=== PATIENT | male | born 1965 | race Two or more races ===

== ENCOUNTER 2020-01-11 19:52 | Emergency (ER) | payer OTHER, SELFPAY ==
[2020-01-11 19:53] VITALS: BP 141/66; PULSE 70; RESP 16; TEMP 37.6; O2SAT 99; BMI 43.0
[2020-01-11 20:35] LABS: Basophils Percent Auto 0.4 % (0-2); Eosinophils Absolute Auto 0.2 X10*3/uL (0.0-0.4); Eosinophils Percent Auto 2.7 % (0-4); Hematocrit 40.8 % (42-52); Hemoglobin 12.8 g/dl (14.0-18.0); Imm Gran Abs Auto 0.02 X10*3/uL (0.00-0.03); Imm Gran Pct Auto 0.2 % (0.0-0.4); Lymphocytes Absolute Auto 2.1 X10*3/uL (1.2-4.9); MANUAL DIFF FLAG NO; Mean Corpuscular HGB Conc 31.4 g/dl (31.0-36.0); Mean Corpuscular Hemoglobin 26.9 pg (27.0-33.0); Mean Corpuscular Volume 85.9 fL (80-98); Mean Platelet Volume 10.1 fL (9.4-12.4); Monocytes Absolute Auto 0.6 X10*3/uL (0.1-1.2); Monocytes Percent Auto 7.8 % (2-11); Neutrophils Absolute Auto 5.2 X10*3/uL (2.0-8.3); Neutrophils Percent Auto 62.9 % (45-73); Platelet Count 259 X10*3/uL (160-400); Red Blood Count 4.75 X10*6/uL (4.60-5.80); Red Cell Distribution Width 13.6 % (11.0-16.0); White Blood Count 8.2 X10*3/uL (4.8-10.8)
[2020-01-11 21:03] LABS: Alanine Aminotransferase 36 U/L (0-40); Albumin Level 4.1 g/dL (3.5-5.0); Alkaline Phosphatase 74 U/L (39-117); Anion Gap 12 (12-20); Aspartate Amino Transferase 25 U/L (5-37); Bilirubin Direct < 0.2 mg/dL (0.0-0.5); Bilirubin Total 0.3 mg/dL (0.0-1.0); Blood Urea Nitrogen 22 mg/dL (9-16); Calcium 9.2 mg/dL (8.4-10.2); Carbon Dioxide 25 mmol/L (22-29); Chloride 113 mmol/L (96-108); Creatinine Clr Calc Pharmacy 83.4; Estimated Glomerular Filt Rate 53; Glucose Random 133 mg/dL (60-115); Lipase 43 U/L (8-78); Potassium 3.6 mmol/l (3.3-5.1); Sodium 146 mmol/L (135-145); Total Protein 6.7 g/dL (6.5-8.0)
[2020-01-11 22:00] VITALS: BP 122/62; PULSE 80; RESP 16; O2SAT 100
[2020-01-11 22:07] VITALS: O2SAT 100
--- NOTE | 2020-01-11 22:19 | ECG_ITS ---
Test Reason : DIARRHEA Blood Pressure : / mmHG Vent. Rate : 067 BPM Atrial Rate : 067 BPM P-R Int : 202 ms QRS Dur : 074 ms QT Int : 402 ms P-R-T Axes : 024 055 054 degrees QTc Int : 424 ms Normal sinus rhythm RSR' or QR pattern in V1 suggests right ventricular conduction delay Otherwise normal ECG When compared with ECG of 12-JUL-2015 18:38, No significant change was found Referred By: Nery Gimenez Electronically Signed By:YONATHAN PAYNE MD
--- NOTE | 2020-01-11 23:10 | ED.NAVMDI ---
HPI - Nausea/Vomiting/Diarrhea General Chief complaint: Nausea/Vomiting/Diarrhea Stated complaint: DIARRHEA Time Seen by Provider: 01/11/20 22:17 Source: patient Mode of arrival: ambulatory Limitations: no limitations History of Present Illness HPI Narrative: patient presents with 6 days of Watery, yellow diarrhea. Does not report any abdominal pain or distention, states the diarrhea occurs shortly after eating. He is an insulin-dependent diabetic and takes metformin. He has been able to eat and drink but states that he feels that he cannot drink enough because of his diarrhea. He does not report any diaphoresis, chest pain or pressure, palpitations, abdominal pain or distention, dysuria, hematuria, weakness, lightheadedness, dizziness, and fevers or chills. He does not report any sick contacts, or eating any foods that are new. He does not report any allergies. MD elicited complaint: nausea and diarrhea Onset (ago): day(s) ( Six days) Description of vomiting: none Associated nausea: Yes Associated abdominal pain: No Location of pain: none Severity: moderate Pain scale (0-10): 5 Associated symptoms: denies other symptoms Related Data Previous Rx's Medication Instructions Recorded ondansetron HCl [Zofran] 4 mg PO Q8H PRN #10 tab 01/12/20 Allergies Allergy/AdvReac Type Severity Reaction Status Date / Time SHELLFISH Allergy Intermediate SWELLING/HI Uncoded 12/17/19 15:20 VES Review of Systems Review of Systems: Constitutional: No Weight loss, No Fever, No Chills, No Night Sweats, No Fatigue, No Malaise ENT/Mouth: No Hearing loss, No Ear Pain, No Nasal Congestion, No Sinus Pain, No Hoarseness, No sore throat, No Rhinorrhea, No Swallowing Difficulty Eyes: No Eye Pain, No Swelling, No Redness, No Foreign Body, No Discharge, No Vision Changes Cardiovascular: No Chest Pain, No SOB, No Dyspnea on Exertion, No Orthopnea, No Edema, No Palpitations Respiratory: No Cough, No Sputum, No Wheezing, No Smoke Exposure, No Dyspnea Gastrointestinal: positive Diarrhea, No abdominal Pain, no nausea, no vomiting, No Hematochezia, No Melena Genitourinary: no irregular bleeding, No Dysuria, No Urinary Frequency, No Hematuria, No Urinary Incontinence, No Urgency, No Flank Pain, No Urinary Flow Changes, No Hesitancy Musculoskeletal: No joint pain, No Myalgias, No Joint Swelling Skin: No Skin Lesions, No rash Neuro: No Weakness, No Numbness, No Paresthesias, No Loss of Consciousness, No Dizziness, No Headache Psych: No Anxiety/Panic, No Depression, No SI/HI/AH/VH, No Social Issues, Heme/Lymph: No Bruising, No Bleeding,No Lymphadenopathy Endocrine: No Polyuria, No Polydipsia, No Temperature Intolerance Gastrointestinal: Gastrointestinal: Reports nausea PMFSH Past Medical History Attestation statement: The following information was validated with the patient. Medical History Asthma Diabetes mellitus, type 2 Hiatal hernia Social History Social History Alcohol intake: never Smoking Status: Never smoker Smoked in Last 30 Days: No Use of substances other than those prescribed or required for medical reasons: No Advance Directives: No Advance Directives Information Provided: Yes Physical Exam Vital Signs: Vital Signs: Vital Signs Temp Pulse Resp BP Pulse Ox 01/11/20 23:43 67 14 121/66 98 01/11/20 23:20 66 16 137/63 99 01/11/20 22:07 100 01/11/20 22:00 80 16 122/62 100 01/11/20 19:53 99.6 F 70 16 141/66 H 99 Body Mass Index 43.0 Appearance: Alert. Oriented X3. No acute distress. Eyes: Pupils equal, round and reactive to light. ENT: Pharynx normal. Neck: Normal inspection. Neck supple. CVS: Normal heart rate and rhythm. Pulses normal. Respiratory: No respiratory distress. Breath sounds normal. Abdomen: Soft and nontender. Skin: Skin warm and dry. Normal skin color. Normal skin turgor. Extremities: No lower extremity edema. Neuro: Oriented X 3. No motor deficit. No sensory deficit. Course Course Course Narrative: patient presents with 1 week history of diarrhea. We will order CBC, Chem 7, and EKG. BMP is abnormal with sodium of 146, and BUN of 22. This could possibly be due to high dehydration, we will order 1 L of fluid at this time. He does have mild anemia H&H is 12.8/40.8. discussion with patient regarding lab values and that he needs to follow-up with his primary care provider for anemia and dehydration. Diarrhea could be caused by metformin use. 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 Patient verbalized understanding of and agrees to plan of care to discharge home. MDM - Nausea/Vomiting/Diarrhea Differential Diagnosis Differential diagnosis: Likely traveler's diarrhea, gastroenteritis and dehydration Medical Records Attestation: I reviewed the patient's medical records. Lab Data Attestation: I reviewed the patient's lab results. Result diagrams: 01/11/20 20:30 01/11/20 20:30 Labs: Lab Results 01/11/20 01/11/20 01/11/20 Range/Units 20:30 20:30 23:11 WBC 8.2 (4.8-10.8) X10*3/uL RBC 4.75 (4.60-5.80) X10*6/uL Hgb 12.8 L (14.0-18.0) g/dl Hct 40.8 L (42-52) % MCV 85.9 (80-98) fL MCH 26.9 L (27.0-33.0) pg MCHC 31.4 (31.0-36.0) g/dl RDW 13.6 (11.0-16.0) % Plt Count 259 (160-400) X10*3/uL MPV 10.1 (9.4-12.4) fL Immature Gran % (Auto) 0.2 (0.0-0.4) % Neut % (Auto) 62.9 (45-73) % Lymph % (Auto) 26.0 (20-40) % [place] % (Auto) 7.8 (2-11) % Eos % (Auto) 2.7 (0-4) % Baso % (Auto) 0.4 (0-2) % Lymph # (Auto) 2.1 (1.2-4.9) X10*3/uL [place] # (Auto) 0.6 (0.1-1.2) X10*3/uL Eos # (Auto) 0.2 (0.0-0.4) X10*3/uL Baso # (Auto) 0.0 (0.0-0.2) X10*3/uL Abs Immat Gran (auto) 0.02 (0.00-0.03) X10*3/uL Absolute Neuts (auto) 5.2 (2.0-8.3) X10*3/uL Absolute Nucleated RBC 0.000 (0.0-0.012) X10*3/uL Nucleated RBC % (auto) 0.0 (0.0-0.2) /100WBC Sodium 146 H (135-145) mmol/L Potassium 3.6 (3.3-5.1) mmol/l Chloride 113 H (96-108) mmol/L Carbon Dioxide 25 (22-29) mmol/L Anion Gap 12 (12-20) BUN 22 H (9-16) mg/dL Creatinine 1.39 (0.5-1.4) mg/dL Estim Creat Clear Calc 83.4 Estimated GFR 53 Random Glucose 133 H (60-115) mg/dL Calcium 9.2 (8.4-10.2) mg/dL Magnesium 2.0 (1.6-2.6) mg/dL Total Bilirubin 0.3 0.3 (0.0-1.0) mg/dL Direct Bilirubin < 0.2 < 0.2 (0.0-0.5) mg/dL AST 25 22 (5-37) U/L ALT 36 35 (0-40) U/L Alkaline Phosphatase 74 65 (39-117) U/L Troponin I High Sens (<3.5-35.0) ng/L Total Protein 6.7 6.1 L (6.5-8.0) g/dL Albumin 4.1 3.8 (3.5-5.0) g/dL Lipase 43 35 (8-78) U/L Urine Color Urine Appearance Urine pH (5.0-8.0) Ur Specific Force (1.005-1.025) Urine Protein (NEG-TRACE) MG/DL Urine Glucose (UA) (NEG) MG/DL Urine Ketones (NEG) MG/DL Urine Blood (NEG) Urine Nitrite (NEG) Ur Leukocyte Esterase (NEG) 01/11/20 01/11/20 Range/Units 23:11 23:18 WBC (4.8-10.8) X10*3/uL RBC (4.60-5.80) X10*6/uL Hgb (14.0-18.0) g/dl Hct (42-52) % MCV (80-98) fL MCH (27.0-33.0) pg MCHC (31.0-36.0) g/dl RDW (11.0-16.0) % Plt Count (160-400) X10*3/uL MPV (9.4-12.4) fL Immature Gran % (Auto) (0.0-0.4) % Neut % (Auto) (45-73) % Lymph % (Auto) (20-40) % [place] % (Auto) (2-11) % Eos % (Auto) (0-4) % Baso % (Auto) (0-2) % Lymph # (Auto) (1.2-4.9) X10*3/uL [place] # (Auto) (0.1-1.2) X10*3/uL Eos # (Auto) (0.0-0.4) X10*3/uL Baso # (Auto) (0.0-0.2) X10*3/uL Abs Immat Gran (auto) (0.00-0.03) X10*3/uL Absolute Neuts (auto) (2.0-8.3) X10*3/uL Absolute Nucleated RBC (0.0-0.012) X10*3/uL Nucleated RBC % (auto) (0.0-0.2) /100WBC Sodium (135-145) mmol/L Potassium (3.3-5.1) mmol/l Chloride (96-108) mmol/L Carbon Dioxide (22-29) mmol/L Anion Gap (12-20) BUN (9-16) mg/dL Creatinine (0.5-1.4) mg/dL Estim Creat Clear Calc Estimated GFR Random Glucose (60-115) mg/dL Calcium (8.4-10.2) mg/dL Magnesium (1.6-2.6) mg/dL Total Bilirubin (0.0-1.0) mg/dL Direct Bilirubin (0.0-0.5) mg/dL AST (5-37) U/L ALT (0-40) U/L Alkaline Phosphatase (39-117) U/L Troponin I High Sens < 3.5 (<3.5-35.0) ng/L Total Protein (6.5-8.0) g/dL Albumin (3.5-5.0) g/dL Lipase (8-78) U/L Urine Color YELLOW Urine Appearance CLEAR Urine pH 6.5 (5.0-8.0) Ur Specific Force 1.025 (1.005-1.025) Urine Protein NEG (NEG-TRACE) MG/DL Urine Glucose (UA) NEG (NEG) MG/DL Urine Ketones NEG (NEG) MG/DL Urine Blood NEG (NEG) Urine Nitrite NEG (NEG) Ur Leukocyte Esterase NEG (NEG) ECG Data Attestation: I personally reviewed and interpreted this ECG as follows: ECG interpretation date: 01/11/20 ECG interpretation time: 22:56 Interpretation: Vent. Rate : 067 BPM Atrial Rate : 067 BPM P-R Int : 202 ms QRS Dur : 074 ms QT Int : 402 ms P-R-T Axes : 024 055 054 degrees QTc Int : 424 ms Normal sinus rhythm Normal ECG When compared with ECG of 12-JUL-2015 18:38, No significant change was found Discharge Plan Discharge Clinical Impression: Gastroenteritis, Dehydration Patient Disposition: Home, Self-Care Instructions: Dehydration (ED), Gastroenteritis (ED) Additional Instructions: you were evaluated for diarrhea And dehydration. Please drink plenty of fluids. We provided prescription for Zofran. This medication prevents nausea. This medication dissolved under the tongue. Use this medication as directed. Please do not take any medications to stop diarrhea, if diarrhea continues please come back to the emergency department. Follow-up with primary care physician in the next week. Your lab values did indicate elevated sodium levels which could possibly be due to the dehydration. You need a repeat lab value to make sure that your sodium levels are normal. Thank you for choosing this emergency department for evaluation. Please follow-up with primary care physician as needed. Return to the emergency department for any new, concerning, or worsening symptoms. Prescriptions: New ondansetron HCl [Zofran] 4 mg tablet 4 mg PO Q8H PRN (Reason: nausea and vomiting) Qty: 10 RF: 0 Interventions: ED Discharge Assessment Last Done: 01/12/20 00:59 Discharge Date/Time: 01/12/20 01:00
[2020-01-11 23:20] VITALS: BP 137/63; PULSE 66; RESP 16; O2SAT 99
[2020-01-11 23:33] LABS: Glucose Urine UA NEG (NEG); Leukocyte Esterase Urine NEG (NEG); Nitrite Urine NEG (NEG); PH 6.5 (5.0-8.0); Specific Gravity - Urine 1.025 (1.005-1.025); Urine Blood NEG (NEG); Urine Ketones NEG (NEG); Urine Protein NEG (NEG-TRACE)
[2020-01-11 23:34] LABS: Appearance Urine CLEAR; Color Urine YELLOW; UACC Culture Trigger NO
[2020-01-11 23:42] LABS: Alanine Aminotransferase 35 U/L (0-40); Albumin Level 3.8 g/dL (3.5-5.0); Alkaline Phosphatase 65 U/L (39-117); Aspartate Amino Transferase 22 U/L (5-37); Bilirubin Direct < 0.2 mg/dL (0.0-0.5); Bilirubin Total 0.3 mg/dL (0.0-1.0); Lipase 35 U/L (8-78); Total Protein 6.1 g/dL (6.5-8.0)
[2020-01-11 23:43] VITALS: BP 121/66; PULSE 67; RESP 14; O2SAT 98
[2020-01-11 23:46] LABS: Troponin-I High Sensitivity < 3.5 ng/L (<3.5-35.0)
[2020-01-11] MEDS: 0.9 % Sodium Chloride 1,000 ML 999 ML IVCONT (23:50)
[2020-01-11] MEDS: Hydrocortisone 2.5 % Rectal Cr 30 GM TUBE 1 APPL PR (23:51)
[2020-01-11] MEDS: Lidocaine 5 % Ointment 35 GM 1 APPL TOPICAL (23:51)
== END 2020-01-12 01:00 | disposition home or self-care (01) ==
PROVIDERS: Nurse Practitioner Family; Emergency Provider Internal Medicine; PCP Internal Medicine
DX: K52.9 Noninfective gastroenteritis and colitis, unspecified (principal); E86.0 Dehydration; E11.9 Type 2 diabetes mellitus without complications; Z79.4 Long term (current) use of insulin
CPT/HCPCS: 36415; 80048; 80076; 81003; 83690; 83735; 84484; 85025; 93005; 96360; 99284

== ENCOUNTER 2020-01-21 08:06 | Outpatient (REF) | payer OTHER, SELFPAY ==
[2020-01-21 09:29] LABS: Alanine Aminotransferase 35 U/L (0-40); Albumin Level 3.9 g/dL (3.5-5.0); Alkaline Phosphatase 65 U/L (39-117); Anion Gap 10 (12-20); Aspartate Amino Transferase 24 U/L (5-37); Bilirubin Total 0.3 mg/dL (0.0-1.0); Blood Urea Nitrogen 21 mg/dL (9-16); Calcium 9.4 mg/dL (8.4-10.2); Carbon Dioxide 28 mmol/L (22-29); Chloride 109 mmol/L (96-108); Cholesterol 121 mg/dL; Estimated Glomerular Filt Rate > 60; Glucose Fasting 122 mg/dL (60-99); HDL Cholesterol 31 mg/dL; LDL Cholesterol Calculated 65 mg/dl; Potassium 3.7 mmol/l (3.3-5.1); Sodium 143 mmol/L (135-145); Total Protein 6.5 g/dL (6.5-8.0); Triglycerides 128 mg/dL
[2020-01-21 09:51] LABS: Vitamin D 25-OH Total 24.4 ng/mL (>30)
== END 2020-01-21 08:07 | disposition home or self-care (01) ==
LOC: HO.LAB 08:06
PROVIDERS: Visit Provider Internal Medicine
DX: E11.29 Type 2 diabetes mellitus with other diabetic kidney complication (principal); E78.2 Mixed hyperlipidemia; E55.9 Vitamin D deficiency, unspecified
CPT/HCPCS: 80053; 80061; 82306

== ENCOUNTER → 2020-01-28 09:05 | Outpatient (BNVA) | payer OTHER, SELFPAY | PROVIDERS: PCP Internal Medicine; Visit Provider Surgery | DX: K64.9 Unspecified hemorrhoids (principal) | CPT/HCPCS: 99212 ==

== ENCOUNTER 2020-02-03 08:13 | Outpatient (REF) | payer OTHER, SELFPAY ==
[2020-02-03 09:02] LABS: MANUAL DIFF FLAG NO
[2020-02-03 09:07] LABS: Basophils Percent Auto 0.3 % (0-2); Eosinophils Absolute Auto 0.2 X10*3/uL (0.0-0.4); Eosinophils Percent Auto 2.4 % (0-4); Hematocrit 40.1 % (42-52); Hemoglobin 12.8 g/dl (14.0-18.0); Imm Gran Abs Auto 0.02 X10*3/uL (0.00-0.03); Imm Gran Pct Auto 0.3 % (0.0-0.4); Lymphocytes Absolute Auto 1.9 X10*3/uL (1.2-4.9); Lymphocytes Percent Auto 26.8 % (20-40); Mean Corpuscular HGB Conc 31.9 g/dl (31.0-36.0); Mean Corpuscular Hemoglobin 26.8 pg (27.0-33.0); Mean Corpuscular Volume 84.1 fL (80-98); Mean Platelet Volume 10.8 fL (9.4-12.4); Monocytes Absolute Auto 0.6 X10*3/uL (0.1-1.2); Monocytes Percent Auto 8.6 % (2-11); Neutrophils Absolute Auto 4.4 X10*3/uL (2.0-8.3); Neutrophils Percent Auto 61.6 % (45-73); Platelet Count 289 X10*3/uL (160-400); Red Blood Count 4.77 X10*6/uL (4.60-5.80); Red Cell Distribution Width 13.2 % (11.0-16.0); White Blood Count 7.1 X10*3/uL (4.8-10.8)
[2020-02-03 09:39] LABS: Alanine Aminotransferase 26 U/L (0-40); Albumin Level 4.1 g/dL (3.5-5.0); Alkaline Phosphatase 70 U/L (39-117); Anion Gap 9 (12-20); Aspartate Amino Transferase 20 U/L (5-37); Bilirubin Total 0.5 mg/dL (0.0-1.0); Blood Urea Nitrogen 20 mg/dL (9-16); Carbon Dioxide 26 mmol/L (22-29); Chloride 110 mmol/L (96-108); Estimated Glomerular Filt Rate > 60; Glucose Fasting 104 mg/dL (60-99); Sodium 141 mmol/L (135-145); Total Protein 6.6 g/dL (6.5-8.0)
== END 2020-02-03 08:14 | disposition home or self-care (01) ==
LOC: HO.LAB 08:13
PROVIDERS: PCP Internal Medicine; Visit Provider Internal Medicine
DX: K92.1 Melena (principal); E87.0 Hyperosmolality and hypernatremia
CPT/HCPCS: 36415; 80053; 85025

== ENCOUNTER 2020-02-16 06:01 | Day surgery (SDC) | payer OTHER, SELFPAY ==
[2020-02-10 13:14] VITALS: BMI 46.5
[2020-02-16 07:05] LABS: Glucose, Whole Blood 131 mg/dL (60-115)
[2020-02-16 07:07] VITALS: BP 125/61; PULSE 66; RESP 18; TEMP 36.5; O2SAT 99
--- NOTE | 2020-02-16 07:14 | P.CONAN_ITS ---
[facility] Past Medical History Medical History Anxiety Asthma Bleeding hemorrhoids Bloody stools Colon cancer screening Depression Diabetes mellitus, type 2 Family history of anesthesia complication Hiatal hernia Hx of insomnia Hx of low back pain Hx of migraines Hyperlipidemia Hypernatremia Hypertension Morbid obesity DANIEL on CPAP Family History Family History Maternal Uncle History of prostate cancer Father History of throat cancer Maternal Grandfather History of throat cancer Surgical History Surgical History H/O hernia repair History of carpal tunnel release History of knee surgery History of umbilical hernia repair Hx of colonoscopy Social History Social History Are you a primary healthcare economics manager to a significant other at home: No Do you presently have visiting nurse or other home services: No Alcohol intake: never Smoking Status: Smoker, status unknown Use of substances other than those prescribed or required for medical reasons: No Advance Directives: No Advance Directives Information Provided: No Advance Directives on File: No Meds Allergies Allergy/AdvReac Type Severity Reaction Status Date / Time SHELLFISH Allergy Intermediate SWELLING/HI Uncoded 01/26/20 15:58 VES Home Medications Medication Instructions Recorded Confirmed Type albuterol sulfate 90 mcg/actuation 2 puff PO Q4H PRN 01/26/20 02/10/20 History aerosol inhaler amitriptyline 150 mg tablet 150 mg PO BEDTIME 01/26/20 02/10/20 History atorvastatin 40 mg tablet 40 mg PO DAILY 01/26/20 02/10/20 History blood sugar diagnostic #10 ea 01/26/20 01/26/20 History cholecalciferol (vitamin D3) 50 50 mcg PO DAILY 01/26/20 02/10/20 History mcg (2,000 unit) capsule fenofibrate nanocrystallized 145 145 mg PO DAILY 01/26/20 02/10/20 History mg tablet fluticasone 250 mcg-salmeterol 50 1 ea INHALATION 01/26/20 01/26/20 History mcg/dose blistr powdr for inhalation hydrochlorothiazide 25 mg tablet 25 mg PO DAILY 01/26/20 02/10/20 History lancets 28 gauge #100 ea 01/26/20 01/26/20 History lorazepam 1 mg tablet 1 mg PO BID PRN 01/26/20 02/10/20 History meloxicam 15 mg tablet 15 mg PO DAILY 01/26/20 02/10/20 History metformin 500 mg tablet,extended 1,000 mg PO BID 01/26/20 02/10/20 History release 24 hr oxcarbazepine 600 mg tablet 600 mg PO BID 01/26/20 02/10/20 History semaglutide 1 mg/dose (2 mg/1.5 1 mg SUBCUT QWEEK 01/26/20 02/10/20 History mL) subcutaneous pen injector topiramate 100 mg tablet 100 mg PO DAILY 01/26/20 01/26/20 History Exam Exam Date and Time: February 16, 2020713 Height,Weight and Vital Signs: Height 5 ft 8 in Weight 138.799 kg Last Vital Signs Temp 97.7 F 02/16/20 07:07 Pulse 66 02/16/20 07:07 Resp 18 02/16/20 07:07 BP 125/61 02/16/20 07:07 Pulse Ox 99 02/16/20 07:07 Pertinent Lab Results Pertinent Lab Results: Laboratory Tests 02/16/20 07:01 POC Glucose 131 H Airway Mallampati Class: II TM Dist: >3cm Neck ROM: Full Partial: Upper and Lower Assessment and Plan Assessment Anesthesia Assessment: Anesthesia Plan Discussed and Chart Reviewed Final Anesthetic Review NPO: Yes ASA Class: III Final Preanesthetic Review: No Changes in Pt Med Stat, Meds/Allgs Chart Reviewed, Consent Obtained/Reviewed and Anes Risks/Benef Reviewed Patient Risk: Intermediate Procedure Risk: Low Assessment/Block/Sedation in SS: Assess/Block/Sedation-SS Anesthetic Plan Anesthetic Plan: MAC: Disposition: Standard PACU
[2020-02-16 08:00] VITALS: BP 107/65; PULSE 86; RESP 16; TEMP 36.2; O2SAT 97
--- NOTE | 2020-02-16 08:03 | MHC.SHP ---
Pre-Procedural Eval Section B Chief Complaint: Bleeding Hemorrhoids, Screening Allergies: Allergies Allergy/AdvReac Type Severity Reaction Status Date / Time SHELLFISH Allergy Intermediate SWELLING/HI Uncoded 01/26/20 15:58 VES Plan Patient has been examined and remains a candidate for the planned procedure
--- NOTE | 2020-02-16 08:03 | PM.OP ---
Brief Operative Note Date of Service: 02/16/20 Pre-op diagnosis: rectal bleed Post-op diagnosis: other (suboptimal prep, hemorrhoids) Procedure: colonoscopy Surgeon: Mario Ruggiero MD Anesthesia: MAC Estimated blood loss (mL): 0 Pathology: none sent Condition: stable Disposition: PACU
[2020-02-16 08:15] VITALS: BP 105/54; PULSE 63; RESP 18; O2SAT 98
--- NOTE | 2020-02-16 08:30 | OP_ITS ---
SURGEON: Mario Ruggiero MD INDICATIONS: The patient is a 55-year-old male, who has had periodic bright red blood per rectum for many years. He was noted to have hemorrhoids. I had done a colonoscopy in 2018, and he had very poor bowel prep at that time, so I had recommended him to undergo another one within 1 year. He has not done yet, so I had recommended to him that we repeat this colonoscopy. He understood the technique of procedure. He was aware of the risks, benefits, and alternatives. PREOPERATIVE DIAGNOSIS: Rectal bleeding. POSTOPERATIVE DIAGNOSIS: PROCEDURE PERFORMED: Colonoscopy. ESTIMATED BLOOD LOSS: COMPLICATIONS: ANESTHESIA: ASSISTANTS: SPECIMENS: POSTOPERATIVE DIAGNOSES: 1. External hemorrhoids. 2. Suboptimal bowel prep, but otherwise normal colonoscopy. DESCRIPTION OF PROCEDURE: He was brought to the operating room, placed in left lateral decubitus position under monitored anesthesia care. A full digital rectal exam was done. There were no palpable anal canal lesions except for hemorrhoids, which appeared to be mostly external. The tip of the Olympus colonoscope was introduced gently through the anal orifice and advanced with insufflation all the way to the cecum. The cecum was intubated. The cecum was identified by visualization of the ileocecal valve as well as appendiceal orifice. The cecal mucosa was unremarkable. The scope was gradually withdrawn with careful examination of the entire colonic mucosa being done with scope withdrawal. Unfortunately, the patient had lot of segments of the colon with pools of thick watery stool and we had to spend a lot of time irrigating and suctioning out. It was unlikely that any large lesion had been missed, but I would still say that the prep was suboptimal. We continued to withdraw the scope. There were no large lesions seen. The rectum was reached. The anal canal was unremarkable except for hemorrhoidal tissue. The scope was then withdrawn completely with de-sufflation. The patient tolerated the procedure well. There were no complications noted. He did admit that he had lunch of a burger yesterday, despite instructions not to have any solids during the day. In view of the suboptimal prep, I would repeat the colonoscopy within the next 3 years. MD PARAMJIT Turcios/GILL / [id number]
--- NOTE | 2020-02-16 11:28 | HO.POSTANES ---
Post Anesthesia Evaluation Post Anesthesia Evaluation Vital Signs: Vital Signs Temp Pulse Resp BP Pulse Ox 02/16/20 08:15 63 18 105/54 L 98 02/16/20 08:00 97.1 F 86 16 107/65 97 02/16/20 07:07 97.7 F 66 18 125/61 99 Anesthesia: Monitored Mental Status: Awake Pain Control: Satisfactory Nausea/Vomiting: None Hydration: Adequate Anesthesia-Related Issues: No Anes. Related Issues
== END 2020-02-16 09:00 | disposition home or self-care (01) ==
PROVIDERS: PCP Internal Medicine; Visit Provider Surgery
PROC: 0DJD8ZZ Inspection of Lower Intestinal Tract, Via Natural or Artificial Opening Endoscopic (ICD-10-PCS; CPT 45378; principal; 2020-02-16 07:30)
DX: Z12.11 Encounter for screening for malignant neoplasm of colon (principal); K64.4 Residual hemorrhoidal skin tags; K64.9 Unspecified hemorrhoids; E11.9 Type 2 diabetes mellitus without complications; J45.909 Unspecified asthma, uncomplicated; I10 Essential (primary) hypertension; Z79.84 Long term (current) use of oral hypoglycemic drugs; Z79.899 Other long term (current) drug therapy
CPT/HCPCS: G0121; 82947; J2405; J3010

== ENCOUNTER → 2020-02-29 13:50 | Outpatient (BNVA) | payer OTHER, SELFPAY | PROVIDERS: PCP Internal Medicine; Referring Provider Internal Medicine; Visit Provider Surgery | DX: Z12.11 Encounter for screening for malignant neoplasm of colon (principal) | CPT/HCPCS: 99202 ==

== ENCOUNTER → 2020-03-11 08:51 | Outpatient (BNVA) | payer OTHER, SELFPAY | PROVIDERS: PCP Internal Medicine; Referring Provider Internal Medicine; Visit Provider Internal Medicine Endocrinology, Diabetes & Metabolism | DX: E11.42 Type 2 diabetes mellitus with diabetic polyneuropathy (principal); E66.01 Morbid (severe) obesity due to excess calories; E78.5 Hyperlipidemia, unspecified; I10 Essential (primary) hypertension; E55.9 Vitamin D deficiency, unspecified | CPT/HCPCS: 82947; 99212 ==

== ENCOUNTER 2020-03-18 05:09 | Emergency (ER) | payer OTHER, SELFPAY ==
[2020-03-18 05:27] VITALS: BP 149/72; PULSE 94; RESP 16; TEMP 36.7; O2SAT 98; BMI 43.0
[2020-03-18 06:00] VITALS: PULSE 78; RESP 16; O2SAT 100
[2020-03-18 06:03] LABS: Glucose Urine UA NEG (NEG); Leukocyte Esterase Urine NEG (NEG); Nitrite Urine NEG (NEG); Urine Blood 1+ (NEG); Urine Ketones NEG (NEG); Urine Protein NEG (NEG-TRACE)
[2020-03-18 06:04] LABS: Appearance Urine CLEAR; Color Urine STRAW
--- NOTE | 2020-03-18 06:10 | ED.MALEGU ---
HPI - Male Genitourinary General Chief complaint: Urogenital-Male Stated complaint: Urinary problem Time Seen by Provider: 03/18/20 05:22 Source: patient Mode of arrival: ambulatory Limitations: no limitations History of Present Illness HPI Narrative: This is a 55-year-old male with history of diabetes and hypertension who presents with complaints of pain at the initiation of urination and then again at the very end. This is not been associated with any fevers, chills, nausea, vomiting, diarrhea, abdominal pain, or scrotal pain. Related Data Home Medications Medication Instructions Recorded Confirmed albuterol sulfate 90 mcg/actuation 2 puff PO Q4H PRN 01/26/20 03/11/20 aerosol inhaler amitriptyline 150 mg tablet 150 mg PO BEDTIME 01/26/20 03/11/20 blood sugar diagnostic #10 ea 01/26/20 03/11/20 fluticasone 250 mcg-salmeterol 50 1 ea INHALATION 01/26/20 03/11/20 mcg/dose blistr powdr for inhalation hydrochlorothiazide 25 mg tablet 25 mg PO DAILY 01/26/20 03/11/20 lancets 28 gauge #100 ea 01/26/20 03/11/20 lorazepam 1 mg tablet 1 mg PO BID PRN 01/26/20 03/11/20 meloxicam 15 mg tablet 15 mg PO DAILY 01/26/20 03/11/20 oxcarbazepine 600 mg tablet 600 mg PO BID 01/26/20 03/11/20 topiramate 100 mg tablet 100 mg PO DAILY 01/26/20 03/11/20 gabapentin 100 mg capsule 100 mg PO TID 03/11/20 03/11/20 montelukast 10 mg tablet 10 mg PO BEDTIME 03/11/20 03/11/20 Previous Rx's Medication Instructions Recorded sodium,potassium,mag sulfates 17.5 See Rx Instructions PO .COMPLEX 01/28/20 gram-3.13 gram-1.6 gram oral soln #354 ml atorvastatin 40 mg tablet 40 mg PO DAILY 90 Days #90 tab 03/11/20 blood-glucose meter #1 ea 03/11/20 cholecalciferol (vitamin D3) 50 50 mcg PO DAILY 90 Days #90 cap 03/11/20 mcg (2,000 unit) capsule fenofibrate nanocrystallized 145 145 mg PO DAILY 90 Days #90 tab 03/11/20 mg tablet lisinopril 40 mg tablet 40 mg PO DAILY #90 tab 03/11/20 metformin 500 mg tablet,extended 1,000 mg PO BID 90 Days #360 tab 03/11/20 release 24 hr pioglitazone 30 mg tablet 30 mg PO DAILY 90 Days #90 tab 03/11/20 semaglutide 1 mg/dose (2 mg/1.5 1 mg SUBCUT QWEEK 90 Days #9.75 ml 03/11/20 mL) subcutaneous pen injector tamsulosin [Flomax] 0.4 mg PO BEDTIME 14 Days #14 cap 03/18/20 Allergies Allergy/AdvReac Type Severity Reaction Status Date / Time SHELLFISH Allergy Intermediate SWELLING/HI Uncoded 01/26/20 15:58 VES Review of Systems Review of Systems: Pertinent positives and negatives as stated in HPI 10 point review of systems otherwise negative. [facility] Past Medical History Source: nursing notes reviewed Medical History Anxiety Asthma Bleeding hemorrhoids Bloody stools Colon cancer screening Depression Diabetes mellitus, type 2 Diabetes type 2, controlled Diabetic polyneuropathy associated with type 2 diabetes mellitus Family history of anesthesia complication Hiatal hernia Hx of insomnia Hx of low back pain Hx of migraines Hyperlipidemia Hypernatremia Hypertension Morbid obesity DANIEL on CPAP Vitamin D deficiency Surgical History H/O hernia repair History of carpal tunnel release History of knee surgery History of umbilical hernia repair Hx of colonoscopy Family History Family History Maternal Uncle History of prostate cancer Father History of throat cancer Maternal Grandfather History of throat cancer Social History Social History Alcohol intake: never Smoking Status: Smoker, status unknown Advance Directives: No Advance Directives Information Provided: No Physical Exam Vital Signs: Vital Signs: Last Vital Signs Temp 98.1 F 03/18/20 05:27 Pulse 94 03/18/20 05:27 Resp 16 03/18/20 05:27 BP 149/72 H 03/18/20 05:27 Pulse Ox 98 03/18/20 05:27 Body Mass Index 43.0 VITAL SIGNS: Reviewed. GENERAL: Well developed, well nourished, in no acute distress. HEAD: Normocephalic/atraumatic, EYES: PERRLA, EOMI intact without pain, no nystagmus/pallor/icterus noted EARS: Ext canals without abnormality, TMs non-bulging and non-erythematous NOSE: Nares patent bilateral OROPHARYNX: no oral lesions noted, posterior pharynx clear and non-erythematous without noted tonsillar enlargement/erythema/exudates NECK: Supple, no adenopathy LUNGS: Normal breath sounds. No adventitious sounds or accessory muscle use. SpO2<98> CARDIOVASCULAR: Regular rate and rhythm without noted murmurs, no JVD or lower extremity edema. ABDOMEN: Soft, non-tender, non-distended with bowel sounds. No rigidity. No guarding. No palpable masses or hernias noted MUSCULOSKELETAL: No tenderness, deformities, or effusions noted on gross inspection. EXTREMITIES: No cyanosis, clubbing or edema. SKIN: Inspection of the skin reveals no rashes, ulcerations, jaundice, pallor, or petechiae. NEUROLOGIC: Alert and oriented x 4. Strength and sensation to light touch were grossly intact x 4. Course Course Course Narrative: This is a 55-year-old male with history and clinical presentation most consistent with likely BPH pre void bladder scan was 168 and postvoid was 0 therefore negative for any urinary retention, and evaluation for UTI is negative. Will start this 55-year-old male on Flomax and instruct him to follow up with his primary care provider. MDM - Male Genitourinary Lab Data Labs: Lab Results 03/18/20 Range/Units 05:57 Urine Color STRAW Urine Appearance CLEAR Urine pH 6.0 (5.0-8.0) Ur Specific [place] 1.010 (1.005-1.025) Urine Protein NEG (NEG-TRACE) MG/DL Urine Glucose (UA) NEG (NEG) MG/DL Urine Ketones NEG (NEG) MG/DL Urine Blood 1+ H (NEG) Urine Nitrite NEG (NEG) Ur Leukocyte Esterase NEG (NEG) Urine RBC 0-2 (0) /HPF Urine WBC 1-4 (0-4) /HPF Urine WBC Clumps NOTED Ur Squamous Epith Cells TRACE /LPF Urine Bacteria NONE /LPF Discharge Plan Discharge Clinical Impression: Benign prostatic hyperplasia Qualifiers: Lower urinary tract symptom presence: symptoms present Lower urinary tract symptom detail: urinary hesitancy Qualified Code(s): N40.1 - Benign prostatic hyperplasia with lower urinary tract symptoms Patient Disposition: Home, Self-Care Instructions: Enlarged Prostate (BPH) (ED) Additional Instructions: Contin?a estando rose hidratado bebiendo abundante agua. Se indica un seguimiento con toribio proveedor de atenci?n primaria para dane evaluaci?n adicional. Comenz? hoy con Flomax, que debe tomarse por la noche, karla antes de acostarse. Prescriptions: New tamsulosin [Flomax] 0.4 mg capsule 0.4 mg PO BEDTIME 14 Days Qty: 14 RF: 0 No Action (DME) FreeStyle Lite Strips Strip See Rx Instructions strip Not Applicable BID Qty: 10 RF: 0 (DME) lancets 28 gauge misc See Rx Instructions lancet topical BID Qty: 100 RF: 0 topiramate 100 mg tablet 100 mg PO DAILY RF: 0 lorazepam 1 mg tablet 1 mg PO BID PRN (Reason: Anxiety) RF: 0 amitriptyline 150 mg tablet 150 mg PO BEDTIME RF: 0 meloxicam 15 mg tablet 15 mg PO DAILY RF: 0 hydrochlorothiazide 25 mg tablet 25 mg PO DAILY RF: 0 oxcarbazepine 600 mg tablet 600 mg PO BID RF: 0 albuterol sulfate 90 mcg/actuation HFA aerosol inhaler 2 puff PO Q4H PRN (Reason: Wheezing) RF: 0 fluticasone propion-salmeterol 250-50 mcg/dose blister with device 1 ea inhalation RF: 0 montelukast 10 mg tablet 10 mg PO BEDTIME RF: 0 gabapentin 100 mg capsule 100 mg PO TID RF: 0 metformin 500 mg tablet extended release 24 hr 1,000 mg PO BID 90 Days Qty: 360 RF: 2 pioglitazone 30 mg tablet 30 mg PO DAILY 90 Days Qty: 90 RF: 1 semaglutide 1 mg/dose (2 mg/1.5 mL) pen injector 1 mg subcut QWEEK 90 Days Qty: 9.75 RF: 1 atorvastatin 40 mg tablet 40 mg PO DAILY 90 Days Qty: 90 RF: 1 fenofibrate nanocrystallized 145 mg tablet 145 mg PO DAILY 90 Days Qty: 90 RF: 1 lisinopril 40 mg tablet 40 mg PO DAILY Qty: 90 RF: 3 cholecalciferol (vitamin D3) 50 mcg (2,000 unit) capsule 50 mcg PO DAILY 90 Days Qty: 90 RF: 2 (DME) blood-glucose meter [FreeStyle Lite Meter] Kit See Rx Instructions .ROUTE .MEDSUPPLY Qty: 1 RF: 0 Suprep Bowel Prep Kit 17.5-3.13-1.6 gram recon soln See Rx Instructions PO .COMPLEX Qty: 354 RF: 0 Referrals: Deedee Bruce MD [Primary Care Provider] - 2 days (Re-evaluation for suspected BPH and started on Flomax.) Print Language: Danish
[2020-03-18 06:27] LABS: RBC Urine 0-2 /HPF (0); Squamous Epithelial Cell Urine TRACE /LPF; WBC Clumps Urine NOTED
== END 2020-03-18 06:58 | disposition home or self-care (01) ==
PROVIDERS: Emergency Provider Student in an Organized Health Care Education/Training Program; PCP Internal Medicine
DX: N40.1 Benign prostatic hyperplasia with lower urinary tract symptoms (principal); R39.11 Hesitancy of micturition; E11.9 Type 2 diabetes mellitus without complications; I10 Essential (primary) hypertension
CPT/HCPCS: 81001; 99283; 99284

== ENCOUNTER 2020-03-24 11:01 | Emergency (ER) | payer OTHER, SELFPAY ==
[2020-03-24 11:17] VITALS: BP 148/76; PULSE 90; RESP 18; TEMP 36.6; O2SAT 98; BMI 43.0
--- NOTE | 2020-03-24 12:02 | ED_ITS ---
HPI - General Adult General Chief complaint: General Medical Stated complaint: blood in urine Time Seen by Provider: 03/24/20 12:48 Source: patient Mode of arrival: ambulatory Limitations: no limitations History of Present Illness HPI narrative: Patient presents to ED for hematuria and mild dysuria. Patient states no flank pain, fever, chills, nausea vomiting. Patient denies any recent trauma to the abdomen, genital, or flank area. Patient denies any pain in the perineal area. Patient denies any testicular pain, penile discharge, penile lesions Related Data Home Medications Medication Instructions Recorded Confirmed albuterol sulfate 90 mcg/actuation 2 puff PO Q4H PRN 01/26/20 03/11/20 aerosol inhaler amitriptyline 150 mg tablet 150 mg PO BEDTIME 01/26/20 03/11/20 blood sugar diagnostic #10 ea 01/26/20 03/11/20 fluticasone 250 mcg-salmeterol 50 1 ea INHALATION 01/26/20 03/11/20 mcg/dose blistr powdr for inhalation hydrochlorothiazide 25 mg tablet 25 mg PO DAILY 01/26/20 03/11/20 lancets 28 gauge #100 ea 01/26/20 03/11/20 lorazepam 1 mg tablet 1 mg PO BID PRN 01/26/20 03/11/20 oxcarbazepine 600 mg tablet 600 mg PO BID 01/26/20 03/11/20 topiramate 100 mg tablet 100 mg PO DAILY 01/26/20 03/11/20 gabapentin 100 mg capsule 100 mg PO TID 03/11/20 03/11/20 montelukast 10 mg tablet 10 mg PO BEDTIME 03/11/20 03/11/20 Previous Rx's Medication Instructions Recorded sodium,potassium,mag sulfates 17.5 See Rx Instructions PO .COMPLEX 01/28/20 gram-3.13 gram-1.6 gram oral soln #354 ml atorvastatin 40 mg tablet 40 mg PO DAILY 90 Days #90 tab 03/11/20 blood-glucose meter #1 ea 03/11/20 cholecalciferol (vitamin D3) 50 50 mcg PO DAILY 90 Days #90 cap 03/11/20 mcg (2,000 unit) capsule fenofibrate nanocrystallized 145 145 mg PO DAILY 90 Days #90 tab 03/11/20 mg tablet lisinopril 40 mg tablet 40 mg PO DAILY #90 tab 03/11/20 metformin 500 mg tablet,extended 1,000 mg PO BID 90 Days #360 tab 03/11/20 release 24 hr pioglitazone 30 mg tablet 30 mg PO DAILY 90 Days #90 tab 03/11/20 semaglutide 1 mg/dose (2 mg/1.5 1 mg SUBCUT QWEEK 90 Days #9.75 ml 03/11/20 mL) subcutaneous pen injector tamsulosin [Flomax] 0.4 mg PO BEDTIME 14 Days #14 cap 03/18/20 meloxicam 15 mg tablet 15 mg PO DAILY PRN #90 tab 03/20/20 nitrofurantoin macrocrystal 100 mg 100 mg PO BID 7 Days #14 cap 03/21/20 capsule Allergies Allergy/AdvReac Type Severity Reaction Status Date / Time SHELLFISH Allergy Intermediate SWELLING/HI Uncoded 01/26/20 15:58 VES Review of Systems Review of Systems: Yes all other systems are reviewed and are negative Constitutional: Constitutional: Reports as per HPI and Reports no additional constitutional complaints Eyes: Eyes: Reports as per HPI and Reports no additional eye complaints ENT: Reports system reviewed and no additional complaints, except as documented and Reports as per HPI Cardiovascular: Cardiovascular: Reports no additional cardiovascular complaints Respiratory: Respiratory: Reports as per HPI and Reports no additional respiratory complaints Gastrointestinal: Gastrointestinal: Reports as per HPI and Reports no additional gastrointestinal complaints Genitourinary: Genitourinary: Reports no additional male genitourinary complaints, Reports as per HPI and Reports hematuria Comments: Dysuria Musculoskeletal: Musculoskeletal: Reports no additional musculoskeletal complaints and Reports as per HPI Neurologic: Reports system reviewed and no additional complaints, except as documented and Reports as per HPI Psychiatric: Psychiatric: Reports no additional psychiatric complaints and Reports as per HPI [facility] Past Medical History Medical History (Updated 03/24/20 @ 16:46 by NAKUL Flores) Anxiety Asthma Bleeding hemorrhoids Bloody stools Colon cancer screening Depression Diabetes mellitus, type 2 Diabetes type 2, controlled Diabetic polyneuropathy associated with type 2 diabetes mellitus Family history of anesthesia complication Hiatal hernia Hx of insomnia Hx of low back pain Hx of migraines Hyperlipidemia Hypernatremia Hypertension Morbid obesity DANIEL on CPAP Prostate enlargement Vitamin D deficiency Surgical History H/O hernia repair History of carpal tunnel release History of knee surgery History of umbilical hernia repair Hx of colonoscopy Family History Family History Maternal Uncle History of prostate cancer Father History of throat cancer Maternal Grandfather History of throat cancer Social History Social History Alcohol intake: never Smoking Status: Never smoker Use of substances other than those prescribed or required for medical reasons: No Advance Directives: No Advance Directives Information Provided: No Physical Exam Vital Signs: Vital Signs: Last Vital Signs Temp 99.9 F 03/24/20 16:00 Pulse 80 03/24/20 16:00 Resp 17 03/24/20 16:00 BP 136/71 03/24/20 16:00 Pulse Ox 99 03/24/20 16:00 Body Mass Index 43.0 Const: General: cooperative and healthy appearing Orientation/consciousness: patient oriented x3 HENMT: Head: Yes normal to inspection and Yes No palpable skull fracture present Eyes: General: appearance normal, both eyes and all related structures Neck: Neck: Yes normal visual inspection, Yes full ROM, Yes no lymphadenopathy, Yes no meningeal signs, Yes trachea midline, Yes supple and No tender Chest: Chest palpation & inspection: normal inspection of the chest and normal palpation of entire chest wall Resp: Effort & Inspection: normal respiratory effort and able to speak in complete sentences Cardio: Jugular venous distension: no JVD Heart sounds: S1 normal heart sound present and S2 normal heart sound present GI: Inspection: Yes normal to inspection Palpation (GI): Soft to palpation, not firm, nontender, no guarding and not rigid : General: Yes no CVA tenderness Back/Spine/Pelvis: Back: no CVA tenderness and No back tenderness Skin: General skin exam: no rashes or lesions noted Neuro: General: patient oriented x3, gait normal, no meningeal signs and CN's II-XI intact bilaterally Cranial nerves: Yes CN's II-XII intact bilaterally Extrem: General: Yes normal to inspection and Yes full ROM Psych: Appearance: grossly normal, well kempt and not disheveled Course Course Course Narrative: Patient will have basic labs including urine and most likely imaging. Reevaluation(s) Reevaluation #1: CT imaging ordered for patient. Labs show elevated white blood cell count. Patient present not any distress. Time: 15:49 Reevaluation #2: CT scan negative for any kidney stones, hydronephrosis, hydroureter, or bladder mass. CT scan shows prostate enlatrment. Patient already on nitrofurantoin and montelukast which was prescribed by PCP. Patient informed to continue taking meds and and will give Urology follow-up information. [place] [id number]. Patient afebrile not toxic appearing. Patient is not in distress. Time: 16:38 Medical Decision Making MDM Narrative Medical decision making narrative: Hematuria. Lab Data Result diagrams: 03/24/20 12:03/24/20 12: Labs: Lab Results 03/24/20 03/24/20 03/24/20 Range/Units 12: 12: 12: WBC 16.8 H (4.8-10.8) X10*3/uL RBC 4.71 (4.60-5.80) X10*6/uL Hgb 12.6 L (14.0-18.0) g/dl Hct 39.9 L (42-52) % MCV 84.7 (80-98) fL MCH 26.8 L (27.0-33.0) pg MCHC 31.6 (31.0-36.0) g/dl RDW 13.3 (11.0-16.0) % Plt Count 374 D (160-400) X10*3/uL MPV 9.8 (9.4-12.4) fL Immature Gran % (Auto) 0.4 (0.0-0.4) % Neut % (Auto) 77.4 H (45-73) % Lymph % (Auto) 12.3 L (20-40) % [place] % (Auto) 8.4 (2-11) % Eos % (Auto) 1.3 (0-4) % Baso % (Auto) 0.2 (0-2) % Lymph # (Auto) 2.1 (1.2-4.9) X10*3/uL [place] # (Auto) 1.4 H (0.1-1.2) X10*3/uL Eos # (Auto) 0.2 (0.0-0.4) X10*3/uL Baso # (Auto) 0.0 (0.0-0.2) X10*3/uL Abs Immat Gran (auto) 0.07 H (0.00-0.03) X10*3/uL Absolute Neuts (auto) 13.0 H (2.0-8.3) X10*3/uL Absolute Nucleated RBC 0.000 (0.0-0.012) X10*3/uL Nucleated RBC % (auto) 0.0 (0.0-0.2) /100WBC PT 14.0 H (10.8-13.0) SEC INR 1.2 H (0.9-1.1) APTT 31.8 (24.1-38.0) SEC Sodium 138 (135-145) mmol/L Potassium 3.7 (3.3-5.1) mmol/l Chloride 103 (96-108) mmol/L Carbon Dioxide 28 (22-29) mmol/L Anion Gap 11 L (12-20) BUN 14 (9-16) mg/dL Creatinine 1.07 (0.5-1.4) mg/dL Estim Creat Clear Calc 108.3 Estimated GFR > 60 Random Glucose 91 (60-115) mg/dL Calcium 9.0 (8.4-10.2) mg/dL Total Bilirubin 0.3 (0.0-1.0) mg/dL Direct Bilirubin 0.2 (0.0-0.5) mg/dL AST 16 (5-37) U/L ALT 22 (0-40) U/L Alkaline Phosphatase 75 (39-117) U/L Total Protein 6.9 (6.5-8.0) g/dL Albumin 4.0 (3.5-5.0) g/dL Lipase 24 (8-78) U/L Urine Color Urine Appearance Urine pH (5.0-8.0) Ur Specific [place] (1.005-1.025) Urine Protein (NEG-TRACE) MG/DL Urine Glucose (UA) (NEG) MG/DL Urine Ketones (NEG) MG/DL Urine Blood (NEG) Urine Nitrite (NEG) Ur Leukocyte Esterase (NEG) Urine RBC (0) /HPF Urine WBC (0-4) /HPF Ur Squamous Epith Cells /LPF Urine Bacteria /LPF 12/24/20 Range/Units 12:26 WBC (4.8-10.8) X10*3/uL RBC (4.60-5.80) X10*6/uL Hgb (14.0-18.0) g/dl Hct (42-52) % MCV (80-98) fL MCH (27.0-33.0) pg MCHC (31.0-36.0) g/dl RDW (11.0-16.0) % Plt Count (160-400) X10*3/uL MPV (9.4-12.4) fL Immature Gran % (Auto) (0.0-0.4) % Neut % (Auto) (45-73) % Lymph % (Auto) (20-40) % [place] % (Auto) (2-11) % Eos % (Auto) (0-4) % Baso % (Auto) (0-2) % Lymph # (Auto) (1.2-4.9) X10*3/uL [place] # (Auto) (0.1-1.2) X10*3/uL Eos # (Auto) (0.0-0.4) X10*3/uL Baso # (Auto) (0.0-0.2) X10*3/uL Abs Immat Gran (auto) (0.00-0.03) X10*3/uL Absolute Neuts (auto) (2.0-8.3) X10*3/uL Absolute Nucleated RBC (0.0-0.012) X10*3/uL Nucleated RBC % (auto) (0.0-0.2) /100WBC PT (10.8-13.0) SEC INR (0.9-1.1) APTT (24.1-38.0) SEC Sodium (135-145) mmol/L Potassium (3.3-5.1) mmol/l Chloride (96-108) mmol/L Carbon Dioxide (22-29) mmol/L Anion Gap (12-20) BUN (9-16) mg/dL Creatinine (0.5-1.4) mg/dL Estim Creat Clear Calc Estimated GFR Random Glucose (60-115) mg/dL Calcium (8.4-10.2) mg/dL Total Bilirubin (0.0-1.0) mg/dL Direct Bilirubin (0.0-0.5) mg/dL AST (5-37) U/L ALT (0-40) U/L Alkaline Phosphatase (39-117) U/L Total Protein (6.5-8.0) g/dL Albumin (3.5-5.0) g/dL Lipase (8-78) U/L Urine Color PINK Urine Appearance HAZY Urine pH 5.5 (5.0-8.0) Ur Specific [place] <= 1.005 (1.005-1.025) Urine Protein 1+ H (NEG-TRACE) MG/DL Urine Glucose (UA) NEG (NEG) MG/DL Urine Ketones NEG (NEG) MG/DL Urine Blood 3+ H (NEG) Urine Nitrite NEG (NEG) Ur Leukocyte Esterase TRACE H (NEG) Urine RBC 15-29 H (0) /HPF Urine WBC 15-29 H (0-4) /HPF Ur Squamous Epith Cells 1+ /LPF Urine Bacteria TRACE /LPF Discharge Plan Discharge Clinical Impression: Hematuria, Prostate enlargement Patient Disposition: Home, Self-Care Instructions: Enlarged Prostate (BPH) (ED), Hematuria (ED) Additional Instructions: Return to the ED immediately for any abdominal pain, nausea, vomiting, fever, chills, flank pain, or any other concerning symptoms. Prescriptions: No Action meloxicam 15 mg tablet 15 mg PO DAILY PRN (Reason: for pain) Qty: 90 RF: 2 tamsulosin [Flomax] 0.4 mg capsule 0.4 mg PO BEDTIME 14 Days Qty: 14 RF: 0 (DME) FreeStyle Lite Strips Strip See Rx Instructions strip Not Applicable BID Qty: 10 RF: 0 (DME) lancets 28 gauge misc See Rx Instructions lancet topical BID Qty: 100 RF: 0 topiramate 100 mg tablet 100 mg PO DAILY RF: 0 lorazepam 1 mg tablet 1 mg PO BID PRN (Reason: Anxiety) RF: 0 amitriptyline 150 mg tablet 150 mg PO BEDTIME RF: 0 hydrochlorothiazide 25 mg tablet 25 mg PO DAILY RF: 0 oxcarbazepine 600 mg tablet 600 mg PO BID RF: 0 albuterol sulfate 90 mcg/actuation HFA aerosol inhaler 2 puff PO Q4H PRN (Reason: Wheezing) RF: 0 fluticasone propion-salmeterol 250-50 mcg/dose blister with device 1 ea inhalation RF: 0 nitrofurantoin macrocrystal 100 mg capsule 100 mg PO BID 7 Days Qty: 14 RF: 0 montelukast 10 mg tablet 10 mg PO BEDTIME RF: 0 gabapentin 100 mg capsule 100 mg PO TID RF: 0 metformin 500 mg tablet extended release 24 hr 1,000 mg PO BID 90 Days Qty: 360 RF: 2 pioglitazone 30 mg tablet 30 mg PO DAILY 90 Days Qty: 90 RF: 1 semaglutide 1 mg/dose (2 mg/1.5 mL) pen injector 1 mg subcut QWEEK 90 Days Qty: 9.75 RF: 1 atorvastatin 40 mg tablet 40 mg PO DAILY 90 Days Qty: 90 RF: 1 fenofibrate nanocrystallized 145 mg tablet 145 mg PO DAILY 90 Days Qty: 90 RF: 1 lisinopril 40 mg tablet 40 mg PO DAILY Qty: 90 RF: 3 cholecalciferol (vitamin D3) 50 mcg (2,000 unit) capsule 50 mcg PO DAILY 90 Days Qty: 90 RF: 2 (DME) blood-glucose meter [FreeStyle Lite Meter] Kit See Rx Instructions .ROUTE .MEDSUPPLY Qty: 1 RF: 0 Suprep Bowel Prep Kit 17.5-3.13-1.6 gram recon soln See Rx Instructions PO .COMPLEX Qty: 354 RF: 0 Referrals: Fredrick Jones III, MD [Physician] - 2 days (Hematuria. ) Interventions: ED Discharge Assessment Last Done: 03/24/20 17:03 Discharge Date/Time: 03/24/20 17:04 Print Language: Persian
[2020-03-24] MEDS: 0.9 % Sodium Chloride 1,000 ML 999 ML IV (12:27)
[2020-03-24 12:36] LABS: Basophils Percent Auto 0.2 % (0-2); Eosinophils Absolute Auto 0.2 X10*3/uL (0.0-0.4); Eosinophils Percent Auto 1.3 % (0-4); Hematocrit 39.9 % (42-52); Hemoglobin 12.6 g/dl (14.0-18.0); Imm Gran Abs Auto 0.07 X10*3/uL (0.00-0.03); Imm Gran Pct Auto 0.4 % (0.0-0.4); Lymphocytes Absolute Auto 2.1 X10*3/uL (1.2-4.9); Lymphocytes Percent Auto 12.3 % (20-40); MANUAL DIFF FLAG NO; Mean Corpuscular HGB Conc 31.6 g/dl (31.0-36.0); Mean Corpuscular Hemoglobin 26.8 pg (27.0-33.0); Mean Corpuscular Volume 84.7 fL (80-98); Mean Platelet Volume 9.8 fL (9.4-12.4); Monocytes Absolute Auto 1.4 X10*3/uL (0.1-1.2); Monocytes Percent Auto 8.4 % (2-11); Neutrophils Percent Auto 77.4 % (45-73); Platelet Count 374 X10*3/uL (160-400); Red Blood Count 4.71 X10*6/uL (4.60-5.80); Red Cell Distribution Width 13.3 % (11.0-16.0); White Blood Count 16.8 X10*3/uL (4.8-10.8)
[2020-03-24 12:42] LABS: Glucose Urine UA NEG (NEG); Leukocyte Esterase Urine TRACE (NEG); Nitrite Urine NEG (NEG); PH 5.5 (5.0-8.0); Specific Gravity - Urine <= 1.005 (1.005-1.025); Urine Blood 3+ (NEG); Urine Ketones NEG (NEG); Urine Protein 1+ MG/DL (NEG-TRACE)
[2020-03-24 12:43] LABS: Appearance Urine HAZY; Color Urine PINK
[2020-03-24 12:46] LABS: INTERNATIONAL NORM RATIO 1.2 (0.9-1.1)
[2020-03-24 12:49] LABS: Partial Thromboplastin Time 31.8 SEC (24.1-38.0)
[2020-03-24 12:57] LABS: Alanine Aminotransferase 22 U/L (0-40); Alkaline Phosphatase 75 U/L (39-117); Aspartate Amino Transferase 16 U/L (5-37); Bilirubin Direct 0.2 mg/dL (0.0-0.5); Bilirubin Total 0.3 mg/dL (0.0-1.0); Lipase 24 U/L (8-78); Total Protein 6.9 g/dL (6.5-8.0)
[2020-03-24 13:06] LABS: Bacteria Urine TRACE /LPF; Squamous Epithelial Cell Urine 1+ /LPF
[2020-03-24 13:36] LABS: Anion Gap 11 (12-20); Blood Urea Nitrogen 14 mg/dL (9-16); Carbon Dioxide 28 mmol/L (22-29); Chloride 103 mmol/L (96-108); Creatinine Clr Calc Pharmacy 108.3; Estimated Glomerular Filt Rate > 60; Glucose Random 91 mg/dL (60-115); Potassium 3.7 mmol/l (3.3-5.1); Sodium 138 mmol/L (135-145)
--- NOTE | 2020-03-24 13:42 | CT_ITS ---
EXAMINATION: CT ABDOMEN AND PELVIS WITHOUT AND WITH CONTRAST CLINICAL INFORMATION: Hematuria COMPARISON: CT abdomen and pelvis with contrast 01/06/2013. TECHNIQUE: Noncontrast CT of the abdomen and pelvis is performed followed by split bolus contrast-enhanced images using 85 mL Omnipaque 350 contrast.? Post contrast imaging is performed during the combined nephrogram and excretion phase. Sagittal and coronal reformatted images were obtained on the technologist's workstation for both the pre and postcontrast phases. No oral contrast. This CT examination was performed using dose optimization techniques as appropriate, variously including the following: *Automated exposure control *Adjustment of mA and/or kV according to patient size (this includes techniques or standardized protocols for targeted exams where dose is matched to indication/reason for exam; i.e. extremities or head) *Use of iterative reconstruction technique DLP: 1866 mGy-cm FINDINGS: LUNG BASES: The visualized lung bases are unremarkable. LIVER, GALLBLADDER, AND BILIARY TREE: The liver is mildly enlarged measuring 22 cm in length. Prior measurement 20.8 cm. The liver surface is smooth. The parenchyma is homogeneous. There is no focal hepatic parenchymal lesion. The gallbladder is unremarkable with no evidence of radiopaque gallstones, gallbladder wall thickening, or obvious pericholecystic inflammatory changes. PANCREAS: Unremarkable SPLEEN: Unremarkable ADRENAL GLANDS: Unremarkable KIDNEYS AND URETERS: There is some respiratory motion artifact on the postcontrast images. The kidneys are normal in size, shape, and attenuation. No hydronephrosis, hydroureter, or calculi seen. No perinephric stranding. There is no renal parenchymal lesion. There is no mucosal thickening or filling defect demonstrated in the collecting systems. BLADDER: Nondistended. No bladder calculus. No visible diverticula. GASTROINTESTINAL TRACT: No bowel obstruction or focal inflammatory changes in bowel or mesentery. Normal appendix. No ascites or fluid collection. ABDOMINAL WALL: No significant hernia is appreciated. LYMPH NODES: No lymphadenopathy. VASCULAR: Unremarkable PELVIC VISCERA: Small prostatic calcification. Prostate measures 5.3 x 4.8 x 4.4 cm. Seminal vesicles symmetric. Pelvic side wall soft tissues unremarkable. OSSEOUS STRUCTURES: Bridging osteophytes lumbar spine. No acute bony abnormality. CT/CT abdomen pelvis wo/w con IMPRESSION: 1. No hydronephrosis, hydroureter, calculi, or perinephric stranding. 2. No renal parenchymal lesion. Collecting system unremarkable. 3. Mild prostatic enlargement. Urinary bladder not distended.
[2020-03-24 15:12] VITALS: BP 135/66; PULSE 87; RESP 18; TEMP 37.5; O2SAT 98
[2020-03-24] MEDS: iohexoL 350 MG/ML 100 ML INFUS..BTL IV (15:55)
[2020-03-24 16:00] VITALS: BP 136/71; PULSE 80; RESP 17; TEMP 37.7; O2SAT 99
== END 2020-03-24 17:04 | disposition home or self-care (01) ==
PROVIDERS: Physician Assistant; Emergency Provider Emergency Medicine; PCP Internal Medicine
DX: N40.0 Benign prostatic hyperplasia without lower urinary tract symptoms (principal); R31.9 Hematuria, unspecified; E11.9 Type 2 diabetes mellitus without complications; I10 Essential (primary) hypertension; Z79.899 Other long term (current) drug therapy
CPT/HCPCS: 36415; 74178; 80053; 80076; 81001; 82248; 83690; 85025; 85610; 85730; 87086; 96360; 99284; Q9967

== ENCOUNTER → 2020-04-08 08:49 | Outpatient (BNVA) | payer OTHER, SELFPAY | PROVIDERS: PCP Internal Medicine; Visit Provider Dietitian, Registered | DX: Z76.89 Persons encountering health services in other specified circumstances (principal) ==

== ENCOUNTER 2020-04-09 07:36 | Outpatient (REF) | payer OTHER, SELFPAY ==
[2020-04-09 08:25] LABS: MANUAL DIFF FLAG NO
[2020-04-09 08:27] LABS: Basophils Percent Auto 0.3 % (0-2); Eosinophils Percent Auto 0.6 % (0-4); Hematocrit 40.1 % (42-52); Hemoglobin 12.4 g/dl (14.0-18.0); Imm Gran Abs Auto 0.03 X10*3/uL (0.00-0.03); Imm Gran Pct Auto 0.5 % (0.0-0.4); Lymphocytes Absolute Auto 1.1 X10*3/uL (1.2-4.9); Mean Corpuscular HGB Conc 30.9 g/dl (31.0-36.0); Mean Corpuscular Hemoglobin 26.1 pg (27.0-33.0); Mean Corpuscular Volume 84.2 fL (80-98); Mean Platelet Volume 10.7 fL (9.4-12.4); Monocytes Absolute Auto 0.8 X10*3/uL (0.1-1.2); Monocytes Percent Auto 11.7 % (2-11); Neutrophils Absolute Auto 4.6 X10*3/uL (2.0-8.3); Neutrophils Percent Auto 69.9 % (45-73); Platelet Count 219 X10*3/uL (160-400); Red Blood Count 4.76 X10*6/uL (4.60-5.80); Red Cell Distribution Width 13.7 % (11.0-16.0); White Blood Count 6.5 X10*3/uL (4.8-10.8)
[2020-04-09 08:37] LABS: Glucose Urine UA NEG (NEG); Leukocyte Esterase Urine 1+ (NEG); Nitrite Urine POS (NEG); PH 5.5 (5.0-8.0); Specific Gravity - Urine >= 1.030 (1.005-1.025); Urine Blood TRACE (NEG); Urine Ketones NEG (NEG); Urine Protein TRACE MG/DL (NEG-TRACE)
[2020-04-09 08:43] LABS: Appearance Urine CLOUDY; Color Urine YELLOW
[2020-04-09 08:55] LABS: Bacteria Urine 1+ /LPF; Mucus Urine TRACE /LPF; RBC Urine 0-2 /HPF (0); Squamous Epithelial Cell Urine 2+ /LPF; WBC Urine 50-75 /HPF (0-4)
[2020-04-09 09:09] LABS: Prostate Specific Antigen 13.58 ng/mL (<0.05-4.0)
== END 2020-04-09 07:37 | disposition home or self-care (01) ==
LOC: HO.LAB 07:36
PROVIDERS: Absent Provider Internal Medicine Endocrinology, Diabetes & Metabolism; PCP Internal Medicine; Visit Provider Internal Medicine
DX: R31.0 Gross hematuria (principal); E11.9 Type 2 diabetes mellitus without complications; N40.0 Benign prostatic hyperplasia without lower urinary tract symptoms; Z12.5 Encounter for screening for malignant neoplasm of prostate
CPT/HCPCS: 36415; 81001; 82043; 84153; 85025; 87086; 87088; 87186

== ENCOUNTER → 2020-04-26 13:46 | Outpatient (BNV) | payer OTHER, SELFPAY | PROVIDERS: PCP Internal Medicine; Referring Provider Internal Medicine; Visit Provider Internal Medicine Medical Oncology | DX: E11.22 Type 2 diabetes mellitus with diabetic chronic kidney disease (principal); N18.30 Chronic kidney disease, stage 3 unspecified; D63.8 Anemia in other chronic diseases classified elsewhere | CPT/HCPCS: 99202; 99203; 99212; 99213 ==

== ENCOUNTER → 2020-05-17 13:36 | Outpatient (BNVA) | payer OTHER, SELFPAY | PROVIDERS: PCP Internal Medicine; Visit Provider Urology | DX: N32.0 Bladder-neck obstruction (principal); N39.0 Urinary tract infection, site not specified; R97.20 Elevated prostate specific antigen [PSA]; R31.0 Gross hematuria | CPT/HCPCS: 51798; 81002; 99202 ==

== ENCOUNTER → 2020-05-19 09:03 | Outpatient (BNVA) | payer OTHER, SELFPAY | PROVIDERS: PCP Internal Medicine; Visit Provider Internal Medicine | DX: E66.01 Morbid (severe) obesity due to excess calories (principal); G47.33 Obstructive sleep apnea (adult) (pediatric); J45.909 Unspecified asthma, uncomplicated; Z99.89 Dependence on other enabling machines and devices | CPT/HCPCS: 99212 ==

== ENCOUNTER → 2020-06-28 13:51 | Outpatient (BNVA) | payer OTHER, SELFPAY | PROVIDERS: PCP Internal Medicine; Visit Provider Urology | DX: R97.20 Elevated prostate specific antigen [PSA] (principal); N32.0 Bladder-neck obstruction; R31.0 Gross hematuria | CPT/HCPCS: 52000; 81002; 99212 ==

== ENCOUNTER 2020-07-22 09:04 | Outpatient (REF) | payer OTHER, SELFPAY ==
[2020-07-22 09:38] LABS: COVID-19 Test Negative (Negative)
== END 2020-07-22 09:05 | disposition home or self-care (01) ==
LOC: HO.LAB 09:04
PROVIDERS: Visit Provider Internal Medicine
DX: Z20.822 Contact with and (suspected) exposure to COVID-19 (principal)
CPT/HCPCS: 36415; 87635; C9803

== ENCOUNTER 2020-07-30 07:33 | Outpatient (REF) | payer OTHER, SELFPAY ==
[2020-07-30 08:16] LABS: MANUAL DIFF FLAG NO
[2020-07-30 08:20] LABS: Basophils Percent Auto 0.3 % (0-2); Eosinophils Absolute Auto 0.2 X10*3/uL (0.0-0.4); Eosinophils Percent Auto 2.4 % (0-4); Hematocrit 42.7 % (42-52); Hemoglobin 13.3 g/dl (14.0-18.0); Imm Gran Abs Auto 0.02 X10*3/uL (0.00-0.03); Imm Gran Pct Auto 0.3 % (0.0-0.4); Lymphocytes Absolute Auto 2.3 X10*3/uL (1.2-4.9); Lymphocytes Percent Auto 30.5 % (20-40); Mean Corpuscular HGB Conc 31.1 g/dl (31.0-36.0); Mean Corpuscular Hemoglobin 26.1 pg (27.0-33.0); Mean Corpuscular Volume 83.7 fL (80-98); Mean Platelet Volume 10.5 fL (9.4-12.4); Monocytes Absolute Auto 0.7 X10*3/uL (0.1-1.2); Monocytes Percent Auto 8.6 % (2-11); Neutrophils Absolute Auto 4.4 X10*3/uL (2.0-8.3); Neutrophils Percent Auto 57.9 % (45-73); Platelet Count 259 X10*3/uL (160-400); Red Cell Distribution Width 13.8 % (11.0-16.0); White Blood Count 7.6 X10*3/uL (4.8-10.8)
[2020-07-30 08:41] LABS: Glucose Urine UA NEG (NEG); Leukocyte Esterase Urine NEG (NEG); Nitrite Urine NEG (NEG); PH 5.5 (5.0-8.0); Specific Gravity - Urine 1.015 (1.005-1.025); Urine Blood NEG (NEG); Urine Ketones NEG (NEG); Urine Protein NEG (NEG-TRACE)
[2020-07-30 08:47] LABS: Alanine Aminotransferase 42 U/L (0-40); Alkaline Phosphatase 90 U/L (39-117); Anion Gap 12 (12-20); Appearance Urine CLEAR; Aspartate Amino Transferase 24 U/L (5-37); Bilirubin Total 0.3 mg/dL (0.0-1.0); Blood Urea Nitrogen 20 mg/dL (9-16); Calcium 9.2 mg/dL (8.4-10.2); Carbon Dioxide 25 mmol/L (22-29); Chloride 109 mmol/L (96-108); Cholesterol 124 mg/dL; Color Urine YELLOW; Estimated Glomerular Filt Rate > 60; Glucose Fasting 119 mg/dL (60-99); HDL Cholesterol 33 mg/dL; LDL Cholesterol Calculated 62 mg/dl; Potassium 3.8 mmol/L (3.3-5.1); Sodium 142 mmol/L (135-145); Total Protein 6.7 g/dL (6.5-8.0); Triglycerides 149 mg/dL
[2020-07-30 09:10] LABS: Creatinine Urine 84.28 mg/dL; Microalbumin Urine < 5.0 mg/L
[2020-07-30 10:30] LABS: Estimated Average Glucose 131 mg/dL; Hemoglobin A1c % 6.2 %
== END 2020-07-30 07:34 | disposition home or self-care (01) ==
LOC: HO.LAB 07:33
PROVIDERS: PCP Internal Medicine; Visit Provider Internal Medicine
DX: E78.5 Hyperlipidemia, unspecified (principal); R31.0 Gross hematuria; E11.42 Type 2 diabetes mellitus with diabetic polyneuropathy
CPT/HCPCS: 36415; 80053; 80061; 81003; 82043; 83036; 85025

== ENCOUNTER 2020-08-18 22:38 | Emergency (ER) | payer OTHER, SELFPAY ==
[2020-08-19 00:32] VITALS: BP 105/65; PULSE 95; RESP 16; TEMP 37.1; O2SAT 96; BMI 40.7
--- NOTE | 2020-08-19 02:28 | ED_ITS ---
HPI - General Adult General Chief complaint: General Medical Stated complaint: Abdominal pain Time Seen by Provider: 08/19/20 02:27 Source: patient Mode of arrival: ambulatory History of Present Illness HPI narrative: 55-year-old male who is known diabetic and presents with onset of multiple episodes of nonbloody diarrhea that started within 1-2 hours after eating a ham and cheese sandwich. Otherwise, patient denies any fever, chills, nausea, vomiting, urinary symptoms, or abdominal pain. Patient denies any antibiotic use within the past 90 days and denies any changes in his medications. Related Data Home Medications Medication Instructions Recorded Confirmed amitriptyline 150 mg tablet 150 mg PO BEDTIME 01/26/20 08/04/20 blood sugar diagnostic #10 ea 01/26/20 08/04/20 lorazepam 1 mg tablet 1 mg PO BID PRN 01/26/20 08/04/20 oxcarbazepine 600 mg tablet 600 mg PO BID 01/26/20 08/04/20 topiramate 100 mg tablet 100 mg PO DAILY 01/26/20 08/04/20 gabapentin 100 mg capsule 100 mg PO TID 03/11/20 08/04/20 montelukast 10 mg tablet 10 mg PO BEDTIME 03/11/20 08/04/20 docusate sodium 100 mg capsule 100 mg PO BID 04/12/20 08/04/20 sumatriptan succinate 100 mg tablet 100 mg PO DIRECTED 04/12/20 08/04/20 albuterol sulfate 2.5 mg INHALATION Q4-6H PRN 05/19/20 08/04/20 clonidine HCl 0.1 mg tablet 0.1 mg PO DAILY 06/28/20 08/04/20 clonidine HCl 0.2 mg tablet 0.2 mg PO BEDTIME 06/28/20 08/04/20 Previous Rx's Medication Instructions Recorded atorvastatin 40 mg tablet 40 mg PO DAILY 90 Days #90 tab 03/11/20 blood-glucose meter #1 ea 03/11/20 cholecalciferol (vitamin D3) 50 50 mcg PO DAILY 90 Days #90 cap 03/11/20 mcg (2,000 unit) capsule fenofibrate nanocrystallized 145 145 mg PO DAILY 90 Days #90 tab 03/11/20 mg tablet metformin 500 mg tablet,extended 1,000 mg PO BID 90 Days #360 tab 03/11/20 release 24 hr pioglitazone 30 mg tablet 30 mg PO DAILY 90 Days #90 tab 03/11/20 semaglutide 1 mg/dose (2 mg/1.5 1 mg SUBCUT QWEEK 90 Days #9.75 ml 03/11/20 mL) subcutaneous pen injector meloxicam 15 mg tablet 15 mg PO DAILY PRN #90 tab 03/20/20 albuterol sulfate 90 mcg/actuation 2 puff PO Q4H PRN 30 Days #8.5 g 04/04/20 aerosol inhaler tamsulosin 0.4 mg capsule 0.4 mg PO BEDTIME 90 Days #90 cap 06/28/20 hydrocortisone 2.5 % topical cream 1 appl TOPICAL BID PRN 14 Days #28 07/13/20 g lancets 28 gauge #100 ea 07/26/20 fluticasone 250 mcg-salmeterol 50 1 ea PO Q12H #180 cap 07/29/20 mcg/dose blistr powdr for inhalation hydrochlorothiazide 25 mg tablet 25 mg PO DAILY 90 Days #90 tab 08/04/20 lisinopril 40 mg tablet 40 mg PO DAILY #90 tab 08/04/20 Allergies Allergy/AdvReac Type Severity Reaction Status Date / Time shrimp Allergy Mild Swelling Verified 08/04/20 10:45 Review of Systems Review of Systems: Pertinent positives and negatives as stated in HPI and 10 point review of systems is otherwise negative. [facility], LAT[facility] Past Medical History Source: nursing notes reviewed Medical History Anemia Anxiety Asthma Asthma Back pain Bleeding hemorrhoids Bloody stools Colon cancer screening Depression Diabetes mellitus, type 2 Diabetes type 2, controlled Diabetic polyneuropathy associated with type 2 diabetes mellitus Family history of anesthesia complication Gross hematuria Hiatal hernia Hx of insomnia Hx of low back pain Hx of migraines Hyperlipidemia Hypernatremia Hypertension Morbid obesity DANIEL on CPAP DANIEL on CPAP Prostate enlargement UTI (urinary tract infection) UTI (urinary tract infection) Vitamin D deficiency Surgical History H/O hernia repair History of carpal tunnel release History of knee surgery History of umbilical hernia repair Hx of colonoscopy Family History Family History Maternal Uncle History of prostate cancer Father History of throat cancer Myocardial infarction Diabetes Hypertension CVD (cardiovascular disease) Maternal Grandfather History of throat cancer Son In good health Son In good health Brother Colon cancer Social History Social History Alcohol intake: unknown Smoking Status: Former smoker Use of substances other than those prescribed or required for medical reasons: No Advance Directives: No Advance Directives Information Provided: No Physical Exam Vital Signs: Vital Signs: Last Vital Signs Temp 98.7 F 08/19/20 00:32 Pulse 95 08/19/20 00:32 Resp 16 08/19/20 00:32 BP 105/65 08/19/20 00:32 Pulse Ox 96 08/19/20 00:32 Body Mass Index 40.7 VITAL SIGNS: Reviewed. GENERAL: Well developed, well nourished, in no acute distress. HEAD: Normocephalic/atraumatic EYES: PERRLA, EOMI EARS: Ext canals without abnormality NOSE: Nares patent bilateral OROPHARYNX: no oral lesions noted, posterior pharynx clear NECK: Supple, no adenopathy LUNGS: Normal breath sounds. No adventitious sounds or accessory muscle use. SpO2<96> CARDIOVASCULAR: Regular rate and rhythm without noted murmurs ABDOMEN: Obese, Soft, non-tender, non-distended with bowel sounds. NEUROLOGIC: Alert and oriented x 4. Course Course Course Narrative: This is a 55-year-old male with history and clinical presentation consistent with food poisoning due to the rapid onset and unlikely to be colitis given absence of abdominal pain/discomfort. Review of all investigations from baseline other than stool noted to have many leukocytes present, consistent with infectious etiology but remains pain-free in the abdomen. Discussed with the patient at bedside and he is comfortable with being discharged to home with the instructions to increase fluid hydration. On re-evaluation patient states that he has noted a decrease in frequency of stools. Medical Decision Making Lab Data Result diagrams: 08/19/20 03:06 08/19/20 03:06 Labs: Lab Results 08/19/20 08/19/20 08/19/20 Range/Units 03:02 03:02 03:06 WBC 8.8 (4.8-10.8) X10*3/uL RBC 4.80 (4.60-5.80) X10*6/uL Hgb 12.8 L (14.0-18.0) g/dl Hct 40.1 L (42-52) % MCV 83.5 (80-98) fL MCH 26.7 L (27.0-33.0) pg MCHC 31.9 (31.0-36.0) g/dl RDW 14.3 (11.0-16.0) % Plt Count 240 (160-400) X10*3/uL MPV 10.3 (9.4-12.4) fL Immature Gran % (Auto) 0.2 (0.0-0.4) % Neut % (Auto) 71.1 (45-73) % Lymph % (Auto) 17.4 L (20-40) % [place] % (Auto) 9.7 (2-11) % Eos % (Auto) 1.5 (0-4) % Baso % (Auto) 0.1 (0-2) % Lymph # (Auto) 1.5 (1.2-4.9) X10*3/uL [place] # (Auto) 0.9 (0.1-1.2) X10*3/uL Eos # (Auto) 0.1 (0.0-0.4) X10*3/uL Baso # (Auto) 0.0 (0.0-0.2) X10*3/uL Abs Immat Gran (auto) 0.02 (0.00-0.03) X10*3/uL Absolute Neuts (auto) 6.2 (2.0-8.3) X10*3/uL Absolute Nucleated RBC 0.000 (0.0-0.012) X10*3/uL Nucleated RBC % (auto) 0.0 (0.0-0.2) /100WBC Sodium (135-145) mmol/L Potassium (3.3-5.1) mmol/L Chloride (96-108) mmol/L Carbon Dioxide (22-29) mmol/L Anion Gap (12-20) BUN (9-16) mg/dL Creatinine (0.5-1.4) mg/dL Estim Creat Clear Calc Estimated GFR Random Glucose (60-115) mg/dL Calcium (8.4-10.2) mg/dL Total Bilirubin (0.0-1.0) mg/dL AST (5-37) U/L ALT (0-40) U/L Alkaline Phosphatase (39-117) U/L Total Protein (6.5-8.0) g/dL Albumin (3.5-5.0) g/dL Stool Leukocytes, Qual MANY: >10/OIF (NEGATIVE) C. difficile Toxin A&B Negative (Negative) C. difficile Antigen Negative (Negative) C. difficile Interpret SEE NOTE 08/19/20 Range/Units 03:06 WBC (4.8-10.8) X10*3/uL RBC (4.60-5.80) X10*6/uL Hgb (14.0-18.0) g/dl Hct (42-52) % MCV (80-98) fL MCH (27.0-33.0) pg MCHC (31.0-36.0) g/dl RDW (11.0-16.0) % Plt Count (160-400) X10*3/uL MPV (9.4-12.4) fL Immature Gran % (Auto) (0.0-0.4) % Neut % (Auto) (45-73) % Lymph % (Auto) (20-40) % [place] % (Auto) (2-11) % Eos % (Auto) (0-4) % Baso % (Auto) (0-2) % Lymph # (Auto) (1.2-4.9) X10*3/uL [place] # (Auto) (0.1-1.2) X10*3/uL Eos # (Auto) (0.0-0.4) X10*3/uL Baso # (Auto) (0.0-0.2) X10*3/uL Abs Immat Gran (auto) (0.00-0.03) X10*3/uL Absolute Neuts (auto) (2.0-8.3) X10*3/uL Absolute Nucleated RBC (0.0-0.012) X10*3/uL Nucleated RBC % (auto) (0.0-0.2) /100WBC Sodium 139 (135-145) mmol/L Potassium 3.5 (3.3-5.1) mmol/L Chloride 105 (96-108) mmol/L Carbon Dioxide 28 (22-29) mmol/L Anion Gap 10 L (12-20) BUN 17 H (9-16) mg/dL Creatinine 1.21 (0.5-1.4) mg/dL Estim Creat Clear Calc 93.0 Estimated GFR > 60 Random Glucose 116 H (60-115) mg/dL Calcium 9.5 (8.4-10.2) mg/dL Total Bilirubin 0.4 (0.0-1.0) mg/dL AST 20 (5-37) U/L ALT 31 (0-40) U/L Alkaline Phosphatase 63 D (39-117) U/L Total Protein 6.4 L (6.5-8.0) g/dL Albumin 4.0 (3.5-5.0) g/dL Stool Leukocytes, Qual (NEGATIVE) C. difficile Toxin A&B (Negative) C. difficile Antigen (Negative) C. difficile Interpret Discharge Plan Discharge Clinical Impression: Food poisoning Patient Disposition: Home, Self-Care Instructions: Food Poisoning (ED) Prescriptions: No Action meloxicam 15 mg tablet 15 mg PO DAILY PRN (Reason: for pain) Qty: 90 RF: 2 hydrocortisone 2.5 % cream 1 appl topical BID PRN (Reason: skin irritation) 14 Days Qty: 28 RF: 1 (DME) lancets 28 gauge misc See Rx Instructions lancet topical BID Qty: 100 RF: 9 fluticasone propion-salmeterol [Wixela Inhub] 250-50 mcg/dose blister with device 1 ea PO Q12H Qty: 180 RF: 3 (DME) FreeStyle Lite Strips Strip See Rx Instructions strip Not Applicable BID Qty: 10 RF: 0 topiramate 100 mg tablet 100 mg PO DAILY RF: 0 lorazepam 1 mg tablet 1 mg PO BID PRN (Reason: Anxiety) RF: 0 amitriptyline 150 mg tablet 150 mg PO BEDTIME RF: 0 oxcarbazepine 600 mg tablet 600 mg PO BID RF: 0 albuterol sulfate 90 mcg/actuation HFA aerosol inhaler 2 puff PO Q4H PRN (Reason: Wheezing) 30 Days Qty: 8.5 RF: 6 tamsulosin [Flomax] 0.4 mg capsule 0.4 mg PO BEDTIME 90 Days Qty: 90 RF: 1 hydrochlorothiazide 25 mg tablet 25 mg PO DAILY 90 Days Qty: 90 RF: 3 lisinopril 40 mg tablet 40 mg PO DAILY Qty: 90 RF: 3 sumatriptan succinate 100 mg tablet 100 mg PO DIRECTED RF: 0 docusate sodium 100 mg capsule 100 mg PO BID RF: 0 albuterol sulfate 2.5 mg /3 mL (0.083 %) solution for nebulization 2.5 mg inhalation Q4-6H PRN (Reason: Wheezing) RF: 0 montelukast 10 mg tablet 10 mg PO BEDTIME RF: 0 gabapentin 100 mg capsule 100 mg PO TID RF: 0 metformin 500 mg tablet extended release 24 hr 1,000 mg PO BID 90 Days Qty: 360 RF: 2 pioglitazone 30 mg tablet 30 mg PO DAILY 90 Days Qty: 90 RF: 1 semaglutide 1 mg/dose (2 mg/1.5 mL) pen injector 1 mg subcut QWEEK 90 Days Qty: 9.75 RF: 1 atorvastatin 40 mg tablet 40 mg PO DAILY 90 Days Qty: 90 RF: 1 fenofibrate nanocrystallized 145 mg tablet 145 mg PO DAILY 90 Days Qty: 90 RF: 1 cholecalciferol (vitamin D3) 50 mcg (2,000 unit) capsule 50 mcg PO DAILY 90 Days Qty: 90 RF: 2 (DME) blood-glucose meter [FreeStyle Lite Meter] Kit See Rx Instructions .ROUTE .MEDSUPPLY Qty: 1 RF: 0 clonidine HCl 0.2 mg tablet 0.2 mg PO BEDTIME RF: 0 clonidine HCl 0.1 mg tablet 0.1 mg PO DAILY RF: 0 Referrals: Deedee Bruce MD [Primary Care Provider] - 2 days (Re-evaluation after seen in the ER for food poisoning) Print Language: Armenian
[2020-08-19 03:10] LABS: MANUAL DIFF FLAG NO
[2020-08-19 03:13] LABS: Basophils Percent Auto 0.1 % (0-2); Eosinophils Absolute Auto 0.1 X10*3/uL (0.0-0.4); Eosinophils Percent Auto 1.5 % (0-4); Hematocrit 40.1 % (42-52); Hemoglobin 12.8 g/dl (14.0-18.0); Imm Gran Abs Auto 0.02 X10*3/uL (0.00-0.03); Imm Gran Pct Auto 0.2 % (0.0-0.4); Lymphocytes Absolute Auto 1.5 X10*3/uL (1.2-4.9); Lymphocytes Percent Auto 17.4 % (20-40); Mean Corpuscular HGB Conc 31.9 g/dl (31.0-36.0); Mean Corpuscular Hemoglobin 26.7 pg (27.0-33.0); Mean Corpuscular Volume 83.5 fL (80-98); Mean Platelet Volume 10.3 fL (9.4-12.4); Monocytes Absolute Auto 0.9 X10*3/uL (0.1-1.2); Monocytes Percent Auto 9.7 % (2-11); Neutrophils Absolute Auto 6.2 X10*3/uL (2.0-8.3); Neutrophils Percent Auto 71.1 % (45-73); Platelet Count 240 X10*3/uL (160-400); Red Cell Distribution Width 14.3 % (11.0-16.0); White Blood Count 8.8 X10*3/uL (4.8-10.8)
[2020-08-19 03:49] LABS: Alanine Aminotransferase 31 U/L (0-40); Alkaline Phosphatase 63 U/L (39-117); Anion Gap 10 (12-20); Aspartate Amino Transferase 20 U/L (5-37); Bilirubin Total 0.4 mg/dL (0.0-1.0); Blood Urea Nitrogen 17 mg/dL (9-16); Calcium 9.5 mg/dL (8.4-10.2); Carbon Dioxide 28 mmol/L (22-29); Chloride 105 mmol/L (96-108); Estimated Glomerular Filt Rate > 60; Glucose Random 116 mg/dL (60-115); Potassium 3.5 mmol/L (3.3-5.1); Sodium 139 mmol/L (135-145); Total Protein 6.4 g/dL (6.5-8.0)
[2020-08-19 04:00] VITALS: BP 110/65; PULSE 95; RESP 15; O2SAT 98
[2020-08-19 04:07] LABS: CDIFF Ag Negative (Negative); CDiff Toxin Negative (Negative)
[2020-08-19 04:08] LABS: CDIFF Internal ctrl Dots and bkg OK (V)
[2020-08-19 04:11] LABS: Leukocytes Stool Qualitative MANY: >10/OIF (NEGATIVE)
== END 2020-08-19 05:27 | disposition home or self-care (01) ==
PROVIDERS: Emergency Provider Student in an Organized Health Care Education/Training Program; PCP Internal Medicine
DX: A05.9 Bacterial foodborne intoxication, unspecified (principal); R19.7 Diarrhea, unspecified; E11.9 Type 2 diabetes mellitus without complications; I10 Essential (primary) hypertension; E78.5 Hyperlipidemia, unspecified; Z87.440 Personal history of urinary (tract) infections; Z79.02 Long term (current) use of antithrombotics/antiplatelets; Z79.84 Long term (current) use of oral hypoglycemic drugs; Z79.899 Other long term (current) drug therapy
CPT/HCPCS: 36415; 80053; 85025; 87045; 87046; 87324; 87329; 87449; 89055; 99283; 99284

== ENCOUNTER 2020-08-31 12:45 | Outpatient (REF) | payer OTHER, SELFPAY ==
[2020-08-31 14:11] LABS: PSA,Total (Free>4and<10) 2.44 ng/mL (0.00-4.00)
== END 2020-08-31 12:46 | disposition home or self-care (01) ==
LOC: HO.10HDL 12:45
PROVIDERS: Visit Provider Urology
DX: R97.20 Elevated prostate specific antigen [PSA] (principal); N40.1 Benign prostatic hyperplasia with lower urinary tract symptoms; N13.8 Other obstructive and reflux uropathy; Z12.5 Encounter for screening for malignant neoplasm of prostate
CPT/HCPCS: 36415; 84153

== ENCOUNTER → 2020-09-23 08:18 | Outpatient (BNVA) | payer OTHER, SELFPAY | PROVIDERS: PCP Internal Medicine; Visit Provider Internal Medicine Endocrinology, Diabetes & Metabolism | DX: E11.42 Type 2 diabetes mellitus with diabetic polyneuropathy (principal); E66.01 Morbid (severe) obesity due to excess calories; E78.2 Mixed hyperlipidemia; E55.9 Vitamin D deficiency, unspecified; I10 Essential (primary) hypertension | CPT/HCPCS: 82947; 99212 ==

== ENCOUNTER → 2020-11-28 14:42 | Outpatient (BNVA) | payer OTHER, SELFPAY | PROVIDERS: PCP Internal Medicine; Referring Provider Internal Medicine; Visit Provider Surgery | DX: K64.4 Residual hemorrhoidal skin tags (principal); K64.8 Other hemorrhoids; L29.0 Pruritus ani | CPT/HCPCS: 46600; 99202 ==

== ENCOUNTER → 2020-12-08 10:54 | Outpatient (BNVA) | payer OTHER, SELFPAY | PROVIDERS: PCP Internal Medicine; Visit Provider Internal Medicine | DX: J45.30 Mild persistent asthma, uncomplicated (principal); G47.33 Obstructive sleep apnea (adult) (pediatric); E66.01 Morbid (severe) obesity due to excess calories; Z99.89 Dependence on other enabling machines and devices | CPT/HCPCS: 99212 ==

== ENCOUNTER 2020-12-08 11:20 | Outpatient (REF) | payer OTHER, SELFPAY ==
[2020-12-08 16:17] LABS: PSA,Total (Free>4and<10) 2.21 ng/mL (0.00-4.00)
== END 2020-12-08 11:21 | disposition home or self-care (01) ==
LOC: HO.10HDL 11:20
PROVIDERS: Visit Provider Urology
DX: N40.1 Benign prostatic hyperplasia with lower urinary tract symptoms (principal); N13.8 Other obstructive and reflux uropathy; Z12.5 Encounter for screening for malignant neoplasm of prostate
CPT/HCPCS: 36415; 84153

== ENCOUNTER → 2020-12-13 08:23 | Outpatient (BNVA) | payer OTHER, SELFPAY | PROVIDERS: PCP Internal Medicine; Visit Provider Urology | DX: R97.20 Elevated prostate specific antigen [PSA] (principal); N32.0 Bladder-neck obstruction | CPT/HCPCS: Q3014 ==

== ENCOUNTER 2020-12-28 08:02 | Outpatient (REF) | payer OTHER, SELFPAY ==
[2020-12-28 08:15] LABS: MANUAL DIFF FLAG NO
[2020-12-28 08:44] LABS: Basophils Percent Auto 0.3 % (0-2); Eosinophils Absolute Auto 0.1 X10*3/uL (0.0-0.4); Eosinophils Percent Auto 2.2 % (0-4); Hematocrit 42.3 % (42-52); Hemoglobin 13.4 g/dl (14.0-18.0); Imm Gran Abs Auto 0.02 X10*3/uL (0.00-0.03); Imm Gran Pct Auto 0.3 % (0.0-0.4); Lymphocytes Absolute Auto 1.8 X10*3/uL (1.2-4.9); Lymphocytes Percent Auto 28.3 % (20-40); Mean Corpuscular HGB Conc 31.7 g/dl (31.0-36.0); Mean Corpuscular Hemoglobin 26.5 pg (27.0-33.0); Mean Corpuscular Volume 83.8 fL (80-98); Mean Platelet Volume 10.6 fL (9.4-12.4); Monocytes Absolute Auto 0.5 X10*3/uL (0.1-1.2); Neutrophils Absolute Auto 3.9 X10*3/uL (2.0-8.3); Neutrophils Percent Auto 60.9 % (45-73); Platelet Count 271 X10*3/uL (160-400); Red Blood Count 5.05 X10*6/uL (4.60-5.80); Red Cell Distribution Width 13.9 % (11.0-16.0); White Blood Count 6.5 X10*3/uL (4.8-10.8)
[2020-12-28 09:13] LABS: Alanine Aminotransferase 34 U/L (0-40); Albumin Level 4.2 g/dL (3.5-5.0); Alkaline Phosphatase 72 U/L (39-117); Anion Gap 10 (12-20); Aspartate Amino Transferase 25 U/L (5-37); Bilirubin Total 0.3 mg/dL (0.0-1.0); Blood Urea Nitrogen 16 mg/dL (9-16); Calcium 9.6 mg/dL (8.4-10.2); Carbon Dioxide 28 mmol/L (22-29); Chloride 107 mmol/L (96-108); Cholesterol 134 mg/dL; Estimated Glomerular Filt Rate > 60; Glucose Fasting 147 mg/dL (60-99); HDL Cholesterol 41 mg/dL; Iron 103 mcg/dL (45-160); LDL Cholesterol Calculated 78 mg/dl; Percent Iron Saturation 29 % (15-50); Potassium 4.1 mmol/L (3.3-5.1); Sodium 141 mmol/L (135-145); Total Iron Binding Capacity 361 mcg/dL (228-428); Total Protein 6.8 g/dL (6.5-8.0); Triglycerides 78 mg/dL; Unsaturated Iron Binding 258 ug/dL
[2020-12-28 10:18] LABS: Creatinine Urine 97.33 mg/dL; Microalbum/Creatinine Ratio Ur 14.3 ug/mg cr
[2021-01-01 12:16] LABS: Vitamin D 25-OH, D2 <4 ng/mL; Vitamin D 25-OH, D3 27 ng/mL; Vitamin D 25-OH, Total 27 ng/mL (30-100)
== END 2020-12-28 08:03 | disposition home or self-care (01) ==
LOC: HO.LAB 08:02
PROVIDERS: PCP Internal Medicine; Visit Provider Internal Medicine
DX: D64.9 Anemia, unspecified (principal); E11.9 Type 2 diabetes mellitus without complications; E78.5 Hyperlipidemia, unspecified; E55.9 Vitamin D deficiency, unspecified
CPT/HCPCS: 36415; 80053; 80061; 82043; 82306; 83540; 85025

== ENCOUNTER 2021-05-20 07:14 | Outpatient (REF) | payer OTHER, SELFPAY ==
[2021-05-20 08:31] LABS: Alanine Aminotransferase 25 U/L (0-40); Albumin Level 4.2 g/dL (3.5-5.0); Alkaline Phosphatase 53 U/L (39-117); Anion Gap 9 (12-20); Aspartate Amino Transferase 21 U/L (5-37); Bilirubin Total 0.4 mg/dL (0.0-1.0); Blood Urea Nitrogen 23 mg/dL (9-16); Calcium 9.9 mg/dL (8.4-10.2); Carbon Dioxide 30 mmol/L (22-29); Chloride 107 mmol/L (96-108); Cholesterol 124 mg/dL; Estimated Glomerular Filt Rate 57; Glucose Fasting 108 mg/dL (60-99); HDL Cholesterol 38 mg/dL; LDL Cholesterol Calculated 71 mg/dl; Potassium 4.2 mmol/L (3.3-5.1); Sodium 142 mmol/L (135-145); Total Protein 6.9 g/dL (6.5-8.0); Triglycerides 79 mg/dL
[2021-05-20 08:57] LABS: Creatinine Urine 71.76 mg/dL; Microalbumin Urine < 5.0 mg/L
[2021-05-25 11:51] LABS: Vitamin D 25-OH, D2 <4 ng/mL; Vitamin D 25-OH, D3 27 ng/mL; Vitamin D 25-OH, Total 27 ng/mL (30-100)
== END 2021-05-20 07:15 | disposition home or self-care (01) ==
LOC: HO.LAB 07:14
PROVIDERS: PCP Internal Medicine; Visit Provider Internal Medicine
DX: E55.9 Vitamin D deficiency, unspecified (principal); E11.9 Type 2 diabetes mellitus without complications; E78.5 Hyperlipidemia, unspecified; J45.30 Mild persistent asthma, uncomplicated
CPT/HCPCS: 36415; 80053; 80061; 82043; 82306

== ENCOUNTER → 2021-06-08 09:17 | Outpatient (BNVA) | payer OTHER, SELFPAY | PROVIDERS: PCP Internal Medicine; Visit Provider Internal Medicine | DX: G47.33 Obstructive sleep apnea (adult) (pediatric) (principal); J45.30 Mild persistent asthma, uncomplicated; E66.01 Morbid (severe) obesity due to excess calories; Z99.89 Dependence on other enabling machines and devices; Z68.41 Body mass index [BMI] 40.0-44.9, adult | CPT/HCPCS: 99212 ==

== ENCOUNTER → 2021-06-09 08:54 | Outpatient (BNVA) | payer OTHER, SELFPAY | PROVIDERS: PCP Internal Medicine; Visit Provider Urology | DX: N32.0 Bladder-neck obstruction (principal) | CPT/HCPCS: 51798; 99212 ==

== ENCOUNTER 2021-11-15 09:06 | Outpatient (REF) | payer OTHER, SELFPAY ==
[2021-11-15 11:35] LABS: PSA,Total (Free>4and<10) 1.93 ng/mL (0.00-4.00)
== END 2021-11-15 09:07 | disposition home or self-care (01) ==
LOC: HO.10HDL 09:06
PROVIDERS: Visit Provider Urology
DX: Z12.5 Encounter for screening for malignant neoplasm of prostate (principal); N40.1 Benign prostatic hyperplasia with lower urinary tract symptoms; N13.8 Other obstructive and reflux uropathy
CPT/HCPCS: 36415; 84153

== ENCOUNTER 2021-11-22 07:32 | Outpatient (REF) | payer OTHER, SELFPAY ==
[2021-11-22 08:13] LABS: Alanine Aminotransferase 27 U/L (0-40); Albumin Level 4.1 g/dL (3.5-5.0); Alkaline Phosphatase 85 U/L (39-117); Anion Gap 11 (12-20); Aspartate Amino Transferase 16 U/L (5-37); Bilirubin Total 0.3 mg/dL (0.0-1.0); Blood Urea Nitrogen 19 mg/dL (9-16); Calcium 9.3 mg/dL (8.4-10.2); Carbon Dioxide 25 mmol/L (22-29); Chloride 109 mmol/L (96-108); Cholesterol 132 mg/dL; Estimated Glomerular Filt Rate 58; Glucose Fasting 237 mg/dL (60-99); HDL Cholesterol 40 mg/dL; LDL Cholesterol Calculated 70 mg/dl; Potassium 3.8 mmol/L (3.3-5.1); Sodium 141 mmol/L (135-145); Total Protein 6.8 g/dL (6.5-8.0); Triglycerides 111 mg/dL
[2021-11-28 15:42] LABS: Vitamin D 25-OH, D2 <4 ng/mL; Vitamin D 25-OH, D3 23 ng/mL; Vitamin D 25-OH, Total 23 ng/mL (30-100)
== END 2021-11-22 07:33 | disposition home or self-care (01) ==
LOC: HO.LAB 07:32
PROVIDERS: PCP Internal Medicine; Visit Provider Internal Medicine
DX: E11.42 Type 2 diabetes mellitus with diabetic polyneuropathy (principal); E55.9 Vitamin D deficiency, unspecified; E78.5 Hyperlipidemia, unspecified
CPT/HCPCS: 36415; 80053; 80061; 82306

== ENCOUNTER → 2021-12-12 09:51 | Outpatient (BNVA) | payer OTHER, SELFPAY | PROVIDERS: PCP Internal Medicine; Visit Provider Urology | DX: R97.20 Elevated prostate specific antigen [PSA] (principal); N40.1 Benign prostatic hyperplasia with lower urinary tract symptoms; N13.8 Other obstructive and reflux uropathy | CPT/HCPCS: 99212 ==

== ENCOUNTER → 2022-01-03 10:55 | Outpatient (BNVA) | payer OTHER, SELFPAY | PROVIDERS: PCP Internal Medicine; Visit Provider Internal Medicine | DX: E66.01 Morbid (severe) obesity due to excess calories (principal); J45.30 Mild persistent asthma, uncomplicated; G47.33 Obstructive sleep apnea (adult) (pediatric); Z99.89 Dependence on other enabling machines and devices; Z68.41 Body mass index [BMI] 40.0-44.9, adult | CPT/HCPCS: 99212 ==

== ENCOUNTER 2022-04-14 07:39 | Outpatient (REF) | payer OTHER, SELFPAY ==
[2022-04-14 08:55] LABS: Alanine Aminotransferase 23 U/L (0-40); Albumin Level 4.1 g/dL (3.5-5.0); Alkaline Phosphatase 60 U/L (39-117); Anion Gap 8 (12-20); Aspartate Amino Transferase 16 U/L (5-37); Bilirubin Total 0.4 mg/dL (0.0-1.0); Blood Urea Nitrogen 30 mg/dL (9-16); Calcium 9.7 mg/dL (8.4-10.2); Carbon Dioxide 29 mmol/L (22-29); Chloride 109 mmol/L (96-108); Cholesterol 137 mg/dL; Estimated Glomerular Filt Rate 53; Glucose Fasting 115 mg/dL (60-99); HDL Cholesterol 41 mg/dL; LDL Cholesterol Calculated 80 mg/dl; Potassium 3.8 mmol/L (3.3-5.1); Sodium 142 mmol/L (135-145); Total Protein 6.7 g/dL (6.5-8.0); Triglycerides 80 mg/dL
[2022-04-14 09:13] LABS: Vitamin D 25-OH Total 25.8 ng/mL (>30)
[2022-04-14 10:22] LABS: Creatinine Urine 87.31 mg/dL; Microalbumin Urine < 5.0 mg/L
== END 2022-04-14 07:40 | disposition home or self-care (01) ==
LOC: HO.LAB 07:39
PROVIDERS: PCP Internal Medicine; Visit Provider Internal Medicine
DX: E11.9 Type 2 diabetes mellitus without complications (principal); E55.9 Vitamin D deficiency, unspecified; E78.5 Hyperlipidemia, unspecified
CPT/HCPCS: 36415; 80053; 80061; 82043; 82306

== ENCOUNTER 2022-06-24 11:10 | Emergency (ER) | payer OTHER, SELFPAY ==
--- NOTE | ~2022-06-24 | CT_ITS ---
EXAMINATION: CT CERVICAL SPINE WITHOUT CONTRAST CLINICAL INFORMATION: Neck pain. COMPARISON: None TECHNIQUE: CT of the cervical spine was performed without contrast. Multiplanar reformats were rendered and reviewed. This CT examination was performed using dose optimization techniques as appropriate, variously including the following: *Automated exposure control *Adjustment of mA and/or kV according to patient size (this includes techniques or standardized protocols for targeted exams where dose is matched to indication/reason for exam; i.e. extremities or head) *Use of iterative reconstruction technique DLP: 768 mGy-cm FINDINGS: There is extensive ossification of the posterior longitudinal ligament extending from C1 through C6 and additionally at the C6 and C7 levels. There is resultant severe narrowing of the spinal canal from C2 through C6. The vertebral bodies maintain normal heights and alignment. There is no fracture. There is no moderate or severe facet arthropathy. There is multilevel neural foraminal stenosis related to uncovertebral hypertrophy and facet arthropathy but does not appear moderate or severe at any level. The upper lungs are clear. The imaged intracranial contents are unremarkable. The extraspinal soft tissues appear normal. 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 Neurosurgical evaluation recommended.
[2022-06-24 11:26] VITALS: BP 137/72; PULSE 78; RESP 18; TEMP 36.6; O2SAT 97; BMI 44.4
--- NOTE | 2022-06-24 11:30 | ECG_ITS ---
Test Reason : LT SIDE NECK PAIN Blood Pressure : / mmHG Vent. Rate : 068 BPM Atrial Rate : 068 BPM P-R Int : 174 ms QRS Dur : 078 ms QT Int : 380 ms P-R-T Axes : -03 025 038 degrees QTc Int : 404 ms Normal sinus rhythm Normal ECG When compared with ECG of 11-JAN-2020 22:56, No significant change was found Referred By: Zoran Alegre Electronically Signed By:JIMBO PATEL
--- NOTE | 2022-06-24 11:30 | ED.GENADULT ---
HPI - General Adult General Chief complaint: Headache <NAKUL Flores - Last Filed: 06/25/22 11:38> Stated complaint: Neck pain <NAKUL Flores - Last Filed: 06/25/22 11:38> Time Seen by Provider: 06/24/22 17:15 <NAKUL Flores - Last Filed: 06/25/22 11:38> Source: patient <Mauricio Martinez MD - Last Filed: 06/25/22 01:08> Mode of arrival: ambulatory <Mauricio Martinez MD - Last Filed: 06/25/22 01:08> Limitations: no limitations <Mauricio Martinez MD - Last Filed: 06/25/22 01:08> History of Present Illness HPI narrative: Patient with No significant past neck pain complaining of pain on the right side of the back of the neck for last 4 days pain gets worse on movement no paresthesia no weakness no fever no vomiting no history of arthritis in the neck in the past no bladder bowel involved <Mauricio Martinez MD - Last Filed: 06/25/22 01:08> Related Data Home medications: Home Medications Medication Instructions Recorded Confirmed amitriptyline 150 mg tablet 150 mg PO BEDTIME 01/26/20 05/16/22 lorazepam 1 mg tablet 1 mg PO BID PRN Anxiety 01/26/20 05/16/22 oxcarbazepine 600 mg tablet 600 mg PO BID 01/26/20 05/16/22 topiramate 100 mg tablet 100 mg PO BID 01/26/20 05/16/22 sumatriptan succinate 100 mg 100 mg PO DIRECTED 04/12/20 05/16/22 tablet (Imitrex) clonidine HCl 0.1 mg tablet 0.1 mg PO DAILY 06/28/20 05/16/22 pqrqhoewmh-tjlcrmswushma-pzjnhfnz 1 tab PO Q8H PRN Pain 09/23/20 05/16/22 50 mg-325 mg-40 mg tablet clonidine HCl 0.3 mg tablet 0.3 mg PO BEDTIME 12/12/21 05/16/22 zolpidem 10 mg tablet (Ambien) 10 mg PO BEDTIME PRN Insomnia 01/03/22 05/16/22 Previous Rx's Medication Instructions Recorded blood-glucose meter (FreeStyle #1 ea 03/11/20 Lite Meter kit) pen needle, diabetic 32 gauge x #50 ea 09/23/20/32 (BD Jennifer 2nd Gen Pen Needle) menthol 0.44 %-zinc oxide 20.6 % 1 appl topical QID PRN wound 11/28/20 topical ointment (Calmoseptine) healing #113 grams docusate sodium 100 mg capsule 100 mg PO BID #180 caps 12/30/20 gabapentin 100 mg capsule 100 mg PO TID 30 days #90 caps 01/11/21 acetaminophen 650 mg 1,300 mg PO Q8H PRN fever or pain 07/19/21 tablet,extended release (Mapap 30 days #180 tabs Arthritis Pain) fluticasone 250 mcg-salmeterol 50 1 ea PO Q12H #180 caps 07/28/21 mcg/dose blistr powdr for inhalation (Jesus Alberto Inhub) meloxicam 15 mg tablet 15 mg PO DAILY PRN for pain #90 09/17/21 tabs blood sugar diagnostic (FreeStyle 1 strip miscellaneous BID for 11/07/21 Lite Strips) diabetes mellitus 30 days #100 strips metformin 500 mg tablet,extended 1,000 mg PO BID 90 days #360 tabs 11/23/21 release 24 hr tamsulosin 0.4 mg capsule (Flomax) 0.4 mg PO BEDTIME 90 days #90 caps 12/12/21 albuterol sulfate 2.5 mg/3 mL 2.5 mg (3 mL) inhalation Q4-6H PRN 01/03/22 (0.083 %) solution for nebulization Wheezing 30 days #90 mL albuterol sulfate 90 mcg/actuation 2 puff PO Q4H PRN Wheezing 30 days 01/03/22 aerosol inhaler #8.5 grams cholecalciferol (vitamin D3) 50 50 mcg PO DAILY 90 days #90 caps 04/14/22 mcg (2,000 unit) capsule lisinopril 40 mg tablet 40 mg PO DAILY #90 tabs 04/21/22 Ventolin HFA 90 mcg/actuation 2 puff inhalation Q6H PRN 05/16/22 aerosol inhaler (albuterol sulfate) shortness of breath or wheezing 30 days #8 grams fenofibrate nanocrystallized 145 145 mg PO DAILY 90 days #90 tabs 05/16/22 mg tablet hydrocortisone 2.5 % topical cream 1 appl topical BID PRN skin 05/16/22 irritation 14 days #28 grams lancets 28 gauge #100 ea 05/16/22 semaglutide 1 mg/dose (4 mg/3 mL) 1 mg (0.75 mL) subcut QWEEK 90 05/16/22 subcutaneous pen injector (Ozempic) days #9.75 mL pioglitazone 45 mg tablet 45 mg PO DAILY 90 days #90 tabs 05/22/22 hydrochlorothiazide 25 mg tablet 25 mg PO DAILY 90 days #90 tabs 06/04/22 montelukast 10 mg tablet 10 mg PO BEDTIME #90 tabs 06/04/22 atorvastatin 80 mg tablet 80 mg PO BEDTIME 90 days #90 tabs 06/05/22 cyclobenzaprine 10 mg tablet 10 mg PO Q8H #20 tabs 06/24/22 tramadol 50 mg tablet 50 mg PO Q6H PRN pain #20 tabs 06/24/22 <NAKUL Flores - Last Filed: 06/25/22 11:38> Allergies/adverse reactions: Allergies Allergy/AdvReac Type Severity Reaction Status Date / Time shrimp Allergy Mild Swelling Verified 06/24/22 11:30 <NAKUL Flores - Last Filed: 06/25/22 11:38> Review of Systems Review of Systems: Yes all other systems are reviewed and are negative <Mauricio Martinez MD - Last Filed: 06/25/22 01:08> [facility] Past Medical History Medical History: Medical History Anemia Anxiety Asthma Asthma Back pain Bleeding hemorrhoids Bloody stools Colon cancer screening Depression Diabetes mellitus, type 2 Diabetes type 2, controlled Diabetic polyneuropathy associated with type 2 diabetes mellitus Family history of anesthesia complication Gross hematuria Hiatal hernia Hx of insomnia Hx of low back pain Hx of migraines Hyperlipidemia Hypernatremia Hypertension Internal and external hemorrhoids without complication Moderate recurrent major depression Morbid obesity Morbid obesity DANIEL on CPAP DANIEL on CPAP Osteoarthritis of left knee Prostate enlargement Pruritus ani UTI (urinary tract infection) UTI (urinary tract infection) Vitamin D deficiency <NAKUL Flores - Last Filed: 06/25/22 11:38> Surgical History: Surgical History H/O hernia repair History of carpal tunnel release History of knee surgery History of umbilical hernia repair Hx of colonoscopy <NAKUL Flores - Last Filed: 06/25/22 11:38> Family History Family History: Family History Maternal Uncle History of prostate cancer Father History of throat cancer Myocardial infarction Diabetes mellitus Hypertension CVD (cardiovascular disease) Maternal Grandfather History of throat cancer Son In good health Son In good health Brother Colon cancer Mother Diabetes mellitus <NAKUL Flores - Last Filed: 06/25/22 11:38> Social History Social History: Social History Household Members: Spouse and Children Housing: House Are you a primary nanny caregiver to a significant other at home: No Do you presently have visiting nurse or other home services: Yes (once a week ) Alcohol intake: former Patient Tobacco Use Status: Former Tobacco user Tobacco use type: Cigarette Cigarettes Per Day: 3 Smoked in Last 30 Days: No e-Cigarette/Vaping Use: Never Used Second Hand Smoke Exposure: No Use of substances other than those prescribed or required for medical reasons: No Advance Directives: No Advance Directives Information Provided: Yes service: No Current occupational status: disabled Cognitive needs: No Hearing needs: No Vision needs: Yes <NAKUL Flores - Last Filed: 06/25/22 11:38> Physical Exam ED Vital Signs: Vital Signs - 24 hr 06/24/22 14:29 06/24/22 15:48 06/24/22 18:43 Temperature 97.6 F 98.0 F Pulse Rate 73 66 65 Respiratory Rate 14 18 18 Blood Pressure 140/70 H 128/63 129/67 Pulse Oximetry 97 97 98 Oxygen Delivery Method Room Air Room Air Room Air BMI result Body Mass Index 44.4 <NAKUL Flores - Last Filed: 06/25/22 11:38> Vital Signs - 24 hr 06/24/22 14:29 06/24/22 15:48 06/24/22 18:43 Temperature 97.6 F 98.0 F Pulse Rate 73 66 65 Respiratory Rate 14 18 18 Blood Pressure 140/70 H 128/63 129/67 Pulse Oximetry 97 97 98 Oxygen Delivery Method Room Air Room Air Room Air BMI result Body Mass Index 44.4 <Mauricio Martinez MD - Last Filed: 06/25/22 01:08> Appearance: Alert. Oriented X3. No acute distress. Eyes: PERRLA, No Nystagmus ENT: Pharynx normal. Oral Mucosa moist Neck: Normal inspection. Neck supple. Diffuse tenderness right paraspinal area good range of spinal moved no paresthesia in upper extremities CVS: Normal heart rate and rhythm. Pulses normal. Respiratory: No respiratory distress. Equal air entry bilateral, no wheezing/rales/rhonchi Abdomen: Soft and nontender. Bowel sounds are present, Skin: Skin warm and dry. Normal skin color. Normal skin turgor. Extremities: No lower extremity edema. No calf tenderness Neuro: Oriented X 3. No motor deficit. No sensory deficit good handgrip deep tendon reflexes 2+ bilateral <Mauricio Martinez MD - Last Filed: 06/25/22 01:08> Course Course Course Narrative: RME: 57 yold male with pmh of DM and HTN presents to left sided neck pain that is worse on movement. patient states no recent trauma or recent chiropractor work. Patient states no left arm tining or chest pain. patient well-apperaing. will do caridac evaluation and posterior cervical spine scan. <NAKUL Flores - Last Filed: 06/25/22 11:38> Medications Administered Discontinued Medications Generic Name Dose Route Start Last Admin Trade Name Freq PRN Reason Stop Dose Admin Cyclobenzaprine HCl 10 mg 06/24/22 17:30 06/24/22 18:35 Cyclobenzaprine Hcl 10 Mg Tablet PO 06/24/22 17:31 10 mg ONCE ONE Administration Dexamethasone 4 mg 06/24/22 17:30 06/24/22 18:34 Dexamethasone 4 Mg Tablet PO 06/24/22 17:31 4 mg ONCE ONE Administration Tramadol HCl 50 mg 06/24/22 17:30 06/24/22 18:34 Tramadol Hcl 50 Mg Tablet PO 06/24/22 17:31 50 mg ONCE ONE Administration <NAKUL Flores - Last Filed: 06/25/22 11:38> Medications Administered Discontinued Medications Generic Name Dose Route Start Last Admin Trade Name Freq PRN Reason Stop Dose Admin Cyclobenzaprine HCl 10 mg 06/24/22 17:30 06/24/22 18:35 Cyclobenzaprine Hcl 10 Mg Tablet PO 06/24/22 17:31 10 mg ONCE ONE Administration Dexamethasone 4 mg 06/24/22 17:30 06/24/22 18:34 Dexamethasone 4 Mg Tablet PO 06/24/22 17:31 4 mg ONCE ONE Administration Tramadol HCl 50 mg 06/24/22 17:30 06/24/22 18:34 Tramadol Hcl 50 Mg Tablet PO 06/24/22 17:31 50 mg ONCE ONE Administration <Mauricio Martinez MD - Last Filed: 06/25/22 01:08> Medical Decision Making Medical Decision Making [facility] Narrative: Patient's CT scan showed CT/CT cervical spine wo IV con IMPRESSION: 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 Neurosurgical evaluation recommended. Without any neuro deficit case discussed with Dr. Nadine MOTA advised to see the patient in office this week <Mauricio Martinez MD - Last Filed: 06/25/22 01:08> Lab Data [facility] Lab Attestation statement: I reviewed the patient's lab results. <Mauricio Martinez MD - Last Filed: 06/25/22 01:08> Result Diagrams: 06/24/22 11:40 06/24/22 11:40 <NAKUL Flores - Last Filed: 06/25/22 11:38> Labs: Lab Results 06/24/22 06/24/22 06/24/22 Range/Units 11:40 11:40 11:40 WBC 6.9 (4.8-10.8) X10*3/uL RBC 5.07 (4.60-5.80) X10*6/uL Hgb 13.1 L (14.0-18.0) g/dl Hct 42.4 (42.0-52.0) % MCV 83.6 (80.0-98.0) fL MCH 25.8 L (27.0-33.0) pg MCHC 30.9 L (31.0-36.0) g/dl RDW 14.4 (11.0-16.0) % Plt Count 272 (160-400) X10*3/uL MPV 10.3 (9.4-12.4) fL Immature Gran % (Auto) 0.1 (0.0-0.4) % Neut % (Auto) 60.5 (45-73) % Lymph % (Auto) 30.3 (20-40) % [place] % (Auto) 6.5 (2-11) % Eos % (Auto) 2.3 (0-4) % Baso % (Auto) 0.3 (0-2) % Lymph # (Auto) 2.1 (1.2-4.9) X10*3/uL [place] # (Auto) 0.5 (0.1-1.2) X10*3/uL Eos # (Auto) 0.2 (0.0-0.4) X10*3/uL Baso # (Auto) 0.0 (0.0-0.2) X10*3/uL Abs Immat Gran (auto) 0.01 (0.00-0.03) X10*3/uL Absolute Neuts (auto) 4.2 (2.0-8.3) x10*3/uL Absolute Nucleated RBC 0.000 (0.0-0.012) X10*3/uL Nucleated RBC % (auto) 0.0 (0.0-0.2) /100WBC PT 11.6 (10.0-13.1) SEC INR 1.0 (0.9-1.1) APTT 28.7 (26.0-36.4) SEC Sodium 143 (135-145) mmol/L Potassium 3.7 (3.3-5.1) mmol/L Chloride 110 H (96-108) mmol/L Carbon Dioxide 25 (22-29) mmol/L Anion Gap 12 (12-20) BUN 20 H (9-16) mg/dL Creatinine 1.14 (0.5-1.4) mg/dL Estim Creat Clear Calc 101.1 Estimated GFR > 60 Random Glucose 119 H (60-115) mg/dL Calcium 10.0 (8.4-10.2) mg/dL Total Bilirubin 0.4 (0.0-1.0) mg/dL AST 24 (5-37) U/L ALT 31 (0-40) U/L Alkaline Phosphatase 65 (39-117) U/L Troponin I High Sens (<3.5-35.0) ng/L Total Protein 6.7 (6.5-8.0) g/dL Albumin 4.1 (3.5-5.0) g/dL 06/24/22 Range/Units 11:40 WBC (4.8-10.8) X10*3/uL RBC (4.60-5.80) X10*6/uL Hgb (14.0-18.0) g/dl Hct (42.0-52.0) % MCV (80.0-98.0) fL MCH (27.0-33.0) pg MCHC (31.0-36.0) g/dl RDW (11.0-16.0) % Plt Count (160-400) X10*3/uL MPV (9.4-12.4) fL Immature Gran % (Auto) (0.0-0.4) % Neut % (Auto) (45-73) % Lymph % (Auto) (20-40) % [place] % (Auto) (2-11) % Eos % (Auto) (0-4) % Baso % (Auto) (0-2) % Lymph # (Auto) (1.2-4.9) X10*3/uL [place] # (Auto) (0.1-1.2) X10*3/uL Eos # (Auto) (0.0-0.4) X10*3/uL Baso # (Auto) (0.0-0.2) X10*3/uL Abs Immat Gran (auto) (0.00-0.03) X10*3/uL Absolute Neuts (auto) (2.0-8.3) x10*3/uL Absolute Nucleated RBC (0.0-0.012) X10*3/uL Nucleated RBC % (auto) (0.0-0.2) /100WBC PT (10.0-13.1) SEC INR (0.9-1.1) APTT (26.0-36.4) SEC Sodium (135-145) mmol/L Potassium (3.3-5.1) mmol/L Chloride (96-108) mmol/L Carbon Dioxide (22-29) mmol/L Anion Gap (12-20) BUN (9-16) mg/dL Creatinine (0.5-1.4) mg/dL Estim Creat Clear Calc Estimated GFR Random Glucose (60-115) mg/dL Calcium (8.4-10.2) mg/dL Total Bilirubin (0.0-1.0) mg/dL AST (5-37) U/L ALT (0-40) U/L Alkaline Phosphatase (39-117) U/L Troponin I High Sens < 3.5 (<3.5-35.0) ng/L Total Protein (6.5-8.0) g/dL Albumin (3.5-5.0) g/dL <NAKUL Flores - Last Filed: 06/25/22 11:38> Lab Results 06/24/22 06/24/22 06/24/22 Range/Units 11:40 11:40 11:40 WBC 6.9 (4.8-10.8) X10*3/uL RBC 5.07 (4.60-5.80) X10*6/uL Hgb 13.1 L (14.0-18.0) g/dl Hct 42.4 (42.0-52.0) % MCV 83.6 (80.0-98.0) fL MCH 25.8 L (27.0-33.0) pg MCHC 30.9 L (31.0-36.0) g/dl RDW 14.4 (11.0-16.0) % Plt Count 272 (160-400) X10*3/uL MPV 10.3 (9.4-12.4) fL Immature Gran % (Auto) 0.1 (0.0-0.4) % Neut % (Auto) 60.5 (45-73) % Lymph % (Auto) 30.3 (20-40) % [place] % (Auto) 6.5 (2-11) % Eos % (Auto) 2.3 (0-4) % Baso % (Auto) 0.3 (0-2) % Lymph # (Auto) 2.1 (1.2-4.9) X10*3/uL [place] # (Auto) 0.5 (0.1-1.2) X10*3/uL Eos # (Auto) 0.2 (0.0-0.4) X10*3/uL Baso # (Auto) 0.0 (0.0-0.2) X10*3/uL Abs Immat Gran (auto) 0.01 (0.00-0.03) X10*3/uL Absolute Neuts (auto) 4.2 (2.0-8.3) x10*3/uL Absolute Nucleated RBC 0.000 (0.0-0.012) X10*3/uL Nucleated RBC % (auto) 0.0 (0.0-0.2) /100WBC PT 11.6 (10.0-13.1) SEC INR 1.0 (0.9-1.1) APTT 28.7 (26.0-36.4) SEC Sodium 143 (135-145) mmol/L Potassium 3.7 (3.3-5.1) mmol/L Chloride 110 H (96-108) mmol/L Carbon Dioxide 25 (22-29) mmol/L Anion Gap 12 (12-20) BUN 20 H (9-16) mg/dL Creatinine 1.14 (0.5-1.4) mg/dL Estim Creat Clear Calc 101.1 Estimated GFR > 60 Random Glucose 119 H (60-115) mg/dL Calcium 10.0 (8.4-10.2) mg/dL Total Bilirubin 0.4 (0.0-1.0) mg/dL AST 24 (5-37) U/L ALT 31 (0-40) U/L Alkaline Phosphatase 65 (39-117) U/L Troponin I High Sens (<3.5-35.0) ng/L Total Protein 6.7 (6.5-8.0) g/dL Albumin 4.1 (3.5-5.0) g/dL 06/24/22 Range/Units 11:40 WBC (4.8-10.8) X10*3/uL RBC (4.60-5.80) X10*6/uL Hgb (14.0-18.0) g/dl Hct (42.0-52.0) % MCV (80.0-98.0) fL MCH (27.0-33.0) pg MCHC (31.0-36.0) g/dl RDW (11.0-16.0) % Plt Count (160-400) X10*3/uL MPV (9.4-12.4) fL Immature Gran % (Auto) (0.0-0.4) % Neut % (Auto) (45-73) % Lymph % (Auto) (20-40) % [place] % (Auto) (2-11) % Eos % (Auto) (0-4) % Baso % (Auto) (0-2) % Lymph # (Auto) (1.2-4.9) X10*3/uL [place] # (Auto) (0.1-1.2) X10*3/uL Eos # (Auto) (0.0-0.4) X10*3/uL Baso # (Auto) (0.0-0.2) X10*3/uL Abs Immat Gran (auto) (0.00-0.03) X10*3/uL Absolute Neuts (auto) (2.0-8.3) x10*3/uL Absolute Nucleated RBC (0.0-0.012) X10*3/uL Nucleated RBC % (auto) (0.0-0.2) /100WBC PT (10.0-13.1) SEC INR (0.9-1.1) APTT (26.0-36.4) SEC Sodium (135-145) mmol/L Potassium (3.3-5.1) mmol/L Chloride (96-108) mmol/L Carbon Dioxide (22-29) mmol/L Anion Gap (12-20) BUN (9-16) mg/dL Creatinine (0.5-1.4) mg/dL Estim Creat Clear Calc Estimated GFR Random Glucose (60-115) mg/dL Calcium (8.4-10.2) mg/dL Total Bilirubin (0.0-1.0) mg/dL AST (5-37) U/L ALT (0-40) U/L Alkaline Phosphatase (39-117) U/L Troponin I High Sens < 3.5 (<3.5-35.0) ng/L Total Protein (6.5-8.0) g/dL Albumin (3.5-5.0) g/dL <Mauricio Anwer Juan, MD - Last Filed: 06/25/22 01:08> Discharge Plan Discharge Clinical Impression: Cervical stenosis of spinal canal <NAKUL Flores - Last Filed: 06/25/22 11:38> Patient Disposition: Home, Self-Care <NAKUL Flores - Last Filed: 06/25/22 11:38> Instructions: Cervical Spinal Stenosis (ED) <NAKUL Flores - Last Filed: 06/25/22 11:38> Additional Instructions: Take pain medication muscle relaxant as prescribed Follow with Dr. Cosme neurosurgery this week Report ER if any hand weakness or numbness [place] analg?sicos relajantes musculares seg?n lo prescrito Siga con la neurocirug?a del Dr. Cosme esta semana Informe a la jarrett de emergencias si tiene alguna debilidad o entumecimiento en la mano <NAKUL Flores - Last Filed: 06/25/22 11:38> Prescriptions: New cyclobenzaprine 10 mg tablet 10 mg PO Q8H Qty: 20 0RF tramadol 50 mg tablet 50 mg PO Q6H PRN (Reason: pain) Qty: 20 0RF No Action docusate sodium 100 mg capsule 100 mg PO BID Qty: 180 1RF gabapentin 100 mg capsule 100 mg PO TID 30 Days Qty: 90 2RF acetaminophen [Mapap Arthritis Pain] 650 mg tablet extended release 1,300 mg PO Q8H PRN (Reason: fever or pain) 30 Days Qty: 180 1RF fluticasone propion-salmeterol [Wixela Inhub] 250-50 mcg/dose blister with device 1 ea PO Q12H Qty: 180 3RF meloxicam 15 mg tablet 15 mg PO DAILY PRN (Reason: for pain) Qty: 90 2RF FreeStyle Lite Strips Strip 1 strip miscellaneous BID 30 Days Qty: 100 6RF cholecalciferol (vitamin D3) 50 mcg (2,000 unit) capsule 50 mcg PO DAILY 90 Days Qty: 90 0RF lisinopril 40 mg tablet 40 mg PO DAILY Qty: 90 3RF pioglitazone 45 mg tablet 45 mg PO DAILY 90 Days Qty: 90 1RF hydrochlorothiazide 25 mg tablet 25 mg PO DAILY 90 Days Qty: 90 3RF montelukast 10 mg tablet 10 mg PO BEDTIME Qty: 90 1RF atorvastatin 80 mg tablet 80 mg PO BEDTIME 90 Days Qty: 90 0RF topiramate 100 mg tablet 100 mg PO BID lorazepam 1 mg tablet 1 mg PO BID PRN (Reason: Anxiety) amitriptyline 150 mg tablet 150 mg PO BEDTIME oxcarbazepine 600 mg tablet 600 mg PO BID sumatriptan succinate [Imitrex] 100 mg tablet 100 mg PO DIRECTED metformin 500 mg tablet extended release 24 hr 1,000 mg PO BID 90 Days Qty: 360 2RF fenofibrate nanocrystallized 145 mg tablet 145 mg PO DAILY 90 Days Qty: 90 0RF hydrocortisone 2.5 % cream 1 appl topical BID PRN (Reason: skin irritation) 14 Days Qty: 28 1RF (DME) lancets 28 gauge misc See Rx Instructions topical BID Qty: 100 9RF Rx Instructions: As directed albuterol sulfate [Ventolin HFA] 90 mcg/actuation HFA aerosol inhaler 2 puff inhalation Q6H PRN (Reason: shortness of breath or wheezing) 30 Days Qty: 8 2RF Ozempic 1 mg/dose (4 mg/3 mL) pen injector 1 mg subcut QWEEK 90 Days Qty: 9.75 3RF tamsulosin [Flomax] 0.4 mg capsule 0.4 mg PO BEDTIME 90 Days Qty: 90 3RF (DME) blood-glucose meter [FreeStyle Lite Meter] Kit See Rx Instructions .ROUTE .MEDSUPPLY Qty: 1 0RF Rx Instructions: As directed clonidine HCl 0.1 mg tablet 0.1 mg PO DAILY [id number]-xnpsbisqersiu-rcjp 50-325-40 mg tablet 1 tab PO Q8H PRN (Reason: Pain) (DME) pen needle, diabetic [BD Jennifer 2nd Gen Pen Needle] 32 gauge x 5/32 needle See Rx Instructions .MEDSUPPLY Qty: 50 4RF Rx Instructions: once a day menthol-zinc oxide [Calmoseptine] 0.44-20.6 % ointment 1 appl topical QID PRN (Reason: wound healing) Qty: 113 0RF clonidine HCl 0.3 mg tablet 0.3 mg PO BEDTIME zolpidem [Ambien] 10 mg tablet 10 mg PO BEDTIME PRN (Reason: Insomnia) albuterol sulfate 2.5 mg /3 mL (0.083 %) solution for nebulization 2.5 mg inhalation Q4-6H PRN (Reason: Wheezing) 30 Days Qty: 90 5RF albuterol sulfate 90 mcg/actuation HFA aerosol inhaler 2 puff PO Q4H PRN (Reason: Wheezing) 30 Days Qty: 8.5 1RF <NAKUL Flores - Last Filed: 06/25/22 11:38> Referrals: Keke Cosme MD [Physician] - 3 days <NAKUL Flores - Last Filed: 06/25/22 11:38> Interventions: ED Discharge Assessment Last Done: 06/24/22 18:55 <NAKUL Flores - Last Filed: 06/25/22 11:38> Discharge Date/Time: 06/24/22 18:58 <NAKUL Flores - Last Filed: 06/25/22 11:38> Print Language: German <NAKUL Flores - Last Filed: 06/25/22 11:38>
[2022-06-24 11:45] LABS: MANUAL DIFF FLAG NO
[2022-06-24 11:47] LABS: Basophils Percent Auto 0.3 % (0-2); Eosinophils Absolute Auto 0.2 X10*3/uL (0.0-0.4); Eosinophils Percent Auto 2.3 % (0-4); Hematocrit 42.4 % (42.0-52.0); Hemoglobin 13.1 g/dl (14.0-18.0); Imm Gran Abs Auto 0.01 X10*3/uL (0.00-0.03); Imm Gran Pct Auto 0.1 % (0.0-0.4); Lymphocytes Absolute Auto 2.1 X10*3/uL (1.2-4.9); Lymphocytes Percent Auto 30.3 % (20-40); Mean Corpuscular HGB Conc 30.9 g/dl (31.0-36.0); Mean Corpuscular Hemoglobin 25.8 pg (27.0-33.0); Mean Corpuscular Volume 83.6 fL (80.0-98.0); Mean Platelet Volume 10.3 fL (9.4-12.4); Monocytes Absolute Auto 0.5 X10*3/uL (0.1-1.2); Monocytes Percent Auto 6.5 % (2-11); Neutrophils Absolute Auto 4.2 x10*3/uL (2.0-8.3); Neutrophils Percent Auto 60.5 % (45-73); Platelet Count 272 X10*3/uL (160-400); Red Blood Count 5.07 X10*6/uL (4.60-5.80); Red Cell Distribution Width 14.4 % (11.0-16.0); White Blood Count 6.9 X10*3/uL (4.8-10.8)
[2022-06-24 11:53] LABS: Prothrombin Time 11.6 SEC (10.0-13.1)
[2022-06-24 11:56] LABS: Partial Thromboplastin Time 28.7 SEC (26.0-36.4)
[2022-06-24 12:00] LABS: Alanine Aminotransferase 31 U/L (0-40); Albumin Level 4.1 g/dL (3.5-5.0); Alkaline Phosphatase 65 U/L (39-117); Anion Gap 12 (12-20); Aspartate Amino Transferase 24 U/L (5-37); Bilirubin Total 0.4 mg/dL (0.0-1.0); Blood Urea Nitrogen 20 mg/dL (9-16); Carbon Dioxide 25 mmol/L (22-29); Chloride 110 mmol/L (96-108); Creatinine Clr Calc Pharmacy 101.1; Estimated Glomerular Filt Rate > 60; Glucose Random 119 mg/dL (60-115); Potassium 3.7 mmol/L (3.3-5.1); Sodium 143 mmol/L (135-145); Total Protein 6.7 g/dL (6.5-8.0)
[2022-06-24 12:12] LABS: Troponin-I High Sensitivity < 3.5 ng/L (<3.5-35.0)
[2022-06-24 14:29] VITALS: BP 140/70; PULSE 73; RESP 14; O2SAT 97
[2022-06-24 15:48] VITALS: BP 128/63; PULSE 66; RESP 18; TEMP 36.4; O2SAT 97
[2022-06-24] MEDS: dexAMETHasone 4 MG TABLET PO (18:34)
[2022-06-24] MEDS: traMADoL HCL 50 MG TABLET PO (18:34)
[2022-06-24] MEDS: Cyclobenzaprine HCl 10 MG TABLET PO (18:35)
--- NOTE | 2022-06-24 18:37 | PC.NURSE ---
Pt medicated per provider order. Pt will be discharged shortly.
[2022-06-24 18:43] VITALS: BP 129/67; PULSE 65; RESP 18; TEMP 36.7; O2SAT 98
== END 2022-06-24 18:58 | disposition home or self-care (01) ==
PROVIDERS: Physician Assistant; Emergency Provider Internal Medicine; PCP Internal Medicine
DX: M48.02 Spinal stenosis, cervical region (principal); R51.9 Headache, unspecified; M54.2 Cervicalgia; Z87.891 Personal history of nicotine dependence; Z79.899 Other long term (current) drug therapy
CPT/HCPCS: 36415; 72125; 80053; 84484; 85025; 85610; 85730; 93005; 99284; 99285; J8540

== ENCOUNTER → 2022-07-03 10:55 | Outpatient (BNVA) | payer OTHER, SELFPAY | PROVIDERS: PCP Internal Medicine; Visit Provider Internal Medicine | DX: J45.30 Mild persistent asthma, uncomplicated (principal); E66.01 Morbid (severe) obesity due to excess calories; G47.33 Obstructive sleep apnea (adult) (pediatric); Z68.42 Body mass index [BMI] 45.0-49.9, adult; Z99.89 Dependence on other enabling machines and devices | CPT/HCPCS: 99212 ==

== ENCOUNTER 2022-07-30 13:45 | Outpatient (REF) | payer OTHER, SELFPAY ==
[2022-07-30 14:27] LABS: Appearance Urine Turbid; Color Urine Yellow; Glucose Urine UA Negative (Negative); Leukocyte Esterase Urine Negative (Negative); Nitrite Urine Negative (Negative); PH 8.5 (5.0-9.0); Specific Gravity - Urine 1.015 (1.005-1.025); Urine Blood Negative (Negative); Urine Ketones Negative (Negative); Urine Protein Negative (Neg-Trace)
[2022-07-30 14:30] LABS: Bacteria Urine None Seen (None Seen); Hyaline Casts Urine 0-2 /LPF (0-2); RBC Urine 0-2 /HPF (0-2); Squamous Epithelial Cell Urine 0-2 /HPF (0-2); WBC Urine 0-5 /HPF (0-5)
[2022-07-30 14:49] LABS: Anion Gap 10 (12-20); Blood Urea Nitrogen 20 mg/dL (9-16); Calcium 10.1 mg/dL (8.4-10.2); Carbon Dioxide 29 mmol/L (22-29); Chloride 110 mmol/L (96-108); Estimated Glomerular Filt Rate > 60; Glucose Random 170 mg/dL (60-115); Sodium 145 mmol/L (135-145)
[2022-07-30 15:00] LABS: Creatinine Urine 80.06 mg/dL; Total Protein Urine Random < 7 mg/dL (<12)
== END 2022-07-30 13:46 | disposition home or self-care (01) ==
LOC: HO.LAB 13:45
PROVIDERS: PCP Internal Medicine; Visit Provider Internal Medicine Hypertension Specialist
DX: N18.31 Chronic kidney disease, stage 3a (principal)
CPT/HCPCS: 36415; 80048; 81001; 84156

== ENCOUNTER 2022-09-08 07:17 | Outpatient (REF) | payer OTHER, SELFPAY ==
[2022-09-08 08:44] LABS: Creatinine Urine 190.29 mg/dL
[2022-09-08 09:02] LABS: Alanine Aminotransferase 31 U/L (0-40); Albumin Level 3.9 g/dL (3.5-5.0); Alkaline Phosphatase 73 U/L (39-117); Anion Gap 11 (12-20); Aspartate Amino Transferase 22 U/L (5-37); Bilirubin Total 0.3 mg/dL (0.0-1.0); Blood Urea Nitrogen 21 mg/dL (9-16); Calcium 9.9 mg/dL (8.4-10.2); Carbon Dioxide 27 mmol/L (22-29); Chloride 107 mmol/L (96-108); Cholesterol 124 mg/dL; Estimated Glomerular Filt Rate > 60; Glucose Fasting 165 mg/dL (60-99); HDL Cholesterol 34 mg/dL; LDL Cholesterol Calculated 72 mg/dl; Sodium 141 mmol/L (135-145); Total Protein 6.5 g/dL (6.5-8.0); Triglycerides 91 mg/dL
[2022-09-08 09:19] LABS: Folate 10.8 ng/mL (> or = 4.0); Vitamin B12 471 pg/mL (200-900)
== END 2022-09-08 07:18 | disposition home or self-care (01) ==
LOC: HO.LAB 07:17
PROVIDERS: PCP Internal Medicine; Visit Provider Internal Medicine
DX: E11.9 Type 2 diabetes mellitus without complications (principal); E53.8 Deficiency of other specified B group vitamins; E78.5 Hyperlipidemia, unspecified; E55.9 Vitamin D deficiency, unspecified
CPT/HCPCS: 36415; 80053; 80061; 82043; 82306; 82607; 82746

== ENCOUNTER 2022-11-29 13:47 | Outpatient (AMB) | payer OTHER, SELFPAY ==
--- NOTE | 2022-11-29 13:58 | MHC.PC.OV ---
Vital Signs 11/29/22 14:03 11/29/22 15:43 Height 5 ft 10 in Weight 300 lb BMI 43.0 BP 148/82 H 140/80 H Blood Pressure Location Lt brachial Lt brachial Position Sitting Sitting Intake Visit Reasons: Physical Exam Intake Note: Patient here for a physical exam Business Operations Specialist Required: No Accompanied by: Self / Same As Patient Allergies shrimp Allergy (Mild, Verified 11/29/22 14:27) Swelling Medication List - Last Reconciled 11/29/22 by Deedee Watts MD acetaminophen ER (Mapap Arthritis Pain) 1,300 mg (2 x 650 mg) PO Q8H PRN 30 days albuterol sulfate 2.5 mg (3 mL) inhalation Q4-6H PRN 30 days albuterol sulfate 90 mcg/actuation 2 puffs PO Q4H PRN 30 days amitriptyline 150 mg PO BEDTIME atorvastatin 80 mg PO BEDTIME 90 days blood sugar diagnostic (FreeStyle Lite Strips) 1 strip miscellaneous BID 30 days blood-glucose meter (FreeStyle Lite Meter kit) As directed [id number] 50-325-40 mg 1 tab PO Q8H PRN cholecalciferol (vitamin D3) 50 mcg PO DAILY 90 days clonidine HCl 0.1 mg PO DAILY clonidine HCl 0.2 mg PO BEDTIME cyclobenzaprine 10 mg PO Q8H docusate sodium 100 mg PO BID fenofibrate nanocrystallized 145 mg PO DAILY 90 days fluticasone propion-salmeterol 250-50 mcg/dose (Wixela Inhub) 1 ea PO Q12H gabapentin 100 mg PO TID 30 days hydrochlorothiazide 25 mg PO DAILY 90 days hydrocortisone 2.5% 1 appl topical BID PRN 14 days lancets As directed lisinopril 40 mg PO DAILY lorazepam 1 mg PO BID PRN meloxicam 15 mg PO DAILY PRN menthol-zinc oxide 0.44-20.6 % (Calmoseptine) 1 appl topical QID PRN metformin ER 1,000 mg (2 x 500 mg) PO BID 90 days montelukast 10 mg PO BEDTIME pen needle, diabetic (BD Jennifer 2nd Gen Pen Needle) once a day pioglitazone 45 mg PO DAILY 90 days semaglutide (Ozempic) 1 mg (0.75 mL) subcut QWEEK 30 days sumatriptan succinate (Imitrex) 100 mg PO DIRECTED tamsulosin (Flomax) 0.4 mg PO BEDTIME 90 days topiramate 100 mg PO BID Ventolin HFA 90 mcg/actuation (albuterol sulfate) 2 puffs inhalation Q6H PRN 30 days NS zolpidem (Ambien) 10 mg PO BEDTIME PRN Tobacco use date assessed: 05/16/22 Dental Screening Dental Screen Date: 11/29/22 Did you have a dental visit in the last 12 months?: No Did you have a dental problem in the last 6 months where you did not have access to dental care?: No Was dental information given to patient?: Patient has dentist HPI HPI Comments History of Present Illness Details This is a 57-year-old male with diabetes mellitus type 2, morbid obesity and mild major depression that comes for his physical exam. A1c close to goal and I will increase Ozempic. He is morbidly obese with a BMI of 43 and declines weight loss surgery as of now. Was advised to diet and exercise. Depression stable with amitriptyline and this is follow by Psychiatry. Last colonoscopy was 2019 and he had a poor prep and was advised to come back in 3 years[address] He will prefer Dr. Ruggiero. He has family history of colon cancer in 38-year-old brother who from it. COUNTS INCLUDE 234 BEDS AT THE [facility] Medical History Anemia Anxiety Asthma Asthma Back pain Bleeding hemorrhoids Bloody stools Colon cancer screening Depression Diabetes mellitus, type 2 Diabetes type 2, controlled Diabetic polyneuropathy associated with type 2 diabetes mellitus Family history of anesthesia complication Gross hematuria Hiatal hernia Hx of insomnia Hx of low back pain Hx of migraines Hyperlipidemia Hypernatremia Hypertension Internal and external hemorrhoids without complication Moderate recurrent major depression Morbid obesity Morbid obesity DANIEL on CPAP DANIEL on CPAP Osteoarthritis of left knee Prostate enlargement Pruritus ani UTI (urinary tract infection) UTI (urinary tract infection) Vitamin D deficiency Surgical History H/O hernia repair History of carpal tunnel release History of knee surgery History of umbilical hernia repair Hx of colonoscopy Family History Maternal Uncle History of prostate cancer Father History of throat cancer Myocardial infarction Diabetes mellitus Hypertension CVD (cardiovascular disease) Maternal Grandfather History of throat cancer Son In good health Son In good health Brother Colon cancer Mother Diabetes mellitus Social History Household Members: Spouse and Children Housing: House Are you a primary furnace caretaker to a significant other at home: No Do you presently have visiting nurse or other home services: Yes (once a week ) Alcohol intake: former Patient Tobacco Use Status: Former Tobacco user Tobacco use type: Cigarette Cigarettes Per Day: 3 e-Cigarette/Vaping Use: Never Used Second Hand Smoke Exposure: No service: No Current occupational status: disabled Cognitive needs: No Hearing needs: No Vision needs: Yes Questionnaire Thrive Questionnaire Date Thrive assessed: 05/16/22 MAGGY-7 AMB Questionnaire MAGGY-7 Date MAGGY - 7 assessed: 05/16/22 Source: Developed by Drs. Musa Armando, Jagruti Vu, Leo Dutton and colleagues, with an educational lyla from [employer]. Review of Systems Const All systems reviewed & are unremarkable except as noted in HPI and below Eyes Reports no additional complaints, Denies change in vision and Denies other visual disturbances Card Denies chest pain at rest, Denies chest pain with activity, Denies edema, Denies irregular heart rhythm, Denies claudication, Denies dyspnea, Denies dyspnea on exertion, Denies orthopnea, Denies paroxysmal nocturnal dyspnea and Denies slow heart rate Resp Denies cough, Denies dyspnea and Denies dyspnea on exertion GI Denies abdominal pain, Denies change in bowel habits, Denies excessive flatus, Denies nausea and Denies vomiting Denies urinary hesitancy, Denies urinary incontinence and Denies urinary urgency Musc Denies abnormal gait, Denies atrophy, Denies deformity and Denies limited range of motion Skin/Breast Denies bleeding lesions, Denies changing lesions and Denies rash Neuro Denies abnormal gait and Denies lack of coordination Physical exam (Primary Care) Vital Signs: Last Vital Signs BP 148/82 H 11/29/22 14:03 BMI result Body Mass Index 43.0 Tobacco/Smoking Status: Tobacco use Status Tobacco use date assessed 05/16/22 11/29/22 14:02 Patient Tobacco Use Status Former Tobacco user 11/29/22 14:02 Tobacco use type Cigarette 11/29/22 14:02 e-Cigarette/Vaping Use Never Used 11/29/22 14:02 Thrive Assessment: Date of Thrive Assessment Date Thrive assessed 05/16/22 11/29/22 14:02 Const Orientation/consciousness: patient oriented x3 HENMT Head: Yes normal to inspection, Yes normocephalic and Yes atraumatic Ears: external ears normal Eyes General: appearance normal, both eyes and all related structures Eyelids: Yes eyelids normal Conjunctivae: conjunctivae normal Neck Neck: Yes normal visual inspection and Yes supple Resp Effort & Inspection: normal respiratory effort Auscultation: clear to auscultation bilaterally Cardio Jugular venous distension: no JVD Rate: regular rate Rhythm: regular rhythm Heart sounds: S1 normal heart sound present and S2 normal heart sound present GI Inspection: Yes normal to inspection Palpation (GI): Soft to palpation and nontender Auscultation: normal bowel sounds Skin General skin exam: no rashes or lesions noted Neuro General: patient oriented x3 and no focal motor deficits Extrem General: Yes full ROM Psych Appearance: grossly normal Assessment and Plan Assessment & Plan (1) Physical exam: Code(s): Z00.00 - Encounter for general adult medical examination without abnormal findings Plan: Repeat in a year (2) Diabetes mellitus: Code(s): E11.9 - Type 2 diabetes mellitus without complications Plan: Continue medications. Increase Ozempic. A1c goal is equal or less than 7%. (3) Morbid obesity: Comment: Patient is well aware of this, he is trying to lose weight on his own. He has not lost any weight in the last 6 months. Again urged to reduce the calories intake and start walking daily. His goal should be to lose 1 or 2 lbs every month. Code(s): E66.01 - Morbid (severe) obesity due to excess calories Plan: Advised to diet and exercise. BMI goal is less than 30. (4) Moderate recurrent major depression: Code(s): F33.1 - Major depressive disorder, recurrent, moderate Plan: Continue amitriptyline. Follow-up with psychiatry. Orders: Orders Comprehensive [facility]. Panel Fast 4 Months N18.30 - Chronic kidney disease, stage 3 unspecified Lipid Panel 4 Months E78.5 - Hyperlipidemia, unspecified Vitamin D 25-OH Total 4 Months E55.9 - Vitamin D deficiency, unspecified Microalbumin, Random (w Creat) 4 Months E11.9 - Type 2 diabetes mellitus without complications Referrals General Surgery Referral Z12.11 - Encounter for screening for malignant neoplasm of colon Medications: New chlorthalidone 25 mg PO DAILY 90 days 90 tabs 1RF semaglutide (Ozempic) 2 mg (0.75 mL) subcut QWEEK 30 days 3.75 mL 6RF E11.9 - Type 2 diabetes mellitus without complications Discontinued hydrochlorothiazide Discontinued Reason: Patient Completed Course 25 mg PO DAILY 90 days 90 tabs 3RF E55.9 - Vitamin D deficiency, unspecified semaglutide (Ozempic) Discontinued Reason: Patient Completed Course 1 mg (0.75 mL) subcut QWEEK 30 days 3.75 mL 4RF E11.42 - Type 2 diabetes mellitus with diabetic polyneuropathy Coding Level of Care Code Est Pt Prev Care 40-64y(77874) Diagnoses Physical exam Z00.00 Diabetes mellitus E11.9 Morbid obesity E66.01 Moderate recurrent major depression F33.1 Time Spent (min) 32
[2022-11-29 14:03] VITALS: BP 148/82; BMI 43.0
[2022-11-29 15:43] VITALS: BP 140/80
== END 2022-11-29 14:38 | disposition home or self-care (01) ==
PROVIDERS: PCP Internal Medicine; Visit Provider Internal Medicine
DX: Z00.00 Encounter for general adult medical examination without abnormal findings (principal); E11.9 Type 2 diabetes mellitus without complications; E66.01 Morbid (severe) obesity due to excess calories; F33.1 Major depressive disorder, recurrent, moderate; Z68.41 Body mass index [BMI] 40.0-44.9, adult
CPT/HCPCS: 99396

== ENCOUNTER 2022-12-15 07:05 | Outpatient (REF) | payer OTHER, SELFPAY ==
[2022-12-15 08:19] LABS: Creatinine Urine 141.14 mg/dL
[2022-12-15 08:28] LABS: Alanine Aminotransferase 37 U/L (0-40); Alkaline Phosphatase 85 U/L (39-117); Anion Gap 12 (12-20); Aspartate Amino Transferase 19 U/L (5-37); Bilirubin Total 0.3 mg/dL (0.0-1.0); Blood Urea Nitrogen 23 mg/dL (9-16); Calcium 10.4 mg/dL (8.4-10.2); Carbon Dioxide 29 mmol/L (22-29); Chloride 101 mmol/L (96-108); Cholesterol 99 mg/dL (<200); Estimated Glomerular Filt Rate 55; Glucose Fasting 249 mg/dL (60-99); HDL Cholesterol 30 mg/dL (>40); LDL Cholesterol Calculated 58 mg/dL (<100); Potassium 3.6 mmol/L (3.3-5.1); Sodium 138 mmol/L (135-145); Total Protein 6.9 g/dL (6.5-8.0); Triglycerides 58 mg/dL (<150)
[2022-12-15 08:44] LABS: Vitamin D 25-OH Total 36.6 ng/mL (>30)
== END 2022-12-15 07:06 | disposition home or self-care (01) ==
LOC: HO.LAB 07:05
PROVIDERS: PCP Internal Medicine; Visit Provider Urology
DX: N18.30 Chronic kidney disease, stage 3 unspecified (principal); E11.9 Type 2 diabetes mellitus without complications; E55.9 Vitamin D deficiency, unspecified; E78.5 Hyperlipidemia, unspecified
CPT/HCPCS: 36415; 80053; 80061; 82043; 82306; 82570

== ENCOUNTER 2022-12-21 09:36 | Outpatient (REF) | payer OTHER, SELFPAY ==
[2022-12-21 11:37] LABS: Anion Gap 11 (12-20); Blood Urea Nitrogen 19 mg/dL (9-16); Calcium 10.2 mg/dL (8.4-10.2); Carbon Dioxide 29 mmol/L (22-29); Chloride 100 mmol/L (96-108); Estimated Glomerular Filt Rate 57; Glucose Random 274 mg/dL (60-115); Potassium 3.7 mmol/L (3.3-5.1); Sodium 136 mmol/L (135-145)
== END 2022-12-21 09:37 | disposition home or self-care (01) ==
LOC: HO.10HDL 09:36
PROVIDERS: Visit Provider Internal Medicine Hypertension Specialist
DX: N18.2 Chronic kidney disease, stage 2 (mild) (principal)
CPT/HCPCS: 36415; 80048

== ENCOUNTER 2022-12-22 07:24 | Outpatient (REF) | payer OTHER, SELFPAY ==
[2022-12-22 07:57] LABS: MANUAL DIFF FLAG NO
[2022-12-22 08:29] LABS: Basophils Percent Auto 0.4 % (0-2); Eosinophils Absolute Auto 0.1 X10*3/uL (0.0-0.4); Eosinophils Percent Auto 1.8 % (0-4); Hematocrit 42.9 % (42.0-52.0); Hemoglobin 13.6 g/dl (14.0-18.0); Imm Gran Abs Auto 0.02 X10*3/uL (0.00-0.03); Imm Gran Pct Auto 0.3 % (0.0-0.4); Lymphocytes Absolute Auto 1.9 X10*3/uL (1.2-4.9); Mean Corpuscular HGB Conc 31.7 g/dl (31.0-36.0); Mean Corpuscular Hemoglobin 26.3 pg (27.0-33.0); Mean Corpuscular Volume 82.8 fL (80.0-98.0); Mean Platelet Volume 10.6 fL (9.4-12.4); Monocytes Absolute Auto 0.5 X10*3/uL (0.1-1.2); Monocytes Percent Auto 6.5 % (2-11); Neutrophils Absolute Auto 5.1 x10*3/uL (2.0-8.3); Platelet Count 295 X10*3/uL (160-400); Red Blood Count 5.18 X10*6/uL (4.60-5.80); Red Cell Distribution Width 13.3 % (11.0-16.0); White Blood Count 7.7 X10*3/uL (4.8-10.8)
[2022-12-22 09:06] LABS: Alanine Aminotransferase 26 U/L (0-40); Albumin Level 3.9 g/dL (3.5-5.0); Alkaline Phosphatase 75 U/L (39-117); Anion Gap 17 (12-20); Aspartate Amino Transferase 17 U/L (5-37); Bilirubin Total 0.4 mg/dL (0.0-1.0); Blood Urea Nitrogen 18 mg/dL (9-16); Calcium 9.8 mg/dL (8.4-10.2); Carbon Dioxide 24 mmol/L (22-29); Chloride 103 mmol/L (96-108); Cholesterol 127 mg/dL (<200); Estimated Glomerular Filt Rate > 60; Glucose Fasting 198 mg/dL (60-99); Glucose Random 197 mg/dL (60-115); HDL Cholesterol 33 mg/dL (>40); LDL Cholesterol Calculated 75 mg/dL (<100); Potassium 3.7 mmol/L (3.3-5.1); Sodium 140 mmol/L (135-145); Total Protein 6.7 g/dL (6.5-8.0); Triglycerides 99 mg/dL (<150)
[2022-12-22 09:19] LABS: Vitamin D 25-OH Total 36.7 ng/mL (>30)
[2022-12-22 09:23] LABS: Prostate Specific Antigen 2.32 ng/mL (<0.05-4.0)
[2022-12-22 09:24] LABS: Ferritin 97 ng/mL (20-250)
== END 2022-12-22 07:25 | disposition home or self-care (01) ==
LOC: HO.LAB 07:24
PROVIDERS: Internal Medicine Medical Oncology; PCP Internal Medicine; Visit Provider Urology
DX: E11.42 Type 2 diabetes mellitus with diabetic polyneuropathy (principal); D64.9 Anemia, unspecified; E55.9 Vitamin D deficiency, unspecified; E78.5 Hyperlipidemia, unspecified; N32.0 Bladder-neck obstruction; Z12.5 Encounter for screening for malignant neoplasm of prostate
CPT/HCPCS: 36415; 80053; 80061; 82306; 82728; 84153; 85025

== ENCOUNTER 2022-12-27 13:44 | Outpatient (AMB) | payer OTHER, SELFPAY ==
[2022-12-27 13:52] VITALS: BP 130/70; PULSE 84; RESP 12; O2SAT 97; BMI 42.5
--- NOTE | 2022-12-27 13:52 | A.OFFPC_ITS ---
Vital Signs 12/27/22 13:52 Height 5 ft 10 in Weight 296 lb 4 oz BMI 42.5 BP 130/70 Blood Pressure Location Lt brachial Position Sitting Respiration 12 Pulse 84 Pulse Source Pulse Oximeter Pulse Oximetry (%) 97 Oxygen Delivery Method Room Air Intake Visit Reasons: stomach pains since starting Ozempic Circular Clerk Required: No Accompanied by: Self / Same As Patient Allergies shrimp Allergy (Mild, Verified 12/27/22 14:06) Swelling Medication List - Last Reconciled 12/27/22 by CRIS Otto acetaminophen ER (Mapap Arthritis Pain) 1,300 mg (2 x 650 mg) PO Q8H PRN 30 days albuterol sulfate 2.5 mg (3 mL) inhalation Q4-6H PRN 30 days albuterol sulfate 90 mcg/actuation 2 puffs PO Q4H PRN 30 days amitriptyline 150 mg PO BEDTIME atorvastatin 80 mg PO BEDTIME 90 days blood sugar diagnostic (FreeStyle Lite Strips) 1 strip miscellaneous BID 30 days blood-glucose meter (FreeStyle Lite Meter kit) As directed [id number] 50-325-40 mg 1 tab PO Q8H PRN chlorthalidone 25 mg PO DAILY 90 days cholecalciferol (vitamin D3) 50 mcg PO DAILY 90 days clonidine HCl 0.1 mg PO DAILY clonidine HCl 0.2 mg PO BEDTIME cyclobenzaprine 10 mg PO Q8H docusate sodium 100 mg PO BID fenofibrate nanocrystallized 145 mg PO DAILY 90 days fluticasone propion-salmeterol 250-50 mcg/dose (Wixela Inhub) 1 ea PO Q12H gabapentin 100 mg PO TID 30 days hydrocortisone 2.5% 1 appl topical BID PRN 14 days lancets As directed lisinopril 40 mg PO DAILY lorazepam 1 mg PO BID PRN meloxicam 15 mg PO DAILY PRN menthol-zinc oxide 0.44-20.6 % (Calmoseptine) 1 appl topical QID PRN metformin ER 1,000 mg (2 x 500 mg) PO BID 90 days montelukast 10 mg PO BEDTIME pen needle, diabetic (BD Jennifer 2nd Gen Pen Needle) once a day pioglitazone 45 mg PO DAILY 90 days semaglutide (Ozempic) 2 mg (0.75 mL) subcut QWEEK 30 days sumatriptan succinate (Imitrex) 100 mg PO DIRECTED tamsulosin (Flomax) 0.4 mg PO BEDTIME 90 days topiramate 100 mg PO BID Ventolin HFA 90 mcg/actuation (albuterol sulfate) 2 puffs inhalation Q6H PRN 30 days NS zolpidem (Ambien) 10 mg PO BEDTIME PRN Tobacco use date assessed: 05/16/22 Dental Screening Dental Screen Date: 12/27/22 Did you have a dental visit in the last 12 months?: Yes Did you have a dental problem in the last 6 months where you did not have access to dental care?: No Was dental information given to patient?: Patient has dentist HPI HPI Comments History of Present Illness Details 57-year-old male past medical history si gnificant for hypertension, hyperlipidemia type 2 diabetes mellitus, diabetic polyneuropathy, DANIEL on CPAP, asthma, CKD and depression. Patient last seen last month. At that time patient's A1c was almost at goal at 7.3%, his ozempic was increased at that time to 2mg weekly. Patient reported her told nurse he was experiencing burning pain in stomach and diarrhea x 2 days last week. Abdominal pain and diarrhea has completely resolved. Denies any nausea, vomiting, fevers and chills. [facility] Medical History Morbid obesity Osteoarthritis of left knee Moderate recurrent major depression Pruritus ani Internal and external hemorrhoids without complication Asthma DANIEL on CPAP Anemia Back pain Gross hematuria UTI (urinary tract infection) UTI (urinary tract infection) Prostate enlargement Diabetic polyneuropathy associated with type 2 diabetes mellitus Vitamin D deficiency Diabetes type 2, controlled Family history of anesthesia complication Hx of low back pain DANIEL on CPAP Hx of insomnia Hx of migraines Anxiety Depression Colon cancer screening Bleeding hemorrhoids Morbid obesity Hyperlipidemia Hypertension Hypernatremia Bloody stools Asthma Diabetes mellitus, type 2 Hiatal hernia Surgical History Hx of colonoscopy History of knee surgery History of carpal tunnel release H/O hernia repair History of umbilical hernia repair Family History Maternal Uncle History of prostate cancer Father History of throat cancer Myocardial infarction Diabetes mellitus Hypertension CVD (cardiovascular disease) Maternal Grandfather History of throat cancer Son In good health Son In good health Brother Colon cancer Mother Diabetes mellitus Social History Household Members: Spouse and Children Housing: House Are you a primary personal care aide to a significant other at home: No Do you presently have visiting nurse or other home services: Yes (once a week ) Alcohol intake: former Patient Tobacco Use Status: Former Tobacco user Tobacco use type: Cigarette Cigarettes Per Day: 3 e-Cigarette/Vaping Use: Never Used Second Hand Smoke Exposure: No service: No Current occupational status: disabled Cognitive needs: No Hearing needs: No Vision needs: Yes Questionnaire Thrive Questionnaire Date Thrive assessed: 05/16/22 MAGGY-7 AMB Questionnaire MAGGY-7 Date MAGGY - 7 assessed: 05/16/22 Source: Developed by Drs. Musa Armando, Jagruti Vu, Leo Dutton and colleagues, with an educational lyla from [employer]. Review of Systems Const Denies chills, Denies fatigue, Denies fever(s) and Denies poor appetite Eyes Denies no additional complaints ENT Reports Normal hearing present Card Denies chest pain, Denies syncope, Denies rapid heart rate and Denies dyspnea Resp Denies cough and Denies dyspnea GI Denies change in stool character, Denies constipation, Denies diarrhea, Denies nausea and Denies vomiting Denies dysuria, Denies urinary frequency and Denies urinary urgency Neuro Reports Normal hearing present, Denies confusion and Denies syncope Psych Denies confusion Endo Denies fatigue Physical exam (Primary Care) Vital Signs: Last Vital Signs Pulse 84 12/27/22 13:52 Resp 12 12/27/22 13:52 BP 130/70 12/27/22 13:52 Pulse Ox 97 12/27/22 13:52 Oxygen Delivery Method Room Air 12/27/22 13:52 BMI result Body Mass Index 42.5 Tobacco/Smoking Status: Tobacco use Status Tobacco use date assessed 05/16/22 12/27/22 13:56 Patient Tobacco Use Status Former Tobacco user 12/27/22 13:56 Tobacco use type Cigarette 12/27/22 13:56 e-Cigarette/Vaping Use Never Used 12/27/22 13:56 Thrive Assessment: Date of Thrive Assessment Date Thrive assessed 05/16/22 12/27/22 13:56 Const General: No confusion Orientation/consciousness: No confusion HENMT Head: Yes normocephalic and Yes atraumatic Eyes Conjunctivae: conjunctivae normal Chest Chest palpation & inspection: normal inspection of the chest Resp Effort & Inspection: normal respiratory effort Auscultation: clear to auscultation bilaterally, no crackles, no rhonchi and no wheezes Cardio Rate: regular rate Rhythm: regular rhythm Heart sounds: S1 normal heart sound present and S2 normal heart sound present GI Inspection: Yes normal to inspection Palpation (GI): Soft to palpation, nontender and No hepatosplenomegaly present Auscultation: normoactive bowel sounds Neuro General: No confusion Cranial nerves: Yes Normal hearing present Extrem General: No edema Assessment and Plan Assessment & Plan (1) Viral gastroenteritis: Code(s): A08.4 - Viral intestinal infection, unspecified Plan: Given patient's abdominal pain and diarrhea have completely resolved likely viral gastroenteritis versus possible GI upset related to initial Ozempic increase. Signs and symptoms reviewed with patient when to follow-up with PCP. (2) Hypertension: Code(s): I10 - Essential (primary) hypertension Qualifiers: Hypertension type: essential hypertension Qualified Code(s): I10 - Essential (primary) hypertension Plan: Continue on lisinopril 40 mg daily. Follow low-salt diet and exercise. Blood pressure below goal in office today. (3) Hyperlipidemia: Code(s): E78.5 - Hyperlipidemia, unspecified Qualifiers: Hyperlipidemia type: mixed hyperlipidemia Qualified Code(s): E78.2 - Mixed hyperlipidemia Plan: Continue on atorvastatin 80 mg at bedtime. Continue to follow low-cholesterol diet. (4) Diabetic polyneuropathy associated with type 2 diabetes mellitus: Code(s): E11.42 - Type 2 diabetes mellitus with diabetic polyneuropathy Plan: Continue on metformin 1000 mg b.i.d., Pioglitazone on 45 mg daily,ozempic 2mg Qweek. Patient educated to decrease the amount of carbohydrate intake such as pasta, bread, rice and potatoes are all sugar in addition to the sweet stuff. Remember that fruits are good but they also have sugar. Plan Keep scheduled follow-up with PCP or follow-up sooner if needed. Coding Level of Care Code Est Pt Level 4 (03407) Diagnoses Viral gastroenteritis A08.4 Essential hypertension I10 Hypertension type: essential hypertension Mixed hyperlipidemia E78.2 Hyperlipidemia type: mixed hyperlipidemia Diabetic polyneuropathy associated with type 2 diabetes mellitus E11.42
== END 2022-12-27 14:11 | disposition home or self-care (01) ==
PROVIDERS: PCP Internal Medicine; Visit Provider Nurse Practitioner Family
DX: A08.4 Viral intestinal infection, unspecified (principal); I10 Essential (primary) hypertension; E78.2 Mixed hyperlipidemia; E11.42 Type 2 diabetes mellitus with diabetic polyneuropathy
CPT/HCPCS: 99214

== ENCOUNTER 2023-01-03 10:34 | Outpatient (AMB) | payer OTHER, SELFPAY ==
[2023-01-03 10:46] VITALS: BP 110/60; PULSE 72; O2SAT 98; BMI 42.5
--- NOTE | 2023-01-03 10:46 | MHC.OFFVIS ---
Intake Vital Signs 01/03/23 10:46 Height 5 ft 10 in Weight 296 lb BMI 42.5 BP 110/60 Blood Pressure Location Lt brachial Position Sitting Pulse 72 Pulse Source Pulse Oximeter Pulse Oximetry (%) 98 Oxygen Delivery Method Room Air Intake Visit Reasons: Obstructive sleep apnea Intake Note: pt is here for follow up and feels good using cpap with no issues Teacher Resource Required: No Allergies shrimp Allergy (Mild, Verified 01/03/23 11:05) Swelling Medication List - Last Reconciled 01/03/23 by Glenn Interiano MD acetaminophen ER (Mapap Arthritis Pain) 1,300 mg (2 x 650 mg) PO Q8H PRN 30 days albuterol sulfate 2.5 mg (3 mL) inhalation Q4-6H PRN 30 days albuterol sulfate 90 mcg/actuation 2 puffs PO Q4H PRN 30 days amitriptyline 150 mg PO BEDTIME atorvastatin 80 mg PO BEDTIME 90 days blood sugar diagnostic (FreeStyle Lite Strips) 1 strip miscellaneous BID 30 days blood-glucose meter (FreeStyle Lite Meter kit) As directed htputqewso-gfgxokjsfukzw-tivj 50-325-40 mg 1 tab PO Q8H PRN chlorthalidone 25 mg PO DAILY 90 days cholecalciferol (vitamin D3) 50 mcg PO DAILY 90 days clonidine HCl 0.2 mg PO BEDTIME cyclobenzaprine 10 mg PO Q8H docusate sodium 100 mg PO BID fenofibrate nanocrystallized 145 mg PO DAILY 90 days fluticasone propion-salmeterol 250-50 mcg/dose (Wixela Inhub) 1 ea PO Q12H gabapentin 100 mg PO TID 30 days hydrocortisone 2.5% 1 appl topical BID PRN 14 days lancets As directed lisinopril 40 mg PO DAILY lorazepam 1 mg PO BID PRN meloxicam 15 mg PO DAILY PRN metformin ER 1,000 mg (2 x 500 mg) PO BID 90 days montelukast 10 mg PO BEDTIME pen needle, diabetic (BD Jennifer 2nd Gen Pen Needle) once a day pioglitazone 45 mg PO DAILY 90 days semaglutide (Ozempic) 2 mg (0.75 mL) subcut QWEEK 30 days sumatriptan succinate (Imitrex) 100 mg PO DIRECTED tamsulosin (Flomax) 0.4 mg PO BEDTIME 90 days topiramate 100 mg PO BID Ventolin HFA 90 mcg/actuation (albuterol sulfate) 2 puffs inhalation Q6H PRN 30 days NS zolpidem (Ambien) 10 mg PO BEDTIME PRN Do you need a note to return to daycare/school/sports/work: No HPI Obstructive sleep apnea HPI Details THIS 57 YEARS OLD VERY PLEASANT GENTLEMAN COMES AFTER 6 MONTHS FOR HIS ROUTINE FOLLOW-UP. HE IS A CASE OF MORBID OBESITY, OBSTRUCTIVE SLEEP APNEA, AND USES CPAP VERY REGULARLY AT NIGHT. HIS CPAP MODEL IS THE OLD, DOES NOT TRANSMIT THE COMPLIANCE DATA, BUT HE CLAIMS THAT IT IS WORKING VERY WELL WITHOUT ANY PROBLEM. HE SLEEPS GOOD THROUGHOUT THE NIGHT. HIS BRONCHIAL ASTHMA IS MILD AND TO ONLY OCCASIONAL COUGH AND WHEEZING. HE DOES HAVE ALBUTEROL HFA WELL ALBUTEROL SOLUTION FOR THE NEBULIZER BUT HARDLY NEEDS TO USE. FAR WEIGHT IS CONCERNED HE HAS NOT BEEN ABLE TO LOSE. HE DOES WORK ACTIVELY EVERY DAY. [facility] Medical History Morbid obesity Osteoarthritis of left knee Moderate recurrent major depression Pruritus ani Internal and external hemorrhoids without complication Asthma DANIEL on CPAP Anemia Back pain Gross hematuria UTI (urinary tract infection) UTI (urinary tract infection) Prostate enlargement Diabetic polyneuropathy associated with type 2 diabetes mellitus Vitamin D deficiency Diabetes type 2, controlled Family history of anesthesia complication Hx of low back pain DANIEL on CPAP Hx of insomnia Hx of migraines Anxiety Depression Colon cancer screening Bleeding hemorrhoids Morbid obesity Hyperlipidemia Hypertension Hypernatremia Bloody stools Asthma Diabetes mellitus, type 2 Hiatal hernia Surgical History Hx of colonoscopy History of knee surgery History of carpal tunnel release H/O hernia repair History of umbilical hernia repair Family History Maternal Uncle History of prostate cancer Father History of throat cancer Myocardial infarction Diabetes mellitus Hypertension CVD (cardiovascular disease) Maternal Grandfather History of throat cancer Son In good health Son In good health Brother Colon cancer Mother Diabetes mellitus Social History Household Members: Spouse and Children Housing: House Are you a primary customer care assistant to a significant other at home: No Do you presently have visiting nurse or other home services: Yes (once a week ) Alcohol intake: former Patient Tobacco Use Status: Former Tobacco user Tobacco use type: Cigarette Cigarettes Per Day: 3 e-Cigarette/Vaping Use: Never Used Second Hand Smoke Exposure: No service: No Current occupational status: disabled Cognitive needs: No Hearing needs: No Vision needs: Yes Review of Systems Const All systems reviewed & are unremarkable except as noted in HPI and below Eyes Reports no additional complaints ENT Reports nasal congestion (MILD, OFF AND ON) Card Denies chest pain, Denies irregular heart rhythm and Denies leg edema Resp Reports as per HPI GI Reports constipation Reports no additional complaints and Reports nocturia Musc Reports back pain (MILD) Skin/Breast Reports system reviewed and no additional complaints, except as documented Neuro Reports no additional complaints Psych Reports no additional complaints Physical Exam Vital Signs: Last Vital Signs Pulse 72 01/03/23 10:46 BP 110/60 01/03/23 10:46 Pulse Ox 98 01/03/23 10:46 Oxygen Delivery Method Room Air 01/03/23 10:46 BMI result Body Mass Index 42.5 Const General: healthy appearing (Except for overweight), comfortable, no acute distress, alert and awake Orientation/consciousness: patient oriented x3 HEENT Head: Yes normal to inspection General nose exam: No nasal polyps present, No nasal discharge present and normal mucous membranes and turbinates (Has moderate hypertrophy of the nasal turbinates) Face and sinus: Yes sinuses nontender Mouth: oropharynx normal Throat: Yes posterior oropharynx normal Eyes General: appearance normal, both eyes and all related structures Neck Neck: Yes normal visual inspection, Yes no lymphadenopathy, Yes trachea midline and Yes no JVD Thyroid: Thyroid normal Chest Chest palpation & inspection: normal inspection of the chest, normal palpation of entire chest wall and no tenderness Resp Other: Percussion note is resonant. He has good breath sounds on both sides. No wheezes rhonchi or crepitations are heard. Cardio Palpation: normal PMI Rate: regular rate Rhythm: regular rhythm Heart sounds: no gallops and no murmurs Peripheral pulses: Peripheral pulses 2+ throughout GI Palpation (GI): Soft to palpation, Tenderness to palpation present (GI), No hepatosplenomegaly present and Palpable mass present Auscultation: normal bowel sounds Back/Spine/Pelvis Thoracic/Lumbar Spine: thoracic and lumbar spine normal to inspection Skin General skin exam: no rashes or lesions noted Neuro General: patient oriented x3 and no focal motor deficits Cranial nerves: Yes CN's II-XII intact bilaterally Extrem General: Yes normal to inspection, Yes no clubbing, cyanosis or edema and Yes no calf tenderness Psych Appearance: grossly normal and well kempt Speech and movement: Normal speech and movement present Assessment & Plan Assessment & Plan (1) Morbid obesity: Comment: THIS IS A CHRONIC PROBLEM, PATIENT IS TRYING TO LOSE WEIGHT ON HIS OWN. DISCUSSED ABOUT NEED TO WALK DAILY AND CUT DOWN ON HIS CALORIES INTAKE. Code(s): E66.01 - Morbid (severe) obesity due to excess calories (2) DANIEL on CPAP: Comment: KNOWN CASE OF OBSTRUCTIVE SLEEP APNEA SINCE 2013. HE IS USING CPAP, EVERY NIGHT, IS VERY COMPLIANT AND BENEFITTING, GETS GOOD SLEEP. CURRENT FULLFACE MASK IS COMFORTABLE, AND WORKING WELL. Code(s): G47.33 - Obstructive sleep apnea (adult) (pediatric); Z99.89 - Dependence on other enabling machines and devices (3) Asthma: Comment: HAS CHRONIC , INTERMITTENT BRONCHIAL ASTHMA, CONTROLLED WITH CURRENT REGIMEN. TX :CONTINUE FLUTICASONE-SALMETEROL (WIXELA ) 250-51 INHALATION B.I.D. AND PROAIR HFA 2 PUFFS Q 4-6 HOURS ONLY P.R.N.. Also uses albuterol solution in the nebulizer once or twice a day as needed. I educated him and advised not to use it unless he really has some wheezing or respiratory distress. Code(s): J45.909 - Unspecified asthma, uncomplicated Qualifiers: Asthma severity: mild Asthma persistence: persistent Asthma complication type: uncomplicated Qualified Code(s): J45.30 - Mild persistent asthma, uncomplicated Coding Level of Care Code Est Pt Level 3 (81078) Diagnoses Morbid obesity E66.01 DANIEL on CPAP G47.33; Z99.89 Mild persistent asthma without complication J45.30 Asthma severity: mild Asthma persistence: persistent Asthma complication type: uncomplicated
== END 2023-01-03 11:10 | disposition home or self-care (01) ==
PROVIDERS: PCP Internal Medicine; Visit Provider Internal Medicine
DX: E66.01 Morbid (severe) obesity due to excess calories (principal); G47.33 Obstructive sleep apnea (adult) (pediatric); Z99.89 Dependence on other enabling machines and devices; J45.30 Mild persistent asthma, uncomplicated
CPT/HCPCS: 99213

== ENCOUNTER → 2023-01-03 10:34 | Outpatient (BNVA) | payer OTHER, SELFPAY | PROVIDERS: Visit Provider Internal Medicine | DX: J45.30 Mild persistent asthma, uncomplicated (principal); E66.01 Morbid (severe) obesity due to excess calories; Z68.41 Body mass index [BMI] 40.0-44.9, adult; G47.33 Obstructive sleep apnea (adult) (pediatric); Z99.89 Dependence on other enabling machines and devices | CPT/HCPCS: 99212 ==

== ENCOUNTER 2023-01-11 10:16 | Outpatient (AMB) | payer OTHER, SELFPAY ==
--- NOTE | 2023-01-11 10:17 | A.OFFVIS_ITS ---
Intake Intake Visit Reasons: 1 yr/ PSA(set) Intake Note: Patient presents today via phone for a follow-up on Labs Results: Meds- Tamsulosin Allergies to Antibiotic- No Known Allergies Blood Thinner- None Inspector Final Assembly Electrical Required: Yes Inspector Final Assembly Electrical Language: Niuean Information Interpreted: non-clinical & clinical Accompanied by: Self / Same As Patient Allergies shrimp Allergy (Mild, Verified 01/11/23 11:53) Swelling Medication List - Last Reconciled 01/11/23 by CRIS Echeverria-ROBERTO acetaminophen ER (Mapap Arthritis Pain) 1,300 mg (2 x 650 mg) PO Q8H PRN 30 days albuterol sulfate 2.5 mg (3 mL) inhalation Q4-6H PRN 30 days albuterol sulfate 90 mcg/actuation 2 puffs PO Q4H PRN 30 days amitriptyline 150 mg PO BEDTIME atorvastatin 80 mg PO BEDTIME 90 days blood sugar diagnostic (FreeStyle Lite Strips) 1 strip miscellaneous BID 30 days blood-glucose meter (FreeStyle Lite Meter kit) As directed kqeglnyycj-gefamqfjestjk-axhe 50-325-40 mg 1 tab PO Q8H PRN chlorthalidone 25 mg PO DAILY 90 days cholecalciferol (vitamin D3) 50 mcg PO DAILY 90 days clonidine HCl 0.2 mg PO BEDTIME cyclobenzaprine 10 mg PO Q8H PRN docusate sodium 100 mg PO BID fenofibrate nanocrystallized 145 mg PO DAILY 90 days fluticasone propion-salmeterol 250-50 mcg/dose (Wixela Inhub) 1 ea PO Q12H gabapentin 100 mg PO TID 30 days hydrocortisone 2.5% 1 appl topical BID PRN 14 days lancets As directed lisinopril 40 mg PO DAILY lorazepam 1 mg PO BID PRN meloxicam 15 mg PO DAILY PRN metformin ER 1,000 mg (2 x 500 mg) PO BID 90 days montelukast 10 mg PO BEDTIME pen needle, diabetic (BD Jennifer 2nd Gen Pen Needle) once a day pioglitazone 45 mg PO DAILY 90 days semaglutide (Ozempic) 2 mg (0.75 mL) subcut QWEEK 30 days sumatriptan succinate (Imitrex) 100 mg PO DIRECTED tamsulosin (Flomax) 0.4 mg PO BEDTIME 90 days topiramate 100 mg PO BID Ventolin HFA 90 mcg/actuation (albuterol sulfate) 2 puffs inhalation Q6H PRN 30 days NS zolpidem (Ambien) 10 mg PO BEDTIME PRN HPI HPI Comments History of Present Illness Details Dallas is a pleasant 58 year Niuean-speaking male patient of Dr. Watts. He he has a past medical history of obesity, osteoarthritis, depression, asthma, COPD, obstructive sleep apnea, anemia, back pain, diabetes, vitamin-D deficiency, insomnia, migraines, hemorrhoids, hypertension, and hyperlipidemia. He is being follow-up on today via telehealth for his history of BPH and elevated PSA. In discussion with the patient today reports to be doing and feeling well. He reports be happy with current voiding parameters on 0.4 mg of Flomax daily. Recent PSA results reviewed with the patient today. PSA 12/22--2.3. He denies any issues with his urinartion. He denies urinary urgency, urinary frequency, incontinence, nocturia, hematuria, dysuria, foul smelling urine, changes to urinary stream, flank pain, fever, and or chills. He otherwise denies any issues or concerns at this time. PREVIOUS OFFICE NOTE: Lower urinary tract symptoms with prior UTI Prior hematuria Noted to also have weakness of stream and started on tamsulosin Investigations - Cysto 06/19 tight prostatic urethra, mild trabeculation PSAs - 04/21 13.6 - when had retention, 12/20 2.2, 11/20 1.9, 12/22 2.3 Therapeutic plan - refill tamsulosin and repeat PSA in 6 months [facility] Medical History Morbid obesity Osteoarthritis of left knee Moderate recurrent major depression Pruritus ani Internal and external hemorrhoids without complication Asthma DANIEL on CPAP Anemia Back pain Gross hematuria UTI (urinary tract infection) UTI (urinary tract infection) Prostate enlargement Diabetic polyneuropathy associated with type 2 diabetes mellitus Vitamin D deficiency Diabetes type 2, controlled Family history of anesthesia complication Hx of low back pain DANIEL on CPAP Hx of insomnia Hx of migraines Anxiety Depression Colon cancer screening Bleeding hemorrhoids Morbid obesity Hyperlipidemia Hypertension Hypernatremia Bloody stools Asthma Diabetes mellitus, type 2 Hiatal hernia Surgical History Hx of colonoscopy History of knee surgery History of carpal tunnel release H/O hernia repair History of umbilical hernia repair Family History Maternal Uncle History of prostate cancer Father History of throat cancer Myocardial infarction Diabetes mellitus Hypertension CVD (cardiovascular disease) Maternal Grandfather History of throat cancer Son In good health Son In good health Brother Colon cancer Mother Diabetes mellitus Social History Household Members: Spouse and Children Housing: House Are you a primary multi care technician to a significant other at home: No Do you presently have visiting nurse or other home services: Yes (once a week ) Alcohol intake: former Patient Tobacco Use Status: Former Tobacco user Tobacco use type: Cigarette Cigarettes Per Day: 3 e-Cigarette/Vaping Use: Never Used Second Hand Smoke Exposure: No service: No Current occupational status: disabled Cognitive needs: No Hearing needs: No Vision needs: Yes Review of Systems Const Reports as per HPI Eyes Reports no additional complaints ENT Reports no additional complaints Card Reports no additional complaints Resp Reports no additional complaints GI Reports as per HPI Reports as per HPI Musc Reports as per HPI Neuro Reports no additional complaints Psych Reports as per HPI Endo Reports as per HPI David/Lymph Reports no additional complaints Aller/Immun Reports no additional complaints Physical Exam Const General: cooperative Orientation/consciousness: patient oriented x3 Resp Effort & Inspection: able to speak in complete sentences Neuro General: patient oriented x3 Psych Speech and movement: Clear speech present Attitude: cooperative Thought content: Normal thought content present Insight: Fair insight present (Psych) Judgement: Fair judgement present (Psych) Assessment & Plan Assessment & Plan (1) Elevated PSA: Code(s): R97.20 - Elevated prostate specific antigen [PSA] (2) Bladder outlet obstruction: Code(s): N32.0 - Bladder-neck obstruction Plan Recent PSA results reviewed with the patient today; as noted above. Continue Flomax as discussed and prescribed; refill provided Will obtain retroperitoneal ultrasound PSA in 6 months. Discussed importance of compliance with CPAP machine for improvement lower urinary tract symptoms as well as overall health and well-being. Discussed importance of managing diabetes for improvement in lower urinary tract symptoms and overall health and well-being. Patient denies any bothersome urinary issues or concerns at this time. Follow-up in 6 months with imaging and labs to be completed prior; or sooner with any issues, concerns, and or questions. Orders: Orders US retroperitoneal comp 6 Months N32.0 - Bladder-neck obstruction Prostate Specific Antigen 6 Months R97.20 - Elevated prostate specific antigen [PSA] Medications: Refilled tamsulosin (Flomax) 0.4 mg PO BEDTIME 90 days 90 caps 3RF N40.0 - Benign prostatic hyperplasia without lower urinary tract symptoms Telehealth Telehealth Location of provider rendering services: practice address Location of patient: address on file Patient Identification confirmed using: Name, : Yes Patient verbally consented to treatment: Yes Patient verbally consented to billing insurance company: Yes Patient informed of any privacy concerns related to visit: Yes Minutes spent on Phone/Video with Pt.: 20 Coding Level of Care Code Tele Est Pt Level 3 (63549) Diagnoses Elevated PSA R97.20 Bladder outlet obstruction N32.0 Time Spent (min) 20
== END 2023-01-11 11:40 | disposition home or self-care (01) ==
LOC: HO.HUSH 10:16
PROVIDERS: PCP Internal Medicine; Visit Provider Nurse Practitioner Family
DX: R97.20 Elevated prostate specific antigen [PSA] (principal); N32.0 Bladder-neck obstruction
CPT/HCPCS: 99442

== ENCOUNTER → 2023-01-11 10:16 | Outpatient (BNVA) | payer OTHER, SELFPAY | PROVIDERS: PCP Internal Medicine; Visit Provider Nurse Practitioner Family ==

== ENCOUNTER 2023-01-21 13:42 | Outpatient (AMB) | payer OTHER, SELFPAY ==
--- NOTE | 2023-01-21 13:59 | A.OFFVIS_ITS ---
Intake Vital Signs 01/21/23 14:17 Height 5 ft 10 in Weight 302 lb BMI 43.3 BP 113/56 L Blood Pressure Location Lt brachial Position Sitting Pulse 91 Intake Visit Reasons: 3 year recall colonoscopy Intake Note: This patient presents for an assessment for three year recall colonoscopy screening. Patient c/o; reports no complaints at this time. Outside Operator Required: Yes Outside Operator Language: Media Relations Specialist Name: Stoney Information Interpreted: non-clinical & clinical Accompanied by: Self / Same As Patient Allergies shrimp Allergy (Mild, Verified 01/21/23 14:16) Swelling Medication List - Last Reconciled 01/21/23 by Mario Ruggiero MD acetaminophen ER (Mapap Arthritis Pain) 1,300 mg (2 x 650 mg) PO Q8H PRN 30 days albuterol sulfate 2.5 mg (3 mL) inhalation Q4-6H PRN 30 days albuterol sulfate 90 mcg/actuation 2 puffs PO Q4H PRN 30 days amitriptyline 150 mg PO BEDTIME atorvastatin 80 mg PO BEDTIME 90 days blood sugar diagnostic (FreeStyle Lite Strips) 1 strip miscellaneous BID 30 days blood-glucose meter (FreeStyle Lite Meter kit) As directed oyrpropxtf-jdmubssnxjpyn-hzkt 50-325-40 mg 1 tab PO Q8H PRN chlorthalidone 25 mg PO DAILY 90 days cholecalciferol (vitamin D3) 50 mcg PO DAILY 90 days clonidine HCl 0.2 mg PO BEDTIME cyclobenzaprine 10 mg PO Q8H PRN docusate sodium 100 mg PO BID fenofibrate nanocrystallized 145 mg PO DAILY 90 days fluticasone propion-salmeterol 250-50 mcg/dose (Wixela Inhub) 1 ea PO Q12H gabapentin 100 mg PO TID 30 days hydrocortisone 2.5% 1 appl topical BID PRN 14 days lancets As directed lisinopril 40 mg PO DAILY lorazepam 1 mg PO BID PRN meloxicam 15 mg PO DAILY PRN metformin ER 1,000 mg (2 x 500 mg) PO BID 90 days montelukast 10 mg PO BEDTIME pen needle, diabetic (BD Jennifer 2nd Gen Pen Needle) once a day pioglitazone 45 mg PO DAILY 90 days semaglutide (Ozempic) 2 mg (0.75 mL) subcut QWEEK 30 days sumatriptan succinate (Imitrex) 100 mg PO DIRECTED tamsulosin (Flomax) 0.4 mg PO BEDTIME 90 days topiramate 100 mg PO BID Ventolin HFA 90 mcg/actuation (albuterol sulfate) 2 puffs inhalation Q6H PRN 30 days NS zolpidem (Ambien) 10 mg PO BEDTIME PRN HPI 3 year recall colonoscopy HPI Details 58-year-old male here for a follow-up co lonoscopy. He had undergone colonoscopy in 2019. However, had poor bowel prep at that time. He admitted to having eaten lunch today before and he had a large amount of stool in the colon. I had recommended a repeat colonoscopy in 3 years. He currently denies significant GI complaints. He says he feels well overall. He does state that he had been recently diagnosed to have an enlarged prostate and is taking medications for this. [facility] Medical History (Updated 01/21/23 @ 14:37 by Mario Ruggiero MD) Family history of prostate cancer Morbid obesity Osteoarthritis of left knee Moderate recurrent major depression Pruritus ani Internal and external hemorrhoids without complication Asthma DANIEL on CPAP Anemia Back pain Gross hematuria UTI (urinary tract infection) UTI (urinary tract infection) Prostate enlargement Diabetic polyneuropathy associated with type 2 diabetes mellitus Vitamin D deficiency Diabetes type 2, controlled Family history of anesthesia complication Hx of low back pain DANIEL on CPAP Hx of insomnia Hx of migraines Anxiety Depression Colon cancer screening Bleeding hemorrhoids Morbid obesity Hyperlipidemia Hypertension Hypernatremia Bloody stools Asthma Diabetes mellitus, type 2 Hiatal hernia Surgical History Hx of colonoscopy History of knee surgery History of carpal tunnel release H/O hernia repair History of umbilical hernia repair Family History Maternal Uncle History of prostate cancer Father History of throat cancer Myocardial infarction Diabetes mellitus Hypertension CVD (cardiovascular disease) Maternal Grandfather History of throat cancer Son In good health Son In good health Brother Colon cancer Mother Diabetes mellitus Social History Household Members: Spouse and Children Housing: House Are you a primary career services officer to a significant other at home: No Do you presently have visiting nurse or other home services: Yes (once a week ) Alcohol intake: former Patient Tobacco Use Status: Former Tobacco user Tobacco use type: Cigarette Cigarettes Per Day: 3 e-Cigarette/Vaping Use: Never Used Second Hand Smoke Exposure: No service: No Current occupational status: disabled Cognitive needs: No Hearing needs: No Vision needs: Yes Review of Systems Const Denies chills and Denies fever(s) Card Denies chest pain, Denies dyspnea and Denies dyspnea on exertion Resp Denies cough, Denies dyspnea and Denies dyspnea on exertion GI Denies hematochezia and Denies change in bowel habits Denies hematuria and Reports difficulty urinating Musc Denies back pain and Denies limited range of motion Neuro Denies focal weakness and Denies convulsions Psych Denies depression and Denies mood swings Physical Exam Vital Signs: Last Vital Signs Pulse 91 01/21/23 14:17 BP 113/56 L 01/21/23 14:17 BMI result Body Mass Index 43.3 Const Other: Morbidly obese General: comfortable and no acute distress Orientation/consciousness: patient oriented x3 Neck Neck: Yes no lymphadenopathy Resp Auscultation: clear to auscultation bilaterally Cardio Rhythm: regular rhythm GI Palpation (GI): Soft to palpation, nontender and no guarding Neuro General: patient oriented x3 Assessment & Plan Assessment & Plan (1) Colon cancer screening: Code(s): Z12.11 - Encounter for screening for malignant neoplasm of colon Plan: His last colonoscopy was 3 years ago but he had suboptimal bowel prep at that time. I had recommended repeating the colonoscopy we within 3 years. I explained to the technique of this procedure. I reviewed the risks, benefits, and alternatives. He understands and wants to proceed. I am going to order for Pluralsight for his bowel prep. (2) Family history of prostate cancer: Code(s): Z80.42 - Family history of malignant neoplasm of prostate Plan: He states that his father and brother were diagnosed to have prostate cancer and had metastasized. He may be candidate for genetic testing therefore. I explained to him this option and I reviewed with him the implications of this test. He says he is interested so we will set him up for genetic counseling and genetic testing in the office. Coding Level of Care Code Est Pt Level 4 (12021) Diagnoses Colon cancer screening Z12.11 Family history of prostate cancer Z80.42
[2023-01-21 14:17] VITALS: BP 113/56; PULSE 91; BMI 43.3
== END 2023-01-21 14:41 | disposition home or self-care (01) ==
PROVIDERS: PCP Internal Medicine; Visit Provider Surgery
DX: Z12.11 Encounter for screening for malignant neoplasm of colon (principal); Z80.42 Family history of malignant neoplasm of prostate
CPT/HCPCS: 99214

== ENCOUNTER → 2023-01-21 13:42 | Outpatient (BNVA) | payer OTHER, SELFPAY | PROVIDERS: PCP Internal Medicine; Visit Provider Surgery | DX: Z12.11 Encounter for screening for malignant neoplasm of colon (principal); Z80.42 Family history of malignant neoplasm of prostate | CPT/HCPCS: 99212 ==

== ENCOUNTER 2023-03-05 11:32 | Outpatient (AMB) | payer OTHER, SELFPAY ==
[2023-03-05 11:33] VITALS: BP 136/80; PULSE 78; O2SAT 99; BMI 44.5
--- NOTE | 2023-03-05 11:33 | HO.NEPHOV ---
HPI HPI Comments History of Present Illness Details Middle-aged man with a history of longstanding hypertension diabetes medicine obesity with mild CKD. Is minimal proteinuria. He has a history of ingesting Advil up to 3 tablets a day. After discontinuing and will has been improvement in the serum creatinine. Peak serum creatinine was 1.5 back in June 2021. Since last visit he has done very well. No specific complaints. No nausea vomiting no urine symptoms. No edema. He seems complaint was medications. [facility] Medical History Family history of prostate cancer Morbid obesity Osteoarthritis of left knee Moderate recurrent major depression Pruritus ani Internal and external hemorrhoids without complication Asthma DANIEL on CPAP Anemia Back pain Gross hematuria UTI (urinary tract infection) UTI (urinary tract infection) Prostate enlargement Diabetic polyneuropathy associated with type 2 diabetes mellitus Vitamin D deficiency Diabetes type 2, controlled Family history of anesthesia complication Hx of low back pain DANIEL on CPAP Hx of insomnia Hx of migraines Anxiety Depression Colon cancer screening Bleeding hemorrhoids Morbid obesity Hyperlipidemia Hypertension Hypernatremia Bloody stools Asthma Diabetes mellitus, type 2 Hiatal hernia Surgical History Hx of colonoscopy History of knee surgery History of carpal tunnel release H/O hernia repair History of umbilical hernia repair Family History Maternal Uncle History of prostate cancer Father History of throat cancer Myocardial infarction Diabetes mellitus Hypertension CVD (cardiovascular disease) Maternal Grandfather History of throat cancer Son In good health Son In good health Brother Colon cancer Mother Diabetes mellitus Social History (Updated 03/05/23 @ 11:37 by Geni Wilson MA) Household Members: Spouse and Children Housing: House Are you a primary skin care therapist to a significant other at home: No Do you presently have visiting nurse or other home services: Yes (once a week ) Alcohol intake: former Patient Tobacco Use Status: Former Tobacco user Tobacco use type: Cigarette Cigarettes Per Day: 1 e-Cigarette/Vaping Use: Never Used Second Hand Smoke Exposure: No service: No Current occupational status: disabled Cognitive needs: No Hearing needs: No Vision needs: Yes Vital Signs 03/05/23 11:33 Height 5 ft 10 in Weight 310 lb 6 oz BMI 44.5 BP 136/80 Blood Pressure Location Lt brachial Position Sitting Pulse 78 Pulse Source Pulse Oximeter Pulse Oximetry (%) 99 Oxygen Delivery Method Room Air Physical Exam Vital Signs: Last Vital Signs Pulse 78 03/05/23 11:33 BP 136/80 03/05/23 11:33 Pulse Ox 99 03/05/23 11:33 Oxygen Delivery Method Room Air 03/05/23 11:33 BMI result Body Mass Index 44.5 Const General: comfortable; No acute distress Orientation/consciousness: patient oriented x3 Eyes General: appearance normal, both eyes and all related structures Visual Tom: normal visual tom by confrontation Neck Neck: Yes supple and Yes no JVD Resp Effort & Inspection: normal respiratory effort and respiratory effort not decreased Auscultation: rhonchi Cardio Palpation: no palpable S3 and no palpable S4 Heart sounds: no rubs GI Inspection: Yes normal to inspection Palpation (GI): Soft to palpation Percussion: Yes normal to percussion Auscultation: normal bowel sounds General: Yes no CVA tenderness Back/Spine/Pelvis Back: no CVA tenderness Skin General skin exam: no petechiae and no purpura Neuro General: patient oriented x3 and no focal motor deficits Extrem General: No clubbing and No edema Assessment & Plan Assessment & Plan (1) CKD (chronic kidney disease) stage 3, GFR 30-59 ml/min: Code(s): N18.30 - Chronic kidney disease, stage 3 unspecified (2) Morbid obesity: Code(s): E66.01 - Morbid (severe) obesity due to excess calories Plan Middle-aged man with longstanding hypertension diabetes mellitus obesity with mild CKD. Renal function stable at baseline. Goal is to slow the progression of renal disease. Continue to avoid nephrotoxic agents including NSAIDs. Increased increase his fluid intake. Goal is to maintain the hemoglobin A1c less than 7%. We discussed weight loss as well. No changes were made to his medications Orders: Orders Electrolytes 5 Months N18.30 - Chronic kidney disease, stage 3 unspecified Creatinine 5 Months N18.30 - Chronic kidney disease, stage 3 unspecified Calcium 5 Months N18.30 - Chronic kidney disease, stage 3 unspecified Total Protein Urine Random 5 Months N18.30 - Chronic kidney disease, stage 3 unspecified UA and rflx microscopic 5 Months N18.30 - Chronic kidney disease, stage 3 unspecified Blood Urea Nitrogen 5 Months N18.30 - Chronic kidney disease, stage 3 unspecified Creatinine Urine 5 Months N18.30 - Chronic kidney disease, stage 3 unspecified Coding Level of Care Code Est Pt Level 3 (92985) Diagnoses CKD (chronic kidney disease) stage 3, GFR 30-59 ml/min N18.30 Morbid obesity E66.01 Results Reviewed Nephrology Results: Hgb 13.6 g/dl (14.0-18.0) L 12/22/22 WBC 7.7 X10*3/uL (4.8-10.8) 12/22/22 Plt Count 295 X10*3/uL (160-400) 12/22/22 Sodium 140 mmol/L (135-145) 12/22/22 Potassium 3.7 mmol/L (3.3-5.1) 12/22/22 Chloride 103 mmol/L (96-108) 12/22/22 Carbon Dioxide 24 mmol/L (22-29) 12/22/22 BUN 18 mg/dL (9-16) H 12/22/22 Creatinine 1.15 mg/dL (0.5-1.4) 12/22/22 Calcium 9.8 mg/dL (8.4-10.2) 12/22/22
== END 2023-03-05 11:44 | disposition home or self-care (01) ==
PROVIDERS: PCP Internal Medicine; Visit Provider Internal Medicine Hypertension Specialist
DX: N18.30 Chronic kidney disease, stage 3 unspecified (principal); E66.01 Morbid (severe) obesity due to excess calories
CPT/HCPCS: 99213

== ENCOUNTER → 2023-03-05 11:32 | Outpatient (BNVA) | payer OTHER, SELFPAY | PROVIDERS: PCP Internal Medicine; Visit Provider Internal Medicine Hypertension Specialist | DX: N18.30 Chronic kidney disease, stage 3 unspecified (principal); E66.01 Morbid (severe) obesity due to excess calories; Z68.41 Body mass index [BMI] 40.0-44.9, adult | CPT/HCPCS: 99212 ==

== ENCOUNTER 2023-03-28 08:38 | Outpatient (AMB) | payer OTHER, SELFPAY ==
[2023-03-28 09:13] VITALS: BMI 43.7
--- NOTE | 2023-03-28 09:13 | A.OFFVIS_ITS ---
Intake VS Expanded 03/28/23 09:13 Height 5 ft 10 in Weight 304 lb 7.334 oz BMI 43.7 Intake Visit Reasons: DM/ LVM Allergies shrimp Allergy (Mild, Verified 03/05/23 11:33) Swelling HPI Nutrition Presentation Details Pt presents for MNT for T2DM. Pt reports needing review in nutrition. Fruits/day: 4 vegetables: 1 serving/d dairy: 1-2 /d fish: 3 x/wk, poultry /beef fried foods: using air fryer pastries : working on reducing Beverages: water, juices Physical activity: walking 0-1 (30 minutes) ETOH: Occ SMoking: denies Diet Assmnt Dietary counseling reduction and diabetic diet Who buys your food self and spouse Who prepares/cooks your food self Lifestyle Emotional Eating Reports boredom Eating out rarely or never Reads food labels No (needs review) Family support Yes BS Monitoring Glucose home monitoring verbal report (Reports bg this AM at 272 mg/dl) Frequency of blood glucose monitoring 1 time daily Focused findings Nutrition-focused findings overweight/obese QLP-Rrdfvcx-Rt.Jeor Equation Height 5 ft 10 in Weight 304 lb Resting Metabolic Rate 2208.43 Calculated Activity Level Sedentary Calories Needed to Maintain Weight 2650.12 Diagnosis Nutrition problem #1 excessive energy intake As related to (etiology) #1 diagnosis As evidenced by (sign/symptom) #1 high BMI, knowledge deficit of diet and elevated FBS (per Pt statement of BG at 272 mg/dl this AM) Monitoring/Goals Nutrition problem monitoring level of knowledge/skill, glucose, fasting, weight and oral fluids Nutrition goal/outcome list 3 CHO foods and wt loss 5lbs in 2 months Learning/Education Readiness to learn good Stages of change preparation Educational materials provided Yes (meal planning) Most Recent Diabetes Results: No Data to Display PFS Medical History Family history of prostate cancer Morbid obesity Osteoarthritis of left knee Moderate recurrent major depression Pruritus ani Internal and external hemorrhoids without complication Asthma DANIEL on CPAP Anemia Back pain Gross hematuria UTI (urinary tract infection) UTI (urinary tract infection) Prostate enlargement Diabetic polyneuropathy associated with type 2 diabetes mellitus Vitamin D deficiency Diabetes type 2, controlled Family history of anesthesia complication Hx of low back pain DANIEL on CPAP Hx of insomnia Hx of migraines Anxiety Depression Colon cancer screening Bleeding hemorrhoids Morbid obesity Hyperlipidemia Hypertension Hypernatremia Bloody stools Asthma Diabetes mellitus, type 2 Hiatal hernia Surgical History Hx of colonoscopy History of knee surgery History of carpal tunnel release H/O hernia repair History of umbilical hernia repair Family History Maternal Uncle History of prostate cancer Father History of throat cancer Myocardial infarction Diabetes mellitus Hypertension CVD (cardiovascular disease) Maternal Grandfather History of throat cancer Son In good health Son In good health Brother Colon cancer Mother Diabetes mellitus Social History (Updated 03/05/23 @ 11:37 by Geni Wilson MA) Household Members: Spouse and Children Housing: House Are you a primary childbirth and infant care teacher to a significant other at home: No Do you presently have visiting nurse or other home services: Yes (once a week ) Alcohol intake: former Patient Tobacco Use Status: Former Tobacco user Tobacco use type: Cigarette Cigarettes Per Day: 1 e-Cigarette/Vaping Use: Never Used Second Hand Smoke Exposure: No service: No Current occupational status: disabled Cognitive needs: No Hearing needs: No Vision needs: Yes Assessment & Plan Assessment & Plan (1) Diabetes mellitus: Code(s): E11.9 - Type 2 diabetes mellitus without complications Plan: Wt: 138 Kg (03/28/23 ) Est kcal needs as per MSJ: 2700 (40% carb, 30% protein/fat) Est fluid needs as per 25-30 ml/d: 3450- 4140 ml/d Est prot per day as per 0.8- 1 g/kg bw: 110-138 g/ Recommend fiber intake : 8-10 g per day and gradually increase to 25-28 g per day for women and 35-38 g for men or as tolerated Recommend sodium intake per day : less than 2000 mg Educated patient on: ( R = reviewed V = verbalizes understanding N/R = needs review N/A = not applicable * Food sources of carbohydrate, adequate serving sizes and its role in various health conditions: R * Differences between complex carbohydrates a simple carbohydrates, role of fiber in diet: R * Lean protein sources of foods: R * Differences between types of fats and role in diet (mono on saturated fat fatty acids, saturated fatty acids, trans fats): N/R * Food sources of sodium in salt and healthy modifications for heart health in kidney health: N/ R * Vitamins and minerals: N/R * Healthy plate method concept: R * Physical activity: Benefits a precaution: R * Hypoglycemia protocol (rule of 15): N/R * Dietary prevention of Hyperglycemia: R Patient Instructions: Work on following healthy plate method at dinner Have a meal replacement once a day Drink water with meals, choose low sugar beverages Read food labels ,compare sugars/carbs Coding Level of Care Code Nutr Indiv Intake (38409) Diagnoses Diabetes mellitus E11.9 Time Spent (min) 30
[2023-03-28 10:18] VITALS: BMI 43.6
== END 2023-03-28 10:05 | disposition home or self-care (01) ==
PROVIDERS: PCP Internal Medicine; Visit Provider Dietitian, Registered
DX: E11.9 Type 2 diabetes mellitus without complications (principal)

== ENCOUNTER → 2023-03-28 08:38 | Outpatient (BNVA) | payer OTHER, SELFPAY | PROVIDERS: PCP Internal Medicine; Visit Provider Dietitian, Registered | DX: E11.9 Type 2 diabetes mellitus without complications (principal) | CPT/HCPCS: 97802 ==

== ENCOUNTER 2023-04-09 12:43 | Outpatient (AMB) | payer OTHER, SELFPAY ==
--- NOTE | 2023-04-09 12:57 | MHC.PC.OV ---
Vital Signs 04/09/23 12:58 Height 5 ft 10 in Weight 300 lb BMI 43.0 BP 120/72 Blood Pressure Location Lt brachial Position Sitting Intake Visit Reasons: dm Intake Note: Patient here for a follow up DM Echocardiologist Required: No Accompanied by: Self / Same As Patient Allergies shrimp Allergy (Mild, Verified 04/09/23 13:10) Swelling Medication List - Last Reconciled 04/09/23 by Deedee Watts MD acetaminophen ER (Mapap Arthritis Pain) 1,300 mg (2 x 650 mg) PO Q8H PRN 30 days albuterol sulfate 2.5 mg (3 mL) inhalation Q4-6H PRN 30 days albuterol sulfate 90 mcg/actuation 2 puffs PO Q4H PRN 30 days amitriptyline 150 mg PO BEDTIME atorvastatin 80 mg PO BEDTIME 90 days blood sugar diagnostic (FreeStyle Lite Strips) 1 strip miscellaneous BID 30 days blood-glucose meter (FreeStyle Lite Meter kit) As directed uvikruymuc-jkgcumgtdjkwi-rlnc 50-325-40 mg 1 tab PO Q8H PRN chlorthalidone 25 mg PO DAILY 90 days cholecalciferol (vitamin D3) 50 mcg PO DAILY 90 days clonidine HCl 0.2 mg PO BEDTIME 90 days cyclobenzaprine 10 mg PO Q8H PRN docusate sodium 100 mg PO BID fenofibrate nanocrystallized 145 mg PO DAILY 90 days fluticasone propion-salmeterol 250-50 mcg/dose (Wixela Inhub) 1 ea PO Q12H gabapentin 100 mg PO TID 30 days hydrocortisone 2.5% 1 appl topical BID PRN 14 days lancets As directed lisinopril 40 mg PO DAILY lorazepam 1 mg PO BID PRN meloxicam 15 mg PO DAILY PRN metformin ER 1,000 mg (2 x 500 mg) PO BID 90 days montelukast 10 mg PO BEDTIME peg 3350-electrolytes 236-22.74-6.74 -5.86 gram (Golytely) 240 mL PO Q10M pen needle, diabetic (BD Jennifer 2nd Gen Pen Needle) once a day pioglitazone 45 mg PO DAILY 90 days semaglutide (Ozempic) 2 mg (0.75 mL) subcut QWEEK 30 days sumatriptan succinate (Imitrex) 100 mg PO DIRECTED tamsulosin (Flomax) 0.4 mg PO BEDTIME 90 days topiramate 100 mg PO BID Ventolin HFA 90 mcg/actuation (albuterol sulfate) 2 puffs inhalation Q6H PRN 30 days NS zolpidem (Ambien) 10 mg PO BEDTIME PRN Tobacco use date assessed: 04/09/23 Dental Screening Dental Screen Date: 04/09/23 Did you have a dental visit in the last 12 months?: Yes Did you have a dental problem in the last 6 months where you did not have access to dental care?: No Was dental information given to patient?: Patient has dentist HPI HPI Comments History of Present Illness Details This is a 58-year-old male with diabetes mellitus type 2, hypertension, hyperlipidemia, moderate recurrent major depression and morbid obesity that comes today for follow-up on his conditions. A1c elevated and I will add Jardiance. Blood pressure stable. Lipid panel will be repeated ir and he is LDL goal should be less than 70. Depression stable with medications. He is morbidly obese with a BMI of 43 and declines weight loss surgery. Was advised to diet and exercise to reach BMI goal less than 30. [facility] Medical History (Updated 04/09/23 @ 13:27 by Deedee Watts MD) CKD (chronic kidney disease) stage 3, GFR 30-59 ml/min Family history of prostate cancer Osteoarthritis of left knee Moderate recurrent major depression Pruritus ani Internal and external hemorrhoids without complication Asthma DANIEL on CPAP Anemia Back pain Gross hematuria UTI (urinary tract infection) Prostate enlargement Diabetic polyneuropathy associated with type 2 diabetes mellitus Vitamin D deficiency Diabetes type 2, controlled Family history of anesthesia complication Hx of low back pain Hx of insomnia Hx of migraines Anxiety Depression Colon cancer screening Bleeding hemorrhoids Morbid obesity Hyperlipidemia Hypertension Hypernatremia Bloody stools Diabetes mellitus, type 2 Hiatal hernia Surgical History Hx of colonoscopy History of knee surgery History of carpal tunnel release H/O hernia repair History of umbilical hernia repair Family History Maternal Uncle History of prostate cancer Father History of throat cancer Myocardial infarction Diabetes mellitus Hypertension CVD (cardiovascular disease) Maternal Grandfather History of throat cancer Son In good health Son In good health Brother Colon cancer Mother Diabetes mellitus Social History Household Members: Spouse and Children Housing: House Are you a primary ostomy care nurse to a significant other at home: No Do you presently have visiting nurse or other home services: Yes (once a week ) Alcohol intake: former Patient Tobacco Use Status: Former Tobacco user Tobacco use type: Cigarette Cigarettes Per Day: 1 e-Cigarette/Vaping Use: Never Used Second Hand Smoke Exposure: No service: No Current occupational status: disabled Cognitive needs: No Hearing needs: No Vision needs: Yes Questionnaire PHQ-9 Over the last 2 weeks, how often have you been bothered by any of the following problems? 1. Little interest or pleasure in doing things: not at all 2. Feeling down, depressed, or hopeless: several days 3. Trouble falling or staying asleep, or sleeping too much: not at all 4. Feeling tired or having little energy: several days 5. Poor appetite or overeating: not at all 6. Feeling bad about yourself - or that you are a failure or have let yourself or your family down: not at all 7. Trouble concentrating on things, such as reading the newspaper or watching television: not at all 8. Moving or speaking so slowly that other people could have noticed. Or the opposite - being so fidgety or restless that you have been moving around a lot more than usual: not at all 9. Thoughts that you would be better off or of hurting yourself in some way: not at all Total score: 2 Depression Screening Interpretation: Negative Depression Screening Done: Yes 87441 - PHQ-9 Billing: Yes Source: Developed by Drs. Musa Armando, Jagruti Vu, Leo Dutton and colleagues, with an educational lyla from [employer]. Thrive Questionnaire Date Thrive assessed: 04/09/23 I am a: Patient What is your living situation today?: I have a steady place to live Within the past 12 months, did the food you bought not last and you didn't have the money to get more?: Never true Within the past 12 months, did you worry whether your food would run out before you got money to buy more?: Never true Do you have trouble paying for medicines?: No Do you have trouble getting transportation to medical appointments?: No Do you have trouble paying your heating and electricity bill?: No Do you have trouble taking care of your child, family member or friend?: No Do you have trouble with day-to-day activities such as bathing, preparing meals, shopping, managing finances, etc.?: No Are you currently unemployed and looking for a job?: No Are you interested in more education?: No Please select the resources that you would like help with: None Currently or been in a relationship where the following occur: no concerns reported MAGGY-7 AMB Questionnaire MAGGY-7 Date MAGGY - 7 assessed: 04/09/23 Feeling nervous, anxious, or on edge: 1 = Several days Not being able to stop or control worryin = Not at all Worrying too much about different things: 1 = Several days Trouble relaxin = Not at all Being so restless that it is hard to sit still: 0 = Not at all Becoming easily annoyed or irritable: 1 = Several days Feeling afraid as if something awful might happen: 1 = Several days Total MAGGY-7 score (0-4 normal; 5-9 mild; 10-14 moderate; 15-21 severe): 4 Source: Developed by Drs. Musa Armando, Jagruti Vu, Leo Dutton and colleagues, with an educational lyla from [employer]. MAGGY-7 Assessment Billing MAGGY-7 Assessment Tool: MAGGY-7 Assessment 03236 Review of Systems Const All systems reviewed & are unremarkable except as noted in HPI and below Eyes Reports no additional complaints, Denies change in vision and Denies other visual disturbances Card Denies chest pain at rest, Denies chest pain with activity, Denies edema, Denies irregular heart rhythm, Denies claudication, Denies dyspnea, Denies dyspnea on exertion, Denies orthopnea, Denies paroxysmal nocturnal dyspnea and Denies slow heart rate Resp Denies cough, Denies dyspnea and Denies dyspnea on exertion GI Denies abdominal pain, Denies change in bowel habits, Denies excessive flatus, Denies nausea and Denies vomiting Denies urinary hesitancy, Denies urinary incontinence and Denies urinary urgency Musc Denies abnormal gait, Denies atrophy, Denies deformity and Denies limited range of motion Skin/Breast Denies bleeding lesions, Denies changing lesions and Denies rash Neuro Denies abnormal gait and Denies lack of coordination Physical exam (Primary Care) Vital Signs: Last Vital Signs BP 120/72 04/09/23 12:58 BMI result Body Mass Index 43.0 Tobacco/Smoking Status: Tobacco use Status Tobacco use date assessed 04/09/23 04/09/23 13:03 Patient Tobacco Use Status Former Tobacco user 04/09/23 13:03 Tobacco use type Cigarette 04/09/23 13:03 e-Cigarette/Vaping Use Never Used 04/09/23 13:03 PHQ-9: PHQ-9 Score PHQ-9: Total score 2 04/09/23 13:21 Depression Screening Interpretation: Negative Thrive Assessment: Date of Thrive Assessment Date Thrive assessed 04/09/23 04/09/23 13:03 Currently or been in a relationship where the following occur: no concerns reported Eyes General: appearance normal, both eyes and all related structures Eyelids: Yes eyelids normal Conjunctivae: conjunctivae normal Neck Neck: Yes normal visual inspection and Yes supple Resp Effort & Inspection: normal respiratory effort Auscultation: clear to auscultation bilaterally Cardio Jugular venous distension: no JVD Rate: regular rate Rhythm: regular rhythm Heart sounds: S1 normal heart sound present and S2 normal heart sound present Extrem General: Yes full ROM Psych Appearance: grossly normal Office Procedures Flu Questionnaire Does the patient have a severe egg allergy?: No Results AMB Hemoglobin A1c AMB Hemoglobin A1c 8.3 % Last Edit by CRIS Young on 04/09/23 13:13 Immunizations flu vacc [id number] 6mos up(PF) 60 mcg(15 mcgx4)/0.5 mL IM syringe Performing Provider: Deedee Watts MD [facility] Documented (not given) by: CRIS Young on 04/09/23 13:22 Reason Not Given: Not Given Results Reviewed Results Reviewed: Laboratory Last Values Hgb A1c (Clinic) 8.3 % (4.0-6.0) H 04/09/23 13:12 Assessment and Plan Assessment & Plan (1) Diabetes mellitus: Code(s): E11.9 - Type 2 diabetes mellitus without complications Qualifiers: Diabetes mellitus type: type 2 Diabetes mellitus intermission coordinator insulin use: without intermission coordinator use Diabetes mellitus complication status: with hyperglycemia Qualified Code(s): E11.65 - Type 2 diabetes mellitus with hyperglycemia Plan: Continue metformin, Ozempic and Actos. Start Jardiance. A1c goal is equal or less than 7%. (2) Morbid obesity: Code(s): E66.01 - Morbid (severe) obesity due to excess calories Plan: Start diet and exercise. BMI goal is less than 30. (3) Moderate recurrent major depression: Code(s): F33.1 - Major depressive disorder, recurrent, moderate Plan: Continue amitriptyline. (4) Hypertension: Code(s): I10 - Essential (primary) hypertension Qualifiers: Hypertension type: essential hypertension Qualified Code(s): I10 - Essential (primary) hypertension Plan: Continue lisinopril. Blood pressure goal is equal or less than 130/80. (5) Hyperlipidemia: Code(s): E78.5 - Hyperlipidemia, unspecified Qualifiers: Hyperlipidemia type: mixed hyperlipidemia Qualified Code(s): E78.2 - Mixed hyperlipidemia Plan: Continue statins and fibrates. LDL goal is less than 70. Orders: Orders AMB Hemoglobin A1c Today E11.9 - Type 2 diabetes mellitus without complications Lipid Panel 4 Months E78.5 - Hyperlipidemia, unspecified Microalbumin, Random (w Creat) 4 Months E11.9 - Type 2 diabetes mellitus without complications Vitamin D 25-OH Total 4 Months E55.9 - Vitamin D deficiency, unspecified PSA,Total (Free>4and<10) 4 Months Z12.5 - Encounter for screening for malignant neoplasm of prostate Comprehensive [place]. Panel Fast 4 Months E11.9 - Type 2 diabetes mellitus without complications Influenza [id number] Immunization Today Z23 - Encounter for immunization Medications: New empagliflozin (Jardiance) 10 mg PO DAILY 90 tabs 1RF 90 days E11.9 - Type 2 diabetes mellitus without complications Coding Level of Care Code Est Pt Level 4 (51448) Diagnoses Type 2 diabetes mellitus with hyperglycemia, without long-term current use of insulin E11.65 Diabetes mellitus type: type 2 Diabetes mellitus halfway insulin use: without halfway use Diabetes mellitus complication status: with hyperglycemia Morbid obesity E66.01 Moderate recurrent major depression F33.1 Essential hypertension I10 Hypertension type: essential hypertension Mixed hyperlipidemia E78.2 Hyperlipidemia type: mixed hyperlipidemia Additional Codes MAGGY-7 Assessment Billing - MAGGY-7 Assessment Tool: MAGGY-7 Assessment 54081 ([id number]) Time Spent (min) 24
[2023-04-09 12:58] VITALS: BP 120/72; BMI 43.0
== END 2023-04-09 13:19 | disposition home or self-care (01) ==
PROVIDERS: PCP Internal Medicine; Visit Provider Internal Medicine
DX: E78.00 Pure hypercholesterolemia, unspecified (principal); F32.0 Major depressive disorder, single episode, mild; I48.11 Longstanding persistent atrial fibrillation; K59.04 Chronic idiopathic constipation; M54.50 Low back pain, unspecified
CPT/HCPCS: 83036; 99214

== ENCOUNTER 2023-06-11 06:35 | Outpatient (REF) | payer OTHER, SELFPAY ==
[2023-06-11 07:49] LABS: Alanine Aminotransferase 46 U/L (0-40); Albumin Level 4.1 g/dL (3.5-5.0); Alkaline Phosphatase 94 U/L (39-117); Anion Gap 12 (12-20); Aspartate Amino Transferase 27 U/L (5-37); Bilirubin Total 0.4 mg/dL (0.0-1.0); Blood Urea Nitrogen 21 mg/dL (9-16); Calcium 10.1 mg/dL (8.4-10.2); Carbon Dioxide 26 mmol/L (22-29); Chloride 102 mmol/L (96-108); Estimated Glomerular Filt Rate 55; Glucose Fasting 256 mg/dL (60-99); Potassium 3.7 mmol/L (3.3-5.1); Sodium 136 mmol/L (135-145)
[2023-06-11 07:52] LABS: Parathyroid Hormone Intact 18.1 pg/mL (8.7-77.1)
[2023-06-11 08:06] LABS: Vitamin D 25-OH Total 34.3 ng/mL (>30)
[2023-06-13 15:43] LABS: Calcium, Ionized 5.6 mg/dL (4.7-5.5)
[2023-06-13 17:39] LABS: Calcium, Random Urine 4.7 mg/dL
== END 2023-06-11 06:36 | disposition home or self-care (01) ==
LOC: HO.LAB 06:35
PROVIDERS: Absent Provider Nurse Practitioner Family; PCP Internal Medicine; Visit Provider Internal Medicine
DX: E83.52 Hypercalcemia (principal); E55.9 Vitamin D deficiency, unspecified
CPT/HCPCS: 36415; 80053; 82306; 82310; 82330; 83970

== ENCOUNTER 2023-06-12 14:33 | Outpatient (AMB) | payer OTHER, SELFPAY ==
[2023-06-12 14:35] VITALS: BP 100/64; PULSE 84; BMI 42.2
--- NOTE | 2023-06-12 14:35 | MHC.OFFVIS ---
Intake Vital Signs 06/12/23 14:35 Height 5 ft 10 in Weight 294 lb 5.074 oz BMI 42.2 BP 100/64 Blood Pressure Location Lt brachial Position Sitting Pulse 84 Pulse Source Pulse Oximeter Intake Visit Reasons: dm-lvm Intake Note: Patient presents today to follow up on D2MT. Last seen by Dr. Salazar on 09/23/20. Last Diabetic Eye exam: 2022 Last Podiatry Visit: Doesn't have one Random Glucose: 265 mg/dl HgA1c: 8.3% 04/09/23 Sensor Technician Required: Yes Sensor Technician Language: Old Coin Dealer Name: Corrina medical staff Information Interpreted: non-clinical & clinical Accompanied by: Self / Same As Patient Allergies shrimp Allergy (Mild, Verified 06/12/23 14:39) Swelling Medication List - Last Reconciled 06/12/23 by Musa Gary MD acetaminophen ER (Mapap Arthritis Pain) 1,300 mg (2 x 650 mg) PO Q8H PRN 30 days albuterol sulfate 2.5 mg (3 mL) inhalation Q4-6H PRN 30 days albuterol sulfate 90 mcg/actuation 2 puffs PO Q4H PRN 30 days amitriptyline 150 mg PO BEDTIME atorvastatin 80 mg PO BEDTIME 90 days blood sugar diagnostic (FreeStyle Lite Strips) 1 strip miscellaneous BID 30 days blood-glucose meter (FreeStyle Lite Meter kit) As directed nmjofskexr-ojwykvmpobnax-apnp 50-325-40 mg 1 tab PO Q8H PRN chlorthalidone 25 mg PO DAILY 90 days cholecalciferol (vitamin D3) 50 mcg PO DAILY 90 days clonidine HCl 0.2 mg PO BEDTIME 90 days cyclobenzaprine 10 mg PO Q8H PRN docusate sodium 100 mg PO BID empagliflozin (Jardiance) 10 mg PO DAILY 90 days fenofibrate nanocrystallized 145 mg PO DAILY 90 days fluticasone propion-salmeterol 250-50 mcg/dose (Wixela Inhub) 1 ea PO Q12H gabapentin 100 mg PO TID 30 days hydrocortisone 2.5% 1 appl topical BID PRN 14 days lancets As directed lisinopril 40 mg PO DAILY lorazepam 1 mg PO BID PRN meloxicam 15 mg PO DAILY PRN metformin ER 1,000 mg (2 x 500 mg) PO BID 90 days montelukast 10 mg PO BEDTIME peg 3350-electrolytes 236-22.74-6.74 -5.86 gram (Golytely) 240 mL PO Q10M pen needle, diabetic (BD Jennifer 2nd Gen Pen Needle) once a day pioglitazone 45 mg PO DAILY 90 days semaglutide (Ozempic) 2 mg (0.75 mL) subcut QWEEK 30 days sumatriptan succinate (Imitrex) 100 mg PO DIRECTED tamsulosin (Flomax) 0.4 mg PO BEDTIME 90 days topiramate 100 mg PO BID Ventolin HFA 90 mcg/actuation (albuterol sulfate) 2 puffs inhalation Q6H PRN 30 days NS zolpidem (Ambien) 10 mg PO BEDTIME PRN HPI HPI Comments History of Present Illness Details 58 yo male today for fup visit, last seen on 09/23/2020 for diabetes management. The patient last saw Dr. Salazar He is feeling well, he has no complaints today. . Unfortunately, the patient did not bring his glucometer or log book to the follow-up visit He reports he has been doing fingersticks, but his meter is empty. He has DM type 2 diagnosed > 10 years. He is Currently on Metformin ER 2 500 mg BID, Actos 45 mg daily. Ozempic 2 mg weekly.Jardiance 10 mg QD Complications: no retinopathy, nephropathy, positive neuropathy, denies CVA, CAD, PVD. Other PMH is HTN, dyslipidemia , depression, obesity. Last ophthalmology evaluation: yr ago , no retinopathy or glaucoma. Needs to make appt Laboratory Tests 04/26/20 07/30/20 07/30/20 15:30 08:00 08:00 Hgb Hct Sodium Potassium Creatinine Estimated GFR Random Glucose Estimat Average Gl ucose 131 Hemoglobin A1c % 6.2 Calcium AST ALT Albumin Triglycerides 149 Cholesterol 124 LDL Cholesterol, C alc 62 HDL Cholesterol 33 Vitamin B12 493 Urine Creatinine Urine Microalbumin Microalb/Creat Rat io 07/30/20 08/19/20 08/19/20 08:00 03:06 03:06 Hgb 12.8 L Hct 40.1 L Sodium 139 Potassium 3.5 Creatinine 1.21 Estimated GFR > 60 Random Glucose 116 H Estimat Average Gl ucose Hemoglobin A1c % Calcium 9.5 AST 20 ALT 31 Albumin 4.0 Triglycerides Cholesterol LDL Cholesterol, C alc HDL Cholesterol Vitamin B12 Urine Creatinine 84.28 Urine Microalbumin < 5.0 Microalb/Creat Rat io TNP [facility] Medical History (Updated 04/09/23 @ 13:27 by Deedee Watts MD) CKD (chronic kidney disease) stage 3, GFR 30-59 ml/min Family history of prostate cancer Osteoarthritis of left knee Moderate recurrent major depression Pruritus ani Internal and external hemorrhoids without complication Asthma DANIEL on CPAP Anemia Back pain Gross hematuria UTI (urinary tract infection) Prostate enlargement Diabetic polyneuropathy associated with type 2 diabetes mellitus Vitamin D deficiency Diabetes type 2, controlled Family history of anesthesia complication Hx of low back pain Hx of insomnia Hx of migraines Anxiety Depression Colon cancer screening Bleeding hemorrhoids Morbid obesity Hyperlipidemia Hypertension Hypernatremia Bloody stools Diabetes mellitus, type 2 Hiatal hernia Surgical History Hx of colonoscopy History of knee surgery History of carpal tunnel release H/O hernia repair History of umbilical hernia repair Family History Maternal Uncle History of prostate cancer Father History of throat cancer Myocardial infarction Diabetes mellitus Hypertension CVD (cardiovascular disease) Maternal Grandfather History of throat cancer Son In good health Son In good health Brother Colon cancer Mother Diabetes mellitus Social History Household Members: Spouse and Children Housing: House Are you a primary adult day care worker to a significant other at home: No Do you presently have visiting nurse or other home services: Yes (once a week ) Alcohol intake: former Patient Tobacco Use Status: Former Tobacco user Tobacco use type: Cigarette Cigarettes Per Day: 1 e-Cigarette/Vaping Use: Never Used Second Hand Smoke Exposure: No service: No Current occupational status: disabled Cognitive needs: No Hearing needs: No Vision needs: Yes Physical Exam Vital Signs: Last Vital Signs Pulse 84 06/12/23 14:35 BP 100/64 06/12/23 14:35 BMI result Body Mass Index 42.2 Absence of Cushingoid features. Absence of acromegalic features. Neck exam reveals nl size thyroid about 15 gms. No thyroid nodules palpable. No carotid bruits present. Lungs CTA. Heart S1 S2, Reg R/R. No M/R/ G. Skin exam reveals absence of vitiligo or acanthosis nigricans. Abdominal exam reveals Soft NT/ND with NA BS. No organomegaly present. Neck Other: . Extrem Other: Visual exam of foot performed. No ulcerations or open lesions. No onchomycosis, no callouses.Pulses 2 + distally Sensation decreased in toes distally to monofilament exam. Vibratory sensation sensed is decreased with 128 Hz tuning fork Results Reviewed Results Reviewed: Laboratory Last Values Glucose (Clinic) 265 mg/dL (60-115) H 06/12/23 14:41 Assessment & Plan Assessment & Plan (1) Diabetes type 2, controlled: Code(s): E11.9 - Type 2 diabetes mellitus without complications Qualifiers: Diabetes mellitus prison insulin use: unspecified prison insulin use status Diabetes mellitus complication status: without complication Qualified Code(s): E11.9 - Type 2 diabetes mellitus without complications Plan: This is a 58-year-old male with a history of type 2 diabetes being treated with metformin, Actos, Ozempic with poor glycemic control and known microvascular complications namely neuropathy. Plan is that the patient check his point cares pre and post meals. Was told to bring the glucometer with him to follow-up appointments. I will schedule appointment with the CDE and business architect. Through a senior bookkeeper I went over the correlation of poor glycemic control to development of progression complications. Can not make any changes to the regimen today because of lack of data. However, will have patient meet with the educator today to pull through hooker Dexcom G7 set more information can be obtained in preparation for using insulin Orders: Referrals Diabetes Education Referral E11.9 - Type 2 diabetes mellitus without complications Nutrition/Dietitian Referral E11.9 - Type 2 diabetes mellitus without complications Coding Level of Care Code Est Pt Level 4 (94505) Diagnoses Controlled type 2 diabetes mellitus without complication, unspecified whether adjunct faculty for medical terminology insulin use E11.9 Diabetes mellitus adjunct faculty for medical terminology insulin use: unspecified prison insulin use status Diabetes mellitus complication status: without complication
[2023-06-12 14:45] LABS: Glucose, Whole Blood 265 mg/dL (60-115)
== END 2023-06-12 15:29 | disposition home or self-care (01) ==
PROVIDERS: PCP Internal Medicine; Visit Provider Internal Medicine Endocrinology, Diabetes & Metabolism
DX: E11.9 Type 2 diabetes mellitus without complications (principal)
CPT/HCPCS: 99214

== ENCOUNTER → 2023-06-12 14:33 | Outpatient (BNVA) | payer OTHER, SELFPAY | PROVIDERS: PCP Internal Medicine; Visit Provider Internal Medicine Endocrinology, Diabetes & Metabolism | DX: E11.65 Type 2 diabetes mellitus with hyperglycemia (principal); Z79.4 Long term (current) use of insulin; Z79.899 Other long term (current) drug therapy | CPT/HCPCS: 82947; 99211; 99212 ==

== ENCOUNTER 2023-06-12 15:18 | Outpatient (AMB) | payer OTHER, SELFPAY ==
--- NOTE | 2023-06-12 15:33 | MHC.AMDMED ---
Intake Intake Visit Reasons: DM Telecommunications Line Mechanic Required: Yes Telecommunications Line Mechanic Language: Field Auditor Name: Kristi [facility] Information Interpreted: non-clinical & clinical Accompanied by: Self / Same As Patient Allergies shrimp Allergy (Mild, Verified 06/12/23 14:39) Swelling HPI Comprehensive Diabetes Asmnt Most Recent Diabetes Results: Creatinine 1.33 mg/dL (0.5-1.4) 06/11/23 Blood Urea Nitrogen 21 mg/dL (9-16) H 06/11/23 Sodium 136 mmol/L (135-145) 06/11/23 Potassium 3.7 mmol/L (3.3-5.1) 06/11/23 Chloride 102 mmol/L (96-108) 06/11/23 Carbon Dioxide 26 mmol/L (22-29) 06/11/23 Calcium 10.1 mg/dL (8.4-10.2) 06/11/23 AST 27 U/L (5-37) 06/11/23 ALT 46 U/L (0-40) H 06/11/23 Total Protein 7.0 g/dL (6.5-8.0) 06/11/23 Albumin 4.1 g/dL (3.5-5.0) 06/11/23 [facility] Medical History (Updated 04/09/23 @ 13:27 by Deedee Watts MD) CKD (chronic kidney disease) stage 3, GFR 30-59 ml/min Family history of prostate cancer Osteoarthritis of left knee Moderate recurrent major depression Pruritus ani Internal and external hemorrhoids without complication Asthma DANIEL on CPAP Anemia Back pain Gross hematuria UTI (urinary tract infection) Prostate enlargement Diabetic polyneuropathy associated with type 2 diabetes mellitus Vitamin D deficiency Diabetes type 2, controlled Family history of anesthesia complication Hx of low back pain Hx of insomnia Hx of migraines Anxiety Depression Colon cancer screening Bleeding hemorrhoids Morbid obesity Hyperlipidemia Hypertension Hypernatremia Bloody stools Diabetes mellitus, type 2 Hiatal hernia Surgical History Hx of colonoscopy History of knee surgery History of carpal tunnel release H/O hernia repair History of umbilical hernia repair Family History Maternal Uncle History of prostate cancer Father History of throat cancer Myocardial infarction Diabetes mellitus Hypertension CVD (cardiovascular disease) Maternal Grandfather History of throat cancer Son In good health Son In good health Brother Colon cancer Mother Diabetes mellitus Social History Household Members: Spouse and Children Housing: House Are you a primary intensive care ambulance paramedic to a significant other at home: No Do you presently have visiting nurse or other home services: Yes (once a week ) Alcohol intake: former Patient Tobacco Use Status: Former Tobacco user Tobacco use type: Cigarette Cigarettes Per Day: 1 e-Cigarette/Vaping Use: Never Used Second Hand Smoke Exposure: No service: No Current occupational status: disabled Cognitive needs: No Hearing needs: No Vision needs: Yes Assessment & Plan Assessment & Plan (1) Diabetes mellitus: Code(s): E11.9 - Type 2 diabetes mellitus without complications Qualifiers: Diabetes mellitus type: type 2 Diabetes mellitus skilled nursing insulin use: without roasterman use Diabetes mellitus complication status: with hyperglycemia Qualified Code(s): E11.65 - Type 2 diabetes mellitus with hyperglycemia Plan: Patient at visit to set up an insert Dexcom G7 Instructed patient sensors water proof you can shower, or swim do not submerge sensor in water for over 30 minutes Is sensor falls off cannot put back in you need to replace sensor, customer service number given to patient for sensor replacement Sensor placed on the back of left arm Patient left visit with sensor in warmup Reviewed how to interpret trend arrows Reminded patient that to check finger sticks if symptoms do not match sensor reading. Discussed lag time between finger stick and sensor data.? Instructed patient she should always keep blood glucometer for backup testing if needed Reviewed delay of CGM from fingersticks Reminded pt that if symptoms do not match sensor still needs to check fingersticks. Patient Instructions: Instrucciones para el paciente: CGM proporciona informaci?n sobre el control de la glucosa en kavya a lo karthik del d?a, incluidas la hiperglucemia y la hipoglucemia. Contin?e controlando la glucosa en kavya seg?n las instrucciones. Siga las pautas de nutrici?n proporcionadas. Informe cualquier molestia de inmediato al proveedor de atenci?n m?dica. Mantente rose hidratado. Puede ba?sarah murdockse, nadar y hacer ejercicio mientras usa el sensor de glucosa. No sumerja el sensor de glucosa en agua cristal m?s de 30 minutos. Retire el sensor para dane resonancia magn?bentley o dane tomograf?a computarizada. Evite la m?quina de michelle X en los aeropuertos: retire el sensor o solicite la varita Coding Level of Care Code Est Pt Level 1 (86844) Diagnoses Type 2 diabetes mellitus with hyperglycemia, without long-term current use of insulin E11.65 Diabetes mellitus type: type 2 Diabetes mellitus skilled nursing insulin use: without skilled nursing use Diabetes mellitus complication status: with hyperglycemia
== END 2023-06-12 15:28 | disposition home or self-care (01) ==
PROVIDERS: PCP Internal Medicine; Visit Provider Registered Nurse Diabetes Educator
DX: E11.65 Type 2 diabetes mellitus with hyperglycemia (principal)

== ENCOUNTER 2023-06-24 10:10 | Outpatient (REF) | payer OTHER, SELFPAY ==
--- NOTE | ~2023-06-24 | US_ITS ---
EXAMINATION: US RETROPERITONEAL COMPLETE (RENAL) CLINICAL INFORMATION: Bladder neck obstruction. COMPARISON: Renal ultrasound 10/05/2022. CT abdomen and pelvis without and with contrast 03/24/2020. TECHNIQUE: Real-time imaging of the kidneys and bladder. FINDINGS: RIGHT KIDNEY: 12.9 x 6.6 x 5.1 cm (SAG x AP x TRV). The kidney is normal in size, contour, and echogenicity. Renal cortical thickness is normal. No calculi or focal parenchymal lesions. No hydronephrosis. LEFT KIDNEY: 13.1 x 5.7 x 5.0 cm (SAG x AP x TRV). The kidney is normal in size, contour, and echogenicity. Renal cortical thickness is normal. No calculi or focal parenchymal lesions. No hydronephrosis. BLADDER: Partially distended. Bilateral ureteral jets are not demonstrated. Prevoid bladder volume is 119 mL. Postvoid bladder volume is 14.9 mL. The prostate volume is 18.5 mL. US/US retroperitoneal comp IMPRESSION: No acute abnormality on this sonographic exam of the retroperitoneum.
== END 2023-06-24 10:11 | disposition home or self-care (01) ==
LOC: HO.US 10:10
PROVIDERS: PCP Internal Medicine; Visit Provider Nurse Practitioner Family
DX: N32.0 Bladder-neck obstruction (principal)
CPT/HCPCS: 76770

== ENCOUNTER 2023-06-26 09:38 | Outpatient (AMB) | payer OTHER, SELFPAY ==
--- NOTE | 2023-06-26 09:47 | MHC.OFFVIS ---
Intake Vital Signs 06/26/23 09:48 Height 5 ft 10 in Weight 294 lb BMI 42.2 BP 131/65 Blood Pressure Location Rt brachial Position Sitting Pulse 75 Intake Visit Reasons: Rediscuss colonoscopy Intake Note: This patient presents for recall colonoscopy screening. Pt c/o; reports no complaints at this time, patient reports taking Ozempic. 02/16/2020: Colonoscopy Radio Interference Trouble Shooter Required: Yes Radio Interference Trouble Shooter Language: Lead Material Handler Name: Stoney Information Interpreted: non-clinical & clinical Accompanied by: Self / Same As Patient Allergies shrimp Allergy (Mild, Verified 06/26/23 09:57) Swelling HPI Rediscuss colonoscopy HPI Details 58-year-old male here for a follow-up colonoscopy. He had undergone colonoscopy in 2019. However, had poor bowel prep at that time. I had recommended a repeat colonoscopy in 3 years. I actually had seen him in the office last December, and schedule him for a colonoscopy. However, he was on Ozempic so the procedure was canceled the day before the date of the colonoscopy. He is here to reschedule this. He currently denies significant GI complaints. He says he feels well overall. He does state that he had been recently diagnosed to have an enlarged prostate and is taking medications for this. [facility] Medical History (Updated 04/09/23 @ 13:27 by Deedee Watts MD) CKD (chronic kidney disease) stage 3, GFR 30-59 ml/min Family history of prostate cancer Osteoarthritis of left knee Moderate recurrent major depression Pruritus ani Internal and external hemorrhoids without complication Asthma DANIEL on CPAP Anemia Back pain Gross hematuria UTI (urinary tract infection) Prostate enlargement Diabetic polyneuropathy associated with type 2 diabetes mellitus Vitamin D deficiency Diabetes type 2, controlled Family history of anesthesia complication Hx of low back pain Hx of insomnia Hx of migraines Anxiety Depression Colon cancer screening Bleeding hemorrhoids Morbid obesity Hyperlipidemia Hypertension Hypernatremia Bloody stools Diabetes mellitus, type 2 Hiatal hernia Surgical History Hx of colonoscopy History of knee surgery History of carpal tunnel release H/O hernia repair History of umbilical hernia repair Family History Maternal Uncle History of prostate cancer Father History of throat cancer Myocardial infarction Diabetes mellitus Hypertension CVD (cardiovascular disease) Maternal Grandfather History of throat cancer Son In good health Son In good health Brother Colon cancer Mother Diabetes mellitus Social History Household Members: Spouse and Children Housing: House Are you a primary acute care nurse practitioner to a significant other at home: No Do you presently have visiting nurse or other home services: Yes (once a week ) Alcohol intake: former Patient Tobacco Use Status: Former Tobacco user Tobacco use type: Cigarette Cigarettes Per Day: 1 e-Cigarette/Vaping Use: Never Used Second Hand Smoke Exposure: No service: No Current occupational status: disabled Cognitive needs: No Hearing needs: No Vision needs: Yes Review of Systems Const Denies chills and Denies fever(s) Card Denies chest pain, Denies dyspnea and Denies dyspnea on exertion Resp Denies cough, Denies dyspnea and Denies dyspnea on exertion GI Denies hematochezia and Denies change in bowel habits Denies hematuria and Denies difficulty urinating Musc Denies back pain and Denies limited range of motion Neuro Denies focal weakness and Denies convulsions Psych Denies depression and Denies mood swings Physical Exam Vital Signs: Last Vital Signs Pulse 75 06/26/23 09:48 BP 131/65 06/26/23 09:48 BMI result Body Mass Index 42.2 Const Other: Morbidly obese General: comfortable and no acute distress Orientation/consciousness: patient oriented x3 Neck Neck: Yes no lymphadenopathy Resp Auscultation: clear to auscultation bilaterally Cardio Rhythm: regular rhythm GI Palpation (GI): Soft to palpation, nontender and no guarding Neuro General: patient oriented x3 Assessment & Plan Assessment & Plan (1) Colon cancer screening: Code(s): Z12.11 - Encounter for screening for malignant neoplasm of colon Plan: He is here to schedule for his colonoscopy after colonoscopy with poor bowel prep 3 years ago. I reviewed with the technique of this procedure. I discussed the risks including but not limited to bleeding and perforation, as well as the benefits and alternatives. He has given consent He understands that he needs to stop taking Ozempic 1 week prior to colonoscopy because of risks anesthesia. Coding Level of Care Code Est Pt Level 2 (60265) Diagnoses Colon cancer screening Z12.11
[2023-06-26 09:48] VITALS: BP 131/65; PULSE 75; BMI 42.2
== END 2023-06-26 10:23 | disposition home or self-care (01) ==
PROVIDERS: PCP Internal Medicine; Visit Provider Surgery
DX: Z12.11 Encounter for screening for malignant neoplasm of colon (principal)
CPT/HCPCS: 99212

== ENCOUNTER → 2023-06-26 09:38 | Outpatient (BNVA) | payer OTHER, SELFPAY | PROVIDERS: PCP Internal Medicine; Visit Provider Surgery | DX: D64.9 Anemia, unspecified (principal); E66.01 Morbid (severe) obesity due to excess calories; R97.20 Elevated prostate specific antigen [PSA]; Z68.41 Body mass index [BMI] 40.0-44.9, adult; Z12.11 Encounter for screening for malignant neoplasm of colon | CPT/HCPCS: 99212 ==

== ENCOUNTER 2023-07-01 10:37 | Outpatient (AMB) | payer OTHER, SELFPAY ==
--- NOTE | 2023-07-01 11:18 | A.OFFVIS_ITS ---
Intake Intake Visit Reasons: f/u Type 2 DM Allergies shrimp Allergy (Mild, Verified 06/26/23 09:57) Swelling HPI Comprehensive Diabetes Asmnt Most Recent Diabetes Results: Creatinine 1.33 mg/dL (0.5-1.4) 06/11/23 Blood Urea Nitrogen 21 mg/dL (9-16) H 06/11/23 Sodium 136 mmol/L (135-145) 06/11/23 Potassium 3.7 mmol/L (3.3-5.1) 06/11/23 Chloride 102 mmol/L (96-108) 06/11/23 Carbon Dioxide 26 mmol/L (22-29) 06/11/23 Calcium 10.1 mg/dL (8.4-10.2) 06/11/23 AST 27 U/L (5-37) 06/11/23 ALT 46 U/L (0-40) H 06/11/23 Total Protein 7.0 g/dL (6.5-8.0) 06/11/23 Albumin 4.1 g/dL (3.5-5.0) 06/11/23 [facility] Medical History (Updated 04/09/23 @ 13:27 by Deedee Watts MD) CKD (chronic kidney disease) stage 3, GFR 30-59 ml/min Family history of prostate cancer Osteoarthritis of left knee Moderate recurrent major depression Pruritus ani Internal and external hemorrhoids without complication Asthma DANIEL on CPAP Anemia Back pain Gross hematuria UTI (urinary tract infection) Prostate enlargement Diabetic polyneuropathy associated with type 2 diabetes mellitus Vitamin D deficiency Diabetes type 2, controlled Family history of anesthesia complication Hx of low back pain Hx of insomnia Hx of migraines Anxiety Depression Colon cancer screening Bleeding hemorrhoids Morbid obesity Hyperlipidemia Hypertension Hypernatremia Bloody stools Diabetes mellitus, type 2 Hiatal hernia Surgical History Hx of colonoscopy History of knee surgery History of carpal tunnel release H/O hernia repair History of umbilical hernia repair Family History Maternal Uncle History of prostate cancer Father History of throat cancer Myocardial infarction Diabetes mellitus Hypertension CVD (cardiovascular disease) Maternal Grandfather History of throat cancer Son In good health Son In good health Brother Colon cancer Mother Diabetes mellitus Social History Household Members: Spouse and Children Housing: House Are you a primary spiritual care coordinator to a significant other at home: No Do you presently have visiting nurse or other home services: Yes (once a week ) Alcohol intake: former Patient Tobacco Use Status: Former Tobacco user Tobacco use type: Cigarette Cigarettes Per Day: 1 e-Cigarette/Vaping Use: Never Used Second Hand Smoke Exposure: No service: No Current occupational status: disabled Cognitive needs: No Hearing needs: No Vision needs: Yes Assessment & Plan Assessment & Plan (1) Diabetes mellitus: Code(s): E11.9 - Type 2 diabetes mellitus without complications Qualifiers: Diabetes mellitus type: type 2 Diabetes mellitus assisted insulin use: without assisted use Diabetes mellitus complication status: with hyperglycemia Qualified Code(s): E11.65 - Type 2 diabetes mellitus with hyperglycemia Plan: Learning objectives: The patient was provided with verbal and written education on the following topics as outlined below. The patient met all learning objectives and was able to verbalize understanding and provide teach back of education topics discussed . The patient was provided with the opportunity to ask questions and all questions were answered. Patient Assessment Assess patient education level/literacy/barriers Patient questions/concerns, patient returned after 10 days wearing sample Dexcom G7 sensor. Patient is on pioglitazone 45 mg daily Metformin 2000 mg daily Ozempic 2 mg weekly Jardiance 25 mg daily Patient denies missing medication Glucose information sent to Dr. Gary to determine if patient should be starting on insulin What is Diabetes? Pathophysiology How the body produces and uses insulin Identify type of DM Risk factors Signs of Diabetes Brief overview of Diabetes Management Monitoring blood sugar Following a meal plan Regular exercise Maintaining a healthy weight Taking medication as needed Members of the care team (PCP, RN, MA, RD, CDE, ornament setter) Blood glucose monitoring When/how often to test Target blood sugar ranges Patient's average glucose for the past 10 days 226 mg/dL Patient above target 93% of the time Patient at target 17% the time Patient below target 0% of the time Introduction to Nutrition Importance of healthy diet in managing DM Diet is personalized to individual preference Review patient?s regular diet/food preferences Who prepares meals/does food shopping/ Dining out?/ Barriers? How diet effects glucose Eating 3 balanced meals a day with small, healthy snacks between meals Review food groups Carbohydrates: What is a carbohydrate/Which food/food groups are considered carbohydrates Effect of carbohydrates on blood glucose Portion sizes Reading food labels Basic carb counting (if applicable per nursing assessment) Plate method Meal planning Recommendations: Follow plate method, consistent carbs and read nutritional labels. Smart Goal: Patient will identify foods in his diet that contain carbohydrates Educational Materials: The patient was provided with the following written educational materials: Planning Healthy Meals Handout Patient Response to instructions: Comprehension of Instructions: Fair Readiness to make changes: Contemplation How confident they feel about making changes: Positive Patient Instructions: Message sent to front elevator operator to schedule insulin start appt Coding Level of Care Code Est Pt Level 1 (50635) Diagnoses Type 2 diabetes mellitus with hyperglycemia, without long-term current use of insulin E11.65 Diabetes mellitus type: type 2 Diabetes mellitus 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
== END 2023-07-01 11:20 | disposition home or self-care (01) ==
PROVIDERS: PCP Internal Medicine; Visit Provider Registered Nurse Diabetes Educator
DX: E11.65 Type 2 diabetes mellitus with hyperglycemia (principal)

== ENCOUNTER → 2023-07-01 10:37 | Outpatient (BNVA) | payer OTHER, SELFPAY | PROVIDERS: PCP Internal Medicine; Visit Provider Registered Nurse Diabetes Educator | DX: E11.65 Type 2 diabetes mellitus with hyperglycemia (principal); Z71.89 Other specified counseling | CPT/HCPCS: 99211 ==

== ENCOUNTER 2023-07-11 07:16 | Outpatient (REF) | payer OTHER, SELFPAY ==
[2023-07-11 08:49] LABS: Prostate Specific Antigen 2.29 ng/mL (<0.05-4.0)
== END 2023-07-11 07:17 | disposition home or self-care (01) ==
LOC: HO.LAB 07:16
PROVIDERS: PCP Internal Medicine; Visit Provider Nurse Practitioner Family
DX: R97.20 Elevated prostate specific antigen [PSA] (principal); Z12.5 Encounter for screening for malignant neoplasm of prostate
CPT/HCPCS: 36415; 84153

== ENCOUNTER 2023-07-12 09:00 | Outpatient (AMB) | payer OTHER, SELFPAY ==
--- NOTE | 2023-07-12 09:30 | MHC.OFFVIS ---
Intake Intake Visit Reasons: 6 mo/ PVR/ Imagine Intake Note: Patient presents today for follow up ultrasound and psa results Urology Medications: Tamsulosin Allergies to Antibiotic- No Known Allergies Blood Thinner- None PVR: 37ml's Gate Watch Required: Yes Gate Watch Language: Writing Center Director Name: Maye [id number] Information Interpreted: non-clinical & clinical Accompanied by: Self / Same As Patient Allergies shrimp Allergy (Mild, Verified 07/12/23 09:35) Swelling Medication List - Last Reconciled 07/12/23 by CRIS Echeverria-ROBERTO acetaminophen ER (Mapap Arthritis Pain) 1,300 mg (2 x 650 mg) PO Q8H PRN 30 days albuterol sulfate 2.5 mg (3 mL) inhalation Q4-6H PRN 30 days albuterol sulfate 90 mcg/actuation 2 puffs PO Q4H PRN 30 days amitriptyline 150 mg PO BEDTIME atorvastatin 80 mg PO BEDTIME 90 days blood sugar diagnostic (FreeStyle Lite Strips) 1 strip miscellaneous BID 30 days blood-glucose meter (FreeStyle Lite Meter kit) As directed blood-glucose sensor ([employer] G7 Sensor device) As directed change every 10 days kbxlzkqlqp-trnjmphhgkgln-anpe 50-325-40 mg 1 tab PO Q8H PRN chlorthalidone 25 mg PO DAILY 90 days cholecalciferol (vitamin D3) 50 mcg PO DAILY 90 days clonidine HCl 0.2 mg PO BEDTIME 90 days cyclobenzaprine 10 mg PO Q8H PRN docusate sodium 100 mg PO BID empagliflozin (Jardiance) 10 mg PO DAILY 90 days fenofibrate nanocrystallized 145 mg PO DAILY 90 days fluticasone propion-salmeterol 250-50 mcg/dose (Wixela Inhub) 1 ea PO Q12H gabapentin 100 mg PO TID 30 days hydrocortisone 2.5% 1 appl topical BID PRN 14 days insulin glargine (Lantus Solostar U-100 Insulin) 20 units (0.2 mL) subcut QAM lancets As directed lisinopril 40 mg PO DAILY lorazepam 1 mg PO BID PRN meloxicam 15 mg PO DAILY PRN metformin ER 1,000 mg (2 x 500 mg) PO BID 90 days montelukast 10 mg PO BEDTIME peg 3350-electrolytes 236-22.74-6.74 -5.86 gram (Golytely) 240 mL PO Q10M pen needle, diabetic (BD Jennifer 2nd Gen Pen Needle) once a day pen needle, diabetic (Comfort EZ Pen Semmes) As directed injects once a day pioglitazone 45 mg PO DAILY 90 days semaglutide (Ozempic) 2 mg (0.75 mL) subcut QWEEK 30 days sumatriptan succinate (Imitrex) 100 mg PO DIRECTED tamsulosin (Flomax) 0.4 mg PO BEDTIME 90 days topiramate 100 mg PO BID Ventolin HFA 90 mcg/actuation (albuterol sulfate) 2 puffs inhalation Q6H PRN 30 days NS zolpidem (Ambien) 10 mg PO BEDTIME PRN HPI HPI Comments History of Present Illness Details Dallas is a pleasant 58 year Vietnamese-speaking male patient of Dr. Watts. He he has a past medical history of obesity, osteoarthritis, depression, asthma, COPD, obstructive sleep apnea, anemia, back pain, diabetes, vitamin-D deficiency, insomnia, migraines, hemorrhoids, hypertension, and hyperlipidemia. He presents to the office today for follow-up of his BPH and elevated PSA. In discussion with the patient today reports to be doing and feeling well. Recent retroperitoneal ultrasound results reviewed with the patient today. Bilateral kidneys with no calculi, lesions, and or hydronephrosis. The bladder is partially distended. Pre void bladder volume is approximately 120 mL. Postvoid bladder volume is approximately 15 mL. Prostate volume is approximately 19 mL. PSAs are as follows: 04/21 13.6, 12/22 2.3, 07/23 2.3 When asked he reports to be happy with current voiding parameters on 0.4 mg of Flomax daily. He does report noting at times to be having urinary urgency with potential for urinary incontinence as sense of urgency is sudden. He otherwise denies nocturia, hematuria, dysuria, foul smelling urine, changes to urinary stream, flank pain, fever, and or chills. Discussed at length importance of managing diabetes for improvement lower urinary tract symptoms as well as overall health and being. Reviewed most recent A1c level 04/24 8.3. In office urinalysis results reviewed with the patient today. PVR 37 mLs. He otherwise denies any issues or concerns at this time. PREVIOUS OFFICE NOTE: Lower urinary tract symptoms with prior UTI Prior hematuria Noted to also have weakness of stream and started on tamsulosin Investigations - Cysto 06/19 tight prostatic urethra, mild trabeculation PSAs - 04/21 13.6 - when had retention, 12/20 2.2, 11/20 1.9, 12/22 2.3, 07/23 2.3 Therapeutic plan - refill tamsulosin and repeat PSA in 6 months. [facility] Medical History CKD (chronic kidney disease) stage 3, GFR 30-59 ml/min Family history of prostate cancer Osteoarthritis of left knee Moderate recurrent major depression Pruritus ani Internal and external hemorrhoids without complication Asthma DANIEL on CPAP Anemia Back pain Gross hematuria UTI (urinary tract infection) Prostate enlargement Diabetic polyneuropathy associated with type 2 diabetes mellitus Vitamin D deficiency Diabetes type 2, controlled Family history of anesthesia complication Hx of low back pain Hx of insomnia Hx of migraines Anxiety Depression Colon cancer screening Bleeding hemorrhoids Morbid obesity Hyperlipidemia Hypertension Hypernatremia Bloody stools Diabetes mellitus, type 2 Hiatal hernia Surgical History Hx of colonoscopy History of knee surgery History of carpal tunnel release H/O hernia repair History of umbilical hernia repair Family History Maternal Uncle History of prostate cancer Father History of throat cancer Myocardial infarction Diabetes mellitus Hypertension CVD (cardiovascular disease) Maternal Grandfather History of throat cancer Son In good health Son In good health Brother Colon cancer Mother Diabetes mellitus Social History Household Members: Spouse and Children Housing: House Are you a primary vision care associate to a significant other at home: No Do you presently have visiting nurse or other home services: Yes (once a week ) Alcohol intake: former Patient Tobacco Use Status: Former Tobacco user Tobacco use type: Cigarette Cigarettes Per Day: 1 e-Cigarette/Vaping Use: Never Used Second Hand Smoke Exposure: No service: No Current occupational status: disabled Cognitive needs: No Hearing needs: No Vision needs: Yes Review of Systems Const Reports as per HPI Eyes Reports no additional complaints ENT Reports no additional complaints Card Reports no additional complaints Resp Reports no additional complaints GI Reports as per HPI Reports as per HPI Musc Reports as per HPI Neuro Reports no additional complaints Psych Reports as per [facility] Endo Reports as per HPI David/Lymph Reports no additional complaints Aller/Immun Reports no additional complaints Physical Exam Const General: cooperative, healthy appearing, comfortable, no acute distress, well developed, alert and awake Nutritional Appearance: overweight Orientation/consciousness: patient oriented x3 Limitations: no limitations HEENT Head: Yes normal to inspection, Yes normocephalic and Yes atraumatic Ears: hearing grossly normal bilaterally Eyes General: appearance normal, both eyes and all related structures Neck Neck: Yes normal visual inspection and Yes trachea midline Chest Chest palpation & inspection: normal inspection of the chest Resp Effort & Inspection: able to speak in complete sentences Cardio Rate: regular rate GI Inspection: Yes normal to inspection General: Yes no CVA tenderness Back/Spine/Pelvis Back: no CVA tenderness Skin General skin exam: no rashes or lesions noted Neuro General: patient oriented x3 Extrem General: Yes normal to inspection Psych Appearance: grossly normal and well kempt Mental Status: mental status grossly normal Speech and movement: Clear speech present Affect: normal affect Attitude: cooperative Thought process: Normal thought process present Thought content: Normal thought content present Insight: Fair insight present (Psych) Judgement: Fair judgement present (Psych) Office Procedures Post Void Residual Post Residual Void Post Void Residual (PVR): 37 [id number] Void Residual by ultrasound Results AMB Urinalysis, Automated UA Leukoctes 0 Zenaida/uL Last Edit by [employer] on 07/12/23 09:41 UA Nitrite Negative Last Edit by [employer] on 07/12/23 09:41 UA Urobilinogen 0.2 mg/dL Last Edit by [employer] on 07/12/23 09:41 UA Protein 0 mg/dL Last Edit by [employer] on 07/12/23 09:41 UA pH 6.0 Last Edit by [employer] on 07/12/23 09:41 UA Blood 0 Eder/uL Last Edit by [employer] on 07/12/23 09:41 UA Specific Currie 1.005 Last Edit by [employer] on 07/12/23 09:41 UA Ketone Negative Last Edit by [employer] on 07/12/23 09:41 UA Bilirubin 0 mg/dL Last Edit by Flor Hampton on 07/12/23 09:41 UA Glucose 0 mg/dL Last Edit by Flor Hampton on 07/12/23 09:41 Results Reviewed Results Reviewed: Laboratory Last Values Urine pH (Auto) 6.0 07/12/23 09:39 Specific Currie (Auto) 1.005 07/12/23 09:39 Urine Protein (Auto) 0 mg/dL 07/12/23 09:39 Glucose (UA)(Auto) 0 mg/dL 07/12/23 09:39 Urine Ketones (Auto) Negative 07/12/23 09:39 Urine Blood (Auto) 0 Eder/uL 07/12/23 09:39 Urine Nitrite (Auto) Negative 07/12/23 09:39 Urine Bilirubin (Auto) 0 mg/dL 07/12/23 09:39 Urine Urobilinogen (Auto) 0.2 mg/dL 07/12/23 09:39 Leukocyte Esterase (Auto) 0 Zenaida/uL 07/12/23 09:39 Date of Service: 06/24/23 EXAMINATION: US RETROPERITONEAL COMPLETE (RENAL) FINDINGS: RIGHT KIDNEY: 12.9 x 6.6 x 5.1 cm (SAG x AP x TRV). The kidney is normal in size, contour, and echogenicity. Renal cortical thickness is normal. No calculi or focal parenchymal lesions. No hydronephrosis. LEFT KIDNEY: 13.1 x 5.7 x 5.0 cm (SAG x AP x TRV). The kidney is normal in size, contour, and echogenicity. Renal cortical thickness is normal. No calculi or focal parenchymal lesions. No hydronephrosis. BLADDER: Partially distended. Bilateral ureteral jets are not demonstrated. Prevoid bladder volume is 119 mL. Postvoid bladder volume is 14.9 mL. The prostate volume is 18.5 mL. IMPRESSION: No acute abnormality on this sonographic exam of the retroperitoneum. Assessment & Plan Assessment & Plan (1) Bladder outlet obstruction: Code(s): N32.0 - Bladder-neck obstruction (2) Elevated PSA: Code(s): R97.20 - Elevated prostate specific antigen [PSA] (3) Family history of prostate cancer: Code(s): Z80.42 - Family history of malignant neoplasm of prostate (4) Urinary urgency: Code(s): R39.15 - Urgency of urination Plan In office urinalysis results reviewed with the patient today; as noted above. PVR 37 mL. Recent retroperitoneal ultrasound results reviewed with the patient today; as noted above. Recent PSA results reviewed with the patient today; as noted above. Discussed at length importance of managing diabetes for improvement lower urinary tract symptoms as well as overall health and well-being. Discussed bladder triggers/irritants. Patient reports to be happy with current voiding parameters on 0.4 mg of Flomax daily; will continue; refill provided. Will obtain PSA in 6 months. Follow-up in 6 months with lab to be completed prior; or sooner with any issues, concerns, and or questions. Orders: Orders AMB Urinalysis Automated 07/12/23 Z13.9 - Encounter for screening, unspecified AMB Post Void Residual by ultrasound 07/12/23 N32.0 - Bladder-neck obstruction Prostate Specific Antigen 6 Months N32.0 - Bladder-neck obstruction, Z80.42 - Family history of malignant neoplasm of prostate Medications: Refilled tamsulosin (Flomax) 0.4 mg PO BEDTIME 90 days 90 caps 3RF N40.0 - Benign prostatic hyperplasia without lower urinary tract symptoms Patient Instructions: The patient had an opportunity to ask questions regarding the treatment plan. All questions were answered. Physical exam, labs, and imaging were discussed and reviewed in detail. As well as risks, benefits, and discussion of treatment choices. No major barriers to understanding were identified. The patient expressed understanding and agreement with the above treatment plan. The patient was made aware they should contact our office by phone for worsening of their current condition, the appearance of new symptoms, or with any questions or concerns. Compliance is encouraged with any medications and follow up testing that is ordered. It is a privilege to be allowed the opportunity to participate in? your urological care.? Again, if you have any questions or concerns If you have any questions or concerns please do not hesitate to contact me. The office is [phone]. This note is constructed using voice recognition software. While every effort has been made to ensure accuracy vice president global advertising sales errors may have been included. Yours sincerely, MARIA Echeverria Coding Level of Care Code Est Pt Level 3 (73458) Diagnoses Bladder outlet obstruction N32.0 Elevated PSA R97.20 Family history of prostate cancer Z80.42 Urinary urgency R39.15 CPT Codes Post Residual Void - PVR CPT Code: 10081-Yeyu Void Residual by ultrasound ([id number])
== END 2023-07-12 09:49 | disposition home or self-care (01) ==
PROVIDERS: PCP Internal Medicine; Visit Provider Nurse Practitioner Family
DX: Z13.9 Encounter for screening, unspecified (principal)
CPT/HCPCS: 99213

== ENCOUNTER → 2023-07-12 09:00 | Outpatient (BNVA) | payer OTHER, SELFPAY | PROVIDERS: PCP Internal Medicine; Visit Provider Nurse Practitioner Family | DX: N32.0 Bladder-neck obstruction (principal); R97.20 Elevated prostate specific antigen [PSA]; R39.15 Urgency of urination; Z80.42 Family history of malignant neoplasm of prostate | CPT/HCPCS: 51798; 81003; 99212 ==

== ENCOUNTER 2023-07-25 12:54 | Outpatient (AMB) | payer OTHER, SELFPAY ==
[2023-07-25 13:08] VITALS: BMI 43.2
--- NOTE | 2023-07-25 13:08 | A.OFFVIS_ITS ---
Intake VS Expanded 07/25/23 13:08 Height 5 ft 10 in Weight 301 lb 5.95 oz BMI 43.2 Intake Visit Reasons: Dm2 Allergies shrimp Allergy (Mild, Verified 07/12/23 09:35) Swelling HPI Nutrition Presentation Details Pt presents for MNT for T2DM Pt presents for MNT f/u for T2DM. Pt was referred by Dr. Gary Food frequency fruits: 0-1/d vegetables: 4 serving/wk fish: 0-1x/wk, has 16 oz of protein/d dairy: 3-4 serving/d starches > 25 serving/d fried foods0-1x/wk - uses air fryer or steams or bakes beverages: water, coffee once, fruit smoothies >3 /day -physical activity - reports walking on treadmill 45 minutes ETOH/SMoking- denies carrots /lemon EVR-[place]-[employer] Equation Height 5 ft 10 in Weight 301 lb Resting Metabolic Rate 2194.84 Calculated Activity Level Moderate Activity Calories Needed to Maintain Weight 3402.00 Diagnosis Nutrition problem #1 food nutri know defi As related to (etiology) #1 diagnosis As evidenced by (sign/symptom) #1 knowledge deficit of diet (and statements of lack of understanding ) Most Recent Diabetes Results: No Data to Display [facility] Medical History CKD (chronic kidney disease) stage 3, GFR 30-59 ml/min Family history of prostate cancer Osteoarthritis of left knee Moderate recurrent major depression Pruritus ani Internal and external hemorrhoids without complication Asthma DANIEL on CPAP Anemia Back pain Gross hematuria UTI (urinary tract infection) Prostate enlargement Diabetic polyneuropathy associated with type 2 diabetes mellitus Vitamin D deficiency Diabetes type 2, controlled Family history of anesthesia complication Hx of low back pain Hx of insomnia Hx of migraines Anxiety Depression Colon cancer screening Bleeding hemorrhoids Morbid obesity Hyperlipidemia Hypertension Hypernatremia Bloody stools Diabetes mellitus, type 2 Hiatal hernia Surgical History Hx of colonoscopy History of knee surgery History of carpal tunnel release H/O hernia repair History of umbilical hernia repair Family History Maternal Uncle History of prostate cancer Father History of throat cancer Myocardial infarction Diabetes mellitus Hypertension CVD (cardiovascular disease) Maternal Grandfather History of throat cancer Son In good health Son In good health Brother Colon cancer Mother Diabetes mellitus Social History Household Members: Spouse and Children Housing: House Are you a primary healthcare administration intern to a significant other at home: No Do you presently have visiting nurse or other home services: Yes (once a week ) Alcohol intake: former Patient Tobacco Use Status: Former Tobacco user Tobacco use type: Cigarette Cigarettes Per Day: 1 e-Cigarette/Vaping Use: Never Used Second Hand Smoke Exposure: No service: No Current occupational status: disabled Cognitive needs: No Hearing needs: No Vision needs: Yes Assessment & Plan Assessment & Plan (1) Diabetes mellitus: Code(s): E11.9 - Type 2 diabetes mellitus without complications Qualifiers: Diabetes mellitus complication status: with hyperglycemia Diabetes mellitus detention insulin use: without buttermaker helper use Diabetes mellitus type: type 2 Qualified Code(s): E11.65 - Type 2 diabetes mellitus with hyperglycemia Plan: Wt: 138 Kg (03/28/23 ), 136.8 kg (07/2023) Est kcal needs as per MSJ: 2700 -3400 (40% carb, 30% protein/fat) Est fluid needs as per 25-30 ml/d: 3450- 4140 ml/d Est prot per day as per 0.8- 1 g/kg bw: 136 g/ Recommend fiber intake : 8-10 g per day and gradually increase to 25-28 g per day for women and 35-38 g for men or as tolerated Recommend sodium intake per day : less than 2000 mg Educated patient on: ( R = reviewed V = verbalizes understanding N/R = needs review N/A = not applicable * Food sources of carbohydrate, adequate serving sizes and its role in various health conditions: R * Differences between complex carbohydrates a simple carbohydrates, role of fiber in diet: R * Lean protein sources of foods: R * Differences between types of fats and role in diet (mono on saturated fat fatty acids, saturated fatty acids, trans fats): R * Food sources of sodium in salt and healthy modifications for heart health in kidney health: N/ R * Vitamins and minerals: N/R * Healthy plate method concept: R * Physical activity: Benefits a precaution: R * Hypoglycemia protocol (rule of 15): R * Dietary prevention of Hyperglycemia: R Patient Instructions: Keep hydrated by having water with meals Follow healthy plate method , reduce carbs to 75 g following healthy plate method - see meal ideas as reference Choose lower calorie smoothies as snack - (reduce fruit serving and add a vegetable as example - see list of ideas Coding Level of Care Code Nutr Indiv Subseq (75166) Diagnoses Type 2 diabetes mellitus with hyperglycemia, without long-term current use of insulin E11.65 Diabetes mellitus complication status: with hyperglycemia Diabetes mellitus buttermaker helper insulin use: without buttermaker helper use Diabetes mellitus type: type 2 Time Spent (min) 30
[2023-08-01 08:44] VITALS: BMI 43.2
== END 2023-07-25 13:39 | disposition home or self-care (01) ==
PROVIDERS: PCP Internal Medicine; Visit Provider Dietitian, Registered
DX: E11.65 Type 2 diabetes mellitus with hyperglycemia (principal)

== ENCOUNTER → 2023-07-25 12:54 | Outpatient (BNVA) | payer OTHER, SELFPAY | PROVIDERS: PCP Internal Medicine; Visit Provider Dietitian, Registered | DX: E11.65 Type 2 diabetes mellitus with hyperglycemia (principal) | CPT/HCPCS: 97803 ==

== ENCOUNTER 2023-08-01 10:58 | Outpatient (AMB) | payer OTHER, SELFPAY ==
--- NOTE | 2023-08-01 11:29 | A.OFFVIS_ITS ---
Intake Intake Visit Reasons: DM/LVM Certified Social Workers In Health Care Required: Yes Certified Social Workers In Health Care Language: Business Management Specialist Name: Gissell [facility] Accompanied by: Self / Same As Patient Allergies shrimp Allergy (Mild, Verified 07/12/23 09:35) Swelling HPI Comprehensive Diabetes Asmnt Most Recent Diabetes Results: Microalb/Creat Ratio 7.0 ug/mg cr (<30) 12/15/22 Cholesterol 127 mg/dL (<200) 12/22/22 HDL Cholesterol 33 mg/dL (>40) L 12/22/22 Triglycerides 99 mg/dL (<150) 12/22/22 Creatinine 1.33 mg/dL (0.5-1.4) 06/11/23 Blood Urea Nitrogen 21 mg/dL (9-16) H 06/11/23 Sodium 136 mmol/L (135-145) 06/11/23 Potassium 3.7 mmol/L (3.3-5.1) 06/11/23 Chloride 102 mmol/L (96-108) 06/11/23 Carbon Dioxide 26 mmol/L (22-29) 06/11/23 Calcium 10.1 mg/dL (8.4-10.2) 06/11/23 AST 27 U/L (5-37) 06/11/23 ALT 46 U/L (0-40) H 06/11/23 Total Protein 7.0 g/dL (6.5-8.0) 06/11/23 Albumin 4.1 g/dL (3.5-5.0) 06/11/23 PFSH Medical History CKD (chronic kidney disease) stage 3, GFR 30-59 ml/min Family history of prostate cancer Osteoarthritis of left knee Moderate recurrent major depression Pruritus ani Internal and external hemorrhoids without complication Asthma DANIEL on CPAP Anemia Back pain Gross hematuria UTI (urinary tract infection) Prostate enlargement Diabetic polyneuropathy associated with type 2 diabetes mellitus Vitamin D deficiency Diabetes type 2, controlled Family history of anesthesia complication Hx of low back pain Hx of insomnia Hx of migraines Anxiety Depression Colon cancer screening Bleeding hemorrhoids Morbid obesity Hyperlipidemia Hypertension Hypernatremia Bloody stools Diabetes mellitus, type 2 Hiatal hernia Surgical History Hx of colonoscopy History of knee surgery History of carpal tunnel release H/O hernia repair History of umbilical hernia repair Family History Maternal Uncle History of prostate cancer Father History of throat cancer Myocardial infarction Diabetes mellitus Hypertension CVD (cardiovascular disease) Maternal Grandfather History of throat cancer Son In good health Son In good health Brother Colon cancer Mother Diabetes mellitus Social History Household Members: Spouse and Children Housing: House Are you a primary childcare aide to a significant other at home: No Do you presently have visiting nurse or other home services: Yes (once a week ) Alcohol intake: former Patient Tobacco Use Status: Former Tobacco user Tobacco use type: Cigarette Cigarettes Per Day: 1 e-Cigarette/Vaping Use: Never Used Second Hand Smoke Exposure: No service: No Current occupational status: disabled Cognitive needs: No Hearing needs: No Vision needs: Yes Assessment & Plan Assessment & Plan (1) Diabetes mellitus: Code(s): E11.9 - Type 2 diabetes mellitus without complications Qualifiers: Diabetes mellitus type: type 2 Diabetes mellitus terminal gauger supervisor insulin use: without care home use Diabetes mellitus complication status: with hyperglycemia Qualified Code(s): E11.65 - Type 2 diabetes mellitus with hyperglycemia Plan: Personal Continuous Glucose Monitor: Dr. Gary requested sample sensor be placed on patient to determine glucose pattern. At last visit with Dr. Gary he was prescribed Lantus 20 units, he was instructed not to start Lantus until review of glucose patterns Patients CGM information reviewed Reviewed patient's sensor data: Hypoglycemia: ? 0% Hyperglycemia:? 37% Time in Range:? 63% Average glucose for the last 2 weeks?168 mg/dL Patient has pattern of overnight hyperglycemia, during the day he is remaining within the target range of 80-180 mg/dL Patient reports at 09:00 o'clock he usually eats fruit for snack, recommended to patient to change snack to low carb snack If hyperglycemia resolves, patient may not need to start Lantus 20 units. If he is still experiencing hyperglycemia, then we will proceed with the plan to start Lantus 20 units Reviewed how to interpret trend arrows Reminded patient that to check finger sticks if symptoms do not match sensor reading. Patient Instructions: Patient will follow-up with correspondent in 2 weeks Coding Level of Care Code Est Pt Level 1 (01727) Diagnoses Type 2 diabetes mellitus with hyperglycemia, without long-term current use of insulin E11.65 Diabetes mellitus type: type 2 Diabetes mellitus terminal gauger supervisor insulin use: without care home use Diabetes mellitus complication status: with hyperglycemia
== END 2023-08-01 11:37 | disposition home or self-care (01) ==
PROVIDERS: PCP Internal Medicine; Visit Provider Registered Nurse Diabetes Educator
DX: E11.65 Type 2 diabetes mellitus with hyperglycemia (principal)

== ENCOUNTER → 2023-08-01 10:58 | Outpatient (BNVA) | payer OTHER, SELFPAY | PROVIDERS: PCP Internal Medicine; Visit Provider Registered Nurse Diabetes Educator | DX: E11.65 Type 2 diabetes mellitus with hyperglycemia (principal) | CPT/HCPCS: 99211 ==

== ENCOUNTER 2023-08-06 10:08 | Outpatient (AMB) | payer OTHER, SELFPAY ==
--- NOTE | 2023-08-06 10:32 | HO.NEPHOV ---
Vital Signs 08/06/23 10:33 Height 5 ft 9 in Weight 296 lb BMI 43.7 BP 104/62 Blood Pressure Location Lt brachial Position Sitting Pulse 72 Pulse Source Pulse Oximeter Pulse Oximetry (%) 96 Oxygen Delivery Method Room Air Intake Visit Reasons: May follow up/ LVM Occupational Therapy Specialist Required: Yes Occupational Therapy Specialist Name: Jose [id number] Accompanied by: Self / Same As Patient Allergies shrimp Allergy (Mild, Verified 08/06/23 10:34) Swelling HPI Comments Details: Middle-aged man with a history of longstanding hypertension diabetes medicine obesity with mild CKD. Is minimal proteinuria. He has a history of ingesting Advil up to 3 tablets a day. After discontinuing and will has been improvement in the serum creatinine. Peak serum creatinine was 1.5 back in June 2021. Since last visit he has done very well. No specific complaints. No nausea vomiting no urine symptoms. No edema. He seems complaint was medications. [facility] Medical History CKD (chronic kidney disease) stage 3, GFR 30-59 ml/min Family history of prostate cancer Osteoarthritis of left knee Moderate recurrent major depression Pruritus ani Internal and external hemorrhoids without complication Asthma DANIEL on CPAP Anemia Back pain Gross hematuria UTI (urinary tract infection) Prostate enlargement Diabetic polyneuropathy associated with type 2 diabetes mellitus Vitamin D deficiency Diabetes type 2, controlled Family history of anesthesia complication Hx of low back pain Hx of insomnia Hx of migraines Anxiety Depression Colon cancer screening Bleeding hemorrhoids Morbid obesity Hyperlipidemia Hypertension Hypernatremia Bloody stools Diabetes mellitus, type 2 Hiatal hernia Surgical History Hx of colonoscopy History of knee surgery History of carpal tunnel release H/O hernia repair History of umbilical hernia repair Family History Maternal Uncle History of prostate cancer Father History of throat cancer Myocardial infarction Diabetes mellitus Hypertension CVD (cardiovascular disease) Maternal Grandfather History of throat cancer Son In good health Son In good health Brother Colon cancer Mother Diabetes mellitus Social History Household Members: Spouse and Children Housing: House Are you a primary home health care social worker to a significant other at home: No Do you presently have visiting nurse or other home services: Yes (once a week ) Alcohol intake: former Patient Tobacco Use Status: Former Tobacco user Tobacco use type: Cigarette Cigarettes Per Day: 1 e-Cigarette/Vaping Use: Never Used Second Hand Smoke Exposure: No service: No Current occupational status: disabled Cognitive needs: No Hearing needs: No Vision needs: Yes Physical Exam Vital Signs: Last Vital Signs Pulse 72 08/06/23 10:33 BP 104/62 08/06/23 10:33 Pulse Ox 96 08/06/23 10:33 Oxygen Delivery Method Room Air 08/06/23 10:33 BMI result Body Mass Index 43.7 Const General: comfortable; No acute distress Orientation/consciousness: patient oriented x3 Eyes General: appearance normal, both eyes and all related structures Visual Tom: normal visual tom by confrontation Neck Neck: Yes supple and Yes no JVD Resp Effort & Inspection: normal respiratory effort and respiratory effort not decreased Auscultation: rhonchi Cardio Palpation: no palpable S3 and no palpable S4 Heart sounds: no rubs GI Inspection: Yes normal to inspection Palpation (GI): Soft to palpation Percussion: Yes normal to percussion Auscultation: normal bowel sounds General: Yes no CVA tenderness Back/Spine/Pelvis Back: no CVA tenderness Skin General skin exam: no petechiae and no purpura Neuro General: patient oriented x3 and no focal motor deficits Extrem General: No clubbing and No edema Results Reviewed Nephrology Results: Hgb 13.3 g/dl (14.0-18.0) L 08/02/23 WBC 7.6 X10*3/uL (4.8-10.8) 08/02/23 Plt Count 291 X10*3/uL (160-400) 08/02/23 Sodium 143 mmol/L (135-145) 08/02/23 Potassium 3.6 mmol/L (3.3-5.1) 08/02/23 Chloride 105 mmol/L (96-108) 08/02/23 Carbon Dioxide 29 mmol/L (22-29) 08/02/23 BUN 21 mg/dL (9-16) H 08/02/23 Creatinine 1.20 mg/dL (0.5-1.4) 08/02/23 Calcium 11.1 mg/dL (8.4-10.2) H 08/02/23 Assessment & Plan Assessment & Plan (1) CKD (chronic kidney disease) stage 3, GFR 30-59 ml/min: Code(s): N18.30 - Chronic kidney disease, stage 3 unspecified Category: Medical (2) Morbid obesity: Code(s): E66.01 - Morbid (severe) obesity due to excess calories Category: Medical (3) Hypertension: Code(s): I10 - Essential (primary) hypertension Category: Medical Qualifiers: Hypertension type: essential hypertension Qualified Code(s): I10 - Essential (primary) hypertension (4) Hypercalcemia: Code(s): E83.52 - Hypercalcemia Category: Medical Plan Middle-aged man with longstanding hypertension diabetes mellitus obesity with mild CKD. Renal function stable at baseline. Goal is to slow the progression of renal disease. Continue to avoid nephrotoxic agents including NSAIDs. Increased increase his fluid intake. Goal is to maintain the hemoglobin A1c less than 7%. We discussed weight loss as well. Mild hypercalcemia Will DC vit D 50 mcg for a week Restart at a lower dose of 25 mcg daily Recheck Ca/PTH/Vit D Orders: Orders Basic Metabolic Panel 4 Months E8. - Hypercalcemia, I10 - Essential (primary) hypertension Parathyroid Hormone Intact 4 Months E8.52 - Hypercalcemia, I10 - Essential (primary) hypertension Vitamin D 25-OH (D2 and D3) 4 Months E8.52 - Hypercalcemia, I10 - Essential (primary) hypertension Medications: Changed From cholecalciferol (vitamin D3) 50 mcg PO DAILY 90 days 90 caps 0RF E11.9 - Type 2 diabetes mellitus without complications To cholecalciferol (vitamin D3) 25 mcg PO DAILY 90 days 90 caps 0RF E11.9 - Type 2 diabetes mellitus without complications Coding Level of Care Code Est Pt Level 4 (75715) Diagnoses CKD (chronic kidney disease) stage 3, GFR 30-59 ml/min N18.30 Morbid obesity E66.01 Essential hypertension I10 Hypertension type: essential hypertension Hypercalcemia E83.52
[2023-08-06 10:33] VITALS: BP 104/62; PULSE 72; O2SAT 96; BMI 43.7
== END 2023-08-06 10:45 | disposition home or self-care (01) ==
PROVIDERS: PCP Internal Medicine; Visit Provider Internal Medicine Hypertension Specialist
DX: N18.30 Chronic kidney disease, stage 3 unspecified (principal); E66.01 Morbid (severe) obesity due to excess calories; I10 Essential (primary) hypertension; E83.52 Hypercalcemia
CPT/HCPCS: 99214

== ENCOUNTER → 2023-08-06 10:08 | Outpatient (BNVA) | payer OTHER, SELFPAY | PROVIDERS: PCP Internal Medicine; Visit Provider Internal Medicine Hypertension Specialist | DX: I12.9 Hypertensive chronic kidney disease with stage 1 through stage 4 chronic kidney disease, or unspecified chronic kidney disease (principal); E11.22 Type 2 diabetes mellitus with diabetic chronic kidney disease; N18.30 Chronic kidney disease, stage 3 unspecified; E66.01 Morbid (severe) obesity due to excess calories; Z68.41 Body mass index [BMI] 40.0-44.9, adult; E83.52 Hypercalcemia; Z79.899 Other long term (current) drug therapy | CPT/HCPCS: 99212 ==

== ENCOUNTER 2023-08-07 09:44 | Outpatient (AMB) | payer OTHER, SELFPAY ==
[2023-08-07 10:01] VITALS: BP 108/60; PULSE 82; O2SAT 97; BMI 43.8
--- NOTE | 2023-08-07 10:01 | MHC.OFFVIS ---
Vital Signs 08/07/23 10:01 Height 5 ft 9 in Weight 296 lb 8.348 oz BMI 43.8 BP 108/60 Blood Pressure Location Lt brachial Position Sitting Pulse 82 Pulse Source Pulse Oximeter Pulse Oximetry (%) 97 Oxygen Delivery Method Room Air Intake Visit Reasons: daniel Intake Note: pt is here for follow up and state he is doing well, using cpap Traffic Attendant Required: No Allergies shrimp Allergy (Mild, Verified 08/07/23 10:07) Swelling Medication List - Last Reconciled 08/07/23 by Glenn Interiano MD acetaminophen ER (Mapap Arthritis Pain) 1,300 mg (2 x 650 mg) PO Q8H PRN 30 days albuterol sulfate 2.5 mg (3 mL) inhalation Q4-6H PRN 30 days albuterol sulfate 90 mcg/actuation 2 puffs PO Q4H PRN 30 days amitriptyline 150 mg PO BEDTIME atorvastatin 80 mg PO BEDTIME 90 days blood sugar diagnostic (FreeStyle Lite Strips) 1 strip miscellaneous BID 30 days blood-glucose meter (FreeStyle Lite Meter kit) As directed blood-glucose sensor (Healthy Humans G7 Sensor device) As directed change every 10 days frszokjkjh-tzohwrtesjbui-spdn 50-325-40 mg 1 tab PO Q8H PRN chlorthalidone 25 mg PO DAILY 90 days cholecalciferol (vitamin D3) 25 mcg PO DAILY 90 days clonidine HCl 0.2 mg PO BEDTIME 90 days cyclobenzaprine 10 mg PO Q8H PRN docusate sodium 100 mg PO BID empagliflozin (Jardiance) 10 mg PO DAILY 90 days fenofibrate nanocrystallized 145 mg PO DAILY 90 days fluticasone propion-salmeterol 250-50 mcg/dose (Wixela Inhub) 1 ea PO Q12H gabapentin 100 mg PO TID 30 days hydrocortisone 2.5% 1 appl topical BID PRN 14 days insulin glargine (Lantus Solostar U-100 Insulin) 20 units (0.2 mL) subcut QAM lancets As directed lisinopril 40 mg PO DAILY lorazepam 1 mg PO BID PRN meloxicam 15 mg PO DAILY PRN metformin ER 1,000 mg (2 x 500 mg) PO BID 90 days montelukast 10 mg PO BEDTIME peg 3350-electrolytes 236-22.74-6.74 -5.86 gram (Golytely) 240 mL PO Q10M pen needle, diabetic (BD Jennifer 2nd Gen Pen Needle) once a day pen needle, diabetic (Comfort EZ Pen [place]) As directed injects once a day pioglitazone 45 mg PO DAILY 90 days semaglutide (Ozempic) 2 mg (0.75 mL) subcut QWEEK 30 days sumatriptan succinate (Imitrex) 100 mg PO DIRECTED tamsulosin (Flomax) 0.4 mg PO BEDTIME 90 days topiramate 100 mg PO BID Ventolin HFA 90 mcg/actuation (albuterol sulfate) 2 puffs inhalation Q6H PRN 30 days NS zolpidem (Ambien) 10 mg PO BEDTIME PRN Do you need a note to return to daycare/school/sports/work: No HPI HPI daniel: Details: THIS 58 YEARS OLD GENTLEMAN IS CASE OF MORBID OBESITY , OBSTRUCTIVE SLEEP APNEA AND BRONCHIAL ASTHMA. HE HAS BEEN DOING VERY WELL IN THE LAST 6 JORGE A.HS WITHOUT ANY ACUTE EXACERBATION . HE USES HIS CPAP VERY REGULARLY EVERY NIGHT AT LEAST FOR 6 HO.URS PER NIGHT HIS CPAP DEVICE IS ABOUT 4 YEARS OLD AND HAS STOP PED TRANSMITTING THE COMPLIANCE DATA. WE GO BY HIS STATEMENT THAT HE IS USING IT VERY REGULARLY AND SLEEPS WELL. HIS BRONCHIAL ASTHMA IS WELL CONTROLLED AND HE USES ALBUTEROL ONLY ONCE IN A WHILE HE CONTINUES TO USE WIXELA 250-51 INHALATION TWICE A DAY. [facility] Medical History CKD (chronic kidney disease) stage 3, GFR 30-59 ml/min Family history of prostate cancer Osteoarthritis of left knee Moderate recurrent major depression Pruritus ani Internal and external hemorrhoids without complication Asthma DANIEL on CPAP Anemia Back pain Gross hematuria UTI (urinary tract infection) Prostate enlargement Diabetic polyneuropathy associated with type 2 diabetes mellitus Vitamin D deficiency Diabetes type 2, controlled Family history of anesthesia complication Hx of low back pain Hx of insomnia Hx of migraines Anxiety Depression Colon cancer screening Bleeding hemorrhoids Morbid obesity Hyperlipidemia Hypertension Hypernatremia Bloody stools Diabetes mellitus, type 2 Hiatal hernia Surgical History Hx of colonoscopy History of knee surgery History of carpal tunnel release H/O hernia repair History of umbilical hernia repair Family History Maternal Uncle History of prostate cancer Father History of throat cancer Myocardial infarction Diabetes mellitus Hypertension CVD (cardiovascular disease) Maternal Grandfather History of throat cancer Son In good health Son In good health Brother Colon cancer Mother Diabetes mellitus Social History Household Members: Spouse and Children Housing: House Are you a primary health care coach to a significant other at home: No Do you presently have visiting nurse or other home services: Yes (once a week ) Alcohol intake: former Patient Tobacco Use Status: Former Tobacco user Tobacco use type: Cigarette Cigarettes Per Day: 1 e-Cigarette/Vaping Use: Never Used Second Hand Smoke Exposure: No service: No Current occupational status: disabled Cognitive needs: No Hearing needs: No Vision needs: Yes Review of Systems Const All systems reviewed & are unremarkable except as noted in HPI and below Eyes Reports no additional complaints ENT Reports nasal congestion (MILD, OFF AND ON) Card Denies chest pain, Denies irregular heart rhythm and Denies leg edema Resp Reports as per HPI GI Reports constipation Reports no additional complaints and Reports nocturia Musc Reports back pain (MILD) Skin/Breast Reports system reviewed and no additional complaints, except as documented Neuro Reports no additional complaints Psych Reports no additional complaints Physical Exam Vital Signs: Last Vital Signs Pulse 82 08/07/23 10:01 BP 108/60 08/07/23 10:01 Pulse Ox 97 08/07/23 10:01 Oxygen Delivery Method Room Air 08/07/23 10:01 BMI result Body Mass Index 43.8 Const General: healthy appearing (Except for overweight), comfortable, no acute distress, alert and awake Orientation/consciousness: patient oriented x3 HEENT Head: Yes normal to inspection General nose exam: No nasal polyps present, No nasal discharge present and normal mucous membranes and turbinates (Has moderate hypertrophy of the nasal turbinates) Face and sinus: Yes sinuses nontender Mouth: oropharynx normal Throat: Yes posterior oropharynx normal Eyes General: appearance normal, both eyes and all related structures Neck Neck: Yes normal visual inspection, Yes no lymphadenopathy, Yes trachea midline and Yes no JVD Thyroid: Thyroid normal Chest Chest palpation & inspection: normal inspection of the chest, normal palpation of entire chest wall and no tenderness Resp Other: Percussion note is resonant. He has good breath sounds on both sides. No wheezes rhonchi or crepitations are heard. Cardio Palpation: normal PMI Rate: regular rate Rhythm: regular rhythm Heart sounds: no gallops and no murmurs Peripheral pulses: Peripheral pulses 2+ throughout GI Palpation (GI): Soft to palpation, Tenderness to palpation present (GI), No hepatosplenomegaly present and Palpable mass present Auscultation: normal bowel sounds Back/Spine/Pelvis Thoracic/Lumbar Spine: thoracic and lumbar spine normal to inspection Skin General skin exam: no rashes or lesions noted Neuro General: patient oriented x3 and no focal motor deficits Cranial nerves: Yes CN's II-XII intact bilaterally Extrem General: Yes normal to inspection, Yes no clubbing, cyanosis or edema and Yes no calf tenderness Psych Appearance: grossly normal and well kempt Speech and movement: Normal speech and movement present Results Reviewed Results Reviewed: COMPLIANCE REPORT NOT AVAILABLE. Assessment & Plan Assessment & Plan (1) Morbid obesity: Comment: THIS IS A CHRONIC PROBLEM, PATIENT IS TRYING TO LOSE WEIGHT ON HIS OWN. PART OF TREATMENT FOR HIS DIABETES MELLITUS HE HAS BEEN STARTED ON OZEMPIC INJECTIONS Code(s): E66.01 - Morbid (severe) obesity due to excess calories Category: Medical Plan: DISCUSSED ABOUT LIMITING HIS DIETARY INTAKE AND ALSO WALKING OR GOING TO THE GYM ON A DAILY BASIS. (2) DANIEL on CPAP: Comment: KNOWN CASE OF OBSTRUCTIVE SLEEP APNEA SINCE 2013. HE IS USING CPAP, EVERY NIGHT, IS VERY COMPLIANT AND BENEFITTING, GETS GOOD SLEEP. CURRENT FULLFACE MASK IS COMFORTABLE, AND WORKING WELL. Code(s): G47.33 - Obstructive sleep apnea (adult) (pediatric); Z99.89 - Dependence on other enabling machines and devices Category: Medical Plan: COMMENDED FOR HIS GOOD COMPLIANCE AND ADVISED TO CONTINUE USING THE CPAP REGULARLY EVERY NIGHT (3) Asthma: Comment: HAS CHRONIC , INTERMITTENT BRONCHIAL ASTHMA, CONTROLLED WITH CURRENT REGIMEN. Code(s): J45.909 - Unspecified asthma, uncomplicated Category: Medical Qualifiers: Asthma severity: mild Asthma persistence: persistent Asthma complication type: uncomplicated Qualified Code(s): J45.30 - Mild persistent asthma, uncomplicated Plan: [place] :CONTINUE FLUTICASONE-SALMETEROL (WIXELA ) 250-51 INHALATION B.I.D. AND PROAIR HFA 2 PUFFS Q 4-6 HOURS ONLY P.R.N.. Also uses albuterol solution in the nebulizer once or twice a day as needed. I educated him and advised not to use it unless he really has some wheezing or respiratory distress. Coding Level of Care Code Est Pt Level 3 (76553) Diagnoses Morbid obesity E66.01 DANIEL on CPAP G47.33; Z99.89 Mild persistent asthma without complication J45.30 Asthma severity: mild Asthma persistence: persistent Asthma complication type: uncomplicated
== END 2023-08-07 10:12 | disposition home or self-care (01) ==
PROVIDERS: PCP Internal Medicine; Visit Provider Internal Medicine
DX: E66.01 Morbid (severe) obesity due to excess calories (principal); G47.33 Obstructive sleep apnea (adult) (pediatric); Z99.89 Dependence on other enabling machines and devices; J45.30 Mild persistent asthma, uncomplicated
CPT/HCPCS: 99213

== ENCOUNTER → 2023-08-07 09:44 | Outpatient (BNVA) | payer OTHER, SELFPAY | PROVIDERS: PCP Internal Medicine; Visit Provider Internal Medicine | DX: G47.33 Obstructive sleep apnea (adult) (pediatric) (principal); J45.30 Mild persistent asthma, uncomplicated; E66.01 Morbid (severe) obesity due to excess calories; Z68.41 Body mass index [BMI] 40.0-44.9, adult; Z99.89 Dependence on other enabling machines and devices | CPT/HCPCS: 99212 ==

== ENCOUNTER 2023-09-02 09:00 | Outpatient (AMB) | payer OTHER, SELFPAY ==
--- NOTE | 2023-09-02 09:25 | MHC.AMDMED ---
Intake Intake Visit Reasons: T2DM/LVM Global Expansion Sales Director Required: Yes Global Expansion Sales Director Language: Director Engineering Name: [place] [facility] [place] Information Interpreted: non-clinical & clinical Accompanied by: Self / Same As Patient Allergies shrimp Allergy (Mild, Verified 08/07/23 10:07) Swelling HPI Comprehensive Diabetes Asmnt Most Recent Diabetes Results: Microalb/Creat Ratio 7.0 ug/mg cr (<30) 12/15/22 Cholesterol 127 mg/dL (<200) 12/22/22 HDL Cholesterol 33 mg/dL (>40) L 12/22/22 Triglycerides 99 mg/dL (<150) 12/22/22 Creatinine 1.20 mg/dL (0.5-1.4) 08/02/23 Blood Urea Nitrogen 21 mg/dL (9-16) H 08/02/23 Sodium 143 mmol/L (135-145) 08/02/23 Potassium 3.6 mmol/L (3.3-5.1) 08/02/23 Chloride 105 mmol/L (96-108) 08/02/23 Carbon Dioxide 29 mmol/L (22-29) 08/02/23 Calcium 11.1 mg/dL (8.4-10.2) H 08/02/23 AST 27 U/L (5-37) 08/02/23 ALT 34 U/L (0-40) 08/02/23 Total Protein 7.2 g/dL (6.5-8.0) 08/02/23 Albumin 4.2 g/dL (3.5-5.0) 08/02/23 PFSH Medical History CKD (chronic kidney disease) stage 3, GFR 30-59 ml/min Family history of prostate cancer Osteoarthritis of left knee Moderate recurrent major depression Pruritus ani Internal and external hemorrhoids without complication Asthma DANIEL on CPAP Anemia Back pain Gross hematuria UTI (urinary tract infection) Prostate enlargement Diabetic polyneuropathy associated with type 2 diabetes mellitus Vitamin D deficiency Diabetes type 2, controlled Family history of anesthesia complication Hx of low back pain Hx of insomnia Hx of migraines Anxiety Depression Colon cancer screening Bleeding hemorrhoids Morbid obesity Hyperlipidemia Hypertension Hypernatremia Bloody stools Diabetes mellitus, type 2 Hiatal hernia Surgical History Hx of colonoscopy History of knee surgery History of carpal tunnel release H/O hernia repair History of umbilical hernia repair Family History Maternal Uncle History of prostate cancer Father History of throat cancer Myocardial infarction Diabetes mellitus Hypertension CVD (cardiovascular disease) Maternal Grandfather History of throat cancer Son In good health Son In good health Brother Colon cancer Mother Diabetes mellitus Social History Household Members: Spouse and Children Housing: House Are you a primary care management coordinator to a significant other at home: No Do you presently have visiting nurse or other home services: Yes (once a week ) Alcohol intake: former Patient Tobacco Use Status: Former Tobacco user Tobacco use type: Cigarette Cigarettes Per Day: 1 e-Cigarette/Vaping Use: Never Used Second Hand Smoke Exposure: No service: No Current occupational status: disabled Cognitive needs: No Hearing needs: No Vision needs: Yes Assessment & Plan Assessment & Plan (1) Diabetes mellitus: Code(s): E11.9 - Type 2 diabetes mellitus without complications Qualifiers: Diabetes mellitus type: type 2 Diabetes mellitus fpc insulin use: without keno terminal operator use Diabetes mellitus complication status: with hyperglycemia Qualified Code(s): E11.65 - Type 2 diabetes mellitus with hyperglycemia Plan: Patient at visit for follow-up blood glucose check, and diabetes education Patient reports he has colonoscopy 09/06/23. He was order to stop metformin 2000 mg daily, and Ozempic 2 mg weekly. Patient also reports he is out of lancets for his glucometer. Prescription request sent to Dr. Gary for Lancets. Patient reports blood sugars below: Date Breakfast/Fasting Pre-Lunch Pre-Supper Bedtime Notes 09/01 255 08/28 132 08/27 138 08/26 146 250 08/24 168 Patient instructed to resume diabetes medications as prescribed when approved by provider of colonoscopy. Test glucose twice a day, follow-up with hospice educator in 1 month. At that visit we will place a new sample sensor, for review by Dr. Gary on his visit on 10/14/2023 Patient will be due for an A1c, and he can discuss with Dr. Gary, if he should be starting Lantus 20 units daily Portions of this note were created using voice recognition software, please excuse any words or phrases that may have been misinterpreted. Patient Instructions: Bring Dexcom G7 medical education manager to next visit with Diabetes Education nurse in 1 month Coding Level of Care Code Est Pt Level 1 (49821) Diagnoses Type 2 diabetes mellitus with hyperglycemia, without long-term current use of insulin E11.65 Diabetes mellitus type: type 2 Diabetes mellitus keno terminal operator insulin use: without fpc use Diabetes mellitus complication status: with hyperglycemia
== END 2023-09-02 09:27 | disposition home or self-care (01) ==
PROVIDERS: PCP Internal Medicine; Visit Provider Registered Nurse Diabetes Educator
DX: E11.65 Type 2 diabetes mellitus with hyperglycemia (principal)

== ENCOUNTER → 2023-09-02 09:00 | Outpatient (BNVA) | payer OTHER, SELFPAY | PROVIDERS: PCP Internal Medicine; Visit Provider Registered Nurse Diabetes Educator | DX: E11.22 Type 2 diabetes mellitus with diabetic chronic kidney disease (principal); E11.65 Type 2 diabetes mellitus with hyperglycemia; N18.30 Chronic kidney disease, stage 3 unspecified | CPT/HCPCS: 99211 ==

== ENCOUNTER 2023-09-10 13:43 | Outpatient (AMB) | payer OTHER, SELFPAY ==
[2023-09-10 13:50] VITALS: BP 124/70; BMI 43.3
--- NOTE | 2023-09-10 13:50 | A.OFFPC_ITS ---
Vital Signs 09/10/23 13:50 Height 5 ft 9 in Weight 293 lb BMI 43.3 BP 124/70 Blood Pressure Location Lt brachial Position Sitting Intake Visit Reasons: 4M follow up Intake Note: Patient here for a 4 month follow up Insurance Sales Manager Required: No Accompanied by: Self / Same As Patient Allergies shrimp Allergy (Mild, Verified 09/10/23 14:12) Swelling Medication List - Last Reconciled 09/10/23 by Deedee Watts MD acetaminophen ER (Mapap Arthritis Pain) 1,300 mg (2 x 650 mg) PO Q8H PRN 30 days albuterol sulfate 90 mcg/actuation 2 puffs PO Q4H PRN 30 days albuterol sulfate 2.5 mg (3 mL) inhalation Q4-6H PRN 30 days amitriptyline 150 mg PO BEDTIME atorvastatin 80 mg PO BEDTIME 90 days blood sugar diagnostic (FreeStyle Lite Strips) 1 strip miscellaneous BID 30 days blood-glucose meter (FreeStyle Lite Meter kit) As directed blood-glucose sensor (Scoop.it G7 Sensor device) As directed change every 10 days xuijlcmemx-hflghwmwpbued-tcno 50-325-40 mg 1 tab PO Q8H PRN chlorthalidone 25 mg PO DAILY 90 days cholecalciferol (vitamin D3) 25 mcg PO DAILY 90 days clonidine HCl 0.2 mg PO BEDTIME 90 days cyclobenzaprine 10 mg PO Q8H PRN docusate sodium 100 mg PO BID empagliflozin (Jardiance) 10 mg PO DAILY 90 days fenofibrate nanocrystallized 145 mg PO DAILY 90 days fluticasone propion-salmeterol 250-50 mcg/dose (Wixela Inhub) 1 ea PO Q12H gabapentin 100 mg PO TID 30 days hydrocortisone 2.5% 1 appl topical BID PRN 14 days insulin glargine (Lantus Solostar U-100 Insulin) 20 units (0.2 mL) subcut QAM lancets As directed tests 3 X/day lisinopril 40 mg PO DAILY lorazepam 1 mg PO BID PRN meloxicam 15 mg PO DAILY PRN metformin ER 1,000 mg (2 x 500 mg) PO BID 90 days montelukast 10 mg PO BEDTIME pen needle, diabetic (BD Jennifer 2nd Gen Pen Needle) once a day pen needle, diabetic (Comfort EZ Pen [place]) As directed injects once a day pioglitazone 45 mg PO DAILY 90 days semaglutide (Ozempic) 2 mg (0.75 mL) subcut QWEEK 30 days sodium,potassium,mag sulfates 17.5-3.13-1.6 gram (Suprep Bowel Prep Kit) DILUTE; drink full amount early evening before AND next morning at least 2 hr before procedure; follow w 960 mL water PO sumatriptan succinate (Imitrex) 100 mg PO DIRECTED tamsulosin (Flomax) 0.4 mg PO BEDTIME 90 days topiramate 100 mg PO BID Ventolin HFA 90 mcg/actuation (albuterol sulfate) 2 puffs inhalation Q6H PRN 30 days NS zolpidem (Ambien) 10 mg PO BEDTIME PRN Tobacco use date assessed: 04/09/23 Dental Screening Dental Screen Date: 04/09/23 HPI HPI Comments History of Present Illness Details This is a 58-year-old male with diabetes mellitus type 2, hypertension, hyperlipidemia, moderate recurrent major depression and morbid obesity that comes today for follow-up on his conditions. A1c elevated and I will increase Jardiance from 10 mg to 25 mg. Blood pressure stable. Last LDL was very close to goal. Dietary changes were advised. Depression stable with medications and this is follow by Psychiatry. He is morbidly obese with a BMI of 43.3 and was advised to do diet and exercise to reach BMI goal less than 30. [facility] Medical History (Updated 08/07/23 @ 10:18 by Glenn Interiano MD) CKD (chronic kidney disease) stage 3, GFR 30-59 ml/min Family history of prostate cancer Osteoarthritis of left knee Moderate recurrent major depression Pruritus ani Internal and external hemorrhoids without complication Asthma DANIEL on CPAP Anemia Back pain Gross hematuria UTI (urinary tract infection) Prostate enlargement Diabetic polyneuropathy associated with type 2 diabetes mellitus Vitamin D deficiency Diabetes type 2, controlled Family history of anesthesia complication Hx of low back pain Hx of insomnia Hx of migraines Anxiety Depression Colon cancer screening Bleeding hemorrhoids Morbid obesity Hyperlipidemia Hypertension Hypernatremia Bloody stools Diabetes mellitus, type 2 Hiatal hernia Surgical History Hx of colonoscopy History of knee surgery History of carpal tunnel release H/O hernia repair History of umbilical hernia repair Family History Maternal Uncle History of prostate cancer Father History of throat cancer Myocardial infarction Diabetes mellitus Hypertension CVD (cardiovascular disease) Maternal Grandfather History of throat cancer Son In good health Son In good health Brother Colon cancer Mother Diabetes mellitus Social History Household Members: Spouse and Children Housing: House Are you a primary rn progressive care to a significant other at home: No Do you presently have visiting nurse or other home services: Yes (once a week ) Alcohol intake: former Patient Tobacco Use Status: Former Tobacco user Tobacco use type: Cigarette Cigarettes Per Day: 1 e-Cigarette/Vaping Use: Never Used Second Hand Smoke Exposure: No service: No Current occupational status: disabled Cognitive needs: No Hearing needs: No Vision needs: Yes Questionnaire Thrive Questionnaire Date Thrive assessed: 04/09/23 MAGGY-7 AMB Questionnaire MAGGY-7 Date MAGGY - 7 assessed: 04/09/23 Source: Developed by Drs. Musa Armando, Jagruti Vu, Leo Dutton and colleagues, with an educational lyla from [employer]. Review of Systems Const All systems reviewed & are unremarkable except as noted in HPI and below Card Denies chest pain at rest, Denies chest pain with activity, Denies edema, Denies irregular heart rhythm, Denies claudication, Denies dyspnea, Denies dyspnea on exertion, Denies orthopnea, Denies paroxysmal nocturnal dyspnea and Denies slow heart rate Resp Denies cough, Denies dyspnea and Denies dyspnea on exertion Neuro Denies lack of coordination Physical exam (Primary Care) Vital Signs: Last Vital Signs BP 124/70 09/10/23 13:50 BMI result Body Mass Index 43.3 Tobacco/Smoking Status: Tobacco use Status Tobacco use date assessed 04/09/23 09/10/23 13:55 Patient Tobacco Use Status Former Tobacco user 09/10/23 13:55 Tobacco use type Cigarette 09/10/23 13:55 e-Cigarette/Vaping Use Never Used 09/10/23 13:55 Thrive Assessment: Date of Thrive Assessment Date Thrive assessed 04/09/23 09/10/23 13:55 Resp Effort & Inspection: normal respiratory effort Auscultation: clear to auscultation bilaterally Cardio Jugular venous distension: no JVD Rate: regular rate Rhythm: regular rhythm Heart sounds: S1 normal heart sound present and S2 normal heart sound present Extrem General: Yes full ROM Results AMB Hemoglobin A1c AMB Hemoglobin A1c 7.4 % Last Edit by CRIS Young on 09/10/23 14:0 6 Results Reviewed Results Reviewed: Laboratory Last Values Hgb A1c (Clinic) 7.4 % (4.0-6.0) H 09/10/23 13:47 Assessment and Plan Assessment & Plan (1) Diabetes mellitus: Code(s): E11.9 - Type 2 diabetes mellitus without complications Qualifiers: Diabetes mellitus type: type 2 Diabetes mellitus half-way insulin use: without supervisor intermediates use Diabetes mellitus complication status: with hyperglycemia Qualified Code(s): E11.65 - Type 2 diabetes mellitus with hyperglycemia Plan: Continue Lantus. Increase Jardiance from 10 mg to 20 mg. Continue metformin, Ozempic and Actos. A1c goal is equal or less than 7%. (2) Morbid obesity: Code(s): E66.01 - Morbid (severe) obesity due to excess calories Plan: Start diet and exercise. BMI goal is less than 30. Patient declines weight loss surgery. (3) Moderate recurrent major depression: Code(s): F33.1 - Major depressive disorder, recurrent, moderate Plan: Continue amitriptyline. Follow-up with psychiatry. (4) Hypertension: Code(s): I10 - Essential (primary) hypertension Qualifiers: Hypertension type: essential hypertension Qualified Code(s): I10 - Essential (primary) hypertension Plan: Continue losartan. Blood pressure goal is equal or less than 130/80. (5) Hyperlipidemia: Code(s): E78.5 - Hyperlipidemia, unspecified Qualifiers: Hyperlipidemia type: mixed hyperlipidemia Qualified Code(s): E78.2 - Mixed hyperlipidemia Plan: Continue statins. LDL goal is less than 70. Orders: Orders AMB Hemoglobin A1c Today E11.65 - Type 2 diabetes mellitus with hyperglycemia Microalbumin, Random (w Creat) Today E11.9 - Type 2 diabetes mellitus without complications Vitamin D 25-OH Total Today E55.9 - Vitamin D deficiency, unspecified Comprehensive [place]. Panel Fast Today E11.65 - Type 2 diabetes mellitus with hyperglycemia Lipid Panel Today E78.5 - Hyperlipidemia, unspecified Medications: New empagliflozin (Jardiance) 25 mg PO DAILY 90 days 90 tabs 1RF Refilled albuterol sulfate 90 mcg/actuation 2 puffs PO Q4H 30 days PRN 8.5 grams 1RF Wheezing pioglitazone 45 mg PO DAILY 90 days 90 tabs 1RF E11.9 - Type 2 diabetes mellitus without complications Ventolin HFA 90 mcg/actuation (albuterol sulfate) 2 puffs inhalation Q6H 30 days PRN 8 grams 2RF shortness of breath or wheezing NS Discontinued empagliflozin (Jardiance) Discontinued Reason: Patient Completed Course 10 mg PO DAILY 90 days 90 tabs 1RF E11.9 - Type 2 diabetes mellitus without complications Coding Level of Care Code Est Pt Level 4 (52001) Complex EM visit Add On G2211 Diagnoses Type 2 diabetes mellitus with hyperglycemia, without long-term current use of insulin E11.65 Diabetes mellitus type: type 2 Diabetes mellitus supervisor intermediates insulin use: without half-way use Diabetes mellitus complication status: with hyperglycemia Morbid obesity E66.01 Moderate recurrent major depression F33.1 Essential hypertension I10 Hypertension type: essential hypertension Mixed hyperlipidemia E78.2 Hyperlipidemia type: mixed hyperlipidemia Time Spent (min) 24
== END 2023-09-10 14:19 | disposition home or self-care (01) ==
PROVIDERS: PCP Internal Medicine; Visit Provider Internal Medicine
DX: E11.65 Type 2 diabetes mellitus with hyperglycemia (principal); E66.01 Morbid (severe) obesity due to excess calories; F33.1 Major depressive disorder, recurrent, moderate; Z68.41 Body mass index [BMI] 40.0-44.9, adult; I10 Essential (primary) hypertension; E78.2 Mixed hyperlipidemia
CPT/HCPCS: 83036; 99214; G2211

== ENCOUNTER 2023-10-04 07:04 | Emergency (ER) | payer OTHER, SELFPAY ==
[2023-10-04 07:19] VITALS: BP 136/79; PULSE 76; RESP 16; TEMP 36.6; O2SAT 96; BMI 41.9
--- NOTE | 2023-10-04 07:32 | ED.GENADULT ---
HPI - General Adult General Chief complaint: General Medical Stated complaint: Hemorrhoids Time Seen by Provider: 10/04/23 07:19 Source: patient, RN notes reviewed, old records reviewed and regional engagement consultant (LITHUANIAN) Mode of arrival: ambulatory Limitations: no limitations History of Present Illness ED Provider: RUBI LAMA PA-C HPI narrative: 58 year old Chadian speaking male with pmhx significant for T2DM with diabetic polyneuropathy, hypertension, HDL, bleeding hemorrhoids, anxiety, depression, migraines, DANIEL on CPAP, asthma, stage III CKD presents to the ED today for evaluation of rectal pain beginning last night. Patient reports eating garlic bread at a [employer]. Soon after, began having frequent bowel movements. Reports burning sensation in rectum with every bowel movement. Denies hematochezia, bright red blood per rectum, melena. Denies abdominal pain, flank pain, dysuria, hematuria. He does have an appointment with general surgery on 11/01/23 for evaluation. Related Data Home Medications ?Medication ?Instructions ?Recorded ?Confirmed amitriptyline 150 mg tablet 150 mg PO BEDTIME 01/26/20 09/10/23 lorazepam 1 mg tablet 1 mg PO BID PRN Anxiety 01/26/20 09/10/23 topiramate 100 mg tablet 100 mg PO BID 01/26/20 09/10/23 sumatriptan succinate 100 mg 100 mg PO DIRECTED 04/12/20 09/10/23 tablet (Imitrex) [id number]-tpnabyzrprycz-aiuextlx 1 tab PO Q8H PRN Pain 09/23/20 09/10/23 50 mg-325 mg-40 mg tablet zolpidem 10 mg tablet (Ambien) 10 mg PO BEDTIME PRN Insomnia 01/03/22 09/10/23 cyclobenzaprine 10 mg tablet 10 mg PO Q8H PRN muscle spasm 01/11/23 09/10/23 Previous Rx's ?Medication ?Instructions ?Recorded blood-glucose meter (FreeStyle #1 ea 03/11/20 Lite Meter kit) pen needle, diabetic 32 gauge x #50 ea 09/23/20 (BD Jennifer 2nd Gen Pen Needle) docusate sodium 100 mg capsule 100 mg PO BID #180 caps 12/30/20 gabapentin 100 mg capsule 100 mg PO TID 30 days #90 caps 01/11/21 acetaminophen 650 mg 1,300 mg (2 x 650 mg) PO Q8H PRN 07/19/21 tablet,extended release (Mapap fever or pain 30 days #180 tabs Arthritis Pain) albuterol sulfate 2.5 mg/3 mL 2.5 mg (3 mL) inhalation Q4-6H PRN 01/03/22 (0.083 %) solution for nebulization Wheezing 30 days #90 mL hydrocortisone 2.5 % topical cream 1 appl topical BID PRN skin 05/16/22 irritation 14 days #28 grams blood sugar diagnostic (FreeStyle 1 strip miscellaneous BID for 10/29/22 Lite Strips) diabetes mellitus 30 days #100 strips semaglutide 2 mg/dose (8 mg/3 mL) 2 mg (0.75 mL) subcut QWEEK 30 11/29/22 subcutaneous pen injector (Ozempic) days #3.75 mL lisinopril 40 mg tablet 40 mg PO DAILY #90 tabs 12/06/22 clonidine HCl 0.2 mg tablet 0.2 mg PO BEDTIME 90 days #90 tabs 02/12/23 meloxicam 15 mg tablet 15 mg PO DAILY PRN for pain #90 04/12/23 tabs montelukast 10 mg tablet 10 mg PO BEDTIME #90 tabs 04/30/23 metformin 500 mg tablet,extended 1,000 mg (2 x 500 mg) PO BID 90 05/29/23 release 24 hr days #360 tabs chlorthalidone 25 mg tablet 25 mg PO DAILY 90 days #90 tabs 06/14/23 blood-glucose sensor (SEE [employer] G7 #3 ea 07/01/23 Sensor device) insulin glargine 100 unit/mL (3 20 unit (0.2 mL) subcut QAM #30 mL 07/01/23 mL) subcutaneous pen (Lantus Solostar U-100 Insulin) pen needle, diabetic 32 gauge x #50 ea 07/01/23/ (Comfort EZ Pen [place]) tamsulosin 0.4 mg capsule (Flomax) 0.4 mg PO BEDTIME 90 days #90 caps 07/12/23 fenofibrate nanocrystallized 145 145 mg PO DAILY 90 days #90 tabs 07/18/23 mg tablet fluticasone 250 mcg-salmeterol 50 1 ea PO Q12H #180 caps 07/18/23 mcg/dose blistr powdr for inhalation (Neilxela Inhub) cholecalciferol (vitamin D3) 25 25 mcg PO DAILY 90 days #90 caps 08/06/23 mcg (1,000 unit) capsule lancets 28 gauge #100 ea 09/03/23 sodium,potassium,mag sulfates 17.5 See Rx Instructions PO .COMPLEX 09/06/23 gram-3.13 gram-1.6 gram oral soln #354 mL (Suprep Bowel Prep Kit) Ventolin HFA 90 mcg/actuation 2 puff inhalation Q6H PRN 09/10/23 aerosol inhaler (albuterol sulfate) shortness of breath or wheezing 30 days #8 grams albuterol sulfate 90 mcg/actuation 2 puff PO Q4H PRN Wheezing 30 days 09/10/23 aerosol inhaler #8.5 grams empagliflozin 25 mg tablet 25 mg PO DAILY 90 days #90 tabs 09/10/23 (Jardiance) pioglitazone 45 mg tablet 45 mg PO DAILY 90 days #90 tabs 09/10/23 atorvastatin 80 mg tablet 80 mg PO BEDTIME 90 days #90 tabs 10/03/23 phenylephrine HCl 0.25 % rectal 1 supp PA QID PRN hemorrhoids #12 10/04/23 suppository (Preparation H (pe)) ea Allergies Allergy/AdvReac Type Severity Reaction Status Date / Time shrimp Allergy Mild Swelling Verified 10/04/23 07:26 Review of Systems Review of Systems: Constitutional: No fever, chills, fatigue, night sweats, weight changes ENT/Mouth: No ear pain, hearing loss, nasal congestion, sinus pain, rhinorrhea, sore throat Eyes: No eye pain, swelling, redness, vision changes, discharge Cardio: No chest pain, palpitations, DICKEY, orthopnea, peripheral edema Pulm: No SOB, cough, sputum, wheezing, dyspnea, hemoptysis GI: No nausea, vomiting, hematemesis, abdominal pain, diarrhea, constipation, hematochezia, melena, +rectal pain : No irregular bleeding, dysuria, frequency, urgency, hesitancy, hematuria, flank pain, urinary flow changes, urinary incontinence or retention MSK: No back pain, neck pain, joint pain, myalgias Skin: No lesions, rashes Neuro: No weakness, numbness, paresthesias, LOC, dizziness, headache Psych: No anxiety/panic, depression, SI/HI, AH/VH All other systems reviewed and are negative. [facility] Past Medical History Attestation statement: The following information was validated with the patient. Source: old records reviewed and nursing notes reviewed Medical History CKD (chronic kidney disease) stage 3, GFR 30-59 ml/min Family history of prostate cancer Osteoarthritis of left knee Moderate recurrent major depression Pruritus ani Internal and external hemorrhoids without complication Asthma DANIEL on CPAP Anemia Back pain Gross hematuria UTI (urinary tract infection) Prostate enlargement Diabetic polyneuropathy associated with type 2 diabetes mellitus Vitamin D deficiency Diabetes type 2, controlled Family history of anesthesia complication Hx of low back pain Hx of insomnia Hx of migraines Anxiety Depression Colon cancer screening Bleeding hemorrhoids Morbid obesity Hyperlipidemia Hypertension Hypernatremia Bloody stools Diabetes mellitus, type 2 Hiatal hernia Surgical History Hx of colonoscopy History of knee surgery History of carpal tunnel release H/O hernia repair History of umbilical hernia repair Family History Family History Maternal Uncle History of prostate cancer Father History of throat cancer Myocardial infarction Diabetes mellitus Hypertension CVD (cardiovascular disease) Maternal Grandfather History of throat cancer Son In good health Son In good health Brother Colon cancer Mother Diabetes mellitus Social History Social History Household Members: Spouse and Children Housing: House Are you a primary acute care nurse practitioner to a significant other at home: No Do you presently have visiting nurse or other home services: Yes (once a week ) Alcohol intake: former Patient Tobacco Use Status: Former Tobacco user Tobacco use type: Cigarette Cigarettes Per Day: 1 e-Cigarette/Vaping Use: Never Used Second Hand Smoke Exposure: No service: No Current occupational status: disabled Cognitive needs: No Hearing needs: No Vision needs: Yes Physical Exam ED Vital Signs: Vital Signs - 24 hr 10/04/23 07:19 10/04/23 08:03 10/04/23 08:12 Temperature 97.9 F 97.9 F 97.9 F Pulse Rate 76 76 76 Respiratory Rate 16 16 16 Blood Pressure 136/79 136/79 136/79 Pulse Oximetry 96 96 96 Oxygen Delivery Method Room Air Room Air Room Air BMI result Body Mass Index 41.9 vital signs stable Const General: cooperative, healthy appearing, comfortable and no acute distress Orientation/consciousness: patient oriented x3 Limitations: no limitations HENMT Head: Yes normal to inspection, Yes No palpable skull fracture present, Yes normocephalic and Yes atraumatic Eyes General: appearance normal, both eyes and all related structures Pupils: Equal, round and reactive pupils present Neck Neck: Yes normal visual inspection, Yes full ROM, Yes no lymphadenopathy and Yes no meningeal signs Resp Effort & Inspection: normal respiratory effort and able to speak in complete sentences Auscultation: clear to auscultation bilaterally Cardio Rate: regular rate Rhythm: regular rhythm GI Other: Rectal exam performed with [employer] tech present in room to impregnator electrolytic capacitors. Normal rectal sphincter tone. 2 small external hemorrhoids noted. One small internal hemorrhoid palpated. No active bleeding. No palpable stool in rectal vault. Stool is normal in appearance. No rashawn blood. Inspection: Yes normal to inspection Palpation (GI): Soft to palpation, nontender and no guarding Skin General skin exam: no rashes or lesions noted Neuro General: patient oriented x3 and no meningeal signs Cranial nerves: Yes Equal, round and reactive pupils present Course Course Course Narrative: 0800-- Patient with noted external and internal hemorrhoids on exam. No active bleeding. No fistula noted. No concern for acute bleed. Will send patient home with preparation H. he does have follow up with general surgeon Dr. Ruggiero this month. Advised him to keep appointment. Patient has remained stable throughout ED visit today. Discussed worrisome signs and symptoms and when to return to the ED. All questions answered at this time. Patient is agreeable with disposition and stable for discharge. Medical Decision Making Medical Decision Making MDM Narrative: 58 year old Chadian speaking male with pmhx significant for T2DM with diabetic polyneuropathy, hypertension, HDL, bleeding hemorrhoids, anxiety, depression, migraines, DANIEL on CPAP, asthma, stage III CKD presents to the ED today for evaluation of rectal pain beginning last night. VSS. Afebrile. He is nontoxic appearing and in NAD. On exam, abd soft, ND/NT. on ROSITA, Normal rectal sphincter tone. 2 small external hemorrhoids noted. One small internal hemorrhoid palpated. No active bleeding. No palpable stool in rectal vault. Stool is normal in appearance. No rashawn blood. Differential diagnosis inclucdes external vs internal hemorrhoid. No concern for strangulated hemorrhoid, GI bleed. Plan for disposition. Differential Diagnosis Differential Diagnoses: The differential diagnosis associated with the presentation includes As above Admission/Observation Not indicated Independent Historian Clinical information obtained from an independent historian. History obtained from or confirmed by: Spouse External Record Review External record reviewed: Inpatient record, Office record, Outpatient record, Prior outpatient labs, Prior outpatient radiology, Primary care record and Outside ED record Tests considered The following testing was considered but not selected: I considered obtaining basic lab work however no concern for acute blood loss. Prescription Management I considered prescription management with: Other (preparation H) Social Determinants Patient?s care significantly limited by Social Determinants of Health including: Other Social Determinant of Health Discharge Plan Discharge Clinical Impression: Hemorrhoids Patient Disposition: Home, Self-Care Instructions: Hemorrhoids (ED), Sitz Bath (DC) Additional Instructions: You are noted to have external hemorrhoids. Preparation H suppositories have been sent to the pharmacy. You may use one up to 4 times daily for symptom relief. You may also take tylenol and motrin at home as needed. In addition, make sure you are eating a good amount of fiber and drinking plenty of water throughout the day. Utilize Sitz baths. If you begin having difficulty passing bowel movements, use stool softeners and laxatives. Continue to follow up with general surgery outpatient. Follow up with PCP as needed. Return with new or worsening symptoms. In the case of an emergency call 911. Prescriptions: New Preparation H (pe) 0.25 % suppository 1 supp PA QID PRN (Reason: hemorrhoids) Qty: 12 0RF No Action docusate sodium 100 mg capsule 100 mg PO BID Qty: 180 1RF gabapentin 100 mg capsule 100 mg PO TID 30 Days Qty: 90 2RF acetaminophen [Mapap Arthritis Pain] 650 mg tablet extended release 1,300 mg PO Q8H PRN (Reason: fever or pain) 30 Days Qty: 180 1RF FreeStyle Lite Strips Strip 1 strip miscellaneous BID 30 Days Qty: 100 6RF lisinopril 40 mg tablet 40 mg PO DAILY Qty: 90 3RF clonidine HCl 0.2 mg tablet 0.2 mg PO BEDTIME 90 Days Qty: 90 0RF meloxicam 15 mg tablet 15 mg PO DAILY PRN (Reason: for pain) Qty: 90 2RF montelukast 10 mg tablet 10 mg PO BEDTIME Qty: 90 1RF metformin 500 mg tablet extended release 24 hr 1,000 mg PO BID 90 Days Qty: 360 2RF chlorthalidone 25 mg tablet 25 mg PO DAILY 90 Days Qty: 90 1RF insulin glargine [Lantus Solostar U-100 Insulin] 100 unit/mL (3 mL) insulin pen 20 unit subcut QAM Qty: 30 5RF (DME) pen needle, diabetic [Comfort EZ Pen [place]] 32 gauge x 5/16 needle See Rx Instructions .Route Qty: 50 4RF Rx Instructions: As directed injects once a day (DME) Dexcom G7 Sensor Device See Rx Instructions .Route Qty: 3 4RF Rx Instructions: As directed change every 10 days fenofibrate nanocrystallized 145 mg tablet 145 mg PO DAILY 90 Days Qty: 90 0RF fluticasone propion-salmeterol [Wixela Inhub] 250-50 mcg/dose blister with device 1 ea PO Q12H Qty: 180 3RF (DME) lancets 28 gauge misc See Rx Instructions topical BID Qty: 100 9RF Rx Instructions: As directed tests 3 X/day sodium,potassium,mag sulfates [Suprep Bowel Prep Kit] 17.5-3.13-1.6 gram recon soln See Rx Instructions PO .COMPLEX Qty: 354 0RF Rx Instructions: DILUTE; drink full amount early evening before AND next morning at least 2 hr before procedure; follow w 960 mL water PO atorvastatin 80 mg tablet 80 mg PO BEDTIME 90 Days Qty: 90 0RF topiramate 100 mg tablet 100 mg PO BID lorazepam 1 mg tablet 1 mg PO BID PRN (Reason: Anxiety) amitriptyline 150 mg tablet 150 mg PO BEDTIME sumatriptan succinate [Imitrex] 100 mg tablet 100 mg PO DIRECTED albuterol sulfate 90 mcg/actuation HFA aerosol inhaler 2 puff PO Q4H PRN (Reason: Wheezing) 30 Days Qty: 8.5 1RF albuterol sulfate [Ventolin HFA] 90 mcg/actuation HFA aerosol inhaler 2 puff inhalation Q6H PRN (Reason: shortness of breath or wheezing) 30 Days Qty: 8 2RF pioglitazone 45 mg tablet 45 mg PO DAILY 90 Days Qty: 90 1RF Jardiance 25 mg tablet 25 mg PO DAILY 90 Days Qty: 90 1RF Ozempic 2 mg/dose (8 mg/3 mL) pen injector 2 mg subcut QWEEK 30 Days Qty: 3.75 6RF hydrocortisone 2.5 % cream 1 appl topical BID PRN (Reason: skin irritation) 14 Days Qty: 28 1RF (DME) blood-glucose meter [FreeStyle Lite Meter] Kit See Rx Instructions .ROUTE .MEDSUPPLY Qty: 1 0RF Rx Instructions: As directed pucjbbzlhn-rwzviaixdpxzh-xzrc 50-325-40 mg tablet 1 tab PO Q8H PRN (Reason: Pain) (DME) pen needle, diabetic [BD Jennifer 2nd Gen Pen Needle] 32 gauge x 5/32 needle See Rx Instructions .MEDSUPPLY Qty: 50 4RF Rx Instructions: once a day zolpidem [Ambien] 10 mg tablet 10 mg PO BEDTIME PRN (Reason: Insomnia) albuterol sulfate 2.5 mg /3 mL (0.083 %) solution for nebulization 2.5 mg inhalation Q4-6H PRN (Reason: Wheezing) 30 Days Qty: 90 5RF tamsulosin [Flomax] 0.4 mg capsule 0.4 mg PO BEDTIME 90 Days Qty: 90 3RF cholecalciferol (vitamin D3) 25 mcg (1,000 unit) capsule 25 mcg PO DAILY 90 Days Qty: 90 0RF cyclobenzaprine 10 mg tablet 10 mg PO Q8H PRN (Reason: muscle spasm) Referrals: [facility] [place] General Surgeons [Provider Group] Deedee Bruce MD [Primary Care Provider] - Stand Alone Forms: Work/School Release Interventions: ED Discharge Assessment Last Done: 10/04/23 08:12 Discharge Date/Time: 10/04/23 08:13 Print Language: Chadian
[2023-10-04 08:03] VITALS: BP 136/79; PULSE 76; RESP 16; TEMP 36.6; O2SAT 96
[2023-10-04 08:12] VITALS: BP 136/79; PULSE 76; RESP 16; TEMP 36.6; O2SAT 96
== END 2023-10-04 08:13 | disposition home or self-care (01) ==
PROVIDERS: Emergency Provider Emergency Medicine Emergency Medical Services; PCP Internal Medicine
DX: K64.8 Other hemorrhoids (principal); K64.4 Residual hemorrhoidal skin tags; K62.89 Other specified diseases of anus and rectum; Z79.899 Other long term (current) drug therapy; Z79.4 Long term (current) use of insulin; Z79.02 Long term (current) use of antithrombotics/antiplatelets; Z87.891 Personal history of nicotine dependence
CPT/HCPCS: 99284

== ENCOUNTER 2023-10-07 09:02 | Outpatient (AMB) | payer OTHER, SELFPAY ==
[2023-10-07 09:06] VITALS: BP 141/75; PULSE 76; BMI 42.7
--- NOTE | 2023-10-07 09:06 | MHC.OFFVIS ---
Vital Signs 10/07/23 09:06 Height 5 ft 9 in Weight 289 lb BMI 42.7 BP 141/75 H Blood Pressure Location Rt brachial Position Sitting Pulse 76 Intake Visit Reasons: Hemorrhoids Intake Note: This patient presents for [facility] [place] [place] emergency department follow-up for painful hemorrhoids. Patient c/o; reports on 10/03/2023 he ate a something that had garlic and then a few minutes later he started to feeling a burning sensation in his rectum which caused him pain and he went to the ER, reports no rectal bleeding, reports no straining with bowel movements. Web Systems Developer Required: Yes Web Systems Developer Language: Gum Maker Services: Web Systems Developer Present Web Systems Developer Name: Stoney Accompanied by: Self / Same As Patient Allergies shrimp Allergy (Mild, Verified 10/07/23 09:20) Swelling Medication List - Last Reconciled 10/07/23 by Mario Ruggiero MD acetaminophen ER (Mapap Arthritis Pain) 1,300 mg (2 x 650 mg) PO Q8H PRN 30 days albuterol sulfate 90 mcg/actuation 2 puffs PO Q4H PRN 30 days albuterol sulfate 2.5 mg (3 mL) inhalation Q4-6H PRN 30 days amitriptyline 150 mg PO BEDTIME atorvastatin 80 mg PO BEDTIME 90 days blood sugar diagnostic (FreeStyle Lite Strips) 1 strip miscellaneous BID 30 days blood-glucose meter (FreeStyle Lite Meter kit) As directed blood-glucose sensor ([employer] G7 Sensor device) As directed change every 10 days zndpqatzhi-qypgjqfxatxlq-rseq 50-325-40 mg 1 tab PO Q8H PRN chlorthalidone 25 mg PO DAILY 90 days cholecalciferol (vitamin D3) 25 mcg PO DAILY 90 days clonidine HCl 0.2 mg PO BEDTIME 90 days cyclobenzaprine 10 mg PO Q8H PRN docusate sodium 100 mg PO BID empagliflozin (Jardiance) 25 mg PO DAILY 90 days fenofibrate nanocrystallized 145 mg PO DAILY 90 days fluticasone propion-salmeterol 250-50 mcg/dose (Wixela Inhub) 1 ea PO Q12H gabapentin 100 mg PO TID 30 days hydrocortisone 2.5% 1 appl topical BID PRN 14 days insulin glargine (Lantus Solostar U-100 Insulin) 20 units (0.2 mL) subcut QAM lancets As directed tests 3 X/day lisinopril 40 mg PO DAILY lorazepam 1 mg PO BID PRN meloxicam 15 mg PO DAILY PRN metformin ER 1,000 mg (2 x 500 mg) PO BID 90 days montelukast 10 mg PO BEDTIME pen needle, diabetic (BD Jennifer 2nd Gen Pen Needle) once a day pen needle, diabetic (Comfort EZ Pen [place]) As directed injects once a day phenylephrine HCl 0.25% (Preparation H (pe)) 1 supp SD QID PRN pioglitazone 45 mg PO DAILY 90 days semaglutide (Ozempic) 2 mg (0.75 mL) subcut QWEEK 30 days sodium,potassium,mag sulfates 17.5-3.13-1.6 gram (Suprep Bowel Prep Kit) DILUTE; drink full amount early evening before AND next morning at least 2 hr before procedure; follow w 960 mL water PO sumatriptan succinate (Imitrex) 100 mg PO DIRECTED tamsulosin (Flomax) 0.4 mg PO BEDTIME 90 days topiramate 100 mg PO BID Ventolin HFA 90 mcg/actuation (albuterol sulfate) 2 puffs inhalation Q6H PRN 30 days NS zolpidem (Ambien) 10 mg PO BEDTIME PRN HPI HPI Hemorrhoids: Details: He is here for follow-up for his hemorrhoid issues. He says that he went to the ER last week because of pain in his anus. He was told that this was because of his hemorrhoids and he was given suppositories and a cream He says that his symptoms have improved. He denies any bleeding. [facility] Medical History (Updated 10/07/23 @ 09:23 by Mario Ruggiero MD) Hemorrhoids with complication CKD (chronic kidney disease) stage 3, GFR 30-59 ml/min Family history of prostate cancer Osteoarthritis of left knee Moderate recurrent major depression Pruritus ani Internal and external hemorrhoids without complication Asthma DANIEL on CPAP Anemia Back pain Gross hematuria UTI (urinary tract infection) Prostate enlargement Diabetic polyneuropathy associated with type 2 diabetes mellitus Vitamin D deficiency Diabetes type 2, controlled Family history of anesthesia complication Hx of low back pain Hx of insomnia Hx of migraines Anxiety Depression Colon cancer screening Bleeding hemorrhoids Morbid obesity Hyperlipidemia Hypertension Hypernatremia Bloody stools Diabetes mellitus, type 2 Hiatal hernia Surgical History Hx of colonoscopy History of knee surgery History of carpal tunnel release H/O hernia repair History of umbilical hernia repair Family History Maternal Uncle History of prostate cancer Father History of throat cancer Myocardial infarction Diabetes mellitus Hypertension CVD (cardiovascular disease) Maternal Grandfather History of throat cancer Son In good health Son In good health Brother Colon cancer Mother Diabetes mellitus Social History Household Members: Spouse and Children Housing: House Are you a primary health care technician to a significant other at home: No Do you presently have visiting nurse or other home services: Yes (once a week ) Alcohol intake: former Patient Tobacco Use Status: Former Tobacco user Tobacco use type: Cigarette Cigarettes Per Day: 1 e-Cigarette/Vaping Use: Never Used Second Hand Smoke Exposure: No service: No Current occupational status: disabled Cognitive needs: No Hearing needs: No Vision needs: Yes Review of Systems Const Denies chills and Denies fever(s) Card Denies chest pain, Denies dyspnea and Denies dyspnea on exertion Resp Denies cough, Denies dyspnea and Denies dyspnea on exertion GI Denies hematochezia and Denies change in bowel habits Denies hematuria and Denies difficulty urinating Musc Denies back pain and Denies limited range of motion Neuro Denies focal weakness and Denies convulsions Psych Denies depression and Denies mood swings Physical Exam Vital Signs: Last Vital Signs Pulse 76 10/07/23 09:06 BP 141/75 H 10/07/23 09:06 BMI result Body Mass Index 42.7 Const Other: Obese looking General: comfortable and no acute distress Resp Effort & Inspection: normal respiratory effort GI Other: Rectal exam shows external hemorrhoids, moderate size, on both the left and right side with no thrombosis, no obvious fissure, digital exam deferred for now Assessment & Plan Assessment & Plan (1) Hemorrhoids with complication: Code(s): K64.8 - Other hemorrhoids Category: Medical Plan: He went to the ER because of hemorrhoidal pain last week. His symptoms have improved significantly. He says that application of a hemorrhoid cream has been helping him There has no sign of any thrombosis at this time. I told him he does not require any surgical intervention for now He is scheduled to have a colonoscopy in October so we will examined his hemorrhoids at that time as well. I will send him prescription for Calmoseptine for hemorrhoid discomfort Medications: New menthol-zinc oxide 0.44-20.6 % (Calmoseptine) 1 appl topical QID PRN 113 grams 0RF hemorrhoids Coding Level of Care Code Est Pt Level 3 (66201) Diagnoses Hemorrhoids with complication K64.8
== END 2023-10-07 09:21 | disposition home or self-care (01) ==
PROVIDERS: PCP Internal Medicine; Visit Provider Surgery
DX: K64.8 Other hemorrhoids (principal)
CPT/HCPCS: 99213

== ENCOUNTER → 2023-10-07 09:02 | Outpatient (BNVA) | payer OTHER, SELFPAY | PROVIDERS: PCP Internal Medicine; Visit Provider Surgery | DX: K64.8 Other hemorrhoids (principal) | CPT/HCPCS: 99212 ==

== ENCOUNTER 2023-10-09 08:50 | Outpatient (AMB) | payer OTHER, SELFPAY ==
--- NOTE | 2023-10-09 09:08 | A.OFFVIS_ITS ---
Intake Intake Visit Reasons: DM 30 min/LVM Tool And Die Maker Level Five Required: Yes Tool And Die Maker Level Five Language: Obstetrics Gynecology Physician Name: Gissell [facility] [place] Accompanied by: Self / Same As Patient Allergies shrimp Allergy (Mild, Verified 10/07/23 09:20) Swelling HPI Comprehensive Diabetes Asmnt Most Recent Diabetes Results: No Data to Display [facility] Medical History (Updated 10/07/23 @ 09:23 by Mario Ruggiero MD) Hemorrhoids with complication CKD (chronic kidney disease) stage 3, GFR 30-59 ml/min Family history of prostate cancer Osteoarthritis of left knee Moderate recurrent major depression Pruritus ani Internal and external hemorrhoids without complication Asthma DANIEL on CPAP Anemia Back pain Gross hematuria UTI (urinary tract infection) Prostate enlargement Diabetic polyneuropathy associated with type 2 diabetes mellitus Vitamin D deficiency Diabetes type 2, controlled Family history of anesthesia complication Hx of low back pain Hx of insomnia Hx of migraines Anxiety Depression Colon cancer screening Bleeding hemorrhoids Morbid obesity Hyperlipidemia Hypertension Hypernatremia Bloody stools Diabetes mellitus, type 2 Hiatal hernia Surgical History Hx of colonoscopy History of knee surgery History of carpal tunnel release H/O hernia repair History of umbilical hernia repair Family History Maternal Uncle History of prostate cancer Father History of throat cancer Myocardial infarction Diabetes mellitus Hypertension CVD (cardiovascular disease) Maternal Grandfather History of throat cancer Son In good health Son In good health Brother Colon cancer Mother Diabetes mellitus Social History Household Members: Spouse and Children Housing: House Are you a primary nursing care partner to a significant other at home: No Do you presently have visiting nurse or other home services: Yes (once a week ) Alcohol intake: former Patient Tobacco Use Status: Former Tobacco user Tobacco use type: Cigarette Cigarettes Per Day: 1 e-Cigarette/Vaping Use: Never Used Second Hand Smoke Exposure: No service: No Current occupational status: disabled Cognitive needs: No Hearing needs: No Vision needs: Yes Assessment & Plan Assessment & Plan (1) Diabetes mellitus: Code(s): E11.9 - Type 2 diabetes mellitus without complications Qualifiers: Diabetes mellitus type: type 2 Diabetes mellitus fdc insulin use: without fdc use Diabetes mellitus complication status: with hyperglycemia Qualified Code(s): E11.65 - Type 2 diabetes mellitus with hyperglycemia Plan: Patient at visit to set up an insert Dexcom G7 Instructed patient sensors water proof you can shower, or swim do not submerge sensor in water for over 30 minutes Is sensor falls off cannot put back in you need to replace sensor, customer service number given to patient for sensor replacement Sensor placed on the Back of Left Arm Patient left visit with sensor in warmup Patient has not started Lantus 20 units, he is taking Jardiance 25 mg, metformin 1000 mg b.i.d., Ozempic 2 mg If patient's blood glucose are still above target he is to discuss with his visit on 10/14/2023 starting the Lantus 20 units If patient is to start Lantus instructed to ask provider for prescription for Dexcom G7 sensors to be sent to patient's pharmacy. Patient will be approved for sensors once if insulin is initiated Reviewed how to interpret trend arrows Reminded patient that to check finger sticks if symptoms do not match sensor reading. Discussed lag time between finger stick and sensor data.? Instructed patient she should always keep blood glucometer for backup testing if needed Reviewed delay of CGM from fingersticks Patient will follow-up with cosmetology educator in 1 month, for further Diabetes Education Portions of this note were created using voice recognition software, please excuse any words or phrases that may have been misinterpreted. Patient Instructions: Instrucciones para el paciente: CGM proporciona informaci?n sobre el control de la glucosa en kavya a lo karthik del d?a, incluidas la hiperglucemia y la hipoglucemia. Contin?e controlando la glucosa en kavya seg?n las instrucciones. Siga las pautas de nutrici?n proporcionadas. Informe cualquier molestia de inmediato al proveedor de atenci?n m?dica. Mantente rose hidratado. Puede ba?arse, ducharse, nadar y hacer ejercicio mientras usa el sensor de glucosa. No sumerja el sensor de glucosa en agua cristal m?s de 30 minutos. Retire el sensor para dane resonancia magn?bentley o dane tomograf?a computarizada. 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
== END 2023-10-09 09:09 | disposition home or self-care (01) ==
PROVIDERS: PCP Internal Medicine; Visit Provider Registered Nurse Diabetes Educator
DX: E11.65 Type 2 diabetes mellitus with hyperglycemia (principal)

== ENCOUNTER → 2023-10-09 08:50 | Outpatient (BNVA) | payer OTHER, SELFPAY | PROVIDERS: PCP Internal Medicine; Visit Provider Registered Nurse Diabetes Educator | DX: E11.65 Type 2 diabetes mellitus with hyperglycemia (principal); Z79.84 Long term (current) use of oral hypoglycemic drugs; Z79.85 Long-term (current) use of injectable non-insulin antidiabetic drugs | CPT/HCPCS: 99211 ==

== ENCOUNTER 2023-11-01 05:46 | Day surgery (SDC) | payer OTHER, SELFPAY ==
[2023-04-05 07:06] VITALS: BMI 43.3
--- NOTE | 2023-09-04 13:55 | P.CONAN_ITS ---
HPI - Anesthesia Eval Consult details Narrative: 58yo M for Colonoscopy, possible polypectomy Anesthesia Pre-Procedure Meds Is the patient on any of the following meds?: GLP1/DPP4 and SGLT2 Inhib PMFSH Active Problems Active Problems: All Active Problems Urinary urgency (Acute) Hypercalcemia (Acute) Diabetes mellitus (Acute) Physical exam (Acute) Morbid obesity (Acute) Gross hematuria (Acute) Elevated PSA (Acute) Bladder outlet obstruction (Acute) Family history of prostate cancer (Acute) Osteoarthritis of left knee (Acute) Moderate recurrent major depression (Acute) Pruritus ani (Acute) Internal and external hemorrhoids without complication (Acute) Asthma (Acute) DANIEL on CPAP (Acute) Anemia (Acute) Back pain (Acute) Gross hematuria (Acute) UTI (urinary tract infection) (Acute) Prostate enlargement (Acute) Diabetic polyneuropathy associated with type 2 diabetes mellitus (Acute) Vitamin D deficiency (Acute) Diabetes type 2, controlled (Acute) Colon cancer screening (Acute) Bleeding hemorrhoids (Acute) Morbid obesity (Acute) Hyperlipidemia (Acute) Hypertension (Acute) Hypernatremia (Acute) Bloody stools (Acute) Past Medical History Medical History CKD (chronic kidney disease) stage 3, GFR 30-59 ml/min Family history of prostate cancer Osteoarthritis of left knee Moderate recurrent major depression Pruritus ani Internal and external hemorrhoids without complication Asthma DANIEL on CPAP Anemia Back pain Gross hematuria UTI (urinary tract infection) Prostate enlargement Diabetic polyneuropathy associated with type 2 diabetes mellitus Vitamin D deficiency Diabetes type 2, controlled Family history of anesthesia complication Hx of low back pain Hx of insomnia Hx of migraines Anxiety Depression Colon cancer screening Bleeding hemorrhoids Morbid obesity Hyperlipidemia Hypertension Hypernatremia Bloody stools Diabetes mellitus, type 2 Hiatal hernia Family History Family History Maternal Uncle History of prostate cancer Father History of throat cancer Myocardial infarction Diabetes mellitus Hypertension CVD (cardiovascular disease) Maternal Grandfather History of throat cancer Son In good health Son In good health Brother Colon cancer Mother Diabetes mellitus Surgical History Surgical History Hx of colonoscopy History of knee surgery History of carpal tunnel release H/O hernia repair History of umbilical hernia repair Social History Social History Household Members: Spouse and Children Housing: House Are you a primary child adolescent care to a significant other at home: No Do you presently have visiting nurse or other home services: Yes (once a week ) Alcohol intake: former Patient Tobacco Use Status: Former Tobacco user Tobacco use type: Cigarette Cigarettes Per Day: 1 e-Cigarette/Vaping Use: Never Used Second Hand Smoke Exposure: No service: No Current occupational status: disabled Cognitive needs: No Hearing needs: No Vision needs: Yes Meds Allergies Allergy/AdvReac Type Severity Reaction Status Date / Time shrimp Allergy Mild Swelling Verified 08/07/23 10:07 Home Medications ?Medication ?Instructions ?Recorded ?Confirmed ?Last Taken ?Type amitriptyline 150 mg tablet 150 mg PO BEDTIME 01/26/20 08/02/23 Unknown History lorazepam 1 mg tablet 1 mg PO BID PRN Anxiety 01/26/20 08/02/23 Unknown History topiramate 100 mg tablet 100 mg PO BID 01/26/20 08/02/23 Unknown History sumatriptan succinate 100 mg 100 mg PO DIRECTED 04/12/20 08/02/23 Unknown History tablet (Imitrex) [id number]-[id number]-lwsxuyil 1 tab PO Q8H PRN Pain 09/23/20 08/02/23 Unknown History 50 mg-325 mg-40 mg tablet zolpidem 10 mg tablet (Ambien) 10 mg PO BEDTIME PRN Insomnia 01/03/22 08/02/23 Unknown History cyclobenzaprine 10 mg tablet 10 mg PO Q8H PRN muscle spasm 01/11/23 08/02/23 Unknown History Exam Height,Weight and Vital Signs: Height 5 ft 10 in Weight 136.985 kg Pertinent Lab Results Pertinent Lab Results: Laboratory Tests 08/02/23 09:59 WBC 7.6 Hgb 13.3 L Hct 41.0 L Plt Count 291 Sodium 143 Potassium 3.6 Chloride 105 Carbon Dioxide 29 BUN 21 H Creatinine 1.20 Narrative Narrative: EKG 2022 Vent. Rate : 068 BPM Atrial Rate : 068 BPM P-R Int : 174 ms QRS Dur : 078 ms QT Int : 380 ms P-R-T Axes : -03 025 038 degrees QTc Int : 404 ms Normal sinus rhythm Normal ECG When compared with ECG of 12-OCT-2020 22:56, No significant change was found Assessment and Plan Assessment Anesthesia Assessment: Chart Reviewed
[2023-10-30 13:56] VITALS: BMI 42.7
--- NOTE | 2023-10-30 14:21 | HO.ANESPROP2 ---
Documented by User: Hope Orourke NP 10/30/23 14:25 HPI - Anesthesia Eval Consult details Narrative: 58yo M for Colonoscopy, possible polypectomy Anesthesia Pre-Procedure Meds Is the patient on any of the following meds?: GLP1/DPP4 and SGLT2 Inhib PMFSH Active Problems Active Problems: All Active Problems Hemorrhoids with complication (Acute) Urinary urgency (Acute) Hypercalcemia (Acute) Diabetes mellitus (Acute) Physical exam (Acute) Morbid obesity (Acute) Gross hematuria (Acute) Elevated PSA (Acute) Bladder outlet obstruction (Acute) Family history of prostate cancer (Acute) Osteoarthritis of left knee (Acute) Moderate recurrent major depression (Acute) Pruritus ani (Acute) Internal and external hemorrhoids without complication (Acute) Asthma (Acute) DANIEL on CPAP (Acute) Anemia (Acute) Back pain (Acute) Gross hematuria (Acute) UTI (urinary tract infection) (Acute) Prostate enlargement (Acute) Diabetic polyneuropathy associated with type 2 diabetes mellitus (Acute) Vitamin D deficiency (Acute) Diabetes type 2, controlled (Acute) Colon cancer screening (Acute) Bleeding hemorrhoids (Acute) Morbid obesity (Acute) Hyperlipidemia (Acute) Hypertension (Acute) Hypernatremia (Acute) Bloody stools (Acute) Past Medical History Medical History (Updated 10/07/23 @ 09:23 by Mario Ruggiero MD) Hemorrhoids with complication Family history of prostate cancer CKD (chronic kidney disease) stage 3, GFR 30-59 ml/min Osteoarthritis of left knee Moderate recurrent major depression Pruritus ani Internal and external hemorrhoids without complication Asthma DANIEL on CPAP Anemia Back pain Gross hematuria UTI (urinary tract infection) Prostate enlargement Diabetic polyneuropathy associated with type 2 diabetes mellitus Vitamin D deficiency Diabetes type 2, controlled Family history of anesthesia complication Hx of low back pain Hx of insomnia Hx of migraines Anxiety Depression Colon cancer screening Bleeding hemorrhoids Morbid obesity Hyperlipidemia Hypertension Hypernatremia Bloody stools Diabetes mellitus, type 2 Hiatal hernia Family History Family History Maternal Uncle History of prostate cancer Father History of throat cancer Myocardial infarction Diabetes mellitus Hypertension CVD (cardiovascular disease) Maternal Grandfather History of throat cancer Son In good health Son In good health Brother Colon cancer Mother Diabetes mellitus Surgical History Surgical History (Updated 11/01/23 @ 06:26 by Loyda Marie RN) Hx of colonoscopy History of knee surgery History of carpal tunnel release H/O hernia repair History of umbilical hernia repair Social History Social History Household Members: Spouse and Children Housing: House Are you a primary primary care nurse practitioner to a significant other at home: No Do you presently have visiting nurse or other home services: Yes (once a week ) Alcohol intake: former Patient Tobacco Use Status: Never used Tobacco Tobacco use type: Cigarette Cigarettes Per Day: 1 e-Cigarette/Vaping Use: Never Used Second Hand Smoke Exposure: No Use of substances other than those prescribed or required for medical reasons: No Are you DNR?: No Advance Directives: No Advance Directives Information Provided: Yes service: No Current occupational status: disabled Cognitive needs: No Hearing needs: No Vision needs: Yes Meds Allergies Allergy/AdvReac Type Severity Reaction Status Date / Time shrimp Allergy Mild Swelling Verified 11/01/23 06:26 Home Medications ?Medication ?Instructions ?Recorded ?Confirmed ?Last Taken ?Type amitriptyline 150 mg tablet 150 mg PO BEDTIME 01/26/20 11/01/23 Unknown History lorazepam 1 mg tablet 1 mg PO BID PRN Anxiety 01/26/20 11/01/23 Unknown History topiramate 100 mg tablet 100 mg PO BID 01/26/20 11/01/23 Unknown History sumatriptan succinate 100 mg 100 mg PO DIRECTED 04/12/20 11/01/23 Unknown History tablet (Imitrex) wzqkffkroz-kmicywozafwkn-cgqzluse 1 tab PO Q8H PRN Pain 09/23/20 11/01/23 Unknown History 50 mg-325 mg-40 mg tablet zolpidem 10 mg tablet (Ambien) 10 mg PO BEDTIME PRN Insomnia 01/03/22 11/01/23 Unknown History cyclobenzaprine 10 mg tablet 10 mg PO Q8H PRN muscle spasm 01/11/23 11/01/23 Unknown History Exam Height,Weight and Vital Signs: Height 5 ft 9 in Weight 131.088 kg Pertinent Lab Results Pertinent Lab Results: Laboratory Tests 08/02/23 09:59 WBC 7.6 Hgb 13.3 L Hct 41.0 L Plt Count 291 Sodium 143 Potassium 3.6 Chloride 105 Carbon Dioxide 29 BUN 21 H Creatinine 1.20 Assessment and Plan Assessment Anesthesia Assessment: Chart Reviewed Documented by User: Ethan Loredo MD 11/01/23 07:30 [facility] Past Medical History Medical History (Updated 10/07/23 @ 09:23 by Mario Ruggiero MD) Hemorrhoids with complication Family history of prostate cancer CKD (chronic kidney disease) stage 3, GFR 30-59 ml/min Osteoarthritis of left knee Moderate recurrent major depression Pruritus ani Internal and external hemorrhoids without complication Asthma DANIEL on CPAP Anemia Back pain Gross hematuria UTI (urinary tract infection) Prostate enlargement Diabetic polyneuropathy associated with type 2 diabetes mellitus Vitamin D deficiency Diabetes type 2, controlled Family history of anesthesia complication Hx of low back pain Hx of insomnia Hx of migraines Anxiety Depression Colon cancer screening Bleeding hemorrhoids Morbid obesity Hyperlipidemia Hypertension Hypernatremia Bloody stools Diabetes mellitus, type 2 Hiatal hernia Family History Family History Maternal Uncle History of prostate cancer Father History of throat cancer Myocardial infarction Diabetes mellitus Hypertension CVD (cardiovascular disease) Maternal Grandfather History of throat cancer Son In good health Son In good health Brother Colon cancer Mother Diabetes mellitus Family history of problems with anesthesia: No Surgical History Surgical History (Updated 11/01/23 @ 06:26 by Loyda Marie RN) Hx of colonoscopy History of knee surgery History of carpal tunnel release H/O hernia repair History of umbilical hernia repair History of Problems with Anesthesia: No Social History Social History Household Members: Spouse and Children Housing: House Are you a primary primary care nurse practitioner to a significant other at home: No Do you presently have visiting nurse or other home services: Yes (once a week ) Alcohol intake: former Patient Tobacco Use Status: Never used Tobacco Tobacco use type: Cigarette Cigarettes Per Day: 1 e-Cigarette/Vaping Use: Never Used Second Hand Smoke Exposure: No Use of substances other than those prescribed or required for medical reasons: No Are you DNR?: No Advance Directives: No Advance Directives Information Provided: Yes service: No Current occupational status: disabled Cognitive needs: No Hearing needs: No Vision needs: Yes Meds Allergies Allergy/AdvReac Type Severity Reaction Status Date / Time shrimp Allergy Mild Swelling Verified 11/01/23 06:26 Home Medications ?Medication ?Instructions ?Recorded ?Confirmed ?Last Taken ?Type amitriptyline 150 mg tablet 150 mg PO BEDTIME 01/26/20 11/01/23 Unknown History lorazepam 1 mg tablet 1 mg PO BID PRN Anxiety 01/26/20 11/01/23 Unknown History topiramate 100 mg tablet 100 mg PO BID 01/26/20 11/01/23 Unknown History sumatriptan succinate 100 mg 100 mg PO DIRECTED 04/12/20 11/01/23 Unknown History tablet (Imitrex) tzfgpamdum-uicnsppnjskxu-wzsxnslc 1 tab PO Q8H PRN Pain 09/23/20 11/01/23 Unknown History 50 mg-325 mg-40 mg tablet zolpidem 10 mg tablet (Ambien) 10 mg PO BEDTIME PRN Insomnia 01/03/22 11/01/23 Unknown History cyclobenzaprine 10 mg tablet 10 mg PO Q8H PRN muscle spasm 01/11/23 11/01/23 Unknown History Exam Airway Mallampati Class: I TM Dist: <=3cm Denture: Upper Partial: Lower Loose/Missing/Broken Teeth: Yes Heart: ok Lungs: ok. DANIEL Assessment and Plan Assessment Anesthesia Assessment: Anesthesia Plan Discussed Final Anesthetic Review Family History of Problems with Anesthesia: No History of Problems with Anesthesia: No NPO: Yes ASA Class: III Final Preanesthetic Review: No Changes in Pt Med Stat, Meds/Allgs Chart Reviewed, Consent Obtained/Reviewed and Anes Risks/Benef Reviewed Patient Risk: High Procedure Risk: Low Anesthetic Plan Anesthetic Plan: MAC: and Agree w/ Assess. and Plan Disposition: Standard PACU
[2023-11-01 06:14] VITALS: BMI 41.6
[2023-11-01 06:22] VITALS: BP 157/87; PULSE 74; RESP 16; TEMP 36.3; O2SAT 99
[2023-11-01 06:23] LABS: Glucose, Whole Blood 178 mg/dL (60-115)
[2023-11-01] MEDS: Lactated Ringers 1,000 ML 100 ML IVCONT (06:37)
--- NOTE | 2023-11-01 07:24 | PC.NURSE ---
Dr. Loredo at bedside, Photo Engraver present. Dr. Loredo made aware patient stopped ALL medications earlier this week on Saturday. Patient explained that he didn't want to mess up what he could and could not take so just stopped everything. Okay to proceed.
--- NOTE | 2023-11-01 07:27 | MHC.SHP ---
Pre-Procedural Eval Section A - 24 Hr Update-Section A only Date of Service: 11/01/23 The patient is an INPATIENT: No Changes since office visit: No Cold of Flu in the past 2 weeks, No New Medical Problems, No Changes in Medication and No Patient answered all questions The patient has been examined within 24 hours of the surgical procedure. The History & Physical has been completed within 30 days and I have reviewed it.: Yes Section B - Complete if H&P > 30 days Chief Complaint: Encounter for screening for malignant neoplasm of Allergies: Allergies Allergy/AdvReac Type Severity Reaction Status Date / Time shrimp Allergy Mild Swelling Verified 11/01/23 06:26 Plan I have reviewed the history and physical and performed a pertinent physical examination on my patient. No changes have occurred unless specified. Time Spent With Patient Time: Total time managing care of this patient today ____ minutes.
--- NOTE | 2023-11-01 08:05 | W.PM.OPN ---
Operative Note Operative Note Date of Service: 11/01/23 Narrative: Preop diagnosis: Colon cancer screening Postop diagnosis: Internal and external hemorrhoids otherwise normal colonoscopy findings Procedure: Colonoscopy Surgeon: Mario Ruggiero MD The patient is a 58-year-old male here for a follow-up screening colonoscopy. He understood the technique of the planned procedure as well as the risks, benefits, and alternatives.. The patient was brought to the operating room and placed in left lateral decubitus position under monitored anesthesia care. A surgical time-out was done. A full digital rectal exam was done and this did not reveal any significant anal lesions. The tip of the Olympus colonoscope was gently introduced through the anal orifice advanced with insufflation all the way to the cecum. The cecum was intubated. The cecum was identified by visualization of the ileocecal valve as well as the appendiceal orifice. The cecal mucosa was unremarkable. The scope was gradually withdrawn with careful examination of the entire colonic mucosa being done with scope withdrawal. The patient had adequate bowel prep so it was unlikely that any lesion may have been missed. The rectum was reached and there were no lesions seen. The anal canal was unremarkable although he did have internal external hemorrhoids, moderate-sized. The scope was then withdrawn completely with desufflation. The patient tolerated procedure well. There were no immediate complications. His next colonoscopy may be in the next 10 years.
[2023-11-01 08:09] VITALS: BP 140/81; PULSE 79; RESP 16; TEMP 36.4; O2SAT 98
[2023-11-01 08:24] VITALS: BP 141/95; PULSE 72; RESP 18; TEMP 36.1; O2SAT 99
== END 2023-11-01 08:44 | disposition home or self-care (01) ==
PROVIDERS: PCP Internal Medicine; Visit Provider Surgery
PROC: 0DJD8ZZ Inspection of Lower Intestinal Tract, Via Natural or Artificial Opening Endoscopic (ICD-10-PCS; CPT 45378; principal; 2023-11-01 07:30)
DX: Z12.11 Encounter for screening for malignant neoplasm of colon (principal); K64.8 Other hemorrhoids; K64.4 Residual hemorrhoidal skin tags; L29.0 Pruritus ani; N40.0 Benign prostatic hyperplasia without lower urinary tract symptoms; Z80.42 Family history of malignant neoplasm of prostate; G47.33 Obstructive sleep apnea (adult) (pediatric); E11.22 Type 2 diabetes mellitus with diabetic chronic kidney disease; I12.9 Hypertensive chronic kidney disease with stage 1 through stage 4 chronic kidney disease, or unspecified chronic kidney disease; N18.30 Chronic kidney disease, stage 3 unspecified; E66.01 Morbid (severe) obesity due to excess calories; Z68.41 Body mass index [BMI] 40.0-44.9, adult; F33.1 Major depressive disorder, recurrent, moderate; Z79.4 Long term (current) use of insulin; Z79.84 Long term (current) use of oral hypoglycemic drugs; Z79.85 Long-term (current) use of injectable non-insulin antidiabetic drugs; Z79.899 Other long term (current) drug therapy; Z99.89 Dependence on other enabling machines and devices
CPT/HCPCS: G0121; 82947; J2704

== ENCOUNTER → 2023-11-01 05:46 | Outpatient (BNV) | payer OTHER, SELFPAY | PROVIDERS: PCP Internal Medicine; Visit Provider Surgery | DX: Z12.11 Encounter for screening for malignant neoplasm of colon (principal) | CPT/HCPCS: G0121 ==

== ENCOUNTER 2023-11-11 07:49 | Outpatient (AMB) | payer OTHER, SELFPAY ==
--- NOTE | 2023-11-11 08:04 | A.OFFVIS_ITS ---
Intake Intake Visit Reasons: 60 min/LVM Maintenance Scheduler Required: Yes Maintenance Scheduler Language: Material Disposition Inspector Name: Gissell [facility] [place] Accompanied by: Self / Same As Patient Allergies shrimp Allergy (Mild, Verified 11/01/23 06:26) Swelling HPI Comprehensive Diabetes Asmnt Most Recent Diabetes Results: Microalb/Creat Ratio 7.0 ug/mg cr (<30) 12/15/22 Cholesterol 127 mg/dL (<200) 12/22/22 HDL Cholesterol 33 mg/dL (>40) L 12/22/22 Triglycerides 99 mg/dL (<150) 12/22/22 Creatinine 1.20 mg/dL (0.5-1.4) 08/02/23 Blood Urea Nitrogen 21 mg/dL (9-16) H 08/02/23 Sodium 143 mmol/L (135-145) 08/02/23 Potassium 3.6 mmol/L (3.3-5.1) 08/02/23 Chloride 105 mmol/L (96-108) 08/02/23 Carbon Dioxide 29 mmol/L (22-29) 08/02/23 Calcium 11.1 mg/dL (8.4-10.2) H 08/02/23 AST 27 U/L (5-37) 08/02/23 ALT 34 U/L (0-40) 08/02/23 Total Protein 7.2 g/dL (6.5-8.0) 08/02/23 Albumin 4.2 g/dL (3.5-5.0) 08/02/23 PFSH Medical History (Updated 10/07/23 @ 09:23 by Mario Ruggiero MD) Hemorrhoids with complication Family history of prostate cancer CKD (chronic kidney disease) stage 3, GFR 30-59 ml/min Osteoarthritis of left knee Moderate recurrent major depression Pruritus ani Internal and external hemorrhoids without complication Asthma DANIEL on CPAP Anemia Back pain Gross hematuria UTI (urinary tract infection) Prostate enlargement Diabetic polyneuropathy associated with type 2 diabetes mellitus Vitamin D deficiency Diabetes type 2, controlled Family history of anesthesia complication Hx of low back pain Hx of insomnia Hx of migraines Anxiety Depression Colon cancer screening Bleeding hemorrhoids Morbid obesity Hyperlipidemia Hypertension Hypernatremia Bloody stools Diabetes mellitus, type 2 Hiatal hernia Surgical History (Updated 11/01/23 @ 06:26 by Loyda Marie RN) Hx of colonoscopy History of knee surgery History of carpal tunnel release H/O hernia repair History of umbilical hernia repair Family History Maternal Uncle History of prostate cancer Father History of throat cancer Myocardial infarction Diabetes mellitus Hypertension CVD (cardiovascular disease) Maternal Grandfather History of throat cancer Son In good health Son In good health Brother Colon cancer Mother Diabetes mellitus Social History Household Members: Spouse and Children Housing: House Are you a primary farm or ranch animal caretaker to a significant other at home: No Do you presently have visiting nurse or other home services: Yes (once a week ) Alcohol intake: former Patient Tobacco Use Status: Never used Tobacco Tobacco use type: Cigarette Cigarettes Per Day: 1 e-Cigarette/Vaping Use: Never Used Second Hand Smoke Exposure: No service: No Current occupational status: disabled Cognitive needs: No Hearing needs: No Vision needs: Yes Assessment & Plan Assessment & Plan (1) Diabetes mellitus: Code(s): E11.9 - Type 2 diabetes mellitus without complications Qualifiers: Diabetes mellitus type: type 2 Diabetes mellitus snf insulin use: without termite 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 Gary at his last provider visit. Patient has upcoming appointment with PA in October 2023. 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 * Dosing/administration instructions? * Mechanism of action? * Potential side effects? * Potential adverse reaction and appropriate treatment? * Review onset, peak, duration Assess for concerns re: insurance coverage, cost, barriers to compliance Target Goals: * Blood glucose targets * Monitoring and knowing your A1C. * What can make blood glucose go up and down and preventing high and low blood glucose. * Review of blood sugar targets in expected goal range and outside of expected goal range. ?Patient was receptive to information provided and participated in the discussion. Asked?appropriate questions and demonstrated good understanding of the topics discussed.? ? Educational Materials: The patient was provided with the following written educational materials: Target Goal handout Comprehension of Instructions: Readiness to make changes:? How confident they feel about making changes: Portions of this note were created using voice recognition software, please excuse any words or phrases that may have been misinterpreted. Coding Level of Care Code Est Pt Level 1 (16590) Diagnoses Type 2 diabetes mellitus with hyperglycemia, without long-term current use of insulin E11.65 Diabetes mellitus type: type 2 Diabetes mellitus snf insulin use: without snf use Diabetes mellitus complication status: with hyperglycemia
== END 2023-11-11 08:10 | disposition home or self-care (01) ==
PROVIDERS: PCP Internal Medicine; Visit Provider Registered Nurse Diabetes Educator
DX: E11.65 Type 2 diabetes mellitus with hyperglycemia (principal)

== ENCOUNTER → 2023-11-11 07:49 | Outpatient (BNVA) | payer OTHER, SELFPAY | PROVIDERS: PCP Internal Medicine; Visit Provider Registered Nurse Diabetes Educator | DX: E11.65 Type 2 diabetes mellitus with hyperglycemia (principal); E11.42 Type 2 diabetes mellitus with diabetic polyneuropathy; N18.30 Chronic kidney disease, stage 3 unspecified | CPT/HCPCS: 99211 ==

== ENCOUNTER 2023-11-14 10:07 | Outpatient (AMB) | payer OTHER, SELFPAY ==
--- NOTE | 2023-11-14 10:08 | MHC.OFFVIS ---
Vital Signs 11/14/23 10:13 Height 5 ft 9 in Weight 282 lb BMI 41.6 Intake Visit Reasons: S/P colonoscopy Intake Note: Colonoscopy results. Pt c/o; reports no complaints. Blood Collector Required: Yes Blood Collector Language: Tape Sewing Machine Operator Name: Stoney Information Interpreted: non-clinical & clinical Accompanied by: Self / Same As Patient Allergies shrimp Allergy (Mild, Verified 11/18/23 09:30) Swelling HPI HPI S/P colonoscopy: Details: This was a telehealth visit. He underwent colonoscopy for screening last 11/01/2023. He tolerated procedure well. He currently denies significant complaints. [facility] Medical History Hemorrhoids with complication Family history of prostate cancer CKD (chronic kidney disease) stage 3, GFR 30-59 ml/min Osteoarthritis of left knee Moderate recurrent major depression Pruritus ani Internal and external hemorrhoids without complication Asthma DANIEL on CPAP Anemia Back pain Gross hematuria UTI (urinary tract infection) Prostate enlargement Diabetic polyneuropathy associated with type 2 diabetes mellitus Vitamin D deficiency Diabetes type 2, controlled Family history of anesthesia complication Hx of low back pain Hx of insomnia Hx of migraines Anxiety Depression Colon cancer screening Bleeding hemorrhoids Morbid obesity Hyperlipidemia Hypertension Hypernatremia Bloody stools Diabetes mellitus, type 2 Hiatal hernia Surgical History History of colonoscopy (~11/01/23) Hx of colonoscopy History of knee surgery History of carpal tunnel release H/O hernia repair History of umbilical hernia repair Family History Maternal Uncle History of prostate cancer Father History of throat cancer Myocardial infarction Diabetes mellitus Hypertension CVD (cardiovascular disease) Maternal Grandfather History of throat cancer Son In good health Son In good health Brother Colon cancer Mother Diabetes mellitus Social History Household Members: Spouse and Children Housing: House Are you a primary child care nurse to a significant other at home: No Do you presently have visiting nurse or other home services: Yes (once a week ) Alcohol intake: former Patient Tobacco Use Status: Never used Tobacco Tobacco use type: Cigarette Cigarettes Per Day: 1 e-Cigarette/Vaping Use: Never Used Second Hand Smoke Exposure: No service: No Current occupational status: disabled Cognitive needs: No Hearing needs: No Vision needs: Yes Review of Systems Const Denies chills and Denies fever(s) Card Denies chest pain, Denies dyspnea and Denies dyspnea on exertion Resp Denies cough, Denies dyspnea and Denies dyspnea on exertion GI Denies hematochezia and Denies change in bowel habits Denies hematuria and Denies difficulty urinating Musc Denies back pain and Denies limited range of motion Neuro Denies focal weakness and Denies convulsions Psych Denies depression and Denies mood swings Physical Exam Vital Signs: BMI result Body Mass Index 41.6 Telehealth Telehealth Telehealth Platform: Telephone Location of provider rendering services: practice address Location of patient: address on file Patient Identification confirmed using: Name, : Yes Telehealth method: voice only Patient verbally consented to treatment: Yes Patient verbally consented to billing insurance company: Yes Patient informed of any privacy concerns related to visit: Yes Assessment & Plan Assessment & Plan (1) Colon cancer screening: Code(s): Z12.11 - Encounter for screening for malignant neoplasm of colon Category: Medical Plan: Status post colonoscopy. He had not see any polyps. He did have internal and external hemorrhoids. His colonoscopy otherwise was unremarkable I therefore told him that since he falls at average risk for colon cancer, his next colonoscopy may be in the next 10 years. He seems to understand the plan well. Coding Level of Care Code Global (92431) Diagnoses Colon cancer screening Z12.11
[2023-11-14 10:13] VITALS: BMI 41.6
== END 2023-11-14 10:13 | disposition home or self-care (01) ==
LOC: HO.HGS 10:07
PROVIDERS: PCP Internal Medicine; Visit Provider Surgery
DX: Z12.11 Encounter for screening for malignant neoplasm of colon (principal)
CPT/HCPCS: 99024

== ENCOUNTER → 2023-11-14 10:07 | Outpatient (BNVA) | payer OTHER, SELFPAY | PROVIDERS: PCP Internal Medicine; Visit Provider Surgery | DX: K64.8 Other hemorrhoids (principal); K64.4 Residual hemorrhoidal skin tags; Z09 Encounter for follow-up examination after completed treatment for conditions other than malignant neoplasm | CPT/HCPCS: 99212 ==

== ENCOUNTER 2023-11-18 09:24 | Outpatient (AMB) | payer OTHER, SELFPAY ==
--- NOTE | 2023-11-18 09:25 | A.OFFVIS_ITS ---
Vital Signs 11/18/23 09:27 Height 5 ft 9 in Weight 286 lb 9.615 oz BMI 42.3 BP 138/88 Blood Pressure Location Rt brachial Position Sitting Pulse Source Pulse Oximeter Intake Visit Reasons: T2DM Intake Note: Patient presents today to re-establish treatment on Type 2 Diabetes Mellitus: Last Diabetic Eye exam: DUE Last Podiatry Exam: Does not see a Physician Assistant Primary Care Most recent HbA1c: 7.4%, 09/10/2023 Random Glucose- 121 mg/dL, Today Acquisition Analyst Required: Yes Acquisition Analyst Language: Tanzanian Accompanied by: Self / Same As Patient Allergies shrimp Allergy (Mild, Verified 11/18/23 09:30) Swelling Medication List - Last Reconciled 11/18/23 by Meenakshi Doshi PA-C acetaminophen ER (Mapap Arthritis Pain) 1,300 mg (2 x 650 mg) PO Q8H PRN 30 days albuterol sulfate 90 mcg/actuation 2 puffs PO Q4H PRN 30 days albuterol sulfate 2.5 mg (3 mL) inhalation Q4-6H PRN 30 days amitriptyline 150 mg PO BEDTIME atorvastatin 80 mg PO BEDTIME 90 days blood sugar diagnostic (FreeStyle Lite Strips) 1 strip miscellaneous BID 30 days blood-glucose meter (FreeStyle Lite Meter kit) As directed blood-glucose sensor (Texere G7 Sensor device) As directed change every 10 days phkksjcekp-lqohswwsboegn-kjjx 50-325-40 mg 1 tab PO Q8H PRN chlorthalidone 25 mg PO DAILY 90 days cholecalciferol (vitamin D3) 25 mcg PO DAILY 90 days clonidine HCl 0.2 mg PO BEDTIME 90 days cyclobenzaprine 10 mg PO Q8H PRN docusate sodium 100 mg PO BID empagliflozin (Jardiance) 25 mg PO DAILY 90 days fenofibrate nanocrystallized 145 mg PO DAILY 90 days fluticasone propion-salmeterol 250-50 mcg/dose (Wixela Inhub) 1 ea PO Q12H gabapentin 100 mg PO TID 30 days hydrocortisone 2.5% 1 appl topical BID PRN 14 days lancets As directed tests 3 X/day lisinopril 40 mg PO DAILY lorazepam 1 mg PO BID PRN meloxicam 15 mg PO DAILY PRN menthol-zinc oxide 0.44-20.6 % (Calmoseptine) 1 appl topical QID PRN metformin ER 1,000 mg (2 x 500 mg) PO BID 90 days montelukast 10 mg PO BEDTIME pen needle, diabetic (BD Jennifer 2nd Gen Pen Needle) once a day pen needle, diabetic (Comfort EZ Pen Hardesty) As directed injects once a day phenylephrine HCl 0.25% (Preparation H (pe)) 1 supp MO QID PRN pioglitazone 45 mg PO DAILY 90 days semaglutide (Ozempic) 2 mg (0.75 mL) subcut QWEEK 30 days sodium,potassium,mag sulfates 17.5-3.13-1.6 gram (Suprep Bowel Prep Kit) DILUTE; drink full amount early evening before AND next morning at least 2 hr before procedure; follow w 960 mL water PO sumatriptan succinate (Imitrex) 100 mg PO DIRECTED tamsulosin (Flomax) 0.4 mg PO BEDTIME 90 days topiramate 100 mg PO BID Ventolin HFA 90 mcg/actuation (albuterol sulfate) 2 puffs inhalation Q6H PRN 30 days NS zolpidem (Ambien) 10 mg PO BEDTIME PRN HPI HPI T2DM: Details: Patient is a 50-year-old male with a significant past medical history of type 2 diabetes, hypertension, hyperlipidemia and obesity presenting today for a diabetic follow-up. He last saw Dr. Gary in May. He has followed with diabetic Education had his last wound Lolita last week. translator/interpreter id: Rei #[id number] Endo: Last A1c 7.4. He is currently Ozempic 2 mg weekly, metformin 1000 mg twice a day, Jardiance 25 mg daily, Actos 45 mg daily and was supposed to start Lantus but has not done this yet. Checks blood sugars 1-2 x a day. On average they appear to be around 200 fasting. Hypogylcemia- One time had a blood sugar of 76 and felt sweaty with this. He states that he took candy to increase it. CV: bp today in office is 138/88 he is currently on lisinopril 40 mg, chlorthalidone 25 mg. Cholesterol is controlled with atorvastatin 80 mg. [facility] Medical History Hemorrhoids with complication Family history of prostate cancer CKD (chronic kidney disease) stage 3, GFR 30-59 ml/min Osteoarthritis of left knee Moderate recurrent major depression Pruritus ani Internal and external hemorrhoids without complication Asthma DANIEL on CPAP Anemia Back pain Gross hematuria UTI (urinary tract infection) Prostate enlargement Diabetic polyneuropathy associated with type 2 diabetes mellitus Vitamin D deficiency Diabetes type 2, controlled Family history of anesthesia complication Hx of low back pain Hx of insomnia Hx of migraines Anxiety Depression Colon cancer screening Bleeding hemorrhoids Morbid obesity Hyperlipidemia Hypertension Hypernatremia Bloody stools Diabetes mellitus, type 2 Hiatal hernia Surgical History History of colonoscopy (~11/01/23) Hx of colonoscopy History of knee surgery History of carpal tunnel release H/O hernia repair History of umbilical hernia repair Family History Maternal Uncle History of prostate cancer Father History of throat cancer Myocardial infarction Diabetes mellitus Hypertension CVD (cardiovascular disease) Maternal Grandfather History of throat cancer Son In good health Son In good health Brother Colon cancer Mother Diabetes mellitus Social History Household Members: Spouse and Children Housing: House Are you a primary neurocritical care physician to a significant other at home: No Do you presently have visiting nurse or other home services: Yes (once a week ) Alcohol intake: former Patient Tobacco Use Status: Never used Tobacco Tobacco use type: Cigarette Cigarettes Per Day: 1 e-Cigarette/Vaping Use: Never Used Second Hand Smoke Exposure: No service: No Current occupational status: disabled Cognitive needs: No Hearing needs: No Vision needs: Yes Physical Exam Vital Signs: Last Vital Signs BP 138/88 11/18/23 09:27 BMI result Body Mass Index 42.3 Const Orientation/consciousness: patient oriented x3 Neck Neck: Yes no lymphadenopathy Thyroid: Thyroid normal Carotids: no bruits Resp Auscultation: clear to auscultation bilaterally Cardio Rate: regular rate Rhythm: regular rhythm Heart sounds: S1 normal heart sound present, S2 normal heart sound present and Murmur heart sound present Peripheral pulses: dorsalis pedis present Neuro General: patient oriented x3, gait normal and no focal motor deficits Extrem General: Yes normal to inspection Results Reviewed Results Reviewed: Laboratory Last Values Glucose (Clinic) 121 mg/dL (60-115) H 11/18/23 09:33 Laboratory Tests 12/15/22 12/22/22 08/02/23 07:10 07:55 09:59 Sodium 143 Potassium 3.6 Chloride 105 Carbon Dioxide 29 Anion Gap 13 BUN 21 H Creatinine 1.20 Estim Creat Clear Calc 91.8 Estimated GFR > 60 POC Glucose Random Glucose 114 Hgb A1c (Clinic) AST 27 ALT 34 Triglycerides 99 Cholesterol 127 LDL Cholesterol, Calc 75 HDL Cholesterol 33 L Urine Creatinine 141.14 Urine Microalbumin 10.0 Microalb/Creat Ratio 7.0 09/10/23 11/01/23 13:47 06:20 Sodium Potassium Chloride Carbon Dioxide Anion Gap BUN Creatinine Estim Creat Clear Calc Estimated GFR POC Glucose 178 H Random Glucose Hgb A1c (Clinic) 7.4 H AST ALT Triglycerides Cholesterol LDL Cholesterol, Calc HDL Cholesterol Urine Creatinine Urine Microalbumin Microalb/Creat Ratio Assessment & Plan Assessment & Plan (1) Diabetic polyneuropathy associated with type 2 diabetes mellitus: Code(s): E11.42 - Type 2 diabetes mellitus with diabetic polyneuropathy Category: Medical Plan: will start 10 units of lantus nightly dexcom sensors ordered continue current treatment plan otherwise signs and symptoms of hyperglycemia and hypoglycemia that would require emergent medical treatment discussed glucose tabs ordered. rule of 15s discussed. 1 month follow up or sooner prn (2) Insulin dependent type 2 diabetes mellitus: Code(s): E11.9 - Type 2 diabetes mellitus without complications; Z79.4 - terminal manager (current) use of insulin Category: Medical Plan: as above (3) Hypertension: Code(s): I10 - Essential (primary) hypertension Category: Medical Qualifiers: Hypertension type: essential hypertension Qualified Code(s): I10 - Essential (primary) hypertension Plan: BP today is 138/88. He will continue current regimen. (4) Murmur: Code(s): R01.1 - Cardiac murmur, unspecified Category: Medical Plan: Murmur noted on exam today. Does report this as new. States sometimes his ankles will be puffy but no real swelling. No shortness of breath, chest pain or palpitations. Echo ordered today. Will follow up pending test results. He has had uncontrolled blood pressures in past. Discussed the importance of controlling blood pressures. Orders: Orders CA echo transthoracic complete Today I10 - Essential (primary) hypertension, R01.1 - Cardiac murmur, unspecified Medications: New glucose (Dex4 Glucose) until symptoms of low blood sugar are controlled 16 grams (4 x 4 gram) PO Q15M PRN 100 tabs 0RF hypoglycemia insulin glargine (Lantus Solostar U-100 Insulin) 10 units (0.1 mL) subcut QPM 30 days 15 mL 3RF Refilled blood-glucose sensor (Dexcom G7 Sensor device) As directed change every 10 days 3 ea 4RF Coding Level of Care Code Est Pt Level 4 (37417) Complex EM visit Add On G2211 Diagnoses Diabetic polyneuropathy associated with type 2 diabetes mellitus E11.42 Insulin dependent type 2 diabetes mellitus E11.9; Z79.4 Essential hypertension I10 Hypertension type: essential hypertension Murmur R01.1
[2023-11-18 09:27] VITALS: BP 138/88; BMI 42.3
[2023-11-18 09:37] LABS: Glucose, Whole Blood 121 mg/dL (60-115)
== END 2023-11-18 10:09 | disposition home or self-care (01) ==
PROVIDERS: PCP Internal Medicine; Visit Provider Physician Assistant
DX: E11.42 Type 2 diabetes mellitus with diabetic polyneuropathy (principal); Z79.4 Long term (current) use of insulin; I10 Essential (primary) hypertension; R01.1 Cardiac murmur, unspecified
CPT/HCPCS: 99214; G2211

== ENCOUNTER → 2023-11-18 09:24 | Outpatient (BNVA) | payer OTHER, SELFPAY | PROVIDERS: PCP Internal Medicine; Visit Provider Physician Assistant | DX: E11.42 Type 2 diabetes mellitus with diabetic polyneuropathy (principal); Z79.4 Long term (current) use of insulin; R01.1 Cardiac murmur, unspecified; I10 Essential (primary) hypertension | CPT/HCPCS: 82947; 99212 ==

== ENCOUNTER 2023-11-30 07:31 | Outpatient (REF) | payer OTHER, SELFPAY ==
[2023-11-30 09:06] LABS: Appearance Urine Clear; Color Urine Yellow; Glucose Urine UA >=1000 mg/dL (Negative); Leukocyte Esterase Urine Negative (Negative); Nitrite Urine Negative (Negative); Specific Gravity - Urine >= 1.030 (1.005-1.025); UMIC TRIGGER UA YES; Urine Blood Negative (Negative); Urine Ketones Negative (Negative); Urine Protein Negative (Neg-Trace)
[2023-11-30 09:12] LABS: Bacteria Urine None Seen (None Seen); Hyaline Casts Urine 0-2 /LPF (0-2); RBC Urine 0-2 /HPF (0-2); Squamous Epithelial Cell Urine 0-2 /HPF (0-2); WBC Urine 0-5 /HPF (0-5)
[2023-11-30 09:35] LABS: Parathyroid Hormone Intact 25.7 pg/mL (8.7-77.1)
[2023-11-30 09:36] LABS: Creatinine Urine 120.17 mg/dL; Microalbum/Creatinine Ratio Ur 9.1 ug/mg cr (<30)
[2023-11-30 09:48] LABS: Alanine Aminotransferase 31 U/L (0-40); Albumin Level 3.9 g/dL (3.5-5.0); Alkaline Phosphatase 67 U/L (39-117); Anion Gap 11 (12-20); Aspartate Amino Transferase 23 U/L (5-37); Bilirubin Total 0.2 mg/dL (0.0-1.0); Blood Urea Nitrogen 24 mg/dL (9-16); Calcium 9.9 mg/dL (8.4-10.2); Carbon Dioxide 24 mmol/L (22-29); Chloride 110 mmol/L (96-108); Cholesterol 101 mg/dL (<200); Estimated Glomerular Filt Rate > 60; Glucose Fasting 131 mg/dL (60-99); Glucose Random 131 mg/dL (60-115); HDL Cholesterol 29 mg/dL (>40); LDL Cholesterol Calculated 57 mg/dL (<100); Potassium 3.7 mmol/L (3.3-5.1); Sodium 141 mmol/L (135-145); Total Protein 6.9 g/dL (6.5-8.0); Triglycerides 77 mg/dL (<150)
[2023-11-30 09:48] LABS: Creatinine Urine 118.48 mg/dL; Total Protein Urine Random < 7 mg/dL (<12)
[2023-11-30 09:56] LABS: PSA,Total (Free>4and<10) 2.41 ng/mL (0.00-4.00)
[2023-12-05 16:04] LABS: Vitamin D 25-OH, D2 <4 ng/mL; Vitamin D 25-OH, D3 24 ng/mL; Vitamin D 25-OH, Total 24 ng/mL (30-100)
== END 2023-11-30 07:32 | disposition home or self-care (01) ==
LOC: HO.LAB 07:31
PROVIDERS: Internal Medicine Hypertension Specialist; Absent Provider Internal Medicine Medical Oncology; PCP Internal Medicine; Visit Provider Internal Medicine
DX: E11.65 Type 2 diabetes mellitus with hyperglycemia (principal); I12.9 Hypertensive chronic kidney disease with stage 1 through stage 4 chronic kidney disease, or unspecified chronic kidney disease; E11.22 Type 2 diabetes mellitus with diabetic chronic kidney disease; N18.30 Chronic kidney disease, stage 3 unspecified; E78.5 Hyperlipidemia, unspecified; Z12.5 Encounter for screening for malignant neoplasm of prostate
CPT/HCPCS: 36415; 80048; 80053; 80061; 81001; 81003; 82043; 82306; 82570; 83970; 84153; 84156

== ENCOUNTER 2023-12-03 12:34 | Outpatient (AMB) | payer OTHER, SELFPAY ==
--- NOTE | 2023-12-03 12:42 | MHC.PC.OV ---
Vital Signs 12/03/23 12:44 Height 5 ft 9 in Weight 285 lb BMI 42.1 BP 126/80 Blood Pressure Location Lt brachial Position Sitting Intake Visit Reasons: pe Network Desktop Support Specialist Required: No Accompanied by: Self / Same As Patient Allergies shrimp Allergy (Mild, Verified 12/03/23 13:12) Swelling Medication List - Last Reconciled 12/03/23 by Deedee Watts MD acetaminophen ER (Mapap Arthritis Pain) 1,300 mg (2 x 650 mg) PO Q8H PRN 30 days albuterol sulfate 90 mcg/actuation 2 puffs PO Q4H PRN 30 days albuterol sulfate 2.5 mg (3 mL) inhalation Q4-6H PRN 30 days amitriptyline 150 mg PO BEDTIME atorvastatin 80 mg PO BEDTIME 90 days blood sugar diagnostic (FreeStyle Lite Strips) 1 strip miscellaneous BID 30 days blood-glucose meter (FreeStyle Lite Meter kit) As directed blood-glucose meter,continuous (DexAppies G7 Gift Wrapper) Use daily As directed to monitor blood sugars blood-glucose sensor (EnGeneIC G7 Sensor device) As directed change every 10 days hpicjihzcu-xxgiudbdqykut-labq 50-325-40 mg 1 tab PO Q8H PRN chlorthalidone 25 mg PO DAILY 90 days cholecalciferol (vitamin D3) 25 mcg PO DAILY 90 days clonidine HCl 0.2 mg PO BEDTIME 90 days cyclobenzaprine 10 mg PO Q8H PRN docusate sodium 100 mg PO BID empagliflozin (Jardiance) 25 mg PO DAILY 90 days fenofibrate nanocrystallized 145 mg PO DAILY 90 days fluticasone propion-salmeterol 250-50 mcg/dose (Wixela Inhub) 1 ea PO Q12H gabapentin 100 mg PO TID 30 days glucose (Dex4 Glucose) 16 grams (4 x 4 gram) PO Q15M PRN hydrocortisone 2.5% 1 appl topical BID PRN 14 days insulin glargine (Lantus Solostar U-100 Insulin) 10 units (0.1 mL) subcut QPM 30 days lancets As directed tests 3 X/day lisinopril 40 mg PO DAILY lorazepam 1 mg PO BID PRN meloxicam 15 mg PO DAILY PRN menthol-zinc oxide 0.44-20.6 % (Calmoseptine) 1 appl topical QID PRN metformin ER 1,000 mg (2 x 500 mg) PO BID 90 days montelukast 10 mg PO BEDTIME pen needle, diabetic (BD Jennifer 2nd Gen Pen Needle) once a day pen needle, diabetic (Comfort EZ Pen Liberal) As directed injects once a day phenylephrine HCl 0.25% (Preparation H (pe)) 1 supp KS QID PRN pioglitazone 45 mg PO DAILY 90 days semaglutide (Ozempic) 2 mg (0.75 mL) subcut QWEEK 30 days sodium,potassium,mag sulfates 17.5-3.13-1.6 gram (Suprep Bowel Prep Kit) DILUTE; drink full amount early evening before AND next morning at least 2 hr before procedure; follow w 960 mL water PO sumatriptan succinate (Imitrex) 100 mg PO DIRECTED tamsulosin (Flomax) 0.4 mg PO BEDTIME 90 days topiramate 100 mg PO BID Ventolin HFA 90 mcg/actuation (albuterol sulfate) 2 puffs inhalation Q6H PRN 30 days NS zolpidem (Ambien) 10 mg PO BEDTIME PRN Tobacco use date assessed: 04/09/23 Dental Screening Dental Screen Date: 04/09/23 HPI HPI Comments History of Present Illness Details This is a 58-year-old male with diabetes mellitus type 2 on long-term current use of insulin, moderate recurrent major depression and morbid obesity that comes for his physical exam. Last A1c was 7.4%. Depression is follow by Psychiatry and has no suicidal thoughts. He is morbidly obese with a BMI of 42.1 and declines weight loss surgery. Advised to diet and exercise to reach BMI goal less than 30. Colonoscopy done last month was normal. Has not had a diabetic eye exam in over a year and will be referred to Ophthalmology. [facility] Medical History Hemorrhoids with complication Family history of prostate cancer CKD (chronic kidney disease) stage 3, GFR 30-59 ml/min Osteoarthritis of left knee Moderate recurrent major depression Pruritus ani Internal and external hemorrhoids without complication Asthma DANIEL on CPAP Anemia Back pain Gross hematuria UTI (urinary tract infection) Prostate enlargement Diabetic polyneuropathy associated with type 2 diabetes mellitus Vitamin D deficiency Diabetes type 2, controlled Family history of anesthesia complication Hx of low back pain Hx of insomnia Hx of migraines Anxiety Depression Colon cancer screening Bleeding hemorrhoids Morbid obesity Hyperlipidemia Hypertension Hypernatremia Bloody stools Diabetes mellitus, type 2 Hiatal hernia Surgical History History of colonoscopy (~11/01/23) Hx of colonoscopy History of knee surgery History of carpal tunnel release H/O hernia repair History of umbilical hernia repair Family History Maternal Uncle History of prostate cancer Father History of throat cancer Myocardial infarction Diabetes mellitus Hypertension CVD (cardiovascular disease) Maternal Grandfather History of throat cancer Son In good health Son In good health Brother Colon cancer Mother Diabetes mellitus Social History Household Members: Spouse and Children Housing: House Are you a primary physician assistant primary care to a significant other at home: No Do you presently have visiting nurse or other home services: Yes (once a week ) Alcohol intake: former Patient Tobacco Use Status: Never used Tobacco Tobacco use type: Cigarette Cigarettes Per Day: 1 e-Cigarette/Vaping Use: Never Used Second Hand Smoke Exposure: No service: No Current occupational status: disabled Cognitive needs: No Hearing needs: No Vision needs: Yes Questionnaire PHQ-9 Over the last 2 weeks, how often have you been bothered by any of the following problems? 1. Little interest or pleasure in doing things: more than half the days 2. Feeling down, depressed, or hopeless: more than half the days 3. Trouble falling or staying asleep, or sleeping too much: nearly every day 4. Feeling tired or having little energy: several days 5. Poor appetite or overeating: several days 6. Feeling bad about yourself - or that you are a failure or have let yourself or your family down: nearly every day 7. Trouble concentrating on things, such as reading the newspaper or watching television: nearly every day 8. Moving or speaking so slowly that other people could have noticed. Or the opposite - being so fidgety or restless that you have been moving around a lot more than usual: several days 9. Thoughts that you would be better off or of hurting yourself in some way: not at all Total score: 16 Depression Screening Interpretation: Positive (no suicidal thoughts) Depression Screening Follow-up: Existing condition, In treatment, Community Mental Health Worker F/U and Follow-up Visit Requested Depression Screening Done: Yes 26237 - PHQ-9 Billing: Yes Source: Developed by Drs. Musa Armando, Jagruti Vu, Leo Dutton and colleagues, with an educational lyla from [employer]. Thrive Questionnaire Date Thrive assessed: 12/03/23 I am a: Parent/Caregiver What is your living situation today?: I have a steady place to live Within the past 12 months, did the food you bought not last and you didn't have the money to get more?: I choose not to answer this question Within the past 12 months, did you worry whether your food would run out before you got money to buy more?: Never true Do you have trouble paying for medicines?: No Do you have trouble getting transportation to medical appointments?: No Do you have trouble paying your heating and electricity bill?: No Do you have trouble taking care of your child, family member or friend?: No Do you have trouble with day-to-day activities such as bathing, preparing meals, shopping, managing finances, etc.?: No Are you currently unemployed and looking for a job?: No Are you interested in more education?: No Please select the resources that you would like help with: None Currently or been in a relationship where the following occur: No concerns reported THRIVE Score: 0 AUDIT C Alcohol Use Questionnaire (AUDIT-C) 1. How often do you have a drink containing alcohol?: Never Total Score: 0 Score Reviewed/Action Taken: No MAGGY-7 AMB Questionnaire MAGGY-7 Date MAGGY - 7 assessed: 12/03/23 Feeling nervous, anxious, or on edge: 2 = More than half the days Not being able to stop or control worryin = Not at all Worrying too much about different things: 1 = Several days Trouble relaxin = Several days Being so restless that it is hard to sit still: 0 = Not at all Becoming easily annoyed or irritable: 2 = More than half the days Feeling afraid as if something awful might happen: 0 = Not at all Total MAGGY-7 score (0-4 normal; 5-9 mild; 10-14 moderate; 15-21 severe): 6 Source: Developed by Drs. Musa Armando, Jagruti Vu, Leo Dutton and colleagues, with an educational lyla from [employer]. MAGGY-7 Assessment Billing MAGGY-7 Assessment Tool: MAGGY-7 Assessment 10741 Review of Systems Const All systems reviewed & are unremarkable except as noted in HPI and below Card Denies chest pain at rest, Denies chest pain with activity, Denies edema, Denies irregular heart rhythm, Denies claudication, Denies dyspnea, Denies dyspnea on exertion, Denies orthopnea, Denies paroxysmal nocturnal dyspnea and Denies slow heart rate Resp Denies cough, Denies dyspnea and Denies dyspnea on exertion GI Denies abdominal pain, Denies change in bowel habits, Denies excessive flatus, Denies nausea and Denies vomiting Denies urinary hesitancy, Denies urinary incontinence and Denies urinary urgency Musc Denies abnormal gait, Denies atrophy, Denies deformity and Denies limited range of motion Skin/Breast Denies bleeding lesions, Denies changing lesions and Denies rash Neuro Denies abnormal gait, Denies behavioral changes and Denies lack of coordination Psych Denies behavioral changes Physical exam (Primary Care) Vital Signs: Last Vital Signs BP 126/80 12/03/23 12:44 BMI result Body Mass Index 42.1 BMI Assessment/Plan discussion: High BMI High, discussed plan: lifestyle, weight reduction, dietary and physical activity Tobacco/Smoking Status: Tobacco use Status Tobacco use date assessed 04/09/23 12/03/23 12:44 Patient Tobacco Use Status Never used Tobacco 12/03/23 12:44 Tobacco use type Cigarette 12/03/23 12:44 e-Cigarette/Vaping Use Never Used 12/03/23 12:44 PHQ-9: PHQ-9 Score PHQ-9: Total score 16 12/03/23 12:49 Depression Screening Interpretation: Positive (no suicidal thoughts) Depression Screening Follow-up: Existing condition, In treatment, Community Mental Health Worker F/U and Follow-up Visit Requested Thrive Assessment: Date of Thrive Assessment Date Thrive assessed 12/03/23 12/03/23 12:44 Currently or been in a relationship where the following occur: No concerns reported HENMT Head: Yes normal to inspection, Yes normocephalic and Yes atraumatic Ears: external ears normal Eyes General: appearance normal, both eyes and all related structures Eyelids: Yes eyelids normal Conjunctivae: conjunctivae normal Neck Neck: Yes normal visual inspection and Yes supple Resp Effort & Inspection: normal respiratory effort Auscultation: clear to auscultation bilaterally Cardio Jugular venous distension: no JVD Rate: regular rate Rhythm: regular rhythm Heart sounds: S1 normal heart sound present and S2 normal heart sound present GI Inspection: Yes normal to inspection Palpation (GI): Soft to palpation and nontender Auscultation: normal bowel sounds Skin General skin exam: no rashes or lesions noted Neuro General: no focal motor deficits Extrem General: Yes full ROM Psych Appearance: grossly normal Assessment and Plan Assessment & Plan (1) Physical exam: Code(s): Z00.00 - Encounter for general adult medical examination without abnormal findings Plan: Repeat in a year. (2) Morbid obesity: Code(s): E66.01 - Morbid (severe) obesity due to excess calories Plan: Declines weight loss surgery. Start diet and exercise. BMI goal is less than 30. (3) Insulin dependent type 2 diabetes mellitus: Code(s): E11.9 - Type 2 diabetes mellitus without complications; Z79.4 - USP (current) use of insulin Plan: Continue Lantus. Continue Ozempic, metformin, Jardiance and Actos. A1c goal is equal or less than 7%. (4) Moderate recurrent major depression: Code(s): F33.1 - Major depressive disorder, recurrent, moderate Plan: Continue amitriptyline. Follow-up with psychiatry. Orders: Referrals Ophthalmology Referral E11.9 - Type 2 diabetes mellitus without complications, Z79.4 - buttermaker continuous churn (current) use of insulin Medications: Refilled empagliflozin (Jardiance) 25 mg PO DAILY 90 days 90 tabs 1RF Coding Level of Care Code Est Pt Prev Care 40-64y(35845) Diagnoses Physical exam Z00.00 Morbid obesity E66.01 Insulin dependent type 2 diabetes mellitus E11.9; Z79.4 Moderate recurrent major depression F33.1 Additional Codes MAGGY-7 Assessment Billing - MAGGY-7 Assessment Tool: MAGGY-7 Assessment 17365 ([id number]) Time Spent (min) 33
[2023-12-03 12:44] VITALS: BP 126/80; BMI 42.1
== END 2023-12-03 13:23 | disposition home or self-care (01) ==
PROVIDERS: PCP Internal Medicine; Visit Provider Internal Medicine
DX: Z00.00 Encounter for general adult medical examination without abnormal findings (principal); E66.01 Morbid (severe) obesity due to excess calories; Z68.41 Body mass index [BMI] 40.0-44.9, adult; E11.9 Type 2 diabetes mellitus without complications; Z79.4 Long term (current) use of insulin; F33.1 Major depressive disorder, recurrent, moderate
CPT/HCPCS: 99396

== ENCOUNTER → 2023-12-18 10:22 | Outpatient (REF) | payer OTHER, SELFPAY ==
--- NOTE | 2023-12-18 10:25 | CA_ITS ---
Transthoracic Echocardiogram Patient (Last, First, Middle): aDllas Obregon A Gender: Male Date of : 1965 Age: 58 Procedure Date: 12/18/2023 Procedure Type: Transthoracic Echocardiogram Location: OP Height: 185. cm Weight: 128.82 kg BSA: 2.49 m2 Heart Rate: bpm BP: 126 / 80 mmHg Finishing Operator: ATUL Malcolm MD: Meenakshi Doshi PA-C Flask Handler: Vishnu Mcdonald MD Symptoms: I10 - Essential (primary) hypertension Study Quality: Fair/Contrast ECG Rhythm: Sinus Conclusions: - 1. Normal LV ejection fraction 60 65% with mild asymmetric septal hypertrophy 2. Normal cardiac valvular Dopplers 3. Normal RV systolic pressure 4. No gross pericardial effusion Findings Procedure Information Contrast agent, definity, is being given per protocol without apparent complications. The patient receives contrast. Left Ventricle Normal left ventricular size, thickness, and systolic function. The visually estimated ejection fraction is between 60-65%. Spectral Doppler is indicative of a normal filling pattern. There is mild septal asymmetric hypertrophy. Right Ventricle Normal right ventricular cavity size and systolic function. Atria Both atria are normal in size. Interatrial shunt cannot be excluded. Aortic Valve The aortic valve structure and function is likely normal. There is no aortic valve stenosis. There is no aortic valve regurgitation. Mitral Valve Likely normal mitral valve structure and function. There is no mitral valve regurgitation. There is no mitral valve stenosis. Pulmonic Valve The pulmonic valve was not well visualized. Tricuspid Valve Likely normal tricuspid valve structure and function. There is trace tricuspid valve regurgitation. The right ventricular systolic pressure is normal. The right ventricular systolic pressure is 31 mmHg. Normal right atrial pressure. There is no evidence of pulmonary hypertension. Great Vessels The aorta was not well visualized. The pulmonary artery was not well visualized. There is no dilatation of the ascending aorta measuring 3.00 cm. Venous The inferior vena cava is normal in size and collapses greater than 50% with inspiration. Pericardium/Pleural There is no evidence of pericardial effusion. Prior Study Comparison No significant change compared to prior study dated: 09/03/2017. Measurements 2D Linear Measurements IVSd: 1.33 0.6-0.9/0.6-1.0 cm LVIDd: 4.90 3.9-5.3/4.2-5.9 cm LVIDd Index: 1.97 2.4-3.2/2.2-3.1 cm/m2 LVIDs: 3.38 2.0-3.6 cm LVPWd: 1.02 0.7-1.1 cm Ao Root: 3.10 2.1-3.5 cm LV Mass: 273.97 67-162/88-224 g LV Mass Index: 110.03 43-95/49-115 g/m2 LVOT Diam: 2.30 3.0+(-)1.3 cm 2D Systolic Function EF 4C: 63.30 >55% EF 2C: 63.20 >55% EF BiP: 62.80 >55% Mitral Valve MV Pk E: 1.06 MV PK A: 0.72 MV Decel Time: 181.00 E/A: 1.50 E'Lateral: 11.50 E'Medial: 11.20 E/E' Med: 9.50 E/E' Lat: 9.20 PHT: 53.00 MVA PHT: 4.15 Decel [place]: 5.83 Aortic Valve AoV Pk Hector: 1.87 AoV Mn Hector: 1.24 AoV VTI: 0.36 AoV Pk Grad: 14.00 Aov Mn Grad: 7.00 VIPUL Cont.VTI: 2.46 LVOT LVOT Pk Hector: 1.02 LVOT Mn Hector: 0.75 LVOT VTI: 0.22 LVOT Pk Grad: 4.00 LVOT Mn Grad: 2.00 LVOT Diam: 2.30 LVOT Area: 4.15 Diastolic Function MV Pk E: 1.06 MV Pk A: 0.72 E/A: 1.50 E'Medial: 11.20 E/E' Med: 9.50 E' Laterial: 11.50 E/E' Lat: 9.20 Right Ventricle TAPSE (mm): 25.00 TVS' Hector: 14.60 Tricuspid Valve TR Pk Hector: 2.40 TR Pk Grad: 23.00 RA Press: 8.00 RVSP: 31.00 Great Vessels Aorta Ao Root-2D: 3.10 2.0-3.7 cm Ao Asc: 3.00 2.1-3.4 cm Ao Arch: 2.80 Updated in Other Vendor System with Status of Final Vishnu Mcdonald MD electronically signed on 12/18/2023 6:26:00 PM with status of Final
== END ==
LOC: HO.CARD 10:22
PROVIDERS: PCP Internal Medicine; Visit Provider Physician Assistant
DX: I10 Essential (primary) hypertension (principal)
CPT/HCPCS: 93306; Q9957

== ENCOUNTER → 2023-12-18 10:25 | Outpatient (BNV) | payer OTHER, SELFPAY | PROVIDERS: PCP Internal Medicine; Visit Provider Internal Medicine Cardiovascular Disease | DX: I42.2 Other hypertrophic cardiomyopathy (principal) | CPT/HCPCS: 93306 ==

== ENCOUNTER 2023-12-20 08:37 | Outpatient (AMB) | payer OTHER, SELFPAY ==
--- NOTE | 2023-12-20 08:47 | A.OFFVIS_ITS ---
Vital Signs 12/20/23 08:50 Height 5 ft 9 in Weight 284 lb 6.341 oz BMI 42.0 BP 120/78 Blood Pressure Location Rt brachial Position Sitting Pulse 82 Pulse Source Pulse Oximeter Intake Visit Reasons: insulin recheck Intake Note: Patient presents today to re-establish treatment for Type Diabetes Mellitus: Last Diabetic eye exam was on: Appt coming up next week Last Podiatry exam was on: Does not see a Tinning Equipment Tender Most recent HbA1c: 7.5%, 12/20/2023 Random Glucose- 101 mg/dL, Today Accounting Officer Required: Yes Accounting Officer Language: Continuous Weld Pipe Mill Supervisor Services: Accounting Officer Present Accounting Officer Name: CRIS Carty/MARIFER Leblanc Information Interpreted: non-clinical & clinical Accompanied by: Self / Same As Patient Allergies shrimp Allergy (Mild, Verified 12/20/23 09:50) Swelling Medication List - Last Reconciled 12/20/23 by Meenakshi Doshi PA-C acetaminophen ER (Mapap Arthritis Pain) 1,300 mg (2 x 650 mg) PO Q8H PRN 30 days albuterol sulfate 90 mcg/actuation 2 puffs PO Q4H PRN 30 days albuterol sulfate 2.5 mg (3 mL) inhalation Q4-6H PRN 30 days amitriptyline 150 mg PO BEDTIME atorvastatin 80 mg PO BEDTIME 90 days blood sugar diagnostic (FreeStyle Lite Strips) 1 strip miscellaneous BID 30 days blood-glucose meter (FreeStyle Lite Meter kit) As directed blood-glucose meter,continuous (Dexcom G7 Bicycle Messenger) Use daily As directed to monitor blood sugars blood-glucose sensor (Dexcom G7 Sensor device) As directed change every 10 days ujqkhsfrsu-ukahjuiyinafs-pmei 50-325-40 mg 1 tab PO Q8H PRN chlorthalidone 25 mg PO DAILY 90 days cholecalciferol (vitamin D3) 25 mcg PO DAILY 90 days clonidine HCl 0.2 mg PO BEDTIME 90 days cyclobenzaprine 10 mg PO Q8H PRN docusate sodium 100 mg PO BID empagliflozin (Jardiance) 25 mg PO DAILY 90 days fenofibrate nanocrystallized 145 mg PO DAILY 90 days fluticasone propion-salmeterol 250-50 mcg/dose (Wixela Inhub) 1 ea PO Q12H gabapentin 100 mg PO TID 30 days glucose (Dex4 Glucose) 16 grams (4 x 4 gram) PO Q15M PRN hydrocortisone 2.5% 1 appl topical BID PRN 14 days insulin glargine (Lantus Solostar U-100 Insulin) 10 units (0.1 mL) subcut QPM 30 days lancets As directed tests 3 X/day lisinopril 40 mg PO DAILY lorazepam 1 mg PO BID PRN meloxicam 15 mg PO DAILY PRN menthol-zinc oxide 0.44-20.6 % (Calmoseptine) 1 appl topical QID PRN metformin ER 1,000 mg (2 x 500 mg) PO BID 90 days montelukast 10 mg PO BEDTIME pen needle, diabetic (BD Jennifer 2nd Gen Pen Needle) once a day pen needle, diabetic (Comfort EZ Pen [place]) As directed injects once a day phenylephrine HCl 0.25% (Preparation H (pe)) 1 supp AL QID PRN pioglitazone 45 mg PO DAILY 90 days semaglutide (Ozempic) 2 mg (0.75 mL) subcut QWEEK 30 days sodium,potassium,mag sulfates 17.5-3.13-1.6 gram (Suprep Bowel Prep Kit) DILUTE; drink full amount early evening before AND next morning at least 2 hr before procedure; follow w 960 mL water PO sumatriptan succinate (Imitrex) 100 mg PO DIRECTED tamsulosin (Flomax) 0.4 mg PO BEDTIME 90 days topiramate 100 mg PO BID Ventolin HFA 90 mcg/actuation (albuterol sulfate) 2 puffs inhalation Q6H PRN 30 days NS zolpidem (Ambien) 10 mg PO BEDTIME PRN HPI HPI insulin recheck: Details: Patient is a 50-year-old male with a significant past medical history of type 2 diabetes, hypertension, hyperlipidemia and obesity presenting today for a diabetic follow-up. 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 He is currently Ozempic 2 mg weekly, metformin 1000 mg twice a day, Jardiance 25 mg daily, Actos 45 mg daily and Launtus 10 units. -he states since starting this regimen his blood sugars happened almost perfect. His lowest has been 88. On average they are around 100-140. The highest that gets after he eats as about 145. He does have approval for the Dexcom and states that it was not ready yet at the pharmacy. Hypogylcemia-denies any hypoglycemic events since starting this regimen. He has glucose tabs if needed. CV: bp today in office is 120/78 he is currently on lisinopril 40 mg, chlorthalidone 25 mg. Cholesterol is controlled with atorvastatin 80 mg. [facility] Medical History Hemorrhoids with complication Family history of prostate cancer CKD (chronic kidney disease) stage 3, GFR 30-59 ml/min Osteoarthritis of left knee Moderate recurrent major depression Pruritus ani Internal and external hemorrhoids without complication Asthma DANIEL on CPAP Anemia Back pain Gross hematuria UTI (urinary tract infection) Prostate enlargement Diabetic polyneuropathy associated with type 2 diabetes mellitus Vitamin D deficiency Diabetes type 2, controlled Family history of anesthesia complication Hx of low back pain Hx of insomnia Hx of migraines Anxiety Depression Colon cancer screening Bleeding hemorrhoids Morbid obesity Hyperlipidemia Hypertension Hypernatremia Bloody stools Diabetes mellitus, type 2 Hiatal hernia Surgical History History of colonoscopy (~11/01/23) Hx of colonoscopy History of knee surgery History of carpal tunnel release H/O hernia repair History of umbilical hernia repair Family History Maternal Uncle History of prostate cancer Father History of throat cancer Myocardial infarction Diabetes mellitus Hypertension CVD (cardiovascular disease) Maternal Grandfather History of throat cancer Son In good health Son In good health Brother Colon cancer Mother Diabetes mellitus Social History Household Members: Spouse and Children Housing: House Are you a primary manager medicare marketing to a significant other at home: No Do you presently have visiting nurse or other home services: Yes (once a week ) Alcohol intake: former Patient Tobacco Use Status: Never used Tobacco Tobacco use type: Cigarette Cigarettes Per Day: 1 e-Cigarette/Vaping Use: Never Used Second Hand Smoke Exposure: No service: No Current occupational status: disabled Cognitive needs: No Hearing needs: No Vision needs: Yes Physical Exam Vital Signs: Last Vital Signs Pulse 82 12/20/23 08:50 BP 120/78 12/20/23 08:50 BMI result Body Mass Index 42.0 Const Orientation/consciousness: patient oriented x3 Neck Neck: Yes no lymphadenopathy Thyroid: Thyroid normal Carotids: no bruits Resp Auscultation: clear to auscultation bilaterally Cardio Rate: regular rate Rhythm: regular rhythm Heart sounds: S1 normal heart sound present and S2 normal heart sound present Peripheral pulses: dorsalis pedis present Neuro General: patient oriented x3, gait normal and no focal motor deficits Results AMB Hemoglobin A1c AMB Hemoglobin A1c 7.5 % Last Edit by CRIS Carty on 12/20/23 09:23 Results Reviewed Results Reviewed: Laboratory Last Values Glucose (Clinic) 101 mg/dL (60-115) 12/20/23 08:56 Hgb A1c (Clinic) 7.5 % (4.0-6.0) H 12/20/23 09:09 Laboratory Tests 11/30/23 12/20/23 12/20/23 08:10 08:56 09:09 Creatinine 1.23 Estimated GFR > 60 Glucose (Clinic) 101 Hgb A1c (Clinic) 7.5 H Triglycerides 77 Cholesterol 101 LDL Cholesterol, Calc 57 HDL Cholesterol 29 L Assessment & Plan Assessment & Plan (1) Insulin dependent type 2 diabetes mellitus: Code(s): E11.9 - Type 2 diabetes mellitus without complications; Z79.4 - [facility] (current) use of insulin Category: Medical Plan: Continue current plan. It appears that diabetes has improved. Follow up in 3 months. Sooner if needed. Labs prior to appointment. Patient understands and agrees with this plan. (2) Murmur: Code(s): R01.1 - Cardiac murmur, unspecified Category: Medical Plan: Reviewed echo today in the office. Discussed with patient that his overall normal and unchanged from 2018 (3) Hypertension: Code(s): I10 - Essential (primary) hypertension Category: Medical Qualifiers: Hypertension type: essential hypertension Qualified Code(s): I10 - Essential (primary) hypertension Plan: Continue current regimen Orders: Orders AMB Hemoglobin A1c Today E11.9 - Type 2 diabetes mellitus without complications, Z79.4 - intermediate project manager (current) use of insulin Microalbumin, Random (w Creat) 3 Months E11.9 - Type 2 diabetes mellitus without complications, Z79.4 - [facility] (current) use of insulin Hemoglobin A1c 3 Months E11.9 - Type 2 diabetes mellitus without complications, Z79.4 - [facility] (current) use of insulin Comprehensive [place]. Panel Fast 3 Months E11.9 - Type 2 diabetes mellitus without complications, Z79.4 - intermediate project manager (current) use of insulin Coding Level of Care Code Est Pt Level 4 (71861) Complex EM visit Add On G2211 Diagnoses Insulin dependent type 2 diabetes mellitus E11.9; Z79.4 Murmur R01.1 Essential hypertension I10 Hypertension type: essential hypertension
[2023-12-20 08:50] VITALS: BP 120/78; PULSE 82; BMI 42.0
[2023-12-20 09:00] LABS: Glucose, Whole Blood 101 mg/dL (60-115)
== END 2023-12-20 09:49 | disposition home or self-care (01) ==
PROVIDERS: PCP Internal Medicine; Visit Provider Physician Assistant
DX: E11.9 Type 2 diabetes mellitus without complications (principal); Z79.4 Long term (current) use of insulin; R01.1 Cardiac murmur, unspecified; I10 Essential (primary) hypertension

== ENCOUNTER → 2023-12-20 08:37 | Outpatient (BNVA) | payer OTHER, SELFPAY | PROVIDERS: PCP Internal Medicine; Visit Provider Physician Assistant | DX: I12.9 Hypertensive chronic kidney disease with stage 1 through stage 4 chronic kidney disease, or unspecified chronic kidney disease (principal); E11.22 Type 2 diabetes mellitus with diabetic chronic kidney disease; N18.30 Chronic kidney disease, stage 3 unspecified; E66.01 Morbid (severe) obesity due to excess calories; Z68.41 Body mass index [BMI] 40.0-44.9, adult; E83.52 Hypercalcemia; R00.1 Bradycardia, unspecified; Z79.4 Long term (current) use of insulin; Z71.3 Dietary counseling and surveillance | CPT/HCPCS: 82947; 83036; 99212 ==

== ENCOUNTER 2023-12-20 09:47 | Outpatient (AMB) | payer OTHER, SELFPAY ==
[2023-12-20 09:49] VITALS: BP 108/60; PULSE 80; O2SAT 96; BMI 41.8
--- NOTE | 2023-12-20 09:49 | HO.NEPHOV_ITS ---
Vital Signs 12/20/23 09:49 Height 5 ft 9 in Weight 283 lb BMI 41.8 BP 108/60 Blood Pressure Location Lt brachial Position Sitting Pulse 80 Pulse Source Pulse Oximeter Pulse Oximetry (%) 96 Oxygen Delivery Method Room Air Intake Visit Reasons: Type 2 DM/ Conf Field Sales Engineer Required: Yes Field Sales Engineer Name: [id number] eliel Accompanied by: Self / Same As Patient Allergies shrimp Allergy (Mild, Verified 12/20/23 09:50) Swelling Medication List - Last Reconciled 12/20/23 by Bethel Ibarra MD acetaminophen ER (Mapap Arthritis Pain) 1,300 mg (2 x 650 mg) PO Q8H PRN 30 days albuterol sulfate 90 mcg/actuation 2 puffs PO Q4H PRN 30 days albuterol sulfate 2.5 mg (3 mL) inhalation Q4-6H PRN 30 days amitriptyline 150 mg PO BEDTIME atorvastatin 80 mg PO BEDTIME 90 days blood sugar diagnostic (FreeStyle Lite Strips) 1 strip miscellaneous BID 30 days blood-glucose meter (FreeStyle Lite Meter kit) As directed blood-glucose meter,continuous ([employer] G7 Upholstery Cutter) Use daily As directed to monitor blood sugars blood-glucose sensor (Dexcom G7 Sensor device) As directed change every 10 days earwdegqkm-divoskkcwycdk-eeib 50-325-40 mg 1 tab PO Q8H PRN chlorthalidone 25 mg PO DAILY 90 days cholecalciferol (vitamin D3) 25 mcg PO DAILY 90 days clonidine HCl 0.2 mg PO BEDTIME 90 days cyclobenzaprine 10 mg PO Q8H PRN docusate sodium 100 mg PO BID empagliflozin (Jardiance) 25 mg PO DAILY 90 days fenofibrate nanocrystallized 145 mg PO DAILY 90 days fluticasone propion-salmeterol 250-50 mcg/dose (Wixela Inhub) 1 ea PO Q12H gabapentin 100 mg PO TID 30 days glucose (Dex4 Glucose) 16 grams (4 x 4 gram) PO Q15M PRN hydrocortisone 2.5% 1 appl topical BID PRN 14 days insulin glargine (Lantus Solostar U-100 Insulin) 10 units (0.1 mL) subcut QPM 30 days lancets As directed tests 3 X/day lisinopril 40 mg PO DAILY lorazepam 1 mg PO BID PRN meloxicam 15 mg PO DAILY PRN menthol-zinc oxide 0.44-20.6 % (Calmoseptine) 1 appl topical QID PRN metformin ER 1,000 mg (2 x 500 mg) PO BID 90 days montelukast 10 mg PO BEDTIME pen needle, diabetic (BD Jennifer 2nd Gen Pen Needle) once a day pen needle, diabetic (Comfort EZ Pen [place]) As directed injects once a day phenylephrine HCl 0.25% (Preparation H (pe)) 1 supp AL QID PRN pioglitazone 45 mg PO DAILY 90 days semaglutide (Ozempic) 2 mg (0.75 mL) subcut QWEEK 30 days sodium,potassium,mag sulfates 17.5-3.13-1.6 gram (Suprep Bowel Prep Kit) DILUTE; drink full amount early evening before AND next morning at least 2 hr before procedure; follow w 960 mL water PO sumatriptan succinate (Imitrex) 100 mg PO DIRECTED tamsulosin (Flomax) 0.4 mg PO BEDTIME 90 days topiramate 100 mg PO BID Ventolin HFA 90 mcg/actuation (albuterol sulfate) 2 puffs inhalation Q6H PRN 30 days NS zolpidem (Ambien) 10 mg PO BEDTIME PRN HPI Comments Details: Middle-aged man with a history of longstanding hypertension diabetes, obesity with mild CKD. Is minimal proteinuria. He has a history of ingesting Advil up to 3 tablets a day. After discontinuing and will has been improvement in the serum creatinine. Peak serum creatinine was 1.5 back in June 2021. Since last visit he has done very well. No specific complaints. No nausea vomiting no urine symptoms. No edema. He seems complaint was medications. [facility] Medical History Hemorrhoids with complication Family history of prostate cancer CKD (chronic kidney disease) stage 3, GFR 30-59 ml/min Osteoarthritis of left knee Moderate recurrent major depression Pruritus ani Internal and external hemorrhoids without complication Asthma DANIEL on CPAP Anemia Back pain Gross hematuria UTI (urinary tract infection) Prostate enlargement Diabetic polyneuropathy associated with type 2 diabetes mellitus Vitamin D deficiency Diabetes type 2, controlled Family history of anesthesia complication Hx of low back pain Hx of insomnia Hx of migraines Anxiety Depression Colon cancer screening Bleeding hemorrhoids Morbid obesity Hyperlipidemia Hypertension Hypernatremia Bloody stools Diabetes mellitus, type 2 Hiatal hernia Surgical History History of colonoscopy (~11/01/23) Hx of colonoscopy History of knee surgery History of carpal tunnel release H/O hernia repair History of umbilical hernia repair Family History Maternal Uncle History of prostate cancer Father History of throat cancer Myocardial infarction Diabetes mellitus Hypertension CVD (cardiovascular disease) Maternal Grandfather History of throat cancer Son In good health Son In good health Brother Colon cancer Mother Diabetes mellitus Social History Household Members: Spouse and Children Housing: House Are you a primary healthcare customer service to a significant other at home: No Do you presently have visiting nurse or other home services: Yes (once a week ) Alcohol intake: former Patient Tobacco Use Status: Never used Tobacco Tobacco use type: Cigarette Cigarettes Per Day: 1 e-Cigarette/Vaping Use: Never Used Second Hand Smoke Exposure: No service: No Current occupational status: disabled Cognitive needs: No Hearing needs: No Vision needs: Yes Physical Exam Vital Signs: Last Vital Signs Pulse 80 12/20/23 09:49 BP 108/60 12/20/23 09:49 Pulse Ox 96 12/20/23 09:49 Oxygen Delivery Method Room Air 12/20/23 09:49 BMI result Body Mass Index 41.8 Const General: comfortable; No acute distress Orientation/consciousness: patient oriented x3 Eyes General: appearance normal, both eyes and all related structures Visual Almazan: normal visual almazan by confrontation Neck Neck: Yes supple and Yes no JVD Resp Effort & Inspection: normal respiratory effort and respiratory effort not decreased Auscultation: rhonchi Cardio Palpation: no palpable S3 and no palpable S4 Heart sounds: no rubs GI Inspection: Yes normal to inspection Palpation (GI): Soft to palpation Percussion: Yes normal to percussion Auscultation: normal bowel sounds General: Yes no CVA tenderness Back/Spine/Pelvis Back: no CVA tenderness Skin General skin exam: no petechiae and no purpura Neuro General: patient oriented x3 and no focal motor deficits Extrem General: No clubbing and No edema Results AMB Hemoglobin A1c AMB Hemoglobin A1c 7.5 % Last Edit by CRIS Carty on 12/20/23 09:23 Results Reviewed Nephrology Results: Sodium 141 mmol/L (135-145) 11/30/23 Potassium 3.7 mmol/L (3.3-5.1) 11/30/23 Chloride 110 mmol/L (96-108) H 11/30/23 Carbon Dioxide 24 mmol/L (22-29) 11/30/23 BUN 24 mg/dL (9-16) H 11/30/23 Creatinine 1.23 mg/dL (0.5-1.4) 11/30/23 Calcium 9.9 mg/dL (8.4-10.2) 11/30/23 PTH Intact 25.7 pg/mL (8.7-77.1) 11/30/23 Urine Protein Negative mg/dL (Neg-Trace) 11/30/23 Urine Creatinine 118.48 mg/dL 11/30/23 Assessment & Plan Assessment & Plan (1) CKD (chronic kidney disease) stage 3, GFR 30-59 ml/min: Code(s): N18.30 - Chronic kidney disease, stage 3 unspecified Category: Medical (2) Morbid obesity: Code(s): E66.01 - Morbid (severe) obesity due to excess calories Category: Medical (3) Hypertension: Code(s): I10 - Essential (primary) hypertension Category: Medical Qualifiers: Hypertension type: essential hypertension Qualified Code(s): I10 - Essential (primary) hypertension (4) Hypercalcemia: Code(s): E83.52 - Hypercalcemia Category: Medical Plan Middle-aged man with longstanding hypertension diabetes mellitus obesity with mild CKD. Renal function stable at baseline. Goal is to slow the progression of renal disease. Continue to avoid nephrotoxic agents including NSAIDs. Goal is to maintain the hemoglobin A1c less than 7%. We discussed weight loss as well. s/p Mild hypercalcemia Stopped vit D 50 mcg for a week Ca normalized Restarted at a lower dose of every other week BP is rather low Likely due to weight loss Will decrease CHLORTHALIDONE by 50% to 12.5 mg daily Orders: Orders Basic Metabolic Panel 3 Months I10 - Essential (primary) hypertension Coding Level of Care Code Est Pt Level 4 (88571) Diagnoses CKD (chronic kidney disease) stage 3, GFR 30-59 ml/min N18.30 Morbid obesity E66.01 Essential hypertension I10 Hypertension type: essential hypertension Hypercalcemia E83.52
== END 2023-12-20 10:06 | disposition home or self-care (01) ==
PROVIDERS: PCP Internal Medicine; Visit Provider Internal Medicine Hypertension Specialist
DX: I12.9 Hypertensive chronic kidney disease with stage 1 through stage 4 chronic kidney disease, or unspecified chronic kidney disease (principal); E11.22 Type 2 diabetes mellitus with diabetic chronic kidney disease; N18.30 Chronic kidney disease, stage 3 unspecified; E66.01 Morbid (severe) obesity due to excess calories; Z68.41 Body mass index [BMI] 40.0-44.9, adult; E83.52 Hypercalcemia
CPT/HCPCS: 99214

== ENCOUNTER 2024-01-15 09:38 | Outpatient (AMB) | payer OTHER, SELFPAY ==
[2024-01-15 10:05] VITALS: BMI 41.6
--- NOTE | 2024-01-15 10:05 | A.OFFVIS_ITS ---
VS Expanded 01/15/24 10:05 Height 5 ft 9 in Weight 281 lb 8.485 oz BMI 41.6 Intake Visit Reasons: T2DM/CONFIRMED Allergies shrimp Allergy (Mild, Verified 12/20/23 09:50) Swelling Nutrition Presentation Details: Pt presents for MNT for t2dm Pt reports feeling motivated , working on diet modifications and physical activity Pt reports keeping physically active , 1hour 5 days a week Drinks water 42 oz/day Choosing air fried foods, reducing on pastries denies constipation/diarrhea BS Monitoring Most Recent Diabetes Results: Microalb/Creat Ratio 9.1 ug/mg cr (<30) 11/30/23 Cholesterol 101 mg/dL (<200) 11/30/23 HDL Cholesterol 29 mg/dL (>40) L 11/30/23 Triglycerides 77 mg/dL (<150) 11/30/23 Creatinine 1.23 mg/dL (0.5-1.4) 11/30/23 Blood Urea Nitrogen 24 mg/dL (9-16) H 11/30/23 Sodium 141 mmol/L (135-145) 11/30/23 Potassium 3.7 mmol/L (3.3-5.1) 11/30/23 Chloride 110 mmol/L (96-108) H 11/30/23 Carbon Dioxide 24 mmol/L (22-29) 11/30/23 Calcium 9.9 mg/dL (8.4-10.2) 11/30/23 AST 23 U/L (5-37) 11/30/23 ALT 31 U/L (0-40) 11/30/23 Total Protein 6.9 g/dL (6.5-8.0) 11/30/23 Albumin 3.9 g/dL (3.5-5.0) 11/30/23 [facility] Medical History (Updated 12/20/23 @ 10:04 by Bethel Ibarra MD) CKD (chronic kidney disease) stage 3, GFR 30-59 ml/min Hemorrhoids with complication Family history of prostate cancer Osteoarthritis of left knee Moderate recurrent major depression Pruritus ani Internal and external hemorrhoids without complication Asthma DANIEL on CPAP Anemia Back pain Gross hematuria UTI (urinary tract infection) Prostate enlargement Diabetic polyneuropathy associated with type 2 diabetes mellitus Vitamin D deficiency Diabetes type 2, controlled Family history of anesthesia complication Hx of low back pain Hx of insomnia Hx of migraines Anxiety Depression Colon cancer screening Bleeding hemorrhoids Morbid obesity Hyperlipidemia Hypertension Hypernatremia Bloody stools Diabetes mellitus, type 2 Hiatal hernia Surgical History History of colonoscopy (~11/01/23) Hx of colonoscopy History of knee surgery History of carpal tunnel release H/O hernia repair History of umbilical hernia repair Family History Maternal Uncle History of prostate cancer Father History of throat cancer Myocardial infarction Diabetes mellitus Hypertension CVD (cardiovascular disease) Maternal Grandfather History of throat cancer Son In good health Son In good health Brother Colon cancer Mother Diabetes mellitus Social History Household Members: Spouse and Children Housing: House Are you a primary technical healthcare consultant to a significant other at home: No Do you presently have visiting nurse or other home services: Yes (once a week ) Alcohol intake: former Patient Tobacco Use Status: Never used Tobacco Tobacco use type: Cigarette Cigarettes Per Day: 1 e-Cigarette/Vaping Use: Never Used Second Hand Smoke Exposure: No service: No Current occupational status: disabled Cognitive needs: No Hearing needs: No Vision needs: Yes Assessment & Plan Assessment & Plan (1) Diabetes mellitus: Code(s): E11.9 - Type 2 diabetes mellitus without complications Category: Medical Qualifiers: Diabetes mellitus complication status: with hyperglycemia Diabetes mellitus exterminator termite insulin use: without group home use Diabetes mellitus type: type 2 Qualified Code(s): E11.65 - Type 2 diabetes mellitus with hyperglycemia Plan: Wt: 138 Kg (03/28/23 ), 136.8 kg (07/2023), 128 kg (01/22) Est kcal needs as per MSJ: 2700 -3400 (40% carb, 30% protein/fat) Est fluid needs as per 25-30 ml/d: 3450- 4140 ml/d Est prot per day as per 0.8- 1 g/kg bw: 136 g/ Recommend fiber intake : 8-10 g per day and gradually increase to 25-28 g per day for women and 35-38 g for men or as tolerated Recommend sodium intake per day : less than 2000 mg Educated patient on: ( R = reviewed V = verbalizes understanding N/R = needs review N/A = not applicable * Food sources of carbohydrate, adequate serving sizes and its role in various health conditions: R * Differences between complex carbohydrates a simple carbohydrates, role of fiber in diet: R * Lean protein sources of foods: R * Differences between types of fats and role in diet (mono on saturated fat fatty acids, saturated fatty acids, trans fats): R * Food sources of sodium in salt and healthy modifications for heart health in kidney health: R * Vitamins and minerals: N/R * Healthy plate method concept: R * Physical activity: Benefits a precaution: R * Hypoglycemia protocol (rule of 15): R * Dietary prevention of Hyperglycemia: R Patient Instructions: Keep hydrated by having water/herb/fruit infused water Continue working on following healthy plate method Choose low sodium foods options Coding Level of Care Code Nutr Indiv Subseq (06201) Diagnoses Type 2 diabetes mellitus with hyperglycemia, without long-term current use of insulin E11.65 Diabetes mellitus complication status: with hyperglycemia Diabetes mellitus exterminator termite insulin use: without group home use Diabetes mellitus type: type 2 Time Spent (min) 30
== END 2024-01-15 10:47 | disposition home or self-care (01) ==
PROVIDERS: PCP Internal Medicine; Visit Provider Dietitian, Registered
DX: E11.65 Type 2 diabetes mellitus with hyperglycemia (principal)

== ENCOUNTER → 2024-01-15 09:38 | Outpatient (BNVA) | payer OTHER, SELFPAY | PROVIDERS: PCP Internal Medicine; Visit Provider Dietitian, Registered | DX: E11.65 Type 2 diabetes mellitus with hyperglycemia (principal) | CPT/HCPCS: 97803 ==

== ENCOUNTER 2024-01-23 06:54 | Outpatient (REF) | payer OTHER, SELFPAY ==
[2024-01-23 08:03] LABS: Appearance Urine Clear; Color Urine Yellow; Glucose Urine UA 100 mg/dL (Negative); Leukocyte Esterase Urine Trace (Negative); Nitrite Urine Negative (Negative); PH 5.5 (5.0-9.0); Specific Gravity - Urine 1.015 (1.005-1.025); UMIC TRIGGER UA YES; Urine Blood Negative (Negative); Urine Ketones Negative (Negative); Urine Protein Negative (Neg-Trace)
[2024-01-23 08:08] LABS: Bacteria Urine None Seen (None Seen); Hyaline Casts Urine 0-2 /LPF (0-2); RBC Urine 0-2 /HPF (0-2); WBC Urine 0-5 /HPF (0-5)
[2024-01-23 08:28] LABS: Alanine Aminotransferase 34 U/L (0-40); Albumin Level 3.9 g/dL (3.5-5.0); Alkaline Phosphatase 67 U/L (39-117); Anion Gap 10 (12-20); Aspartate Amino Transferase 27 U/L (5-37); Bilirubin Total 0.3 mg/dL (0.0-1.0); Blood Urea Nitrogen 29 mg/dL (9-16); Calcium 10.2 mg/dL (8.4-10.2); Carbon Dioxide 27 mmol/L (22-29); Chloride 106 mmol/L (96-108); Cholesterol 101 mg/dL (<200); Estimated Glomerular Filt Rate 55; Glucose Fasting 125 mg/dL (60-99); HDL Cholesterol 34 mg/dL (>40); LDL Cholesterol Calculated 50 mg/dL (<100); Potassium 3.7 mmol/L (3.3-5.1); Sodium 139 mmol/L (135-145); Total Protein 6.7 g/dL (6.5-8.0); Triglycerides 87 mg/dL (<150)
[2024-01-23 08:48] LABS: Vitamin D 25-OH Total 29.6 ng/mL (>30)
[2024-01-23 09:19] LABS: Creatinine Urine 85.48 mg/dL; Microalbumin Urine < 5.0 mg/L
[2024-01-23 09:23] LABS: Prostate Specific Antigen 2.47 ng/mL (<0.05-4.0)
== END 2024-01-23 06:55 | disposition home or self-care (01) ==
LOC: HO.LAB 06:54
PROVIDERS: Nurse Practitioner Family; Absent Provider Internal Medicine; PCP Internal Medicine; Visit Provider Internal Medicine Hypertension Specialist
DX: E55.9 Vitamin D deficiency, unspecified (principal); E11.9 Type 2 diabetes mellitus without complications; E78.5 Hyperlipidemia, unspecified; N32.0 Bladder-neck obstruction; R97.20 Elevated prostate specific antigen [PSA]; Z12.5 Encounter for screening for malignant neoplasm of prostate; Z80.42 Family history of malignant neoplasm of prostate
CPT/HCPCS: 36415; 51798; 80053; 80061; 81001; 81003; 82043; 82306; 82570; 84153; 99212

== ENCOUNTER 2024-01-23 13:34 | Outpatient (AMB) | payer OTHER, SELFPAY ==
--- NOTE | 2024-01-23 13:54 | A.OFFVIS_ITS ---
Intake Visit Reasons: 6m/PSA Intake Note: Patient presents today for follow up on: elevated psa, urgency, family history of prostate cancer, and psa results PSA: 2.47 Urology Medications: Tamsulosin Allergies to Antibiotic- No Known Allergies Blood Thinner- None PVR: 76ml's Geomagnetician Required: Yes Geomagnetician Language: Horticultural Manager Name: [id number] zoe Information Interpreted: non-clinical & clinical Accompanied by: Self / Same As Patient Allergies shrimp Allergy (Mild, Verified 01/24/24 16:21) Swelling Medication List - Last Reconciled 01/24/24 by CRIS Echeverria-ROBERTO acetaminophen ER (Mapap Arthritis Pain) 1,300 mg (2 x 650 mg) PO Q8H PRN 30 days albuterol sulfate 90 mcg/actuation 2 puffs PO Q4H PRN 30 days albuterol sulfate 2.5 mg (3 mL) inhalation Q4-6H PRN 30 days amitriptyline 150 mg PO BEDTIME atorvastatin 80 mg PO BEDTIME 90 days blood sugar diagnostic (FreeStyle Lite Strips) 1 strip miscellaneous BID 30 days blood-glucose meter (FreeStyle Lite Meter kit) As directed blood-glucose meter,continuous (Dexcom G7 Credit Negotiator) Use daily As directed to monitor blood sugars blood-glucose sensor (Dexcom G7 Sensor device) As directed change every 10 days czxwvgermw-nzmagczfbavkt-syot 50-325-40 mg 1 tab PO Q8H PRN chlorthalidone 25 mg PO DAILY 90 days cholecalciferol (vitamin D3) 25 mcg PO DAILY 90 days clonidine HCl 0.2 mg PO BEDTIME 90 days cyclobenzaprine 10 mg PO Q8H PRN 30 days docusate sodium 100 mg PO BID empagliflozin (Jardiance) 25 mg PO DAILY 90 days fenofibrate nanocrystallized 145 mg PO DAILY 90 days fluticasone propion-salmeterol 250-50 mcg/dose (Wixela Inhub) 1 ea PO Q12H gabapentin 100 mg PO TID 30 days glucose (Dex4 Glucose) 16 grams (4 x 4 gram) PO Q15M PRN hydrocortisone 2.5% 1 appl topical BID PRN 14 days insulin glargine (Lantus Solostar U-100 Insulin) 10 units (0.1 mL) subcut QPM 30 days lancets As directed tests 3 X/day lisinopril 40 mg PO DAILY lorazepam 1 mg PO BID PRN meloxicam 15 mg PO DAILY PRN menthol-zinc oxide 0.44-20.6 % (Calmoseptine) 1 appl topical QID PRN metformin ER 1,000 mg (2 x 500 mg) PO BID 90 days montelukast 10 mg PO BEDTIME pen needle, diabetic (BD Jennifer 2nd Gen Pen Needle) once a day pen needle, diabetic (Comfort EZ Pen [place]) As directed injects once a day phenylephrine HCl 0.25% (Preparation H (pe)) 1 supp ID QID PRN pioglitazone 45 mg PO DAILY 90 days semaglutide (Ozempic) 2 mg (0.75 mL) subcut QWEEK 30 days sodium,potassium,mag sulfates 17.5-3.13-1.6 gram (Suprep Bowel Prep Kit) DILUTE; drink full amount early evening before AND next morning at least 2 hr before procedure; follow w 960 mL water PO sumatriptan succinate (Imitrex) 100 mg PO DIRECTED tamsulosin (Flomax) 0.4 mg PO BEDTIME 90 days topiramate 100 mg PO BID Ventolin HFA 90 mcg/actuation (albuterol sulfate) 2 puffs inhalation Q6H PRN 30 days NS zolpidem (Ambien) 10 mg PO BEDTIME PRN HPI Comments Details: Dallas is a pleasant 58 year Uzbek-speaking male patient of Dr. Watts. He he has a past medical history of obesity, osteoarthritis, depression, asthma, COPD, obstructive sleep apnea, anemia, back pain, diabetes, vitamin-D deficiency, insomnia, migraines, hemorrhoids, hypertension, and hyperlipidemia. He presents to the office today for follow-up of his BPH and elevated PSA. In discussion with the patient today reports to be doing and feeling well. Recent PSA results reviewed with the patient today as noted and trended below. Previous workup has included a retroperitoneal ultrasound results reviewed with the patient today. Bilateral kidneys with no calculi, lesions, and or hydronephrosis. The bladder is partially distended. Pre void bladder volume is approximately 120 mL. Postvoid bladder volume is approximately 15 mL. Prostate volume is approximately 19 mL. PSAs are as follows: 04/21 13.6, 12/22 2.3, 07/23 2.3, 11/22 2.4 When asked he reports to be happy with current voiding parameters on 0.4 mg of Flomax daily. He denies any bothersome urinary issues or concerns. He denies nocturia, hematuria, dysuria, foul smelling urine, changes to urinary stream, flank pain, fever, and or chills. Discussed at length importance of managing diabetes for improvement lower urinary tract symptoms as well as overall health and being. Reviewed most recent A1c level 12/23 7.5. In office urinalysis results reviewed with the patient today. PVR 76 mLs. He otherwise denies any issues or concerns at this time. PREVIOUS OFFICE NOTE: Lower urinary tract symptoms with prior UTI Prior hematuria Noted to also have weakness of stream and started on tamsulosin Investigations - Cysto 06/19 tight prostatic urethra, mild trabeculation PSAs - 04/21 13.6 - when had retention, 12/20 2.2, 11/20 1.9, 12/22 2.3, 07/23 2.3 Therapeutic plan - refill tamsulosin and repeat PSA in 6 months. [facility] Medical History CKD (chronic kidney disease) stage 3, GFR 30-59 ml/min Hemorrhoids with complication Family history of prostate cancer Osteoarthritis of left knee Moderate recurrent major depression Pruritus ani Internal and external hemorrhoids without complication Asthma DANIEL on CPAP Anemia Back pain Gross hematuria UTI (urinary tract infection) Prostate enlargement Diabetic polyneuropathy associated with type 2 diabetes mellitus Vitamin D deficiency Diabetes type 2, controlled Family history of anesthesia complication Hx of low back pain Hx of insomnia Hx of migraines Anxiety Depression Colon cancer screening Bleeding hemorrhoids Morbid obesity Hyperlipidemia Hypertension Hypernatremia Bloody stools Diabetes mellitus, type 2 Hiatal hernia Surgical History History of colonoscopy (~11/01/23) Hx of colonoscopy History of knee surgery History of carpal tunnel release H/O hernia repair History of umbilical hernia repair Family History Maternal Uncle History of prostate cancer Father History of throat cancer Myocardial infarction Diabetes mellitus Hypertension CVD (cardiovascular disease) Maternal Grandfather History of throat cancer Son In good health Son In good health Brother Colon cancer Mother Diabetes mellitus Social History Household Members: Spouse and Children Housing: House Are you a primary day care home provider to a significant other at home: No Do you presently have visiting nurse or other home services: Yes (once a week ) Alcohol intake: former Patient Tobacco Use Status: Never used Tobacco Tobacco use type: Cigarette Cigarettes Per Day: 1 e-Cigarette/Vaping Use: Never Used Second Hand Smoke Exposure: No service: No Current occupational status: disabled Cognitive needs: No Hearing needs: No Vision needs: Yes Review of Systems Const Reports as per HPI Eyes Reports no additional complaints ENT Reports no additional complaints Card Reports no additional complaints Resp Reports no additional complaints GI Reports as per HPI Reports as per HPI Musc Reports as per HPI Neuro Reports no additional complaints Psych Reports as per HPI Endo Reports as per HPI David/Lymph Reports no additional complaints Aller/Immun Reports no additional complaints Physical Exam Const General: cooperative, healthy appearing, comfortable, no acute distress, well developed, alert and awake Nutritional Appearance: overweight Orientation/consciousness: patient oriented x3 Limitations: no limitations HEENT Head: Yes normal to inspection, Yes normocephalic and Yes atraumatic Ears: hearing grossly normal bilaterally Eyes General: appearance normal, both eyes and all related structures Neck Neck: Yes normal visual inspection and Yes trachea midline Chest Chest palpation & inspection: normal inspection of the chest Resp Effort & Inspection: normal respiratory effort and able to speak in complete sentences Cardio Rate: regular rate GI Inspection: Yes normal to inspection General: Yes no CVA tenderness Back/Spine/Pelvis Back: no CVA tenderness Skin General skin exam: no rashes or lesions noted Neuro General: patient oriented x3 Extrem General: Yes normal to inspection Psych Appearance: grossly normal and well kempt Mental Status: mental status grossly normal Speech and movement: Normal speech and movement present and Clear speech present Affect: normal affect Attitude: cooperative Thought process: Normal thought process present Thought content: Normal thought content present Insight: Fair insight present (Psych) Judgement: Fair judgement present (Psych) Office Procedures Post Void Residual Post Residual Void Post Void Residual (PVR): 76 [id number] Void Residual by ultrasound Results AMB Urinalysis, Automated UA Leukoctes 0 Zenaida/uL Last Edit by Flor Hampton on 01/23/24 14:44 UA Nitrite Negative Last Edit by Flor Hampton on 01/23/24 14:44 UA Urobilinogen 0.2 mg/dL Last Edit by Meaningoshahida Designer Pages Onlinewalter on 01/23/24 14:44 UA Protein 0 mg/dL Last Edit by AirInSpacewalter on 01/23/24 14:44 UA pH 6.0 Last Edit by AirInSpacewalter on 01/23/24 14:44 UA Blood 0 Eder/uL Last Edit by [employer]InSpacewalter on 01/23/24 14:44 UA Specific North 1.015 Last Edit by [employer]InSpacewalter on 01/23/24 14:44 UA Ketone Negative Last Edit by [employer]InSpacewalter on 01/23/24 14:44 UA Bilirubin 0 mg/dL Last Edit by [employer]InSpacewalter on 01/23/24 14:44 UA Glucose 0 mg/dL Last Edit by [employer]In[employer]walter on 01/23/24 14:44 Results Reviewed Results Reviewed: Laboratory Last Values Urine pH (Auto) 6.0 01/23/24 14:43 Specific North (Auto) 1.015 01/23/24 14:43 Urine Protein (Auto) 0 mg/dL 01/23/24 14:43 Glucose (UA)(Auto) 0 mg/dL 01/23/24 14:43 Urine Ketones (Auto) Negative 01/23/24 14:43 Urine Blood (Auto) 0 Eder/uL 01/23/24 14:43 Urine Nitrite (Auto) Negative 01/23/24 14:43 Urine Bilirubin (Auto) 0 mg/dL 01/23/24 14:43 Urine Urobilinogen (Auto) 0.2 mg/dL 01/23/24 14:43 Leukocyte Esterase (Auto) 0 Zenaida/uL 01/23/24 14:43 Assessment & Plan Assessment & Plan (1) Bladder outlet obstruction: Code(s): N32.0 - Bladder-neck obstruction Category: Medical (2) Elevated PSA: Code(s): R97.20 - Elevated prostate specific antigen [PSA] Category: Medical (3) Family history of prostate cancer: Code(s): Z80.42 - Family history of malignant neoplasm of prostate Category: Medical (4) Urinary urgency: Code(s): R39.15 - Urgency of urination Category: Medical Plan In office urinalysis results reviewed with the patient today; as noted above. PVR 76mL. Recent PSA results reviewed with the patient today; as noted above. Discussed at length importance of managing diabetes for improvement lower urinary tract symptoms as well as overall health and well-being. Discussed bladder triggers/irritants. He currently denies any bothersome urinary issues or concerns. Patient reports to be happy with current voiding parameters on 0.4 mg of Flomax daily; will continue; refill provided. Will obtain PSA in 6 months. Follow-up in 6 months with lab to be completed prior; or sooner with any issues, concerns, and or questions. Orders: Orders AMB Post Void Residual by ultrasound 01/23/24 R39.15 - Urgency of urination Prostate Specific Antigen 6 Months R97.20 - Elevated prostate specific antigen [PSA] AMB Urinalysis Automated 01/23/24 Z13.9 - Encounter for screening, unspecified Patient Instructions: The patient had an opportunity to ask questions regarding the treatment plan. All questions were answered. Physical exam, labs, and imaging were discussed and reviewed in detail. As well as risks, benefits, and discussion of treatment choices. No major barriers to understanding were identified. The patient expressed understanding and agreement with the above treatment plan. The patient was made aware they should contact our office by phone for worsening of their current condition, the appearance of new symptoms, or with any questions or concerns. Compliance is encouraged with any medications and follow up testing that is ordered. It is a privilege to be allowed the opportunity to participate in? your urological care.? Again, if you have any questions or concerns If you have any questions or concerns please do not hesitate to contact me. The office is [phone]. This note is constructed using voice recognition software. While every effort has been made to ensure accuracy sampler radioactive waste errors may have been included. Yours sincerely, MARIA Echeverria Coding Level of Care Code Est Pt Level 3 (27227) Complex EM visit Add On G2211 Diagnoses Bladder outlet obstruction N32.0 Elevated PSA R97.20 Family history of prostate cancer Z80.42 Urinary urgency R39.15 CPT Codes Post Residual Void - PVR CPT Code: 17286-Hlpl Void Residual by ultrasound ([id number])
== END 2024-01-23 14:40 | disposition home or self-care (01) ==
PROVIDERS: PCP Internal Medicine; Visit Provider Nurse Practitioner Family
DX: N32.0 Bladder-neck obstruction (principal); R97.20 Elevated prostate specific antigen [PSA]; Z80.42 Family history of malignant neoplasm of prostate; R39.15 Urgency of urination
CPT/HCPCS: 99213; G2211

== ENCOUNTER 2024-01-27 14:16 | Outpatient (AMB) | payer OTHER, SELFPAY ==
--- NOTE | 2024-01-27 14:31 | A.OFFPC_ITS ---
Vital Signs 01/27/24 14:38 Height 5 ft 9 in Weight 279 lb BMI 41.2 BP 110/80 Blood Pressure Location Lt brachial Position Sitting Intake Visit Reasons: dm Intake Note: Patient here for a follow up DM Valet Attendant Required: No Accompanied by: Self / Same As Patient Allergies shrimp Allergy (Mild, Verified 01/27/24 14:54) Swelling Medication List - Last Reconciled 01/27/24 by Deedee Watts MD acetaminophen ER (Mapap Arthritis Pain) 1,300 mg (2 x 650 mg) PO Q8H PRN 30 days albuterol sulfate 90 mcg/actuation 2 puffs PO Q4H PRN 30 days albuterol sulfate 2.5 mg (3 mL) inhalation Q4-6H PRN 30 days amitriptyline 150 mg PO BEDTIME atorvastatin 80 mg PO BEDTIME 90 days blood sugar diagnostic (FreeStyle Lite Strips) 1 strip miscellaneous BID 30 days blood-glucose meter (FreeStyle Lite Meter kit) As directed blood-glucose meter,continuous (DexSurphace G7 Account Service Associate) Use daily As directed to monitor blood sugars blood-glucose sensor (DexSurphace G7 Sensor device) As directed change every 10 days qjycelqktb-jqlvoczggkwva-lnlz 50-325-40 mg 1 tab PO Q8H PRN chlorthalidone 25 mg PO DAILY 90 days cholecalciferol (vitamin D3) 25 mcg PO DAILY 90 days clonidine HCl 0.2 mg PO BEDTIME 90 days cyclobenzaprine 10 mg PO Q8H PRN 30 days docusate sodium 100 mg PO BID empagliflozin (Jardiance) 25 mg PO DAILY 90 days fenofibrate nanocrystallized 145 mg PO DAILY 90 days fluticasone propion-salmeterol 250-50 mcg/dose (Wixela Inhub) 1 ea PO Q12H gabapentin 100 mg PO TID 30 days glucose (Dex4 Glucose) 16 grams (4 x 4 gram) PO Q15M PRN hydrocortisone 2.5% 1 appl topical BID PRN 14 days insulin glargine (Lantus Solostar U-100 Insulin) 10 units (0.1 mL) subcut QPM 30 days lancets As directed tests 3 X/day lisinopril 40 mg PO DAILY lorazepam 1 mg PO BID PRN meloxicam 15 mg PO DAILY PRN menthol-zinc oxide 0.44-20.6 % (Calmoseptine) 1 appl topical QID PRN metformin ER 1,000 mg (2 x 500 mg) PO BID 90 days montelukast 10 mg PO BEDTIME pen needle, diabetic (BD Jennifer 2nd Gen Pen Needle) once a day pen needle, diabetic (Comfort EZ Pen [place]) As directed injects once a day phenylephrine HCl 0.25% (Preparation H (pe)) 1 supp [place] QID PRN pioglitazone 45 mg PO DAILY 90 days semaglutide (Ozempic) 2 mg (0.75 mL) subcut QWEEK 30 days sodium,potassium,mag sulfates 17.5-3.13-1.6 gram (Suprep Bowel Prep Kit) DILUTE; drink full amount early evening before AND next morning at least 2 hr before procedure; follow w 960 mL water PO sumatriptan succinate (Imitrex) 100 mg PO DIRECTED tamsulosin (Flomax) 0.4 mg PO BEDTIME 90 days topiramate 100 mg PO BID Ventolin HFA 90 mcg/actuation (albuterol sulfate) 2 puffs inhalation Q6H PRN 30 days NS zolpidem (Ambien) 10 mg PO BEDTIME PRN Tobacco use date assessed: 04/09/23 Dental Screening Dental Screen Date: 04/09/23 HPI HPI Comments History of Present Illness Details This is a 59-year-old male with diabetes mellitus type 2, hypertension, hyperlipidemia, moderate recurrent major depression, chronic kidney disease stage 3 and morbid obesity that comes today for follow-up on his conditions. Last A1c was slightly elevated but now blood glucose has been less than 120. Blood pressure stable. LDL close to goal. Depression well controlled with amitriptyline. Last GFR was 55. He is morbidly obese with a BMI of 41.2 and is doing diet and exercise. No chest pain or shortness on breath. [facility] Medical History (Updated 01/27/24 @ 16:21 by Deedee Watts MD) CKD (chronic kidney disease) stage 3, GFR 30-59 ml/min Hemorrhoids with complication Family history of prostate cancer Osteoarthritis of left knee Moderate recurrent major depression Pruritus ani Internal and external hemorrhoids without complication Asthma DANIEL on CPAP Anemia Back pain Gross hematuria UTI (urinary tract infection) Prostate enlargement Diabetic polyneuropathy associated with type 2 diabetes mellitus Vitamin D deficiency Diabetes type 2, controlled Family history of anesthesia complication Hx of low back pain Hx of insomnia Hx of migraines Anxiety Depression Colon cancer screening Bleeding hemorrhoids Morbid obesity Hyperlipidemia Hypertension Hypernatremia Bloody stools Diabetes mellitus, type 2 Hiatal hernia Surgical History History of colonoscopy (~11/01/23) Hx of colonoscopy History of knee surgery History of carpal tunnel release H/O hernia repair History of umbilical hernia repair Family History Maternal Uncle History of prostate cancer Father History of throat cancer Myocardial infarction Diabetes mellitus Hypertension CVD (cardiovascular disease) Maternal Grandfather History of throat cancer Son In good health Son In good health Brother Colon cancer Mother Diabetes mellitus Social History Household Members: Spouse and Children Housing: House Are you a primary healthcare network pricing consultant to a significant other at home: No Do you presently have visiting nurse or other home services: Yes (once a week ) Alcohol intake: former Patient Tobacco Use Status: Never used Tobacco Tobacco use type: Cigarette Cigarettes Per Day: 1 e-Cigarette/Vaping Use: Never Used Second Hand Smoke Exposure: No service: No Current occupational status: disabled Cognitive needs: No Hearing needs: No Vision needs: Yes Questionnaire Thrive Questionnaire Date Thrive assessed: 12/03/23 I am a: Parent/Caregiver What is your living situation today?: I have a steady place to live Within the past 12 months, did the food you bought not last and you didn't have the money to get more?: I choose not to answer this question THRIVE Score: 0 MAGGY-7 AMB Questionnaire MAGGY-7 Date MAGGY - 7 assessed: 12/03/23 Source: Developed by Drs. Musa Armando, Jagruti Vu, Leo Dutton and colleagues, with an educational lyla from [employer] Review of Systems Const All systems reviewed & are unremarkable except as noted in HPI and below Card Denies chest pain at rest, Denies chest pain with activity, Denies edema, Denies irregular heart rhythm, Denies claudication, Denies dyspnea, Denies dyspnea on exertion, Denies orthopnea, Denies paroxysmal nocturnal dyspnea and Denies slow heart rate Resp Denies cough, Denies dyspnea and Denies dyspnea on exertion GI Denies abdominal pain, Denies change in bowel habits, Denies excessive flatus, Denies nausea and Denies vomiting Denies urinary hesitancy, Denies urinary incontinence and Denies urinary urgency Neuro Denies lack of coordination Physical exam (Primary Care) Vital Signs: Last Vital Signs BP 110/80 01/27/24 14:38 BMI result Body Mass Index 41.2 Tobacco/Smoking Status: Tobacco use Status Tobacco use date assessed 04/09/23 01/27/24 14:32 Patient Tobacco Use Status Never used Tobacco 01/27/24 14:32 Tobacco use type Cigarette 01/27/24 14:32 e-Cigarette/Vaping Use Never Used 01/27/24 14:32 Thrive Assessment: Date of Thrive Assessment Date Thrive assessed 12/03/23 01/27/24 14:32 Resp Effort & Inspection: normal respiratory effort Auscultation: clear to auscultation bilaterally Cardio Jugular venous distension: no JVD Rate: regular rate Rhythm: regular rhythm Heart sounds: S1 normal heart sound present and S2 normal heart sound present Extrem General: Yes full ROM Office Procedures Flu Questionnaire Does the patient have a severe egg allergy?: No Does the patient have severe life threatening allergies?: No Does the patient have a fever or illness today?: No Has the patient ever had Guillain-[place]rapahoe Syndrome?: No Has the patient ever had any past reaction to a flu shot?: No Immunizations Fluarix Triv 3504-7229 (PF) 45 mcg (15 mcg x 3)/0.5 mL IM syringe Performing Provider: Deedee Watts MD [facility] [place] [facility] Administered by: CRIS Young on 01/27/24 15:07 Dose Route Admin Location Dispensed Lot Number Expiration Date [facility] [place]NOTE 2] Dye Box Operator 0.5 mL IM Right Deltoid 0.5 mL [id number] 09/28/24 50645-618-30 [employer] VIS Given Date VIS Provided VIS Publication Date 01/27/24 Single Vaccine 20 Eligibility Eligibility Date Funding Source Not [facility] Eligible 01/27/24 Private Coding Level of Care Code Est Pt Level 4 (40186) Complex EM visit Add On G2211 Diagnoses Insulin dependent type 2 diabetes mellitus E11.9; Z79.4 Stage 3a chronic kidney disease N18.31 Chronic kidney disease stage 3 subtype: stage 3a (GFR 45-59) Morbid obesity E66.01 Moderate recurrent major depression F33.1 Hyperlipidemia LDL goal <70 E78.5 Essential hypertension I10 Time Spent (min) 23 Assessment & Plan Assessment & Plan (1) Insulin dependent type 2 diabetes mellitus: Code(s): E11.9 - Type 2 diabetes mellitus without complications; Z79.4 - long term acute care registered nurse (current) use of insulin Category: Medical Plan: Continue Jardiance, Ozempic and insulin. A1c goal is equal or less than 7%. Follow-up with endocrinology. (2) CKD (chronic kidney disease) stage 3, GFR 30-59 ml/min: Code(s): N18.30 - Chronic kidney disease, stage 3 unspecified Category: Medical Qualifiers: Chronic kidney disease stage 3 subtype: stage 3a (GFR 45-59) Qualified Code(s): N18.31 - Chronic kidney disease, stage 3a Plan: Avoid NSAIDs. Keep blood pressure less than 130/80. (3) Morbid obesity: Code(s): E66.01 - Morbid (severe) obesity due to excess calories Category: Medical Plan: Continue diet and exercise. BMI goal is less than 30. (4) Moderate recurrent major depression: Code(s): F33.1 - Major depressive disorder, recurrent, moderate Category: Medical Plan: Continue amitriptyline. (5) Hyperlipidemia LDL goal <70: Code(s): E78.5 - Hyperlipidemia, unspecified Category: Medical Plan: Continue statins. LDL goal is less than 70. (6) Essential hypertension: Code(s): I10 - Essential (primary) hypertension Category: Medical Plan: Continue lisinopril. Blood pressure goal is equal or less than 130/80. Orders: Orders Influenza [id number] Immunization Today Z23 - Encounter for immunization Lipid Panel Today E78.5 - Hyperlipidemia, unspecified Microalbumin, Random (w Creat) Today R80.9 - Proteinuria, unspecified Vitamin D 25-OH Total Today E55.9 - Vitamin D deficiency, unspecified Comprehensive [place]. Panel Fast Today E11.9 - Type 2 diabetes mellitus without complications, Z79.4 - long term acute care registered nurse (current) use of insulin Medications: Refilled 2 albuterol sulfate 90 mcg/actuation 2 puffs PO Q4H 30 days PRN 8.5 grams 1RF Wheezing
[2024-01-27 14:38] VITALS: BP 110/80; BMI 41.2
== END 2024-01-27 15:07 | disposition home or self-care (01) ==
LOC: HO.HMCH 14:17
PROVIDERS: PCP Internal Medicine; Visit Provider Internal Medicine
DX: E11.69 Type 2 diabetes mellitus with other specified complication (principal); N18.31 Chronic kidney disease, stage 3a; E66.01 Morbid (severe) obesity due to excess calories; Z68.41 Body mass index [BMI] 40.0-44.9, adult; Z79.4 Long term (current) use of insulin; F33.1 Major depressive disorder, recurrent, moderate; E78.5 Hyperlipidemia, unspecified; I10 Essential (primary) hypertension

== ENCOUNTER → 2024-01-27 14:16 | Outpatient (BNVA) | payer OTHER, SELFPAY | PROVIDERS: PCP Internal Medicine; Visit Provider Internal Medicine | DX: Z23 Encounter for immunization (principal); I12.9 Hypertensive chronic kidney disease with stage 1 through stage 4 chronic kidney disease, or unspecified chronic kidney disease; E11.22 Type 2 diabetes mellitus with diabetic chronic kidney disease; N18.31 Chronic kidney disease, stage 3a; E66.01 Morbid (severe) obesity due to excess calories; F33.1 Major depressive disorder, recurrent, moderate; E78.5 Hyperlipidemia, unspecified; Z79.4 Long term (current) use of insulin | CPT/HCPCS: 90471; 90656; 99212 ==

== ENCOUNTER 2024-02-05 09:26 | Outpatient (AMB) | payer OTHER, SELFPAY ==
--- NOTE | 2024-02-05 09:37 | A.OFFVIS_ITS ---
Intake Visit Reasons: Obstructive sleep apnea Allergies shrimp Allergy (Mild, Verified 01/27/24 14:54) Swelling [facility] Medical History CKD (chronic kidney disease) stage 3, GFR 30-59 ml/min Hemorrhoids with complication Family history of prostate cancer Osteoarthritis of left knee Moderate recurrent major depression Pruritus ani Internal and external hemorrhoids without complication Asthma DANIEL on CPAP Anemia Back pain Gross hematuria UTI (urinary tract infection) Prostate enlargement Diabetic polyneuropathy associated with type 2 diabetes mellitus Vitamin D deficiency Diabetes type 2, controlled Family history of anesthesia complication Hx of low back pain Hx of insomnia Hx of migraines Anxiety Depression Colon cancer screening Bleeding hemorrhoids Morbid obesity Hyperlipidemia Hypertension Hypernatremia Bloody stools Diabetes mellitus, type 2 Hiatal hernia Surgical History History of colonoscopy (~11/01/23) Hx of colonoscopy History of knee surgery History of carpal tunnel release H/O hernia repair History of umbilical hernia repair Family History Maternal Uncle History of prostate cancer Father History of throat cancer Myocardial infarction Diabetes mellitus Hypertension CVD (cardiovascular disease) Maternal Grandfather History of throat cancer Son In good health Son In good health Brother Colon cancer Mother Diabetes mellitus Social History Household Members: Spouse and Children Housing: House Are you a primary child day care provider to a significant other at home: No Do you presently have visiting nurse or other home services: Yes (once a week ) Alcohol intake: former Patient Tobacco Use Status: Never used Tobacco Tobacco use type: Cigarette Cigarettes Per Day: 1 e-Cigarette/Vaping Use: Never Used Second Hand Smoke Exposure: No service: No Current occupational status: disabled Cognitive needs: No Hearing needs: No Vision needs: Yes Coding
[2024-02-05 09:39] VITALS: BP 112/62; PULSE 80; O2SAT 98; BMI 41.3
--- NOTE | 2024-02-05 09:39 | A.OFFVIS_ITS ---
Vital Signs 02/05/24 09:39 Height 5 ft 9 in Weight 279 lb 15.793 oz BMI 41.3 BP 112/62 Blood Pressure Location Rt brachial Position Sitting Pulse 80 Pulse Source Pulse Oximeter Pulse Oximetry (%) 98 Oxygen Delivery Method Room Air Intake Visit Reasons: Obstructive sleep apnea Oracle E Business Developer Required: No Coding Spec: Coding Spec offered & declined Accompanied by: Self / Same As Patient Allergies shrimp Allergy (Mild, Verified 02/05/24 09:43) Swelling Medication List - Last Reconciled 02/05/24 by Em Vasquez LPN acetaminophen ER (Mapap Arthritis Pain) 1,300 mg (2 x 650 mg) PO Q8H PRN 30 days albuterol sulfate 2.5 mg (3 mL) inhalation Q4-6H PRN 30 days albuterol sulfate 90 mcg/actuation 2 puffs PO Q4H PRN 30 days amitriptyline 150 mg PO BEDTIME atorvastatin 80 mg PO BEDTIME 90 days blood sugar diagnostic (FreeStyle Lite Strips) 1 strip miscellaneous BID 30 days blood-glucose meter (SGX PharmaceuticalsStyle Lite Meter kit) As directed blood-glucose meter,continuous (DexAvison Young G7 Photovoltaic Installer) Use daily As directed to monitor blood sugars blood-glucose sensor (DexAvison Young G7 Sensor device) As directed change every 10 days hkpstfmzey-nabsjngqjojfr-reps 50-325-40 mg 1 tab PO Q8H PRN chlorthalidone 25 mg PO DAILY 90 days cholecalciferol (vitamin D3) 25 mcg PO DAILY 90 days clonidine HCl 0.2 mg PO BEDTIME 90 days cyclobenzaprine 10 mg PO Q8H PRN 30 days docusate sodium 100 mg PO BID empagliflozin (Jardiance) 25 mg PO DAILY 90 days fenofibrate nanocrystallized 145 mg PO DAILY 90 days fluticasone propion-salmeterol 250-50 mcg/dose (Wixela Inhub) 1 ea PO Q12H gabapentin 100 mg PO TID 30 days glucose (Dex4 Glucose) 16 grams (4 x 4 gram) PO Q15M PRN hydrocortisone 2.5% 1 appl topical BID PRN 14 days insulin glargine (Lantus Solostar U-100 Insulin) 10 units (0.1 mL) subcut QPM 30 days lancets As directed tests 3 X/day lisinopril 40 mg PO DAILY lorazepam 1 mg PO BID PRN meloxicam 15 mg PO DAILY PRN menthol-zinc oxide 0.44-20.6 % (Calmoseptine) 1 appl topical QID PRN metformin ER 1,000 mg (2 x 500 mg) PO BID 90 days montelukast 10 mg PO BEDTIME pen needle, diabetic (BD Jennifer 2nd Gen Pen Needle) once a day pen needle, diabetic (Comfort EZ Pen [place]) As directed injects once a day phenylephrine HCl 0.25% (Preparation H (pe)) 1 supp IN QID PRN pioglitazone 45 mg PO DAILY 90 days semaglutide (Ozempic) 2 mg (0.75 mL) subcut QWEEK 30 days sodium,potassium,mag sulfates 17.5-3.13-1.6 gram (Suprep Bowel Prep Kit) DILUTE; drink full amount early evening before AND next morning at least 2 hr before procedure; follow w 960 mL water PO sumatriptan succinate (Imitrex) 100 mg PO DIRECTED tamsulosin (Flomax) 0.4 mg PO BEDTIME 90 days topiramate 100 mg PO BID Ventolin HFA 90 mcg/actuation (albuterol sulfate) 2 puffs inhalation Q6H PRN 30 days NS zolpidem (Ambien) 10 mg PO BEDTIME PRN PFSH Medical History CKD (chronic kidney disease) stage 3, GFR 30-59 ml/min Hemorrhoids with complication Family history of prostate cancer Osteoarthritis of left knee Moderate recurrent major depression Pruritus ani Internal and external hemorrhoids without complication Asthma DANIEL on CPAP Anemia Back pain Gross hematuria UTI (urinary tract infection) Prostate enlargement Diabetic polyneuropathy associated with type 2 diabetes mellitus Vitamin D deficiency Diabetes type 2, controlled Family history of anesthesia complication Hx of low back pain Hx of insomnia Hx of migraines Anxiety Depression Colon cancer screening Bleeding hemorrhoids Morbid obesity Hyperlipidemia Hypertension Hypernatremia Bloody stools Diabetes mellitus, type 2 Hiatal hernia Surgical History History of colonoscopy (~11/01/23) Hx of colonoscopy History of knee surgery History of carpal tunnel release H/O hernia repair History of umbilical hernia repair Family History Maternal Uncle History of prostate cancer Father History of throat cancer Myocardial infarction Diabetes mellitus Hypertension CVD (cardiovascular disease) Maternal Grandfather History of throat cancer Son In good health Son In good health Brother Colon cancer Mother Diabetes mellitus Social History (Updated 02/05/24 @ 09:44 by Em Vasquez LPN) Household Members: Spouse and Children Housing: House Are you a primary healthcare advisory services manager to a significant other at home: No Do you presently have visiting nurse or other home services: Yes (once a week ) Alcohol intake: former Patient Tobacco Use Status: Never used Tobacco Tobacco use type: Cigarette Cigarettes Per Day: 1 e-Cigarette/Vaping Use: Never Used Second Hand Smoke Exposure: No service: No Current occupational status: disabled Cognitive needs: No Hearing needs: No Vision needs: Yes Physical Exam Vital Signs: BMI result Body Mass Index 41.3 Quality Reporting (2019) Adult ([facility] 138/05/23/69) Body Mass Index: 41.3 Coding
--- NOTE | 2024-02-05 09:55 | A.OFFVIS_ITS ---
Vital Signs 02/05/24 09:39 02/05/24 09:45 02/05/24 09:56 Height 5 ft 9 in Weight 279 lb 15.793 oz BMI 41.3 41.3 41.3 BP 112/62 Blood Pressure Location Rt brachial Position Sitting Pulse 80 Pulse Source Pulse Oximeter Pulse Oximetry (%) 98 Oxygen Delivery Method Room Air Intake Visit Reasons: Obstructive sleep apnea Allergies shrimp Allergy (Mild, Verified 02/05/24 10:01) Swelling Medication List - Last Reconciled 02/05/24 by Glenn Interiano MD acetaminophen ER (Mapap Arthritis Pain) 1,300 mg (2 x 650 mg) PO Q8H PRN 30 days albuterol sulfate 2.5 mg (3 mL) inhalation Q4-6H PRN 30 days albuterol sulfate 90 mcg/actuation 2 puffs PO Q4H PRN 30 days amitriptyline 150 mg PO BEDTIME atorvastatin 80 mg PO BEDTIME 90 days blood sugar diagnostic (FreeStyle Lite Strips) 1 strip miscellaneous BID 30 days blood-glucose meter (FreeStyle Lite Meter kit) As directed blood-glucose meter,continuous (DexMobstats G7 Production Superintendent Hydro) Use daily As directed to monitor blood sugars blood-glucose sensor (Dexcom G7 Sensor device) As directed change every 10 days gijlllkvkt-ujubstzkpnmft-omyx 50-325-40 mg 1 tab PO Q8H PRN chlorthalidone 25 mg PO DAILY 90 days cholecalciferol (vitamin D3) 25 mcg PO DAILY 90 days clonidine HCl 0.2 mg PO BEDTIME 90 days cyclobenzaprine 10 mg PO Q8H PRN 30 days docusate sodium 100 mg PO BID empagliflozin (Jardiance) 25 mg PO DAILY 90 days fenofibrate nanocrystallized 145 mg PO DAILY 90 days fluticasone propion-salmeterol 250-50 mcg/dose (Wixela Inhub) 1 ea PO Q12H gabapentin 100 mg PO TID 30 days glucose (Dex4 Glucose) 16 grams (4 x 4 gram) PO Q15M PRN hydrocortisone 2.5% 1 appl topical BID PRN 14 days insulin glargine (Lantus Solostar U-100 Insulin) 10 units (0.1 mL) subcut QPM 30 days lancets As directed tests 3 X/day lisinopril 40 mg PO DAILY lorazepam 1 mg PO BID PRN meloxicam 15 mg PO DAILY PRN menthol-zinc oxide 0.44-20.6 % (Calmoseptine) 1 appl topical QID PRN metformin ER 1,000 mg (2 x 500 mg) PO BID 90 days montelukast 10 mg PO BEDTIME pen needle, diabetic (BD Jennifer 2nd Gen Pen Needle) once a day pen needle, diabetic (Comfort EZ Pen [place]) As directed injects once a day phenylephrine HCl 0.25% (Preparation H (pe)) 1 supp AL QID PRN pioglitazone 45 mg PO DAILY 90 days semaglutide (Ozempic) 2 mg (0.75 mL) subcut QWEEK 30 days sodium,potassium,mag sulfates 17.5-3.13-1.6 gram (Suprep Bowel Prep Kit) DILUTE; drink full amount early evening before AND next morning at least 2 hr before procedure; follow w 960 mL water PO sumatriptan succinate (Imitrex) 100 mg PO DIRECTED tamsulosin (Flomax) 0.4 mg PO BEDTIME 90 days topiramate 100 mg PO BID Ventolin HFA 90 mcg/actuation (albuterol sulfate) 2 puffs inhalation Q6H PRN 30 days NS zolpidem (Ambien) 10 mg PO BEDTIME PRN Do you need a note to return to daycare/school/sports/work: No HPI HPI Obstructive sleep apnea: Details: MR. SOMMER IS 59 YEARS OLD , COMES FOR FOLLOW-UP FOR HIS OBSTRUCTIVE SLEEP APNEA, MILD BRONCHIAL ASTHMA, AND ALLERGIC RHINITIS. HE HAS BEEN USING CPAP FOR MANY YEARS VERY REGULARLY. NOW LATELY HE IS USING ONLY OFF AND ON AND CLAIMS THAT HE SLEEPS GOOD EVEN WITHOUT THE MASK. HE IS TRYING TO LOSE WEIGHT SLOWLY. HE IS ON OZEMPIC INJECTIONS FOR TREATMENT OF HIS DIABETES MELLITUS. BREATHING HAS BEEN OKAY WITHOUT ANY COUGH OR WHEEZING. HAS MILD NASAL CONGESTION OFF AND ON WHICH IS MOSTLY UNDER GOOD CONTROL. [facility] Medical History CKD (chronic kidney disease) stage 3, GFR 30-59 ml/min Hemorrhoids with complication Family history of prostate cancer Osteoarthritis of left knee Moderate recurrent major depression Pruritus ani Internal and external hemorrhoids without complication Asthma DANIEL on CPAP Anemia Back pain Gross hematuria UTI (urinary tract infection) Prostate enlargement Diabetic polyneuropathy associated with type 2 diabetes mellitus Vitamin D deficiency Diabetes type 2, controlled Family history of anesthesia complication Hx of low back pain Hx of insomnia Hx of migraines Anxiety Depression Colon cancer screening Bleeding hemorrhoids Morbid obesity Hyperlipidemia Hypertension Hypernatremia Bloody stools Diabetes mellitus, type 2 Hiatal hernia Surgical History History of colonoscopy (~11/01/23) Hx of colonoscopy History of knee surgery History of carpal tunnel release H/O hernia repair History of umbilical hernia repair Family History Maternal Uncle History of prostate cancer Father History of throat cancer Myocardial infarction Diabetes mellitus Hypertension CVD (cardiovascular disease) Maternal Grandfather History of throat cancer Son In good health Son In good health Brother Colon cancer Mother Diabetes mellitus Social History Household Members: Spouse and Children Housing: House Are you a primary critical care rn to a significant other at home: No Do you presently have visiting nurse or other home services: Yes (once a week ) Alcohol intake: former Patient Tobacco Use Status: Never used Tobacco Tobacco use type: Cigarette Cigarettes Per Day: 1 e-Cigarette/Vaping Use: Never Used Second Hand Smoke Exposure: No service: No Current occupational status: disabled Cognitive needs: No Hearing needs: No Vision needs: Yes Review of Systems Const All systems reviewed & are unremarkable except as noted in HPI and below Eyes Reports no additional complaints ENT Reports nasal congestion (MILD, OFF AND ON) Card Denies chest pain, Denies irregular heart rhythm and Denies leg edema Resp Reports as per HPI GI Reports constipation Reports no additional complaints and Reports nocturia Musc Reports back pain (MILD) Skin/Breast Reports system reviewed and no additional complaints, except as documented Neuro Reports no additional complaints Psych Reports no additional complaints Physical Exam Vital Signs: Last Vital Signs Pulse 80 02/05/24 09:39 BP 112/62 02/05/24 09:39 Pulse Ox 98 02/05/24 09:39 Oxygen Delivery Method Room Air 02/05/24 09:39 BMI result Body Mass Index 41.3 Const General: healthy appearing (Except for overweight), comfortable, no acute distress, alert and awake Orientation/consciousness: patient oriented x3 HEENT Head: Yes normal to inspection General nose exam: No nasal polyps present, No nasal discharge present and normal mucous membranes and turbinates (Has moderate hypertrophy of the nasal turbinates) Face and sinus: Yes sinuses nontender Mouth: oropharynx normal Throat: Yes posterior oropharynx normal Eyes General: appearance normal, both eyes and all related structures Neck Neck: Yes normal visual inspection, Yes no lymphadenopathy, Yes trachea midline and Yes no JVD Thyroid: Thyroid normal Chest Chest palpation & inspection: normal inspection of the chest, normal palpation of entire chest wall and no tenderness Resp Other: Percussion note is resonant. He has good breath sounds on both sides. No wheezes rhonchi or crepitations are heard. Cardio Palpation: normal PMI Rate: regular rate Rhythm: regular rhythm Heart sounds: no gallops and no murmurs Peripheral pulses: Peripheral pulses 2+ throughout GI Palpation (GI): Soft to palpation, Tenderness to palpation present (GI), No hepatosplenomegaly present and Palpable mass present Auscultation: normal bowel sounds Back/Spine/Pelvis Thoracic/Lumbar Spine: thoracic and lumbar spine normal to inspection Skin General skin exam: no rashes or lesions noted Neuro General: patient oriented x3 and no focal motor deficits Cranial nerves: Yes CN's II-XII intact bilaterally Extrem General: Yes normal to inspection, Yes no clubbing, cyanosis or edema and Yes no calf tenderness Psych Appearance: grossly normal and well kempt Speech and movement: Normal speech and movement present Quality Reporting (2019) Adult ([facility] 138/2/22/69) Body Mass Index: 41.3 Results Reviewed Results Reviewed: COMPLIANCE REPORT NOT AVAILABLE TODAY Assessment & Plan Assessment & Plan (1) Asthma: Comment: HAS CHRONIC , INTERMITTENT BRONCHIAL ASTHMA, CONTROLLED WITH CURRENT REGIMEN. Code(s): J45.909 - Unspecified asthma, uncomplicated Category: Medical Qualifiers: Asthma severity: mild Asthma persistence: persistent Asthma complication type: uncomplicated Qualified Code(s): J45.30 - Mild persistent asthma, uncomplicated Plan: CONTINUE WIXELA 250-51 INHALATION B.I.D. MONTELUKAST 10 MG DAILY. ALBUTEROL HFA 2 PUFFS Q 6 HOURS P.R.N. OR ALTERNATIVELY ALBUTEROL SOLUTION IN THE NEBULIZER Q 6 HOURS P.R.N.. (2) Morbid obesity: Comment: THIS IS A CHRONIC PROBLEM, PATIENT IS TRYING TO LOSE WEIGHT ON HIS OWN. PART OF TREATMENT FOR HIS DIABETES MELLITUS HE HAS BEEN STARTED ON OZEMPIC INJECTIONS. I THINK THIS IS HELPING IN GRADUAL WEIGHT REDUCTION. Code(s): E66.01 - Morbid (severe) obesity due to excess calories Category: Medical Plan: COMMENDED FOR TRYING TO LOSE WEIGHT AND HE IS ADVISED TO KEEP ON LOSING, SLOWLY. BY CONTROLLING THE DIET AND WALKING MORE EVERY DAY. (3) DANIEL on CPAP: Comment: KNOWN CASE OF OBSTRUCTIVE SLEEP APNEA SINCE 2013. HE IS USING CPAP, EVERY NIGHT, HOWEVER LATELY HE IS USING ONLY OFF AND ON . HE HAS NO PROBLEM WITH THE FULLFACE MASK OR CPAP MACHINE. Code(s): G47.33 - Obstructive sleep apnea (adult) (pediatric); Z99.89 - Dependence on other enabling machines and devices Category: Medical Plan: I ADVISED HIM TO START USING THE CPAP REGULARLY EVERY NIGHT. IF HE CAN LOSE ABOUT 10-15 MORE LB OF WEIGHT WE WILL THEN TRY TO GET HIM OFF THE CPAP. Medications: Refilled albuterol sulfate 90 mcg/actuation 2 puffs PO Q4H 30 days PRN 8.5 grams 1RF Wheezing fluticasone propion-salmeterol 250-50 mcg/dose (Wixela Inhub) 1 ea PO Q12H 180 caps 3RF Coding Level of Care Code Est Pt Level 3 (67714) Diagnoses Mild persistent asthma without complication J45.30 Asthma severity: mild Asthma persistence: persistent Asthma complication type: uncomplicated Morbid obesity E66.01 DANIEL on CPAP G47.33; Z99.89
[2024-02-05 09:56] VITALS: BMI 41.3
== END 2024-02-05 10:03 | disposition home or self-care (01) ==
LOC: HO.HPS 09:26
PROVIDERS: PCP Internal Medicine; Visit Provider Internal Medicine
DX: J45.30 Mild persistent asthma, uncomplicated (principal); E66.01 Morbid (severe) obesity due to excess calories; G47.33 Obstructive sleep apnea (adult) (pediatric); Z99.89 Dependence on other enabling machines and devices
CPT/HCPCS: 99213

== ENCOUNTER → 2024-02-05 09:26 | Outpatient (BNVA) | payer OTHER, SELFPAY | PROVIDERS: PCP Internal Medicine; Visit Provider Internal Medicine | DX: J45.30 Mild persistent asthma, uncomplicated (principal); G47.33 Obstructive sleep apnea (adult) (pediatric); E66.01 Morbid (severe) obesity due to excess calories; Z68.41 Body mass index [BMI] 40.0-44.9, adult; Z99.89 Dependence on other enabling machines and devices | CPT/HCPCS: 99212 ==

== ENCOUNTER 2024-02-11 07:56 | Outpatient (AMB) | payer OTHER, SELFPAY ==
--- NOTE | 2024-02-11 08:30 | A.OFFVIS_ITS ---
Intake Intake Visit Reasons: DM-confirmed Master Machinist Required: Yes Master Machinist Language: Vacuum Pan Tender Name: Raffy [id number] Information Interpreted: non-clinical & clinical Accompanied by: Self / Same As Patient Allergies shrimp Allergy (Mild, Verified 02/05/24 10:01) Swelling HPI Comprehensive Diabetes Asmnt Most Recent Diabetes Results: Microalb/Creat Ratio TNP 01/23/24 Cholesterol 101 mg/dL (<200) 01/23/24 HDL Cholesterol 34 mg/dL (>40) L 01/23/24 Triglycerides 87 mg/dL (<150) 01/23/24 Creatinine 1.33 mg/dL (0.5-1.4) 01/23/24 Blood Urea Nitrogen 29 mg/dL (9-16) H 01/23/24 Sodium 139 mmol/L (135-145) 01/23/24 Potassium 3.7 mmol/L (3.3-5.1) 01/23/24 Chloride 106 mmol/L (96-108) 01/23/24 Carbon Dioxide 27 mmol/L (22-29) 01/23/24 Calcium 10.2 mg/dL (8.4-10.2) 01/23/24 AST 27 U/L (5-37) 01/23/24 ALT 34 U/L (0-40) 01/23/24 Total Protein 6.7 g/dL (6.5-8.0) 01/23/24 Albumin 3.9 g/dL (3.5-5.0) 01/23/24 [facility] Medical History CKD (chronic kidney disease) stage 3, GFR 30-59 ml/min Hemorrhoids with complication Family history of prostate cancer Osteoarthritis of left knee Moderate recurrent major depression Pruritus ani Internal and external hemorrhoids without complication Asthma DANIEL on CPAP Anemia Back pain Gross hematuria UTI (urinary tract infection) Prostate enlargement Diabetic polyneuropathy associated with type 2 diabetes mellitus Vitamin D deficiency Diabetes type 2, controlled Family history of anesthesia complication Hx of low back pain Hx of insomnia Hx of migraines Anxiety Depression Colon cancer screening Bleeding hemorrhoids Morbid obesity Hyperlipidemia Hypertension Hypernatremia Bloody stools Diabetes mellitus, type 2 Hiatal hernia Surgical History History of colonoscopy (~11/01/23) Hx of colonoscopy History of knee surgery History of carpal tunnel release H/O hernia repair History of umbilical hernia repair Family History Maternal Uncle History of prostate cancer Father History of throat cancer Myocardial infarction Diabetes mellitus Hypertension CVD (cardiovascular disease) Maternal Grandfather History of throat cancer Son In good health Son In good health Brother Colon cancer Mother Diabetes mellitus Social History Household Members: Spouse and Children Housing: House Are you a primary vision care associate to a significant other at home: No Do you presently have visiting nurse or other home services: Yes (once a week ) Alcohol intake: former Patient Tobacco Use Status: Never used Tobacco Tobacco use type: Cigarette Cigarettes Per Day: 1 e-Cigarette/Vaping Use: Never Used Second Hand Smoke Exposure: No service: No Current occupational status: disabled Cognitive needs: No Hearing needs: No Vision needs: Yes Assessment & Plan Assessment & Plan (1) Insulin dependent type 2 diabetes mellitus: Code(s): E11.9 - Type 2 diabetes mellitus without complications; 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 Patient questions/concerns patient's last A1c on 12/20/2023 7.5%. Patient is currently using Dexcom G7 sensor, set up Dexcom G7 emily on patient's cellphone at today's visit Patient's Dexcom user name is his cell phone number Password:[email or web address] Patient's glucose for the past 14 days 124 mg/dL Above target 4% At target 96% Below target 0% Patient did report 1 episode of hypoglycemia, reviewed with patient how to use rule of 15s Patient reports he has been going to the gym, and running for approximately an hour and half several times a week Instructed patient if episodes of hypoglycemia increase or he notices pattern of hypoglycemia contact nurse educator or physician's mechanic's assistant. The patient met all learning objectives and was able to verbalize understanding and provide teach back of education topics discussed . The patient was provided with the opportunity to ask questions and all questions were answered. Topics covered in today?s session included: Medications (If applicable) * Name of medication? * Dosing/administration instructions? * Mechanism of action? * Potential side effects? * Potential adverse reaction and appropriate treatment? * Review onset, peak, duration Assess for concerns re: insurance coverage, cost, barriers to compliance Insulin/Injectables (If applicable) * Storage/care of insulin?? * Injection sites? * Site rotation? * Onset, peak, duration * Drawing up insulin? * Injecting insulin/other injectables? * Sharps disposal Continuous blood glucose monitoring (if applicable) Hypoglycemia and Hyperglycemia * Signs and symptoms? * Causes?? * Treatment? * Preventing hypoglycemia? * When to seek medical attention Target Goals: * Blood glucose targets and how you feel when your blood glucose is in and out of your target ranges. * Monitoring and knowing your A1C. * What can make blood glucose go up and down and preventing high and low blood glucose. * Review of blood sugar targets in expected goal range and outside of expected goal range. * Problem solving and preventing hyper/hypoglycemia. * Sick day management of diabetes. * Using blood sugar results in decision making process in managing diabetes. ?Patient was receptive to information provided and participated in the discussion. Asked?appropriate questions and demonstrated good understanding of the topics discussed.? ? Educational Materials: The patient was provided with the following written educational materials: Target Goal, hypoglycemia handouts given in [employer] Goal Assessment:? Patient has identified foods in his diet that contain carbohydrate Pt met goal 75% New Smart Goal: Patient will use rule of 15s to treat hypoglycemia Patient Response to instructions: Comprehension of Instructions: Good Readiness to make changes:? Action How confident they feel about making changes: Positive Portions of this note were created using voice recognition software, please excuse any words or phrases that may have been misinterpreted. Patient Instructions: Follow-up with nurse educator in 3 months Coding Level of Care Code Est Pt Level 1 (52744) Diagnoses Insulin dependent type 2 diabetes mellitus E11.9; Z79.4
== END 2024-02-11 08:34 | disposition home or self-care (01) ==
PROVIDERS: PCP Internal Medicine; Visit Provider Registered Nurse Diabetes Educator
DX: E11.9 Type 2 diabetes mellitus without complications (principal); Z79.4 Long term (current) use of insulin

== ENCOUNTER → 2024-02-11 07:56 | Outpatient (BNVA) | payer OTHER, SELFPAY | PROVIDERS: PCP Internal Medicine; Visit Provider Registered Nurse Diabetes Educator | DX: E11.9 Type 2 diabetes mellitus without complications (principal); Z79.4 Long term (current) use of insulin; Z71.89 Other specified counseling | CPT/HCPCS: 99211 ==

== ENCOUNTER 2024-02-13 12:40 | Outpatient (AMB) | payer OTHER, SELFPAY ==
[2024-02-13 13:04] VITALS: BMI 40.7
--- NOTE | 2024-02-13 13:04 | MHC.AMNUTRGE ---
VS Expanded 02/13/24 13:04 Height 5 ft 9 in Weight 275 lb 5.718 oz BMI 40.7 Intake Visit Reasons: T2DM/CONFIRMED Allergies shrimp Allergy (Mild, Verified 02/05/24 10:01) Swelling Nutrition Presentation Details: Pt presents for MNT f/u for t2dm Pt reports increasing physical activity, 45 minutes Carries glucose tabs/hard candies to treat hypoglycemia Including fruits 2-3/day having yogurts 3 times/wk legumes/pulses: 1 x/wk fish twice/week BS Monitoring Most Recent Diabetes Results: Microalb/Creat Ratio TNP 01/23/24 Cholesterol 101 mg/dL (<200) 01/23/24 HDL Cholesterol 34 mg/dL (>40) L 01/23/24 Triglycerides 87 mg/dL (<150) 01/23/24 Creatinine 1.33 mg/dL (0.5-1.4) 01/23/24 Blood Urea Nitrogen 29 mg/dL (9-16) H 01/23/24 Sodium 139 mmol/L (135-145) 01/23/24 Potassium 3.7 mmol/L (3.3-5.1) 01/23/24 Chloride 106 mmol/L (96-108) 01/23/24 Carbon Dioxide 27 mmol/L (22-29) 01/23/24 Calcium 10.2 mg/dL (8.4-10.2) 01/23/24 AST 27 U/L (5-37) 01/23/24 ALT 34 U/L (0-40) 01/23/24 Total Protein 6.7 g/dL (6.5-8.0) 01/23/24 Albumin 3.9 g/dL (3.5-5.0) 01/23/24 [facility] Medical History CKD (chronic kidney disease) stage 3, GFR 30-59 ml/min Hemorrhoids with complication Family history of prostate cancer Osteoarthritis of left knee Moderate recurrent major depression Pruritus ani Internal and external hemorrhoids without complication Asthma DANIEL on CPAP Anemia Back pain Gross hematuria UTI (urinary tract infection) Prostate enlargement Diabetic polyneuropathy associated with type 2 diabetes mellitus Vitamin D deficiency Diabetes type 2, controlled Family history of anesthesia complication Hx of low back pain Hx of insomnia Hx of migraines Anxiety Depression Colon cancer screening Bleeding hemorrhoids Morbid obesity Hyperlipidemia Hypertension Hypernatremia Bloody stools Diabetes mellitus, type 2 Hiatal hernia Surgical History History of colonoscopy (~11/01/23) Hx of colonoscopy History of knee surgery History of carpal tunnel release H/O hernia repair History of umbilical hernia repair Family History Maternal Uncle History of prostate cancer Father History of throat cancer Myocardial infarction Diabetes mellitus Hypertension CVD (cardiovascular disease) Maternal Grandfather History of throat cancer Son In good health Son In good health Brother Colon cancer Mother Diabetes mellitus Social History Household Members: Spouse and Children Housing: House Are you a primary career development consultant to a significant other at home: No Do you presently have visiting nurse or other home services: Yes (once a week ) Alcohol intake: former Patient Tobacco Use Status: Never used Tobacco Tobacco use type: Cigarette Cigarettes Per Day: 1 e-Cigarette/Vaping Use: Never Used Second Hand Smoke Exposure: No service: No Current occupational status: disabled Cognitive needs: No Hearing needs: No Vision needs: Yes Assessment & Plan Assessment & Plan (1) Diabetes mellitus: Code(s): E11.9 - Type 2 diabetes mellitus without complications Category: Medical Qualifiers: Diabetes mellitus type: type 2 Diabetes mellitus [facility] insulin use: without superintendent container terminal use Diabetes mellitus complication status: with hyperglycemia Qualified Code(s): E11.65 - Type 2 diabetes mellitus with hyperglycemia Plan: Wt: 138 Kg (03/28/23 ), 136.8 kg (07/2023), 128 kg (01/22), 125 kg (02/22) Est kcal needs as per MSJ: 2700 -3400 (40% carb, 30% protein/fat) Est fluid needs as per 25-30 ml/d: 3450- 4140 ml/d Est prot per day as per 0.8- 1 g/kg bw: 136 g/ Recommend fiber intake : 8-10 g per day and gradually increase to 25-28 g per day for women and 35-38 g for men or as tolerated Recommend sodium intake per day : less than 2000 mg Educated patient on: ( R = reviewed V = verbalizes understanding N/R = needs review N/A = not applicable Food sources of carbohydrate, adequate serving sizes and its role in various health conditions: R Differences between complex carbohydrates a simple carbohydrates, role of fiber in diet: R Lean protein sources of foods: R Differences between types of fats and role in diet (mono on saturated fat fatty acids, saturated fatty acids, trans fats): R Food sources of sodium in salt and healthy modifications for heart health in kidney health: R Vitamins and minerals: N/R Healthy plate method concept: R Physical activity: Benefits a precaution: R Hypoglycemia protocol (rule of 15): R Dietary prevention of Hyperglycemia: R Patient Instructions: Include a variety of foods with fiber (fruits, bran flakes, beans - see list of options) Coding Level of Care Code Nutr Indiv Subseq (35359) Diagnoses Type 2 diabetes mellitus with hyperglycemia, without long-term current use of insulin E11.65 Diabetes mellitus type: type 2 Diabetes mellitus [facility] insulin use: without [facility] use Diabetes mellitus complication status: with hyperglycemia Time Spent (min) 30
== END 2024-02-13 13:31 | disposition home or self-care (01) ==
PROVIDERS: PCP Internal Medicine; Visit Provider Dietitian, Registered
DX: E11.65 Type 2 diabetes mellitus with hyperglycemia (principal)

== ENCOUNTER → 2024-02-13 12:40 | Outpatient (BNVA) | payer OTHER, SELFPAY | PROVIDERS: PCP Internal Medicine; Visit Provider Dietitian, Registered | DX: E11.22 Type 2 diabetes mellitus with diabetic chronic kidney disease (principal); E11.42 Type 2 diabetes mellitus with diabetic polyneuropathy; I12.9 Hypertensive chronic kidney disease with stage 1 through stage 4 chronic kidney disease, or unspecified chronic kidney disease; N18.30 Chronic kidney disease, stage 3 unspecified; E66.9 Obesity, unspecified; Z68.41 Body mass index [BMI] 40.0-44.9, adult; Z71.3 Dietary counseling and surveillance | CPT/HCPCS: 97803 ==

== ENCOUNTER 2024-04-10 15:10 | Outpatient (AMB) | payer OTHER, SELFPAY ==
--- NOTE | 2024-04-10 15:13 | A.OFFVIS_ITS ---
Vital Signs 04/10/24 15:14 Height 5 ft 9 in Weight 271 lb 2.697 oz BMI 40.0 BP 116/58 L Blood Pressure Location Rt brachial Position Sitting Pulse 96 Pulse Source Pulse Oximeter Intake Visit Reasons: DM Intake Note: Patient presents today to re-establish treatment for Type Diabetes Mellitus: Last Diabetic eye exam was on: Appt coming up next week Last Podiatry exam was on: Does not see a Licensed Sales Producer Most recent HbA1c: 6.0%, 04/10/2024 Random Glucose- 76 mg/dL, Re-check Glucose- 90 mg/dL, Terminal Operations Manager Required: Yes Terminal Operations Manager Language: Wedding Designer Services: Terminal Operations Manager Present Terminal Operations Manager Name: CRIS Carty/MARIFER Leblanc Information Interpreted: non-clinical & clinical Accompanied by: Self / Same As Patient Allergies shrimp Allergy (Mild, Verified 03/03/24 10:27) Swelling Medication List - Last Reconciled 04/10/24 by Meenakshi Doshi PA-C acetaminophen ER (Mapap Arthritis Pain) 1,300 mg (2 x 650 mg) PO Q8H PRN 30 days albuterol sulfate 2.5 mg (3 mL) inhalation Q4-6H PRN 30 days albuterol sulfate 90 mcg/actuation 2 puffs PO Q4H PRN 30 days amitriptyline 150 mg PO BEDTIME atorvastatin 80 mg PO BEDTIME 90 days blood sugar diagnostic (FreeStyle Lite Strips) 1 strip miscellaneous BID 30 days blood-glucose meter (FreeStyle Lite Meter kit) As directed blood-glucose meter,continuous (Dexcom G7 Curriculum Specialist) Use daily As directed to monitor blood sugars blood-glucose sensor (Dexcom G7 Sensor device) As directed change every 10 days arvgqkpdiy-amdcdmwrzulaj-qhjs 50-325-40 mg 1 tab PO Q8H PRN chlorthalidone 25 mg PO DAILY 90 days cholecalciferol (vitamin D3) 25 mcg PO DAILY 90 days clonidine HCl 0.2 mg PO BEDTIME 90 days cyclobenzaprine 10 mg PO Q8H PRN 30 days docusate sodium 100 mg PO BID empagliflozin (Jardiance) 25 mg PO DAILY 90 days fenofibrate nanocrystallized 145 mg PO DAILY 90 days fluticasone propion-salmeterol 250-50 mcg/dose (Wixela Inhub) 1 ea PO Q12H gabapentin 100 mg PO TID 30 days glucose (Dex4 Glucose) 16 grams (4 x 4 gram) PO Q15M PRN hydrocortisone 2.5% 1 appl topical BID PRN 14 days insulin glargine (Lantus Solostar U-100 Insulin) 10 units (0.1 mL) subcut QPM 30 days lancets As directed tests 3 X/day lisinopril 40 mg PO DAILY lorazepam 1 mg PO BID PRN meloxicam 15 mg PO DAILY PRN menthol-zinc oxide 0.44-20.6 % (Calmoseptine) 1 appl topical QID PRN metformin ER 1,000 mg (2 x 500 mg) PO BID 90 days montelukast 10 mg PO BEDTIME pen needle, diabetic (BD Jennifer 2nd Gen Pen Needle) once a day pen needle, diabetic (Comfort EZ Pen [place]) As directed injects once a day phenylephrine HCl 0.25% (Preparation H (pe)) 1 supp ND QID PRN semaglutide (Ozempic) 2 mg (0.75 mL) subcut QWEEK 30 days sodium,potassium,mag sulfates 17.5-3.13-1.6 gram (Suprep Bowel Prep Kit) DILUTE; drink full amount early evening before AND next morning at least 2 hr before procedure; follow w 960 mL water PO sumatriptan succinate (Imitrex) 100 mg PO DIRECTED tamsulosin (Flomax) 0.4 mg PO BEDTIME 90 days topiramate 100 mg PO BID Ventolin HFA 90 mcg/actuation (albuterol sulfate) 2 puffs inhalation Q6H PRN 30 days NS zolpidem (Ambien) 10 mg PO BEDTIME PRN HPI HPI DM: Details: Patient is a 59-year-old male with a significant past medical history of type 2 diabetes, hypertension, hyperlipidemia and obesity presenting today for a diabetic follow-up. 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 He is currently Ozempic 2 mg weekly, metformin 1000 mg twice a day, Jardiance 25 mg daily, Actos 45 mg daily and Lantus 10 units. cgm- dexcom- hyperglycemic 17%, in range 83%. No hypoglycemic events. Blood sugar is a little on the lower side today at 77. Patient is completely asymptomatic. He only had breakfast and a salad today. He did take his medications. He was provided a small cup of bud jeremie today in his blood sugar did increase to 90. He will go home to eat. He states he does normally eat and does not have issues with hypoglycemia. Most of the hyperglycemia does appear to be in the evening. He states when he notices this on his Dexcom he will get up and go for a walk on the treadmill. He is excited because he has been able to lose some weight also by paying attention like this. Hypogylcemia-denies any hypoglycemic events since starting this regimen. He has glucose tabs if needed. CV: bp today in office is 116/58 he is currently on lisinopril 40 mg, chlorthalidone 12.5 mg mg. Cholesterol is controlled with atorvastatin 80 mg. [facility] Medical History CKD (chronic kidney disease) stage 3, GFR 30-59 ml/min Hemorrhoids with complication Family history of prostate cancer Osteoarthritis of left knee Moderate recurrent major depression Pruritus ani Internal and external hemorrhoids without complication Asthma DANIEL on CPAP Anemia Back pain Gross hematuria UTI (urinary tract infection) Prostate enlargement Diabetic polyneuropathy associated with type 2 diabetes mellitus Vitamin D deficiency Diabetes type 2, controlled Family history of anesthesia complication Hx of low back pain Hx of insomnia Hx of migraines Anxiety Depression Colon cancer screening Bleeding hemorrhoids Morbid obesity Hyperlipidemia Hypertension Hypernatremia Bloody stools Diabetes mellitus, type 2 Hiatal hernia Surgical History History of colonoscopy (~11/01/23) Hx of colonoscopy History of knee surgery History of carpal tunnel release H/O hernia repair History of umbilical hernia repair Family History Maternal Uncle History of prostate cancer Father History of throat cancer Myocardial infarction Diabetes mellitus Hypertension CVD (cardiovascular disease) Maternal Grandfather History of throat cancer Son In good health Son In good health Brother Colon cancer Mother Diabetes mellitus Social History Household Members: Spouse and Children Housing: House Are you a primary childcare aide to a significant other at home: No Do you presently have visiting nurse or other home services: Yes (once a week ) Alcohol intake: former Patient Tobacco Use Status: Never used Tobacco Tobacco use type: Cigarette Cigarettes Per Day: 1 e-Cigarette/Vaping Use: Never Used Second Hand Smoke Exposure: No service: No Current occupational status: disabled Cognitive needs: No Hearing needs: No Vision needs: Yes Physical Exam Vital Signs: Last Vital Signs Pulse 96 04/10/24 15:14 BP 116/58 L 04/10/24 15:14 BMI result Body Mass Index 40.0 Const Orientation/consciousness: patient oriented x3 HEENT Ears: hearing grossly normal bilaterally Neck Thyroid: Thyroid normal Lymphatic: no lymphadenopathy noted Resp Auscultation: clear to auscultation bilaterally Cardio Rate: regular rate Rhythm: regular rhythm Heart sounds: S1 normal heart sound present and S2 normal heart sound present Skin General skin exam: no rashes or lesions noted Neuro General: patient oriented x3, gait normal and no focal motor deficits Results AMB Hemoglobin A1c AMB Hemoglobin A1c 6.0 % Last Edit by CRIS Carty on 04/10/24 15:29 Results Reviewed Results Reviewed: Laboratory Last Values Glucose (Clinic) 76 mg/dL (60-115) 04/10/24 15:16 Hgb A1c (Clinic) 6.0 % (4.0-6.0) 04/10/24 15:25 Assessment & Plan Assessment & Plan (1) Diabetes type 2, controlled: Code(s): E11.9 - Type 2 diabetes mellitus without complications Category: Medical Qualifiers: Diabetes mellitus terminal operations manager insulin use: unspecified jail insulin use status Diabetes mellitus complication status: without complication Qualified Code(s): E11.9 - Type 2 diabetes mellitus without complications Plan: reduce pioglitazone to to 30 mg. Continue Ozempic, Lantus, metformin and Jardiance. Congratulated him on the significant improvement of his A1c. Encouraged him to continue with a healthy lifestyle modifications. He will follow up in 3 months and repeat labs prior to appointment. He will contact me sooner if needed. (2) Essential hypertension: Code(s): I10 - Essential (primary) hypertension Category: Medical Plan: he has reduced chlorthalidone as recommended by Nephrology but this was just last week. We did discuss that his blood pressure is a little bit on the lower side today. Again, he has not had much to eat or drink all day. (3) Hyperlipidemia LDL goal <70: Code(s): E78.5 - Hyperlipidemia, unspecified Category: Medical Plan: Continue controlled with the atorvastatin and fenofibrate. Orders: Orders AMB Hemoglobin A1c Today E11.9 - Type 2 diabetes mellitus without complications Medications: New pioglitazone 30 mg PO DAILY 90 tabs 1RF Coding Level of Care Code Est Pt Level 4 (87035) Complex EM visit Add On G2211 Diagnoses Controlled type 2 diabetes mellitus without complication, unspecified whether jail insulin use E11.9 Diabetes mellitus terminal operations manager insulin use: unspecified terminal operations manager insulin use status Diabetes mellitus complication status: without complication Essential hypertension I10 Hyperlipidemia LDL goal <70 E78.5
[2024-04-10 15:14] VITALS: BP 116/58; PULSE 96; BMI 40.0
[2024-04-10 15:23] LABS: Glucose, Whole Blood 76 mg/dL (60-115)
[2024-04-10 15:54] LABS: Glucose, Whole Blood 90 mg/dL (60-115)
== END 2024-04-10 15:52 | disposition home or self-care (01) ==
PROVIDERS: PCP Internal Medicine; Visit Provider Physician Assistant
DX: E11.9 Type 2 diabetes mellitus without complications (principal); I10 Essential (primary) hypertension; E78.5 Hyperlipidemia, unspecified

== ENCOUNTER → 2024-04-10 15:10 | Outpatient (BNVA) | payer OTHER, SELFPAY | PROVIDERS: PCP Internal Medicine; Visit Provider Physician Assistant | DX: E11.9 Type 2 diabetes mellitus without complications (principal); I10 Essential (primary) hypertension; E78.5 Hyperlipidemia, unspecified | CPT/HCPCS: 82947; 83036; 99212 ==

== ENCOUNTER 2024-04-14 10:42 | Outpatient (AMB) | payer OTHER, SELFPAY ==
--- NOTE | 2024-04-14 10:50 | HO.NEPHOV_ITS ---
Vital Signs 04/14/24 10:51 Height 5 ft 9 in Weight 271 lb BMI 40.0 BP 120/60 Blood Pressure Location Rt brachial Position Sitting Pulse 85 Pulse Source Pulse Oximeter Pulse Oximetry (%) 98 Oxygen Delivery Method Room Air Intake Visit Reasons: CKD/ CONF Pigment Making Supervisor Required: Yes Pigment Making Supervisor Name: Erika [phone] Accompanied by: Self / Same As Patient Allergies shrimp Allergy (Mild, Verified 04/14/24 10:52) Swelling Medication List - Last Reconciled 04/14/24 by Bethel Ibarra MD acetaminophen ER (Mapap Arthritis Pain) 1,300 mg (2 x 650 mg) PO Q8H PRN 30 days albuterol sulfate 2.5 mg (3 mL) inhalation Q4-6H PRN 30 days albuterol sulfate 90 mcg/actuation 2 puffs PO Q4H PRN 30 days amitriptyline 150 mg PO BEDTIME atorvastatin 80 mg PO BEDTIME 90 days blood sugar diagnostic (FreeStyle Lite Strips) 1 strip miscellaneous BID 30 days blood-glucose meter (FreeStyle Lite Meter kit) As directed blood-glucose meter,continuous (Dexcom G7 Data Systems Manager) Use daily As directed to monitor blood sugars blood-glucose sensor (Dexcom G7 Sensor device) As directed change every 10 days auvnbimbfm-iofszreqdvrih-nfip 50-325-40 mg 1 tab PO Q8H PRN chlorthalidone 25 mg PO DAILY 90 days cholecalciferol (vitamin D3) 25 mcg PO DAILY 90 days clonidine HCl 0.2 mg PO BEDTIME 90 days cyclobenzaprine 10 mg PO Q8H PRN 30 days docusate sodium 100 mg PO BID empagliflozin (Jardiance) 25 mg PO DAILY 90 days fenofibrate nanocrystallized 145 mg PO DAILY 90 days fluticasone propion-salmeterol 250-50 mcg/dose (Wixela Inhub) 1 ea PO Q12H gabapentin 100 mg PO TID 30 days glucose (Dex4 Glucose) 16 grams (4 x 4 gram) PO Q15M PRN hydrocortisone 2.5% 1 appl topical BID PRN 14 days insulin glargine (Lantus Solostar U-100 Insulin) 10 units (0.1 mL) subcut QPM 30 days lancets As directed tests 3 X/day lisinopril 40 mg PO DAILY lorazepam 1 mg PO BID PRN meloxicam 15 mg PO DAILY PRN menthol-zinc oxide 0.44-20.6 % (Calmoseptine) 1 appl topical QID PRN metformin ER 1,000 mg (2 x 500 mg) PO BID 90 days montelukast 10 mg PO BEDTIME pen needle, diabetic (BD Jennifer 2nd Gen Pen Needle) once a day pen needle, diabetic (Comfort EZ Pen [place]) As directed injects once a day phenylephrine HCl 0.25% (Preparation H (pe)) 1 supp RI QID PRN pioglitazone 30 mg PO DAILY semaglutide (Ozempic) 2 mg (0.75 mL) subcut QWEEK 30 days sodium,potassium,mag sulfates 17.5-3.13-1.6 gram (Suprep Bowel Prep Kit) DILUTE; drink full amount early evening before AND next morning at least 2 hr before procedure; follow w 960 mL water PO sumatriptan succinate (Imitrex) 100 mg PO DIRECTED tamsulosin (Flomax) 0.4 mg PO BEDTIME 90 days topiramate 100 mg PO BID Ventolin HFA 90 mcg/actuation (albuterol sulfate) 2 puffs inhalation Q6H PRN 30 days NS zolpidem (Ambien) 10 mg PO BEDTIME PRN HPI Comments Details: Middle-aged man with a history of longstanding hypertension diabetes, obesity with mild CKD. Is minimal proteinuria. He has a history of ingesting Advil up to 3 tablets a day. After discontinuing and will has been improvement in the serum creatinine. Peak serum creatinine was 1.5 back in June 2021. Since last visit he has done very well. No specific complaints. No nausea vomiting no urine symptoms. No edema. He seems complaint was medications. 04/14/24 To gym regularly; Lost about 6 lbs Blood sugar acceptable. [facility] Medical History CKD (chronic kidney disease) stage 3, GFR 30-59 ml/min Hemorrhoids with complication Family history of prostate cancer Osteoarthritis of left knee Moderate recurrent major depression Pruritus ani Internal and external hemorrhoids without complication Asthma DANIEL on CPAP Anemia Back pain Gross hematuria UTI (urinary tract infection) Prostate enlargement Diabetic polyneuropathy associated with type 2 diabetes mellitus Vitamin D deficiency Diabetes type 2, controlled Family history of anesthesia complication Hx of low back pain Hx of insomnia Hx of migraines Anxiety Depression Colon cancer screening Bleeding hemorrhoids Morbid obesity Hyperlipidemia Hypertension Hypernatremia Bloody stools Diabetes mellitus, type 2 Hiatal hernia Surgical History History of colonoscopy (~11/01/23) Hx of colonoscopy History of knee surgery History of carpal tunnel release H/O hernia repair History of umbilical hernia repair Family History Maternal Uncle History of prostate cancer Father History of throat cancer Myocardial infarction Diabetes mellitus Hypertension CVD (cardiovascular disease) Maternal Grandfather History of throat cancer Son In good health Son In good health Brother Colon cancer Mother Diabetes mellitus Social History Household Members: Spouse and Children Housing: House Are you a primary healthcare technician to a significant other at home: No Do you presently have visiting nurse or other home services: Yes (once a week ) Alcohol intake: former Patient Tobacco Use Status: Never used Tobacco Tobacco use type: Cigarette Cigarettes Per Day: 1 e-Cigarette/Vaping Use: Never Used Second Hand Smoke Exposure: No service: No Current occupational status: disabled Cognitive needs: No Hearing needs: No Vision needs: Yes Physical Exam Vital Signs: Last Vital Signs Pulse 85 04/14/24 10:51 BP 120/60 04/14/24 10:51 Pulse Ox 98 04/14/24 10:51 Oxygen Delivery Method Room Air 04/14/24 10:51 BMI result Body Mass Index 40.0 Comfortable Neck supple no JVD. Lungs entry equal no rales. Heart S1-S2 heard no gallop or rub. Abdomen soft nontender. Neuro alert awake oriented. No asterixis. Extremities no edema. Results Reviewed Nephrology Results: Hgb 13.7 g/dl (14.0-18.0) L 03/03/24 WBC 6.2 X10*3/uL (4.8-10.8) 03/03/24 Plt Count 258 X10*3/uL (160-400) 03/03/24 Sodium 138 mmol/L (135-145) 04/11/24 Potassium 3.7 mmol/L (3.3-5.1) 04/11/24 Chloride 105 mmol/L (96-108) 04/11/24 Carbon Dioxide 27 mmol/L (22-29) 04/11/24 BUN 30 mg/dL (9-16) H 04/11/24 Creatinine 1.36 mg/dL (0.5-1.4) 04/11/24 Calcium 9.9 mg/dL (8.4-10.2) 04/11/24 Urine Protein Negative mg/dL (Neg-Trace) 04/11/24 Assessment & Plan Assessment & Plan (1) CKD (chronic kidney disease) stage 3, GFR 30-59 ml/min: Code(s): N18.30 - Chronic kidney disease, stage 3 unspecified Category: Medical Qualifiers: Chronic kidney disease stage 3 subtype: stage 3a (GFR 45-59) Qualified Code(s): N18.31 - Chronic kidney disease, stage 3a (2) Morbid obesity: Code(s): E66.01 - Morbid (severe) obesity due to excess calories Category: Medical (3) Hypertension: Code(s): I10 - Essential (primary) hypertension Category: Medical Qualifiers: Hypertension type: essential hypertension Qualified Code(s): I10 - Essential (primary) hypertension (4) Hypercalcemia: Code(s): E83.52 - Hypercalcemia Category: Medical Plan Middle-aged man with longstanding hypertension diabetes mellitus obesity with mild CKD. Renal function stable at baseline. Goal is to slow the progression of renal disease. Still taking Miloxicam- Cr is at 1.35 MOst likely due to NSAID induced hypoperfusion Needs to STOP Miloxicam Goal is to maintain the hemoglobin A1c less than 7%. We discussed weight loss as well. s/p Mild hypercalcemia Stopped vit D 50 mcg for a week Ca normalized Restarted at a lower dose of every other week BP is rather low Likely due to weight loss Keep CHLORTHALIDONE 12.5 mg daily instead of 50 mg Orders: Orders Parathyroid Hormone Intact 4 Months N111.29 - Chronic kidney disease, stage 3a Total Protein Urine Random 4 Months N111.29 - Chronic kidney disease, stage 3a Creatinine Urine 4 Months N111.29 - Chronic kidney disease, stage 3a Basic Metabolic Panel 4 Months N1. - Chronic kidney disease, stage 3a UA and rflx microscopic 4 Months N111.29 - Chronic kidney disease, stage 3a Coding Level of Care Code Est Pt Level 4 (15579) Diagnoses Stage 3a chronic kidney disease N18.31 Chronic kidney disease stage 3 subtype: stage 3a (GFR 45-59) Morbid obesity E66.01 Essential hypertension I10 Hypertension type: essential hypertension Hypercalcemia E83.52
[2024-04-14 10:51] VITALS: BP 120/60; PULSE 85; O2SAT 98; BMI 40.0
== END 2024-04-14 11:11 | disposition home or self-care (01) ==
PROVIDERS: PCP Internal Medicine; Visit Provider Internal Medicine Hypertension Specialist
DX: N18.31 Chronic kidney disease, stage 3a (principal); E66.01 Morbid (severe) obesity due to excess calories; I10 Essential (primary) hypertension; E83.52 Hypercalcemia
CPT/HCPCS: 99214

== ENCOUNTER → 2024-04-14 10:42 | Outpatient (BNVA) | payer OTHER, SELFPAY | PROVIDERS: PCP Internal Medicine; Visit Provider Internal Medicine Hypertension Specialist | DX: I12.9 Hypertensive chronic kidney disease with stage 1 through stage 4 chronic kidney disease, or unspecified chronic kidney disease (principal); N18.31 Chronic kidney disease, stage 3a; E83.52 Hypercalcemia; E66.01 Morbid (severe) obesity due to excess calories; Z68.41 Body mass index [BMI] 40.0-44.9, adult | CPT/HCPCS: 99212 ==

== ENCOUNTER 2024-04-17 07:14 | Outpatient (REF) | payer OTHER, SELFPAY ==
[2024-04-17 08:19] LABS: Appearance Urine Clear; Color Urine Yellow; Glucose Urine UA Negative (Negative); Leukocyte Esterase Urine Trace (Negative); Nitrite Urine Negative (Negative); PH 5.5 (5.0-9.0); Specific Gravity - Urine 1.015 (1.005-1.025); UMIC TRIGGER UA YES; Urine Blood Negative (Negative); Urine Ketones Negative (Negative); Urine Protein Negative (Neg-Trace)
[2024-04-17 08:23] LABS: Bacteria Urine None Seen (None Seen); Hyaline Casts Urine 0-2 /LPF (0-2); RBC Urine 0-2 /HPF (0-2); WBC Urine 0-5 /HPF (0-5)
[2024-04-17 08:24] LABS: Anion Gap 11 (12-20); Blood Urea Nitrogen 22 mg/dL (9-16); Carbon Dioxide 26 mmol/L (22-29); Chloride 107 mmol/L (96-108); Estimated Glomerular Filt Rate > 60; Potassium 3.7 mmol/L (3.3-5.1); Sodium 140 mmol/L (135-145)
== END 2024-04-17 07:15 | disposition home or self-care (01) ==
LOC: HO.LAB 07:14
PROVIDERS: Internal Medicine Hypertension Specialist; PCP Internal Medicine; Visit Provider Internal Medicine
DX: N18.30 Chronic kidney disease, stage 3 unspecified (principal)
CPT/HCPCS: 36415; 80051; 81001; 82310; 82565; 84520

== ENCOUNTER 2024-04-20 13:44 | Outpatient (AMB) | payer OTHER, SELFPAY ==
[2024-04-20 13:49] VITALS: BP 126/70; BMI 39.6
--- NOTE | 2024-04-20 13:49 | MHC.PC.OV ---
Vital Signs 04/20/24 13:49 Height 5 ft 9 in Weight 268 lb BMI 39.6 BP 126/70 Blood Pressure Location Lt brachial Position Sitting Intake Visit Reasons: 4 month follow up Intake Note: Patient here for a 4 month follow up Physical Security Specialist Required: Yes Physical Security Specialist Language: Electrician'S Assistant Name: Deedee Watts MD Information Interpreted: non-clinical & clinical Accompanied by: Self / Same As Patient Allergies shrimp Allergy (Mild, Verified 04/20/24 14:06) Swelling Medication List - Last Reconciled 04/20/24 by Deedee Watts MD acetaminophen ER (Mapap Arthritis Pain) 1,300 mg (2 x 650 mg) PO Q8H PRN 30 days albuterol sulfate 2.5 mg (3 mL) inhalation Q4-6H PRN 30 days albuterol sulfate 90 mcg/actuation 2 puffs PO Q4H PRN 30 days amitriptyline 150 mg PO BEDTIME atorvastatin 80 mg PO BEDTIME 90 days blood sugar diagnostic (FreeStyle Lite Strips) 1 strip miscellaneous BID 30 days blood-glucose meter (FreeStyle Lite Meter kit) As directed blood-glucose meter,continuous (Dexcom G7 Disease Intervention Specialist) Use daily As directed to monitor blood sugars blood-glucose sensor (Dexcom G7 Sensor device) As directed change every 10 days tuajwbttpy-mkezolnxwtvcs-wcrd 50-325-40 mg 1 tab PO Q8H PRN chlorthalidone 25 mg PO DAILY 90 days cholecalciferol (vitamin D3) 25 mcg PO DAILY 90 days clonidine HCl 0.2 mg PO BEDTIME 90 days cyclobenzaprine 10 mg PO Q8H PRN 30 days docusate sodium 100 mg PO BID empagliflozin (Jardiance) 25 mg PO DAILY 90 days fenofibrate nanocrystallized 145 mg PO DAILY 90 days fluticasone propion-salmeterol 250-50 mcg/dose (Wixela Inhub) 1 ea PO Q12H gabapentin 100 mg PO TID 30 days glucose (Dex4 Glucose) 16 grams (4 x 4 gram) PO Q15M PRN hydrocortisone 2.5% 1 appl topical BID PRN 14 days insulin glargine (Lantus Solostar U-100 Insulin) 10 units (0.1 mL) subcut QPM 30 days lancets As directed tests 3 X/day lisinopril 40 mg PO DAILY lorazepam 1 mg PO BID PRN meloxicam 15 mg PO DAILY PRN menthol-zinc oxide 0.44-20.6 % (Calmoseptine) 1 appl topical QID PRN metformin ER 1,000 mg (2 x 500 mg) PO BID 90 days montelukast 10 mg PO BEDTIME pen needle, diabetic (BD Jennifer 2nd Gen Pen Needle) once a day pen needle, diabetic (Comfort EZ Pen Lovell) As directed injects once a day phenylephrine HCl 0.25% (Preparation H (pe)) 1 supp NM QID PRN pioglitazone 30 mg PO DAILY semaglutide (Ozempic) 2 mg (0.75 mL) subcut QWEEK 30 days sodium,potassium,mag sulfates 17.5-3.13-1.6 gram (Suprep Bowel Prep Kit) DILUTE; drink full amount early evening before AND next morning at least 2 hr before procedure; follow w 960 mL water PO sumatriptan succinate (Imitrex) 100 mg PO DIRECTED tamsulosin (Flomax) 0.4 mg PO BEDTIME 90 days topiramate 100 mg PO BID Ventolin HFA 90 mcg/actuation (albuterol sulfate) 2 puffs inhalation Q6H PRN 30 days NS zolpidem (Ambien) 10 mg PO BEDTIME PRN Tobacco use date assessed: 04/20/24 Dental Screening Dental Screen Date: 04/20/24 Did you have a dental visit in the last 12 months?: No Did you have a dental problem in the last 6 months where you did not have access to dental care?: No Was dental information given to patient?: Patient has dentist HPI HPI Comments History of Present Illness Details The patient is a 59-year-old male presenting with a history of Type 2 Diabetes Mellitus, hypertension, and hypercholesterolemia. The patient's diabetes is well-managed with a recent Hemoglobin A1c of 6%. The patient's blood pressure was 126/70 mmHg during the visit. Additionally, the patient has a history of migraine headaches, which are treated with sumatriptan and Topiramate (Topamax). The patient denies any chest pain or dyspnea. He also has constipation and needs a refill in docusate. Blood pressure stable with medications. Diabetes is complicated by polyneuropathy which has been stable with gabapentin. Also moderate recurrent major depression, anxiety and insomnia are follow by Psychiatry. [facility] Medical History (Updated 04/20/24 @ 14:41 by Deedee Watts MD) Morbid obesity CKD (chronic kidney disease) stage 3, GFR 30-59 ml/min Hemorrhoids with complication Family history of prostate cancer Osteoarthritis of left knee Moderate recurrent major depression Pruritus ani Internal and external hemorrhoids without complication Asthma DANIEL on CPAP Anemia Back pain Gross hematuria UTI (urinary tract infection) Prostate enlargement Diabetic polyneuropathy associated with type 2 diabetes mellitus Vitamin D deficiency Diabetes type 2, controlled Family history of anesthesia complication Hx of low back pain Hx of insomnia Hx of migraines Anxiety Depression Colon cancer screening Bleeding hemorrhoids Morbid obesity Hyperlipidemia Hypertension Hypernatremia Bloody stools Diabetes mellitus, type 2 Hiatal hernia Surgical History History of colonoscopy (~11/01/23) Hx of colonoscopy History of knee surgery History of carpal tunnel release H/O hernia repair History of umbilical hernia repair Family History Maternal Uncle History of prostate cancer Father History of throat cancer Myocardial infarction Diabetes mellitus Hypertension CVD (cardiovascular disease) Maternal Grandfather History of throat cancer Son In good health Son In good health Brother Colon cancer Mother Diabetes mellitus Social History Household Members: Spouse and Children Housing: House Are you a primary healthcare marketer to a significant other at home: No Do you presently have visiting nurse or other home services: Yes (once a week ) Alcohol intake: former Patient Tobacco Use Status: Never used Tobacco Tobacco use type: Cigarette Cigarettes Per Day: 1 e-Cigarette/Vaping Use: Never Used Second Hand Smoke Exposure: No service: No Current occupational status: disabled Cognitive needs: No Hearing needs: No Vision needs: Yes Questionnaire PHQ-9 Over the last 2 weeks, how often have you been bothered by any of the following problems? 1. Little interest or pleasure in doing things: several days 2. Feeling down, depressed, or hopeless: several days 3. Trouble falling or staying asleep, or sleeping too much: several days 4. Feeling tired or having little energy: several days 5. Poor appetite or overeating: not at all 6. Feeling bad about yourself - or that you are a failure or have let yourself or your family down: not at all 7. Trouble concentrating on things, such as reading the newspaper or watching television: not at all 8. Moving or speaking so slowly that other people could have noticed. Or the opposite - being so fidgety or restless that you have been moving around a lot more than usual: not at all 9. Thoughts that you would be better off or of hurting yourself in some way: not at all Total score: 4 Depression Screening Interpretation: Positive Depression Screening Follow-up: Existing condition, In treatment, Community Mental Health Worker F/U and Follow-up Visit Requested Depression Screening Done: Yes 11324 - PHQ-9 Billing: Yes Source: Developed by Drs. Musa Armando, Jagruti Vu, Leo Dutton and colleagues, with an educational lyla from [employer]. Thrive Questionnaire Date Thrive assessed: 04/20/24 I am a: Patient What is your living situation today?: I have a steady place to live Within the past 12 months, did the food you bought not last and you didn't have the money to get more?: Never true Within the past 12 months, did you worry whether your food would run out before you got money to buy more?: Never true Do you have trouble paying for medicines?: No Do you have trouble getting transportation to medical appointments?: No Do you have trouble paying your heating and electricity bill?: No Do you have trouble taking care of your child, family member or friend?: No Do you have trouble with day-to-day activities such as bathing, preparing meals, shopping, managing finances, etc.?: No Are you currently unemployed and looking for a job?: No Are you interested in more education?: No Please select the resources that you would like help with: None Currently or been in a relationship where the following occur: No concerns reported THRIVE Score: 0 AUDIT C Alcohol Use Questionnaire (AUDIT-C) 1. How often do you have a drink containing alcohol?: Never Total Score: 0 MAGGY-7 AMB Questionnaire MAGGY-7 Date MAGGY - 7 assessed: 04/20/24 Feeling nervous, anxious, or on edge: 1 = Several days Not being able to stop or control worryin = Not at all Worrying too much about different things: 1 = Several days Trouble relaxin = Several days Being so restless that it is hard to sit still: 0 = Not at all Becoming easily annoyed or irritable: 0 = Not at all Feeling afraid as if something awful might happen: 0 = Not at all Total MAGGY-7 score (0-4 normal; 5-9 mild; 10-14 moderate; 15-21 severe): 3 Source: Developed by Drs. Musa Armando, Jagruti Vu, Leo Dutton and colleagues, with an educational lyla from [employer]. MAGGY-7 Assessment Billing MAGGY-7 Assessment Tool: MAGGY-7 Assessment 95230 Review of Systems Const All systems reviewed & are unremarkable except as noted in HPI and below Card Denies chest pain at rest, Denies chest pain with activity, Denies edema, Denies irregular heart rhythm, Denies claudication, Denies dyspnea, Denies dyspnea on exertion, Denies orthopnea, Denies paroxysmal nocturnal dyspnea and Denies slow heart rate Resp Denies cough, Denies dyspnea and Denies dyspnea on exertion GI Denies abdominal pain, Denies change in bowel habits, Denies excessive flatus, Denies nausea and Denies vomiting Physical exam (Primary Care) Vital Signs: Last Vital Signs BP 126/70 04/20/24 13:49 BMI result Body Mass Index 39.6 BMI Assessment/Plan discussion: High BMI High, discussed plan: lifestyle, weight reduction, dietary and physical activity Tobacco/Smoking Status: Tobacco use Status Tobacco use date assessed 04/20/24 04/20/24 13:55 Patient Tobacco Use Status Never used Tobacco 04/20/24 13:55 Tobacco use type Cigarette 04/20/24 13:55 e-Cigarette/Vaping Use Never Used 04/20/24 13:55 PHQ-9: PHQ-9 Score PHQ-9: Total score 4 04/20/24 14:10 Depression Screening Interpretation: Positive Depression Screening Follow-up: Existing condition, In treatment, Community Mental Health Worker F/U and Follow-up Visit Requested Thrive Assessment: Date of Thrive Assessment Date Thrive assessed 04/20/24 04/20/24 13:55 Currently or been in a relationship where the following occur: No concerns reported Resp Effort & Inspection: normal respiratory effort Auscultation: clear to auscultation bilaterally Cardio Jugular venous distension: no JVD Rate: regular rate Rhythm: regular rhythm Heart sounds: S1 normal heart sound present and S2 normal heart sound present Extrem General: Yes full ROM Coding Level of Care Code Est Pt Level 4 (72229) Complex EM visit Add On G2211 Diagnoses Essential hypertension I10 Hyperlipidemia LDL goal <70 E78.5 Insulin dependent type 2 diabetes mellitus E11.9; Z79.4 Moderate recurrent major depression F33.1 Diabetic polyneuropathy associated with type 2 diabetes mellitus E11.42 Additional Codes MAGGY-7 Assessment Billing - MAGGY-7 Assessment Tool: MAGGY-7 Assessment 15244 ([id number]) PHQ-9 - 89394 - PHQ-9 Billing: Yes ([id number]) Time Spent (min) 23 Assessment & Plan Assessment & Plan (1) Essential hypertension: Code(s): I10 - Essential (primary) hypertension Category: Medical (2) Hyperlipidemia LDL goal <70: Code(s): E78.5 - Hyperlipidemia, unspecified Category: Medical (3) Insulin dependent type 2 diabetes mellitus: Code(s): E11.9 - Type 2 diabetes mellitus without complications; Z79.4 - terminal operations manager (current) use of insulin Category: Medical (4) Moderate recurrent major depression: Code(s): F33.1 - Major depressive disorder, recurrent, moderate Category: Medical (5) Diabetic polyneuropathy associated with type 2 diabetes mellitus: Code(s): E11.42 - Type 2 diabetes mellitus with diabetic polyneuropathy Category: Medical Plan - Recommend scheduling laboratory tests and an electrocardiogram in preparation for upcoming cataract surgery. - Continue current management of diabetes, hypertension, and hypercholesterolemia. - Prescribe ongoing use of sumatriptan and Topiramate for migraine management. - Avoidance of shrimp due to known allergy. Patient was informed and verbally consented to the use of an ambient scribe for clinic note documentation during this visit. During the visit, I discussed the patient's current management of Type 2 Diabetes Mellitus, hypertension, and hypercholesterolemia, which are well-controlled. The patient understands the importance of continuing these regimens. We also reviewed the necessity of preoperative testing, including laboratory work and an electrocardiogram, to ensure readiness for the scheduled cataract surgery. The patient expressed understanding and agreement. The risks of not completing this testing were discussed, including potential complications during surgery. The management of his migraines with sumatriptan and Topamax was also confirmed as effective, and he was advised to avoid Camarone due to the allergy. Further follow-up will be scheduled as needed after surgical procedures or as indicated by routine management. Orders: Orders ECG 12 lead EKG Today Z01.818 - Encounter for other preprocedural examination Lipid Panel Today E78.5 - Hyperlipidemia, unspecified Microalbumin, Random (w Creat) Today R80.9 - Proteinuria, unspecified Vitamin D 25-OH Total Today E55.9 - Vitamin D deficiency, unspecified Comprehensive [place]. Panel Fast Today Z01.818 - Encounter for other preprocedural examination Medications: Refilled docusate sodium 100 mg PO BID 180 caps 1RF Patient Instructions: - Schedule and complete preoperative laboratory tests and an EKG as instructed. - Continue taking all prescribed medications as directed. - Do not consume shrimp or products containing shrimp. - Report any new symptoms such as chest pain or shortness of breath immediately. - Follow up with your next scheduled appointment and after cataract surgery.
== END 2024-04-20 14:14 | disposition home or self-care (01) ==
PROVIDERS: PCP Internal Medicine; Visit Provider Internal Medicine
DX: I10 Essential (primary) hypertension (principal); E78.5 Hyperlipidemia, unspecified; E11.42 Type 2 diabetes mellitus with diabetic polyneuropathy; Z79.4 Long term (current) use of insulin; F33.1 Major depressive disorder, recurrent, moderate

== ENCOUNTER → 2024-04-20 13:44 | Outpatient (REF) | payer OTHER, SELFPAY ==
--- NOTE | 2024-04-21 10:15 | ECG_ITS ---
Test Reason : pre op Blood Pressure : */* mmHG Vent. Rate : 72 BPM Atrial Rate : 72 BPM P-R Int : 194 ms QRS Dur : 74 ms QT Int : 378 ms P-R-T Axes : -5 50 48 degrees QTcB Int : 413 ms Normal sinus rhythm Normal ECG When compared with ECG of 24-Jun-2022 11:31, No significant change was found Referred By: Deedee Watts Electronically Signed By: LEANN VILLARREAL MD
--- OUTSIDE RECORDS SUMMARY | 2024-04-21 11:26 | XMS_ITS | Clinical Summary ---
Author Organization [facility] Facility Address [address] [address] Care Team Providers Care Spar Finisher Name Role Phone Deedee Bruce MD Primary Care Provider Allergies No known active allergies Medications albuterol HFA (PROVENTIL HFA;VENTOLIN HFA) 108 (90 Base) MCG/ACT inhaler 2 PUFF INHALED EVERY 6 HOURS NEEDED FOR SHORTNESS OF BREATH OR WHEEZING FOR 30 DAYS 3 Active amitriptyline (ELAVIL) 150 MG tablet Take 150 mg by mouth at bed time 3 Active atorvastatin (LIPITOR) 80 MG tablet Take 80 mg by mouth at bed time 3 Active cholecalcifero l (VITAMIN D-3) 50 MCG (2000 UT) capsule Take by mouth 1 (one) time each day 3 Active cloNIDine (CATAPRES) 0.2 MG tablet TAKE 1 TABLET BY MOUTH AT BEDTIME HOLD FOR SEDATION/DIZZINESS AGUANTA EN RODNEY DE SEDACION/MAREO 3 Active cyclobenzaprin e (FLEXERIL) 10 MG tablet TAKE 1 TABLET BY MOUTH EVERY DAY EVERY 8 HOURS 3 Active fenofibrate (TRICOR) 145 MG tablet TAKE 1 TABLET ORALLY DAILY FOR 90 DAYS 3 Active Wixela Inhub 250-50 MCG/ACT aerosol powder INHALE 1 PUFF BY MOUTH EVERY 12 HOURS 3 Active FREESTYLE LITE test strip USE TO TEST TWICE DAILY 3 Active hydroCHLOROthi azide 25 MG tablet Take 25 mg by mouth 1 (one) time each day 3 Active hydrocortisone 2.5 % cream APPLY TOPICALLY 2 TIMES A DAY NEEDED FOR SKIN IRRITATION FOR 14 DAYS 3 Active Lancets (freestyle) lancets USE DIRECTED 3 Active lisinopril 40 MG tablet Take 40 mg by mouth 1 (one) time each day 3 Active meloxicam (MOBIC) 15 MG tablet Take 15 mg by mouth 1 (one) time each day if needed 3 Active metFORMIN XR (GLUCOPHAGE-XR ) 500 MG 24 hr tablet Take 1,000 mg by mouth in the morning and 1,000 mg in the evening. 3 Active montelukast (SINGULAIR) 10 MG tablet Take 10 mg by mouth at bed time 3 Active OXcarbazepine (TRILEPTAL) 600 MG tablet PLEASE SEE ATTACHED FOR DETAILED DIRECTIONS 3 Active pioglitazone (ACTOS) 45 MG tablet TAKE 1 TABLET ORALLY DAILY FOR 90 DAYS 3 Active Ozempic, 1 MG/DOSE, 4 MG/3ML solution pen-injector TAKE 1 MG (0.75 ML) SUBCUTANEOUSLY EVERY WEEK FOR 90 DAYS 3 Active SUMAtriptan (IMITREX) 100 MG tablet TAKE 1 TABLET BY MOUTH EVERY 4 HOURS UP TO 2 TIMES A DAY NEEDED 3 Active tamsulosin (FLOMAX) 0.4 MG 24 hr capsule Take 0.4 mg by mouth every night 3 Active topiramate (TOPAMAX) 100 MG tablet Take 100 mg by mouth 3 Active Active Problems Problem Noted Date Diagnosed Date Essential hypertension 07/30/2022 Type 2 diabetes mellitus 07/30/2022 Vitamin D deficiency 07/30/2022 Immunizations Name Administration Dates Next Due Influenza TIV (IM) 05/05/2015 Tdap 05/05/2015 Family History Medical History Relation Comments Diabetes Father Hypertension Father Diabetes Mother Hypertension Mother Stroke Mother Cancer Sibling colon-brother Relation Status Comments Father Mother Sibling Social History Tobacco Use Types Packs/Day Years Used Date Smoking Tobacco: Former Cigarettes Comments:Smoking History Inf o:Every day Alcohol Use Standard Drinks/Week Comments No 0 (1 standard drink = 0.6 oz pur e alcohol) Sex and Gender Information Value Date Recorded Sex Assigned at Not on file Legal Sex Male 4:44 PM EST Gender Identity Not on file Sexual Orientation Not on file Last Filed Vital Signs Vital Sign Reading Time Taken Comments Blood Pressure 133/60 12/21/2022 8:41 AM EDT Pulse 88 12/21/2022 8:41 AM EDT Temperature - - Respiratory Rate - - Oxygen Saturation 99% 12/21/2022 8:41 AM EDT Inhaled Oxygen Concentration - - Weight 137 kg (302 lb 3.2 oz) 12/21/2022 8:41 AM EDT Height 175.3 cm (5' 9 ) 09/10/2022 3:41 PM EDT Body Mass Index 44.63 09/10/2022 3:41 PM EDT Plan of Treatment Health Maintenance Due Date Last Done Comments Pneumococcal Vaccine: Pediat rics (0 to 5 Years) and At-Risk Patients (6 to 64 Years) (1 of 2 - PCV) 1971 Hepatitis B Vaccine (1 of 3 - 19+ 3-dose series) 01/05 Colorectal Cancer Screening: Annual FOBT 2014 Colorectal Cancer Screening: Colonoscopy 2014 Colorectal Cancer Screening: Sigmoidoscopy 2014 Diabetes: Hemoglobin A1C 05/01/2020 Diabetes: Ophthalmology Exam 05/01/2020 Diabetes: Pedal Pulse Checked 05/01/2020 Diabetes: Sensory Foot Exam 05/01/2020 Diabetes: Visual Foot Exam 05/01/2020 Influenza Vaccine (#1) 2023 05/05/2015 Insurance [facility] ([id number]) [facility] ([id number]) [place] [id number] Care Teams Spar Finisher Relationship Specialty Start Date End Date Deedee Bruce MD [address] [place] [address] PCP - General Internal Medicine 04/18/22
== END ==
LOC: HO.CARD 13:44
PROVIDERS: PCP Internal Medicine; Visit Provider Internal Medicine
DX: Z01.818 Encounter for other preprocedural examination (principal); I10 Essential (primary) hypertension; E78.5 Hyperlipidemia, unspecified; E11.42 Type 2 diabetes mellitus with diabetic polyneuropathy; Z79.4 Long term (current) use of insulin
CPT/HCPCS: 93005; 96127; 99212

== ENCOUNTER → 2024-04-21 10:15 | Outpatient (BNV) | payer OTHER, SELFPAY | PROVIDERS: PCP Internal Medicine; Visit Provider Internal Medicine Cardiovascular Disease | DX: Z01.818 Encounter for other preprocedural examination (principal) | CPT/HCPCS: 93010 ==

== ENCOUNTER 2024-05-04 06:47 | Outpatient (REF) | payer OTHER, SELFPAY ==
[2024-05-04 08:30] LABS: Creatinine Urine 183.25 mg/dL; Microalbum/Creatinine Ratio Ur 9.8 ug/mg cr (<30)
[2024-05-04 08:51] LABS: Alanine Aminotransferase 33 U/L (0-40); Albumin Level 4.2 g/dL (3.5-5.0); Alkaline Phosphatase 56 U/L (39-117); Anion Gap 12 (12-20); Aspartate Amino Transferase 27 U/L (5-37); Bilirubin Total 0.4 mg/dL (0.0-1.0); Blood Urea Nitrogen 21 mg/dL (9-16); Calcium 9.8 mg/dL (8.4-10.2); Carbon Dioxide 24 mmol/L (22-29); Chloride 108 mmol/L (96-108); Cholesterol 107 mg/dL (<200); Estimated Glomerular Filt Rate > 60; Glucose Fasting 104 mg/dL (60-99); HDL Cholesterol 34 mg/dL (>40); LDL Cholesterol Calculated 62 mg/dL (<100); Potassium 3.5 mmol/L (3.3-5.1); Sodium 140 mmol/L (135-145); Total Protein 7.2 g/dL (6.5-8.0); Triglycerides 58 mg/dL (<150)
[2024-05-04 08:59] LABS: Estimated Average Glucose 128 mg/dL; Hemoglobin A1C 157.8046 umol/L; Hemoglobin A1c % 6.1 % (<6.0); Total Hemoglobin (HGBA1C) 3701.5994 umol/L
[2024-05-04 09:13] LABS: Vitamin D 25-OH Total 32.9 ng/mL (>30)
== END 2024-05-04 06:48 | disposition home or self-care (01) ==
LOC: HO.LAB 06:47
PROVIDERS: Absent Provider Physician Assistant; PCP Internal Medicine; Visit Provider Internal Medicine
DX: E55.9 Vitamin D deficiency, unspecified (principal); E78.5 Hyperlipidemia, unspecified; Z79.4 Long term (current) use of insulin; E11.9 Type 2 diabetes mellitus without complications
CPT/HCPCS: 36415; 80053; 80061; 82043; 82306; 82570; 83036

== ENCOUNTER 2024-06-17 12:07 | Outpatient (AMB) | payer OTHER, SELFPAY ==
[2024-06-17 12:45] VITALS: BP 126/80; BMI 39.0
--- NOTE | 2024-06-17 12:45 | MHC.PC.OV ---
Vital Signs 06/17/24 12:45 Height 5 ft 9 in Weight 264 lb BMI 39.0 BP 126/80 Blood Pressure Location Lt brachial Position Sitting Intake Visit Reasons: [place] lt 12/2024 & rt 06/29/2024 Marketing Campaign Analyst Required: Yes Marketing Campaign Analyst Language: Law Examiner Name: Deedee Watts MD Information Interpreted: non-clinical & clinical Accompanied by: Self / Same As Patient Allergies shrimp Allergy (Mild, Verified 06/17/24 12:52) Swelling Medication List - Last Reconciled 06/17/24 by Deedee Watts MD acetaminophen ER (Mapap Arthritis Pain) 1,300 mg (2 x 650 mg) PO Q8H PRN 30 days albuterol sulfate 2.5 mg (3 mL) inhalation Q4-6H PRN 30 days albuterol sulfate 90 mcg/actuation 2 puffs PO Q4H PRN 30 days amitriptyline 150 mg PO BEDTIME atorvastatin 80 mg PO BEDTIME 90 days blood sugar diagnostic (FreeStyle Lite Strips) 1 strip miscellaneous BID 30 days blood-glucose meter (FreeStyle Lite Meter kit) As directed blood-glucose meter,continuous (Dexcom G7 Chief Wellness Officer) Use daily As directed to monitor blood sugars blood-glucose sensor (Dexcom G7 Sensor device) As directed change every 10 days riuidrnyku-hjxypwxkfebmy-kdmd 50-325-40 mg 1 tab PO Q8H PRN chlorthalidone 25 mg PO DAILY 90 days cholecalciferol (vitamin D3) 25 mcg PO DAILY 90 days clonidine HCl 0.2 mg PO BEDTIME 90 days cyclobenzaprine 10 mg PO Q8H PRN 30 days docusate sodium 100 mg PO BID empagliflozin (Jardiance) 25 mg PO DAILY 90 days fenofibrate nanocrystallized 145 mg PO DAILY 90 days fluticasone propion-salmeterol 250-50 mcg/dose (Wixela Inhub) 1 ea PO Q12H gabapentin 100 mg PO TID 30 days glucose (Dex4 Glucose) 16 grams (4 x 4 gram) PO Q15M PRN hydrocortisone 2.5% 1 appl topical BID PRN 14 days insulin glargine (Lantus Solostar U-100 Insulin) 10 units (0.1 mL) subcut QPM 30 days lancets As directed tests 3 X/day lisinopril 40 mg PO DAILY lorazepam 1 mg PO BID PRN meloxicam 15 mg PO DAILY PRN menthol-zinc oxide 0.44-20.6 % (Calmoseptine) 1 appl topical QID PRN metformin ER 1,000 mg (2 x 500 mg) PO BID 90 days montelukast 10 mg PO BEDTIME pen needle, diabetic (BD Jennifer 2nd Gen Pen Needle) once a day pen needle, diabetic (Comfort EZ Pen [place]) As directed injects once a day phenylephrine HCl 0.25% (Preparation H (pe)) 1 supp CO QID PRN pioglitazone 30 mg PO DAILY semaglutide (Ozempic) 2 mg (0.75 mL) subcut QWEEK 30 days sodium,potassium,mag sulfates 17.5-3.13-1.6 gram (Suprep Bowel Prep Kit) DILUTE; drink full amount early evening before AND next morning at least 2 hr before procedure; follow w 960 mL water PO sumatriptan succinate (Imitrex) 100 mg PO DIRECTED tamsulosin (Flomax) 0.4 mg PO BEDTIME 90 days topiramate 100 mg PO BID Ventolin HFA 90 mcg/actuation (albuterol sulfate) 2 puffs inhalation Q6H PRN 30 days NS zolpidem (Ambien) 10 mg PO BEDTIME PRN Tobacco use date assessed: 04/20/24 Dental Screening Dental Screen Date: 04/20/24 HPI HPI Comments History of Present Illness Details The patient is a 59-year-old male presenting for follow-up on his chronic conditions.. He reports engaging in routine morning exercise and maintaining a focus on weight management. His diabetes management is noted as effective, reporting a Hemoglobin A1c of 6.1%. He also has hypertension well controlled and hyperlipidemia with an LDL within goal. Cardiovascular wellness is being attained with noted control of hyperlipidemia and blood pressure. The patient maintains ongoing psychiatric care for anxiety, insomnia, and depression. His allergies to shrimp, alongside his current medication regimen, were discussed in alignment with his medical history. [facility] Medical History (Updated 06/17/24 @ 13:17 by Deedee Watts MD) Morbid obesity CKD (chronic kidney disease) stage 3, GFR 30-59 ml/min Hemorrhoids with complication Family history of prostate cancer Osteoarthritis of left knee Moderate recurrent major depression Pruritus ani Internal and external hemorrhoids without complication Asthma DANIEL on CPAP Anemia Back pain Gross hematuria UTI (urinary tract infection) Prostate enlargement Diabetic polyneuropathy associated with type 2 diabetes mellitus Vitamin D deficiency Diabetes type 2, controlled Family history of anesthesia complication Hx of low back pain Hx of insomnia Hx of migraines Anxiety Depression Colon cancer screening Bleeding hemorrhoids Morbid obesity Hyperlipidemia Hypertension Hypernatremia Bloody stools Diabetes mellitus, type 2 Hiatal hernia Surgical History History of colonoscopy (~11/01/23) Hx of colonoscopy History of knee surgery History of carpal tunnel release H/O hernia repair History of umbilical hernia repair Family History Maternal Uncle History of prostate cancer Father History of throat cancer Myocardial infarction Diabetes mellitus Hypertension CVD (cardiovascular disease) Maternal Grandfather History of throat cancer Son In good health Son In good health Brother Colon cancer Mother Diabetes mellitus Social History Household Members: Spouse and Children Housing: House Are you a primary child caregiver private home to a significant other at home: No Do you presently have visiting nurse or other home services: Yes (once a week ) Alcohol intake: former Patient Tobacco Use Status: Never used Tobacco Tobacco use type: Cigarette Cigarettes Per Day: 1 e-Cigarette/Vaping Use: Never Used Second Hand Smoke Exposure: No service: No Current occupational status: disabled Cognitive needs: No Hearing needs: No Vision needs: Yes Questionnaire Thrive Questionnaire Date Thrive assessed: 04/20/24 MAGGY-7 AMB Questionnaire MAGGY-7 Date MAGGY - 7 assessed: 04/20/24 Source: Developed by Drs. Musa Armando, Jagruti Vu, Leo Dutton and colleagues, with an educational lyla from [employer]. Review of Systems Const All systems reviewed & are unremarkable except as noted in HPI and below Card Denies chest pain at rest, Denies chest pain with activity, Denies edema, Denies irregular heart rhythm, Denies claudication, Denies dyspnea, Denies dyspnea on exertion, Denies orthopnea, Denies paroxysmal nocturnal dyspnea and Denies slow heart rate Resp Denies cough, Denies dyspnea and Denies dyspnea on exertion GI Denies abdominal pain, Denies change in bowel habits, Denies excessive flatus, Denies nausea and Denies vomiting Neuro Denies behavioral changes and Denies lack of coordination Psych Denies behavioral changes Endo Denies cold intolerance Physical exam (Primary Care) Vital Signs: Last Vital Signs BP 126/80 06/17/24 12:45 BMI result Body Mass Index 39.0 BMI Assessment/Plan discussion: High BMI High, discussed plan: lifestyle, weight reduction, dietary and physical activity Tobacco/Smoking Status: Tobacco use Status Tobacco use date assessed 04/20/24 06/17/24 12:48 Patient Tobacco Use Status Never used Tobacco 06/17/24 12:48 Tobacco use type Cigarette 06/17/24 12:48 e-Cigarette/Vaping Use Never Used 06/17/24 12:48 Thrive Assessment: Date of Thrive Assessment Date Thrive assessed 04/20/24 06/17/24 12:48 Resp Effort & Inspection: normal respiratory effort Auscultation: clear to auscultation bilaterally Cardio Jugular venous distension: no JVD Rate: regular rate Rhythm: regular rhythm Heart sounds: S1 normal heart sound present and S2 normal heart sound present Extrem General: Yes full ROM Coding Level of Care Code Est Pt Level 4 (28093) Complex EM visit Add On G2211 Diagnoses Insulin dependent type 2 diabetes mellitus E11.9; Z79.4 Essential hypertension I10 Hyperlipidemia LDL goal <70 E78.5 Moderate recurrent major depression F33.1 MAGGY (generalized anxiety disorder) F41.1 Time Spent (min) 22 Assessment & Plan Assessment & Plan (1) Insulin dependent type 2 diabetes mellitus: Code(s): E11.9 - Type 2 diabetes mellitus without complications; Z79.4 - prison (current) use of insulin Category: Medical (2) Essential hypertension: Code(s): I10 - Essential (primary) hypertension Category: Medical (3) Hyperlipidemia LDL goal <70: Code(s): E78.5 - Hyperlipidemia, unspecified Category: Medical (4) Moderate recurrent major depression: Code(s): F33.1 - Major depressive disorder, recurrent, moderate Category: Medical (5) MAGGY (generalized anxiety disorder): Code(s): F41.1 - Generalized anxiety disorder Category: Medical Plan We managed diabetes successfully with ongoing medication. Lipid and blood pressure control improved with lifestyle adjustments. Psychiatric symptoms are managed with existing therapy. The allergy to shrimp resulted in additional dietary precautions. Patient was informed and verbally consented to the use of an ambient scribe for clinic note documentation during this visit. Comprehensive discussion of diabetes and hypertension reaffirmed the importance of lifestyle adherence and medication consistency. We addressed psychiatric care continuation. The patient's shrimp allergy prompted dietary review. Adequate preventative measures have been advised. Detailed blood work and a careful schedule for the next review were agreed upon. Orders: Orders Lipid Panel 4 Months E78.5 - Hyperlipidemia, unspecified Microalbumin, Random (w Creat) 4 Months R80.9 - Proteinuria, unspecified Comprehensive [place]. 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 - Adhere strictly to prescribed diabetes and hypertension medication. - Observe dietary restrictions regarding shrimp allergy. - Schedule follow-up lab tests and consultations as planned. - Monitor blood sugar regularly and dietary adjustments. - Follow up with psychiatrist and continue prescribed mental health medications. - Maintain weight reduction efforts and healthy diet.
--- OUTSIDE RECORDS SUMMARY | 2024-06-17 14:44 | XMS_ITS | Clinical Summary ---
Author Organization [facility] Facility Address [address] [address] Care Team Providers Care Title Department Manager Name Role Phone Deedee Bruce MD Primary Care Provider [phone] Allergies No known active allergies Medications albuterol [...] 05/01/2020 Influenza Vaccine (#1) 2023 05/05/2015 Insurance [facility] ([id number]) [facility] ([id number]) [place] [id number] Care Teams Title Department Manager Relationship Specialty Start Date End Date Deedee Bruce MD [address] [place] [address] PCP - General Internal Medicine 04/18/22
== END 2024-06-17 13:10 | disposition home or self-care (01) ==
LOC: HO.HMCH 12:08
PROVIDERS: PCP Internal Medicine; Visit Provider Internal Medicine
DX: E11.69 Type 2 diabetes mellitus with other specified complication (principal); Z79.4 Long term (current) use of insulin; F33.1 Major depressive disorder, recurrent, moderate; I10 Essential (primary) hypertension; E78.5 Hyperlipidemia, unspecified; F41.1 Generalized anxiety disorder

== ENCOUNTER → 2024-06-17 12:07 | Outpatient (BNVA) | payer OTHER, SELFPAY | PROVIDERS: PCP Internal Medicine; Visit Provider Internal Medicine | DX: E11.9 Type 2 diabetes mellitus without complications (principal); Z79.4 Long term (current) use of insulin; I10 Essential (primary) hypertension; E78.5 Hyperlipidemia, unspecified; F33.1 Major depressive disorder, recurrent, moderate; F41.1 Generalized anxiety disorder | CPT/HCPCS: 99212 ==

== ENCOUNTER 2024-06-25 13:05 | Outpatient (AMB) | payer OTHER, SELFPAY ==
[2024-06-25 13:51] VITALS: BMI 39.4
--- NOTE | 2024-06-25 13:51 | A.OFFVIS_ITS ---
VS Expanded 06/25/24 13:51 06/25/24 14:13 Height 5 ft 9 in 5 ft 9 in Weight 266 lb 12.149 oz 267 lb BMI 39.4 39.4 Intake Visit Reasons: T2DM Allergies shrimp Allergy (Mild, Verified 06/17/24 12:52) Swelling Nutrition Presentation Details: Pt presents for MNT f/u for T2DM, obesity Pt reports continuing to work on dietary modifications, reducing on total carb intake and choosing lean protein foods typical meal intake B: pieces of cheese and crackers, water L: sandw with tuna and vetables or scrambled eggs with spinach on whole wheat tortilla, water with lemon/[place] snack: fruits as snack (mandarine, grapes) or protein shake with blueberries Dinner: rice/beans chicken or chicken and salad, or root veg with fish /pepper/tomatoes working on variety physical activity : 1.5 hr (walking/stationary bike, house work) 4 times/wk fluids: 40-60 oz /water BS Monitoring Most Recent Diabetes Results: Microalb/Creat Ratio 9.8 ug/mg cr (<30) 05/04/24 Cholesterol 107 mg/dL (<200) 05/04/24 HDL Cholesterol 34 mg/dL (>40) L 05/04/24 Triglycerides 58 mg/dL (<150) 05/04/24 Creatinine 0.95 mg/dL (0.5-1.4) 05/04/24 Blood Urea Nitrogen 21 mg/dL (9-16) H 05/04/24 Sodium 140 mmol/L (135-145) 05/04/24 Potassium 3.5 mmol/L (3.3-5.1) 05/04/24 Chloride 108 mmol/L (96-108) 05/04/24 Carbon Dioxide 24 mmol/L (22-29) 05/04/24 Calcium 9.8 mg/dL (8.4-10.2) 05/04/24 AST 27 U/L (5-37) 05/04/24 ALT 33 U/L (0-40) 05/04/24 Total Protein 7.2 g/dL (6.5-8.0) 05/04/24 Albumin 4.2 g/dL (3.5-5.0) 05/04/24 IDW-Uctxxkg-Ic.Jeor Equation Height: 5 ft 9 in Weight: 267 lb Resting Metabolic Rate: 2019.98 Calculated Activity Level: Mild Activity Calories Needed to Maintain Weight: 2777.47 [facility] Medical History Morbid obesity CKD (chronic kidney disease) stage 3, GFR 30-59 ml/min Hemorrhoids with complication Family history of prostate cancer Osteoarthritis of left knee Moderate recurrent major depression Pruritus ani Internal and external hemorrhoids without complication Asthma DANIEL on CPAP Anemia Back pain Gross hematuria UTI (urinary tract infection) Prostate enlargement Diabetic polyneuropathy associated with type 2 diabetes mellitus Vitamin D deficiency Diabetes type 2, controlled Family history of anesthesia complication Hx of low back pain Hx of insomnia Hx of migraines Anxiety Depression Colon cancer screening Bleeding hemorrhoids Morbid obesity Hyperlipidemia Hypertension Hypernatremia Bloody stools Diabetes mellitus, type 2 Hiatal hernia Surgical History History of colonoscopy (~11/01/23) Hx of colonoscopy History of knee surgery History of carpal tunnel release H/O hernia repair History of umbilical hernia repair Family History Maternal Uncle History of prostate cancer Father History of throat cancer Myocardial infarction Diabetes mellitus Hypertension CVD (cardiovascular disease) Maternal Grandfather History of throat cancer Son In good health Son In good health Brother Colon cancer Mother Diabetes mellitus Social History Household Members: Spouse and Children Housing: House Are you a primary zoo caretaker to a significant other at home: No Do you presently have visiting nurse or other home services: Yes (once a week ) Alcohol intake: former Patient Tobacco Use Status: Never used Tobacco Tobacco use type: Cigarette Cigarettes Per Day: 1 e-Cigarette/Vaping Use: Never Used Second Hand Smoke Exposure: No service: No Current occupational status: disabled Cognitive needs: No Hearing needs: No Vision needs: Yes Assessment & Plan Assessment & Plan (1) Diabetes mellitus: Code(s): E11.9 - Type 2 diabetes mellitus without complications Category: Medical Qualifiers: Diabetes mellitus complication status: with hyperglycemia Diabetes mellitus nursing home insulin use: without nursing home use Diabetes mellitus type: type 2 Qualified Code(s): E11.65 - Type 2 diabetes mellitus with hyperglycemia Plan: Wt: 138 Kg (03/28/23 ), 136.8 kg (07/2023), 128 kg (01/22), 125 kg (02/22), 121 kg (06/13) Est kcal needs as per MSJ: 2700 -3000 (40% carb, 30% protein/fat) Est fluid needs as per 25-30 ml/d: 3450- 4140 ml/d Est prot per day as per 0.8- 1 g/kg bw: 136 g/ Recommend fiber intake : 8-10 g per day and gradually increase to 25-28 g per day for women and 35-38 g for men or as tolerated Recommend sodium intake per day : less than 2000 mg Educated patient on: ( R = reviewed V = verbalizes understanding N/R = needs review N/A = not applicable * Food sources of carbohydrate, adequate serving sizes and its role in various health conditions: R ,v * Differences between complex carbohydrates a simple carbohydrates, role of fiber in diet: R ,v * Lean protein sources of foods: R ,v * Differences between types of fats and role in diet (mono on saturated fat fatty acids, saturated fatty acids, trans fats): R,v * Food sources of sodium in salt and healthy modifications for heart health in kidney health: R * Vitamins and minerals: R * Healthy plate method concept: R ,v * Physical activity: Benefits a precaution: R ,v * Hypoglycemia protocol (rule of 15): R * Dietary prevention of Hyperglycemia: R Patient Instructions: Keep hydrated by having fluids with meals/snacks: 12 -15 cup/d (ok low sugar, milk, fruit/herb infused, low sodium soups Include fiber rich foods (avocado, tomatoes,peppers, salads, greens) in each of your meals. Consume calcium rich foods up to 1000 mg/day - see list Coding Level of Care Code Nutr Indiv Subseq (89959) Diagnoses Type 2 diabetes mellitus with hyperglycemia, without long-term current use of insulin E11.65 Diabetes mellitus complication status: with hyperglycemia Diabetes mellitus nursing home insulin use: without rn long term care use Diabetes mellitus type: type 2 Time Spent (min) 30
[2024-06-30 09:33] VITALS: BMI 39.4
== END 2024-06-25 14:18 | disposition home or self-care (01) ==
LOC: HO.ENCR 13:05
PROVIDERS: PCP Internal Medicine; Visit Provider Dietitian, Registered
DX: E11.65 Type 2 diabetes mellitus with hyperglycemia (principal)

== ENCOUNTER → 2024-06-25 13:05 | Outpatient (BNVA) | payer OTHER, SELFPAY | PROVIDERS: PCP Internal Medicine; Visit Provider Dietitian, Registered | DX: E11.65 Type 2 diabetes mellitus with hyperglycemia (principal); E66.9 Obesity, unspecified; Z71.3 Dietary counseling and surveillance; Z68.39 Body mass index [BMI] 39.0-39.9, adult | CPT/HCPCS: 97803 ==

== ENCOUNTER 2024-07-10 08:40 | Emergency (ER) | payer OTHER, SELFPAY ==
[2024-07-10 08:52] VITALS: BP 131/71; PULSE 74; RESP 18; TEMP 37; O2SAT 97; BMI 36.0
--- NOTE | 2024-07-10 09:35 | ED.SKABFB ---
HPI - Skin/Abscess/Foreign Bdy General Chief complaint: Skin/Abscess/Foreign Body Stated complaint: ear bud stuck in ear Time Seen by Provider: 07/10/24 09:19 Source: patient, RN notes reviewed and old records reviewed Mode of arrival: ambulatory Limitations: no limitations History of Present Illness HPI narrative: 59 y/o M with PMHx MAGGY, HTN, HLD, T2DM, asthma, DANIEL presenting to the ED c/o rubber top of ear bud stuck in R ear x [employer]. Reports had ear buds in this AM and felt the ear bud get stuck in R ear when attempting to remove them. Denies ear pain, drainage, tinnitus, hearing changes, trauma. Related Data Home Medications ?Medication ?Instructions ?Recorded ?Confirmed amitriptyline 150 mg tablet 150 mg PO BEDTIME 01/26/20 06/17/24 lorazepam 1 mg tablet 1 mg PO BID PRN Anxiety 01/26/20 06/17/24 topiramate 100 mg tablet 100 mg PO BID 01/26/20 06/17/24 sumatriptan succinate 100 mg 100 mg PO DIRECTED 04/12/20 06/17/24 tablet (Imitrex) uzghmqmxip-ywrbirpekhkdj-qpgvqdvo 1 tab PO Q8H PRN Pain 09/23/20 06/17/24 50 mg-325 mg-40 mg tablet zolpidem 10 mg tablet (Ambien) 10 mg PO BEDTIME PRN Insomnia 01/03/22 06/17/24 Previous Rx's ?Medication ?Instructions ?Recorded blood-glucose meter (FreeStyle #1 ea 03/11/20 Lite Meter kit) pen needle, diabetic 32 gauge x #50 ea 09/23/20 (BD Jennifer 2nd Gen Pen Needle) gabapentin 100 mg capsule 100 mg PO TID 30 days #90 caps 01/11/21 acetaminophen 650 mg 1,300 mg (2 x 650 mg) PO Q8H PRN 07/19/21 tablet,extended release (Mapap fever or pain 30 days #180 tabs Arthritis Pain) albuterol sulfate 2.5 mg/3 mL 2.5 mg (3 mL) inhalation Q4-6H PRN 01/03/22 (0.083 %) solution for nebulization Wheezing 30 days #90 mL hydrocortisone 2.5 % topical cream 1 appl topical BID PRN skin 05/16/22 irritation 14 days #28 grams blood sugar diagnostic (FreeStyle 1 strip miscellaneous BID for 10/29/22 Lite Strips) diabetes mellitus 30 days #100 strips lisinopril 40 mg tablet 40 mg PO DAILY #90 tabs 12/06/22 clonidine HCl 0.2 mg tablet 0.2 mg PO BEDTIME 90 days #90 tabs 02/12/23 tamsulosin 0.4 mg capsule (Flomax) 0.4 mg PO BEDTIME 90 days #90 caps 07/12/23 lancets 28 gauge #100 ea 09/03/23 sodium,potassium,mag sulfates 17.5 See Rx Instructions PO .COMPLEX 09/06/23 gram-3.13 gram-1.6 gram oral soln #354 mL (Suprep Bowel Prep Kit) Ventolin HFA 90 mcg/actuation 2 puff inhalation Q6H PRN 09/10/23 aerosol inhaler (albuterol sulfate) shortness of breath or wheezing 30 days #8 grams phenylephrine HCl 0.25 % rectal 1 supp ID QID PRN hemorrhoids #12 10/04/23 suppository (Preparation H (pe)) ea menthol 0.44 %-zinc oxide 20.6 % 1 appl topical QID PRN hemorrhoids 10/07/23 topical ointment (Calmoseptine) #113 grams glucose 4 gram chewable tablet 16 g (4 x 4 gram) PO Q15M PRN 11/18/23 (Dex4 Glucose) hypoglycemia #100 tabs insulin glargine 100 unit/mL (3 10 unit (0.1 mL) subcut QPM 30 11/18/23 mL) subcutaneous pen (Lant #15 mL Solostar U-100 Insulin) blood-glucose,color receiver,cont #1 ea 11/25/23 (Dexcom G7 Production Stage Manager) empagliflozin 25 mg tablet 25 mg PO DAILY 90 days #90 tabs 12/03/23 (Jardiance) chlorthalidone 25 mg tablet 25 mg PO DAILY 90 days #90 tabs 01/09/24 cyclobenzaprine 10 mg tablet 10 mg PO Q8H PRN muscle spasm 30 01/09/24 days #90 tabs meloxicam 15 mg tablet 15 mg PO DAILY PRN for pain #90 01/15/24 tabs albuterol sulfate 90 mcg/actuation 2 puff PO Q4H PRN Wheezing 30 days 02/05/24 aerosol inhaler #8.5 grams fluticasone 250 mcg-salmeterol 50 1 ea PO Q12H #180 caps 02/05/24 mcg/dose blistr powdr for inhalation (Jesus Alberto Forrester) pen needle, diabetic 32 gauge x #50 ea 04/06/24 5/16 (Comfort EZ Pen [place]) pioglitazone 30 mg tablet 30 mg PO DAILY #90 tabs 04/10/24 cholecalciferol (vitamin D3) 25 25 mcg PO DAILY 90 days #90 caps 04/11/24 mcg (1,000 unit) capsule fenofibrate nanocrystallized 145 145 mg PO DAILY 90 days #90 tabs 04/11/24 mg tablet docusate sodium 100 mg capsule 100 mg PO BID #180 caps 04/20/24 semaglutide 2 mg/dose (8 mg/3 mL) 2 mg (0.75 mL) subcut QWEEK 30 05/13/24 subcutaneous pen injector (Ozempic) days #3.75 mL blood-glucose sensor (Dexcom G7 #3 ea 05/15/24 Sensor device) atorvastatin 80 mg tablet 80 mg PO BEDTIME 90 days #90 tabs 05/29/24 montelukast 10 mg tablet 10 mg PO BEDTIME #90 tabs 06/30/24 metformin 500 mg tablet,extended 1,000 mg (2 x 500 mg) PO BID 90 07/03/24 release 24 hr days #360 tabs Allergies Allergy/AdvReac Type Severity Reaction Status Date / Time shrimp Allergy Mild Swelling Verified 07/10/24 08:53 Review of Systems Review of Systems: Yes all other systems are reviewed and are negative Constitutional: Constitutional: Reports as per HPI [facility] Past Medical History Medical History Morbid obesity CKD (chronic kidney disease) stage 3, GFR 30-59 ml/min Hemorrhoids with complication Family history of prostate cancer Osteoarthritis of left knee Moderate recurrent major depression Pruritus ani Internal and external hemorrhoids without complication Asthma DANIEL on CPAP Anemia Back pain Gross hematuria UTI (urinary tract infection) Prostate enlargement Diabetic polyneuropathy associated with type 2 diabetes mellitus Vitamin D deficiency Diabetes type 2, controlled Family history of anesthesia complication Hx of low back pain Hx of insomnia Hx of migraines Anxiety Depression Colon cancer screening Bleeding hemorrhoids Morbid obesity Hyperlipidemia Hypertension Hypernatremia Bloody stools Diabetes mellitus, type 2 Hiatal hernia Surgical History History of colonoscopy (~11/01/23) Hx of colonoscopy History of knee surgery History of carpal tunnel release H/O hernia repair History of umbilical hernia repair Family History Family History Maternal Uncle History of prostate cancer Father History of throat cancer Myocardial infarction Diabetes mellitus Hypertension CVD (cardiovascular disease) Maternal Grandfather History of throat cancer Son In good health Son In good health Brother Colon cancer Mother Diabetes mellitus Social History Social History Household Members: Spouse and Children Housing: House Are you a primary palliative care specialist to a significant other at home: No Do you presently have visiting nurse or other home services: Yes (once a week ) Alcohol intake: former Patient Tobacco Use Status: Never used Tobacco Tobacco use type: Cigarette Cigarettes Per Day: 1 e-Cigarette/Vaping Use: Never Used Second Hand Smoke Exposure: No Advance Directives: No Advance Directives Information Provided: Yes service: No Current occupational status: disabled Cognitive needs: No Hearing needs: No Vision needs: Yes Physical Exam Vital Signs: Vital Signs: Last Vital Signs Temp 98.6 F 07/10/24 09:50 Pulse 74 07/10/24 09:50 Resp 18 07/10/24 09:50 BP 131/71 07/10/24 09:50 Pulse Ox 97 07/10/24 09:50 O2 Del Method Room Air 07/10/24 09:50 BMI result Body Mass Index 36.0 Const: General: cooperative, healthy appearing and no acute distress Orientation/consciousness: patient oriented x3 Limitations: no limitations HEENT: Other: +visible rubber top of ear bud in R ear. No drainage, erythema, swelling to external ear/canal. Mastoids normal. TM intact b/l. Head: Yes normal to inspection and Yes atraumatic Ears: hearing grossly normal bilaterally, external ears normal, TM's normal bilaterally, EAC's normal and mastoids normal General nose exam: Normal external nose present Face and sinus: Yes normal facial exam Mouth: Normal oral and palatal mucosa present Throat: Yes posterior oropharynx normal Eyes: General: appearance normal, both eyes and all related structures EOM: EOMs intact bilaterally Neck: Neck: Yes normal visual inspection and Yes no meningeal signs Resp: Effort & Inspection: normal respiratory effort and no respiratory distress Skin: Rashes: no rashes Wounds: no wounds Neuro: General: patient oriented x3, tone normal and no meningeal signs Cranial nerves: Yes CN's II-XII intact bilaterally Gait exam (Neuro): Normal gait present Extrem: General: Yes normal to inspection Medical Decision Making Medical Decision Making MDM Narrative: 59 y/o M with PMHx MAGGY, HTN, HLD, T2DM, asthma, DANIEL presenting to the ED c/o rubber top of ear bud stuck in R ear x [employer]. On exam vitals stable, nontoxic appearing, PE consistent with foreign body to R ear. Ear bud R easily visualized and removed without complication using tweezers. TM intact without rupture/erythema or fluid. Mastoid nontender. Low suspicion for TM perforation, acute otitis media/externa, mastoiditis, other infectous process. Results discussed with patient including worrisome signs and symptoms and strict return precautions, and when to return to the emergency department. They verbalized understanding and feel safe for discharge at this time. Differential Diagnosis Differential Diagnoses: The differential diagnosis associated with the presentation includes External Record Review External record reviewed: Office record Prescription Management I considered prescription management with: Pain Medication and Antibiotic Social Determinants Patient?s care significantly limited by Social Determinants of Health including: Other Social Determinant of Health Discharge Plan Discharge Clinical Impression: Foreign body in ear Patient Disposition: Home, Self-Care Instructions: Ear Foreign Body (ED) Additional Instructions: The ear bud it was removed today from your ear without complication Please avoid placing small objects in your ear Follow up with your primary care doctor Prescriptions: No Action gabapentin 100 mg capsule 100 mg PO TID 30 Days Qty: 90 2RF acetaminophen [Mapap Arthritis Pain] 650 mg tablet extended release 1,300 mg PO Q8H PRN (Reason: fever or pain) 30 Days Qty: 180 1RF FreeStyle Lite Strips Strip 1 strip miscellaneous BID 30 Days Qty: 100 6RF lisinopril 40 mg tablet 40 mg PO DAILY Qty: 90 3RF clonidine HCl 0.2 mg tablet 0.2 mg PO BEDTIME 90 Days Qty: 90 0RF (DME) lancets 28 gauge misc See Rx Instructions topical BID Qty: 100 9RF Rx Instructions: As directed tests 3 X/day sodium,potassium,mag sulfates [Suprep Bowel Prep Kit] 17.5-3.13-1.6 gram recon soln See Rx Instructions PO .COMPLEX Qty: 354 0RF Rx Instructions: DILUTE; drink full amount early evening before AND next morning at least 2 hr before procedure; follow w 960 mL water PO (DME) Dexcom G7 Production Stage Manager Misc See Rx Instructions .ROUTE .MEDSUPPLY Qty: 1 0RF Rx Instructions: Use daily As directed to monitor blood sugars chlorthalidone 25 mg tablet 25 mg PO DAILY 90 Days Qty: 90 1RF cyclobenzaprine 10 mg tablet 10 mg PO Q8H PRN (Reason: muscle spasm) 30 Days Qty: 90 0RF meloxicam 15 mg tablet 15 mg PO DAILY PRN (Reason: for pain) Qty: 90 2RF (DME) pen needle, diabetic [Comfort EZ Pen [place]] 32 gauge x 5/16 needle See Rx Instructions .Route Qty: 50 4RF Rx Instructions: As directed injects once a day fenofibrate nanocrystallized 145 mg tablet 145 mg PO DAILY 90 Days Qty: 90 0RF cholecalciferol (vitamin D3) 25 mcg (1,000 unit) capsule 25 mcg PO DAILY 90 Days Qty: 90 0RF Ozempic 2 mg/dose (8 mg/3 mL) pen injector 2 mg subcut QWEEK 30 Days Qty: 3.75 6RF (DME) Dexcom G7 Sensor Device See Rx Instructions .Route Qty: 3 4RF Rx Instructions: As directed change every 10 days atorvastatin 80 mg tablet 80 mg PO BEDTIME 90 Days Qty: 90 0RF montelukast 10 mg tablet 10 mg PO BEDTIME Qty: 90 1RF metformin 500 mg tablet extended release 24 hr 1,000 mg PO BID 90 Days Qty: 360 2RF Preparation H (pe) 0.25 % suppository 1 supp ID QID PRN (Reason: hemorrhoids) Qty: 12 0RF topiramate 100 mg tablet 100 mg PO BID lorazepam 1 mg tablet 1 mg PO BID PRN (Reason: Anxiety) amitriptyline 150 mg tablet 150 mg PO BEDTIME sumatriptan succinate [Imitrex] 100 mg tablet 100 mg PO DIRECTED albuterol sulfate [Ventolin HFA] 90 mcg/actuation HFA aerosol inhaler 2 puff inhalation Q6H PRN (Reason: shortness of breath or wheezing) 30 Days Qty: 8 2RF hydrocortisone 2.5 % cream 1 appl topical BID PRN (Reason: skin irritation) 14 Days Qty: 28 1RF Jardiance 25 mg tablet 25 mg PO DAILY 90 Days Qty: 90 1RF (DME) blood-glucose meter [FreeStyle Lite Meter] Kit See Rx Instructions .ROUTE .MEDSUPPLY Qty: 1 0RF Rx Instructions: As directed zpqogzkwjt-zazsjxvnvpfvq-ugim 50-325-40 mg tablet 1 tab PO Q8H PRN (Reason: Pain) (DME) pen needle, diabetic [BD Jennifer 2nd Gen Pen Needle] 32 gauge x 5/32 needle See Rx Instructions .MEDSUPPLY Qty: 50 4RF Rx Instructions: once a day zolpidem [Ambien] 10 mg tablet 10 mg PO BEDTIME PRN (Reason: Insomnia) albuterol sulfate 2.5 mg /3 mL (0.083 %) solution for nebulization 2.5 mg inhalation Q4-6H PRN (Reason: Wheezing) 30 Days Qty: 90 5RF tamsulosin [Flomax] 0.4 mg capsule 0.4 mg PO BEDTIME 90 Days Qty: 90 3RF albuterol sulfate 90 mcg/actuation HFA aerosol inhaler 2 puff PO Q4H PRN (Reason: Wheezing) 30 Days Qty: 8.5 1RF fluticasone propion-salmeterol [Wixela Inhub] 250-50 mcg/dose blister with device 1 ea PO Q12H Qty: 180 3RF insulin glargine [Lantus Solostar U-100 Insulin] 100 unit/mL (3 mL) insulin pen 10 unit subcut QPM 30 Days Qty: 15 3RF glucose [Dex4 Glucose] 4 gram tablet,chewable 16 g PO Q15M PRN (Reason: hypoglycemia) Qty: 100 0RF Rx Instructions: until symptoms of low blood sugar are controlled docusate sodium 100 mg capsule 100 mg PO BID Qty: 180 1RF pioglitazone 30 mg tablet 30 mg PO DAILY Qty: 90 1RF menthol-zinc oxide [Calmoseptine] 0.44-20.6 % ointment 1 appl topical QID PRN (Reason: hemorrhoids) Qty: 113 0RF Referrals: Deedee Bruce MD [Primary Care Provider] - Interventions: ED Discharge Assessment Last Done: 07/10/24 09:50 Discharge Date/Time: 07/10/24 09:50 Print Language: Cypriot
--- OUTSIDE RECORDS SUMMARY | 2024-07-10 09:40 | XMS_ITS | Clinical Summary ---
Author Organization [facility] Address [address] [address] Care Team Providers Care Soaking Room Operator Name Role Phone Deedee Bruce MD Primary Care Provider [phone] Allergies No known active allergies Medications albuterol [...] mellitus 07/30/2022 Vitamin D deficiency 07/30/2022 Immunizations Immunization Administration Dates Next Due Influenza TIV (IM) [...] Due Date Last Done Comments Pneumococcal Vaccine: Peds ( 0 to 5 Years) and At-Risk Patients (6 to 49 Years) (1 of 2 - PCV) 1971 Hepatitis B Vaccine (1 of 3 - 19+ 3-dose series) 01/05 Colorectal Cancer Screening: Annual FOBT 2014 Colorectal Cancer Screening: Colonoscopy 2014 Colorectal Cancer Screening: Sigmoidoscopy 2014 Diabetes: Hemoglobin A1C 05/01/2020 Diabetes: Ophthalmology Exam 05/01/2020 Diabetes: Pedal Pulse Checked 05/01/2020 Diabetes: Sensory Foot Exam 05/01/2020 Diabetes: Visual Foot Exam 05/01/2020 Influenza Vaccine (Season Ended) 2024 05/05/19 16 Insurance [facility] ([id number]) [place] [id number] [facility] ([id number]) [place] [phone] Care Teams Soaking Room Operator Relationship Specialty Start Date End Date Deedee Bruce MD [address] [place] [address] PCP - General Internal Medicine 04/18/22
--- NOTE | 2024-07-10 09:49 | PC.NURSE ---
DC from triage, pt in agreement with dc
[2024-07-10 09:50] VITALS: BP 131/71; PULSE 74; RESP 18; TEMP 37; O2SAT 97
== END 2024-07-10 09:50 | disposition home or self-care (01) ==
PROVIDERS: Emergency Provider Emergency Medicine Emergency Medical Services; PCP Internal Medicine
DX: T16.1XXA Foreign body in right ear, initial encounter (principal); E11.9 Type 2 diabetes mellitus without complications; W44.G1XA Audio device entering into or through a natural orifice, initial encounter; Y93.9 Activity, unspecified; Y92.9 Unspecified place or not applicable; Y99.8 Other external cause status; Z79.899 Other long term (current) drug therapy; Z79.4 Long term (current) use of insulin
CPT/HCPCS: 69200; 82947; 99212; 99283; 99284

== ENCOUNTER 2024-07-10 14:02 | Outpatient (AMB) | payer OTHER, SELFPAY ==
[2024-07-10 14:21] VITALS: BP 128/82; PULSE 70; O2SAT 98; BMI 36.7
--- NOTE | 2024-07-10 14:21 | A.OFFVIS_ITS ---
Vital Signs 07/10/24 14:21 Height 6 ft Weight 270 lb 4.587 oz BMI 36.7 BP 128/82 Blood Pressure Location Rt brachial Position Sitting Pulse 70 Pulse Source Pulse Oximeter Pulse Oximetry (%) 98 Oxygen Delivery Method Room Air Intake Visit Reasons: dm Intake Note: Patient present today to follow up on Type 2 Diabetes Mellitus. Last Diabetic Eye exam: Last Podiatry Visit: Random Glucose: 82bmg/dl HgA1C: 6.1% 05/04/2024 Neon Glass Blower Name: dennis [id number] Information Interpreted: non-clinical & clinical Allergies shrimp Allergy (Mild, Verified 07/10/24 14:32) Swelling Medication List - Last Reconciled 07/10/24 by Meenakshi Doshi PA-C acetaminophen ER (Mapap Arthritis Pain) 1,300 mg (2 x 650 mg) PO Q8H PRN 30 days albuterol sulfate 2.5 mg (3 mL) inhalation Q4-6H PRN 30 days albuterol sulfate 90 mcg/actuation 2 puffs PO Q4H PRN 30 days amitriptyline 150 mg PO BEDTIME atorvastatin 80 mg PO BEDTIME 90 days blood sugar diagnostic (FreeStyle Lite Strips) 1 strip miscellaneous BID 30 days blood-glucose meter (FreeStyle Lite Meter kit) As directed blood-glucose sensor (Dexcom G7 Sensor device) As directed change every 10 days blood-glucose,lens cutter,cont (Dexcom G7 Line Maintainer) Use daily As directed to monitor blood sugars fxjffpyuus-lipohxucfwaae-ntnu 50-325-40 mg 1 tab PO Q8H PRN chlorthalidone 25 mg PO DAILY 90 days cholecalciferol (vitamin D3) 25 mcg PO DAILY 90 days clonidine HCl 0.2 mg PO BEDTIME 90 days cyclobenzaprine 10 mg PO Q8H PRN 30 days docusate sodium 100 mg PO BID empagliflozin (Jardiance) 25 mg PO DAILY 90 days fenofibrate nanocrystallized 145 mg PO DAILY 90 days fluticasone propion-salmeterol 250-50 mcg/dose (Wixela Inhub) 1 ea PO Q12H gabapentin 100 mg PO TID 30 days glucose (Dex4 Glucose) 16 grams (4 x 4 gram) PO Q15M PRN hydrocortisone 2.5% 1 appl topical BID PRN 14 days insulin glargine (Lantus Solostar U-100 Insulin) 10 units (0.1 mL) subcut QPM 30 days lancets As directed tests 3 X/day lisinopril 40 mg PO DAILY lorazepam 1 mg PO BID PRN meloxicam 15 mg PO DAILY PRN menthol-zinc oxide 0.44-20.6 % (Calmoseptine) 1 appl topical QID PRN metformin ER 1,000 mg (2 x 500 mg) PO BID 90 days montelukast 10 mg PO BEDTIME pen needle, diabetic (BD Jennifer 2nd Gen Pen Needle) once a day pen needle, diabetic (Comfort EZ Pen Arnold) As directed injects once a day phenylephrine HCl 0.25% (Preparation H (pe)) 1 supp [place] QID PRN semaglutide (Ozempic) 2 mg (0.75 mL) subcut QWEEK 30 days sodium,potassium,mag sulfates 17.5-3.13-1.6 gram (Suprep Bowel Prep Kit) DILUTE; drink full amount early evening before AND next morning at least 2 hr before procedure; follow w 960 mL water PO sumatriptan succinate (Imitrex) 100 mg PO DIRECTED tamsulosin (Flomax) 0.4 mg PO BEDTIME 90 days topiramate 100 mg PO BID Ventolin HFA 90 mcg/actuation (albuterol sulfate) 2 puffs inhalation Q6H PRN 30 days NS zolpidem (Ambien) 10 mg PO BEDTIME PRN HPI HPI dm: Details: Patient is a 59-year-old male with a significant past medical history of type 2 diabetes, hypertension, hyperlipidemia and obesity presenting today for a diabetic follow-up. 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 He is currently Ozempic 2 mg weekly, metformin 1000 mg twice a day, Jardiance 25 mg daily, Actos 30 mg daily and Lantus 10 units. cgm- dexcom- hyperglycemic 6%, in range 94%. No hypoglycemic events. Most of the hyperglycemia does appear to be in the evening. He states when he notices this on his Dexcom he will get up and go for a walk on the treadmill. He is excited because he has been able to lose some weight also by paying attention like this. Hypogylcemia- He states sometimes he does get some lows. He has glucose tabs if needed. CV: bp today in office is 128/82. he is currently on lisinopril 40 mg, chlorthalidone 12.5 mg mg. Cholesterol is controlled with atorvastatin 80 mg and fenofibrate 145. Last LDL 64. PFSH Medical History Morbid obesity CKD (chronic kidney disease) stage 3, GFR 30-59 ml/min Hemorrhoids with complication Family history of prostate cancer Osteoarthritis of left knee Moderate recurrent major depression Pruritus ani Internal and external hemorrhoids without complication Asthma DANIEL on CPAP Anemia Back pain Gross hematuria UTI (urinary tract infection) Prostate enlargement Diabetic polyneuropathy associated with type 2 diabetes mellitus Vitamin D deficiency Diabetes type 2, controlled Family history of anesthesia complication Hx of low back pain Hx of insomnia Hx of migraines Anxiety Depression Colon cancer screening Bleeding hemorrhoids Morbid obesity Hyperlipidemia Hypertension Hypernatremia Bloody stools Diabetes mellitus, type 2 Hiatal hernia Surgical History History of colonoscopy (~11/01/23) Hx of colonoscopy History of knee surgery History of carpal tunnel release H/O hernia repair History of umbilical hernia repair Family History Maternal Uncle History of prostate cancer Father History of throat cancer Myocardial infarction Diabetes mellitus Hypertension CVD (cardiovascular disease) Maternal Grandfather History of throat cancer Son In good health Son In good health Brother Colon cancer Mother Diabetes mellitus Social History Household Members: Spouse and Children Housing: House Are you a primary career transition specialist to a significant other at home: No Do you presently have visiting nurse or other home services: Yes (once a week ) Alcohol intake: former Patient Tobacco Use Status: Never used Tobacco Tobacco use type: Cigarette Cigarettes Per Day: 1 e-Cigarette/Vaping Use: Never Used Second Hand Smoke Exposure: No service: No Current occupational status: disabled Cognitive needs: No Hearing needs: No Vision needs: Yes Physical Exam Vital Signs: Last Vital Signs Pulse 70 07/10/24 14:21 Pulse Ox 98 07/10/24 14:21 Oxygen Delivery Method Room Air 07/10/24 14:21 BMI result Body Mass Index 36.7 Const Orientation/consciousness: patient oriented x3 Neck Neck: Yes no lymphadenopathy Thyroid: Thyroid normal Carotids: no bruits Resp Auscultation: clear to auscultation bilaterally Cardio Rate: regular rate Rhythm: regular rhythm Heart sounds: S1 normal heart sound present and S2 normal heart sound present Peripheral pulses: dorsalis pedis present Neuro General: patient oriented x3, gait normal and no focal motor deficits Extrem Other: Monofilament sensation intact bilaterally. Vibratory sensation intact bilaterally. Skin intact. General: Yes normal to inspection Results Reviewed Results Reviewed: Laboratory Tests 05/04/24 06:55 Sodium 140 Potassium 3.5 Chloride 108 Carbon Dioxide 24 Anion Gap 12 BUN 21 H Creatinine 0.95 Estimated GFR > 60 Fasting Glucose 104 H Hemoglobin A1c % 6.1 H AST 27 ALT 33 Alkaline Phosphatase 56 Triglycerides 58 Cholesterol 107 LDL Cholesterol, Calc 62 HDL Cholesterol 34 L Assessment & Plan Assessment & Plan (1) Diabetic polyneuropathy associated with type 2 diabetes mellitus: Code(s): E11.42 - Type 2 diabetes mellitus with diabetic polyneuropathy Category: Medical Plan: reduce actos 15 mg continue ozempic 2 mg weekly, lantus 10 units daily, metformin 1000 mg bid, and jardiance 25 mg daily. complete labs prior to next appointment (2) Hypertension: Code(s): I10 - Essential (primary) hypertension Category: Medical Qualifiers: Hypertension type: essential hypertension Qualified Code(s): I10 - Essential (primary) hypertension Plan: WNL. Continue current regimen (3) Hyperlipidemia: Code(s): E78.5 - Hyperlipidemia, unspecified Category: Medical Qualifiers: Hyperlipidemia type: mixed hyperlipidemia Qualified Code(s): E78.2 - Mixed hyperlipidemia Plan: Well-controlled. Continue medications. Orders: Orders Comprehensive [place]. Panel Fast Today E11.42 - Type 2 diabetes mellitus with diabetic polyneuropathy, E78.2 - Mixed hyperlipidemia Hemoglobin A1c Today E11.42 - Type 2 diabetes mellitus with diabetic polyneuropathy, E78.2 - Mixed hyperlipidemia, R73.01 - Impaired fasting glucose Medications: New pioglitazone 15 mg PO DAILY 90 tabs 1RF Coding Level of Care Code Est Pt Level 4 (08014) Complex EM visit Add On G2211 Diagnoses Diabetic polyneuropathy associated with type 2 diabetes mellitus E11.42 Essential hypertension I10 Hypertension type: essential hypertension Mixed hyperlipidemia E78.2 Hyperlipidemia type: mixed hyperlipidemia
--- OUTSIDE RECORDS SUMMARY | 2024-07-10 14:26 | XMS_ITS | Clinical Summary ---
Author Organization [facility] Facility Address [address] [address] Care Team Providers Care Gum Machine Filler Name Role Phone Deedee Bruce MD Primary Care Provider [phone] Allergies No known active allergies Medications albuterol [...] Vaccine (Season Ended) 2024 05/05/19 16 Insurance [facility] ([id number]) [place] [id number] [facility] ([id number]) [place] [phone] Care Teams Gum Machine Filler Relationship Specialty Start Date End Date Deedee Bruce MD [address] [place] [address] PCP - General Internal Medicine 04/18/22
[2024-07-10 14:37] LABS: Glucose, Whole Blood 82 mg/dL (60-115)
== END 2024-07-10 14:53 | disposition home or self-care (01) ==
PROVIDERS: PCP Internal Medicine; Visit Provider Physician Assistant
DX: E11.42 Type 2 diabetes mellitus with diabetic polyneuropathy (principal); I10 Essential (primary) hypertension; E78.2 Mixed hyperlipidemia

== ENCOUNTER 2024-07-21 06:33 | Outpatient (REF) | payer OTHER, SELFPAY ==
--- OUTSIDE RECORDS SUMMARY | 2024-07-21 06:36 | XMS_ITS | Clinical Summary ---
Author Organization [facility] Facility Address [address] [address] Care Team Providers Care Subscription Agent Name Role Phone Deedee Bruce MD Primary Care Provider [phone] Allergies No known active allergies Medications albuterol [...] Health Maintenance Due Date Last Done Comments Hepatitis B Vaccine (1 of 3 - 19+ 3-dose series) 01/05 Pneumococcal Vaccine: 50+ Years (1 of 2 - PCV) 984 Colorectal Cancer Screening: Annual FOBT 2014 Colorectal Cancer Screening: Colonoscopy 2014 Colorectal Cancer Screening: Sigmoidoscopy 2014 Diabetes: Hemoglobin A1C 05/01/2020 Diabetes: Ophthalmology Exam 05/01/2020 Diabetes: Pedal Pulse Checked 05/01/2020 Diabetes: Sensory Foot Exam 05/01/2020 Diabetes: Visual Foot Exam 05/01/2020 Influenza Vaccine (Season Ended) 2024 05/05/[address] [place] [address] ([id number]) [facility] ([id number]) [place] [phone] Care Teams Subscription Agent Relationship Specialty Start Date End Date Deedee Bruce MD [address] [place], [place] PCP - General Internal Medicine 04/18/22
[2024-07-21 06:44] LABS: MANUAL DIFF FLAG NO
[2024-07-21 07:30] LABS: Hematocrit 43.5 % (42.0-52.0); Hemoglobin 13.7 g/dl (14.0-18.0); Mean Corpuscular HGB Conc 31.5 g/dl (31.0-36.0); Mean Corpuscular Hemoglobin 26.6 pg (27.0-33.0); Mean Corpuscular Volume 84.3 fL (80.0-98.0); Red Blood Count 5.16 X10*6/uL (4.60-5.80); White Blood Count 8.1 X10*3/uL (4.8-10.8)
[2024-07-21 07:31] LABS: Basophils Percent Auto 0.4 % (0-2); Eosinophils Absolute Auto 0.3 X10*3/uL (0.0-0.4); Eosinophils Percent Auto 3.1 % (0-4); Imm Gran Abs Auto 0.02 X10*3/uL (0.00-0.03); Imm Gran Pct Auto 0.2 % (0.0-0.4); Lymphocytes Absolute Auto 1.9 X10*3/uL (1.2-4.9); Lymphocytes Percent Auto 23.1 % (20-40); Mean Platelet Volume 10.5 fL (9.4-12.4); Monocytes Absolute Auto 0.6 X10*3/uL (0.1-1.2); Monocytes Percent Auto 7.2 % (2-11); Neutrophils Absolute Auto 5.3 x10*3/uL (2.0-8.3); Platelet Count 290 X10*3/uL (160-400); Red Cell Distribution Width 14.6 % (11.0-16.0)
[2024-07-21 08:41] LABS: Alkaline Phosphatase 62 U/L (39-117); Anion Gap 10 (12-20); Aspartate Amino Transferase 22 U/L (5-37); Bilirubin Total 0.3 mg/dL (0.0-1.0); Blood Urea Nitrogen 20 mg/dL (9-16); Calcium 9.4 mg/dL (8.4-10.2); Carbon Dioxide 27 mmol/L (22-29); Chloride 109 mmol/L (96-108); Cholesterol 150 mg/dL (<200); Estimated Glomerular Filt Rate > 60; Glucose Fasting 100 mg/dL (60-99); HDL Cholesterol 40 mg/dL (>40); LDL Cholesterol Calculated 95 mg/dL (<100); Potassium 3.7 mmol/L (3.3-5.1); Sodium 142 mmol/L (135-145); Total Protein 6.7 g/dL (6.5-8.0); Triglycerides 78 mg/dL (<150); Vitamin D 25-OH Total 28.9 ng/mL (>30)
[2024-07-21 08:59] LABS: Alanine Aminotransferase 31 U/L (0-40)
[2024-07-21 10:49] LABS: Creatinine Urine 223.93 mg/dL; Microalbum/Creatinine Ratio Ur 14.2 ug/mg cr (<30)
== END 2024-07-21 06:34 | disposition home or self-care (01) ==
LOC: HO.LAB 06:33
PROVIDERS: Absent Provider Internal Medicine; PCP Internal Medicine; Visit Provider Internal Medicine Medical Oncology
DX: Z01.818 Encounter for other preprocedural examination (principal); E78.5 Hyperlipidemia, unspecified; E55.9 Vitamin D deficiency, unspecified; R80.9 Proteinuria, unspecified
CPT/HCPCS: 36415; 80053; 80061; 82043; 82306; 82570; 85025

== ENCOUNTER 2024-07-22 14:57 | Outpatient (REF) | payer OTHER, SELFPAY ==
[2024-07-22 15:10] LABS: MANUAL DIFF FLAG NO
[2024-07-22 15:43] LABS: Appearance Urine Clear; Color Urine Yellow; Glucose Urine UA Negative (Negative); Leukocyte Esterase Urine Negative (Negative); Nitrite Urine Negative (Negative); Urine Blood Negative (Negative); Urine Ketones Negative (Negative); Urine Protein Negative (Neg-Trace)
[2024-07-22 15:48] LABS: Basophils Percent Auto 0.2 % (0-2); Eosinophils Absolute Auto 0.2 X10*3/uL (0.0-0.4); Eosinophils Percent Auto 2.7 % (0-4); Hematocrit 42.5 % (42.0-52.0); Hemoglobin 13.8 g/dl (14.0-18.0); Imm Gran Abs Auto 0.02 X10*3/uL (0.00-0.03); Imm Gran Pct Auto 0.2 % (0.0-0.4); Lymphocytes Absolute Auto 2.2 X10*3/uL (1.2-4.9); Lymphocytes Percent Auto 24.9 % (20-40); Mean Corpuscular HGB Conc 32.5 g/dl (31.0-36.0); Mean Corpuscular Hemoglobin 26.8 pg (27.0-33.0); Mean Corpuscular Volume 82.7 fL (80.0-98.0); Mean Platelet Volume 10.4 fL (9.4-12.4); Monocytes Absolute Auto 0.6 X10*3/uL (0.1-1.2); Neutrophils Absolute Auto 5.8 x10*3/uL (2.0-8.3); Platelet Count 303 X10*3/uL (160-400); Red Blood Count 5.14 X10*6/uL (4.60-5.80); Red Cell Distribution Width 14.3 % (11.0-16.0); White Blood Count 8.9 X10*3/uL (4.8-10.8)
[2024-07-22 15:55] LABS: Estimated Average Glucose 123 mg/dL; Hemoglobin A1C 145.4127 umol/L; Hemoglobin A1c % 5.9 % (<6.0); Total Hemoglobin (HGBA1C) 3581.8032 umol/L
[2024-07-22 16:13] LABS: Alanine Aminotransferase 31 U/L (0-40); Albumin Level 4.2 g/dL (3.5-5.0); Anion Gap 13 (12-20); Aspartate Amino Transferase 27 U/L (5-37); Bilirubin Total 0.4 mg/dL (0.0-1.0); Blood Urea Nitrogen 24 mg/dL (9-16); Calcium 10.2 mg/dL (8.4-10.2); Carbon Dioxide 25 mmol/L (22-29); Chloride 107 mmol/L (96-108); Estimated Glomerular Filt Rate > 60; Glucose Fasting 79 mg/dL (60-99); Potassium 3.5 mmol/L (3.3-5.1); Sodium 141 mmol/L (135-145); Total Protein 6.9 g/dL (6.5-8.0)
[2024-07-22 16:16] LABS: Parathyroid Hormone Intact 26.6 pg/mL (8.7-77.1)
[2024-07-22 16:23] LABS: Alkaline Phosphatase 58 U/L (39-117)
[2024-07-22 16:23] LABS: Creatinine Urine 59.57 mg/dL; Total Protein Urine Random < 7 mg/dL (<12)
[2024-07-22 16:31] LABS: Prostate Specific Antigen 3.25 ng/mL (<0.05-4.0)
--- OUTSIDE RECORDS SUMMARY | 2024-07-22 17:47 | XMS_ITS | Clinical Summary ---
Author Organization [facility] Facility Address [address] [address] Care Team Providers Care Executive Assistant To General Counsel Name Role Phone Deedee Bruce MD Primary Care Provider [phone] Allergies No known active allergies Medications albuterol [...] Vaccine (Season Ended) 2024 05/05/[address] [place] [address] ([id number]) [facility] ([id number]) [place] [phone] Care Teams Executive Assistant To General Counsel Relationship Specialty Start Date End Date Deedee Bruce MD [address] [place], [place] PCP - General Internal Medicine 04/18/22
== END 2024-07-22 14:58 | disposition home or self-care (01) ==
LOC: HO.LAB 14:57
PROVIDERS: Internal Medicine Hypertension Specialist; Internal Medicine Medical Oncology; Physician Assistant; PCP Internal Medicine; Visit Provider Nurse Practitioner Family
DX: E11.42 Type 2 diabetes mellitus with diabetic polyneuropathy (principal); N18.30 Chronic kidney disease, stage 3 unspecified; N18.31 Chronic kidney disease, stage 3a; E78.2 Mixed hyperlipidemia; R97.20 Elevated prostate specific antigen [PSA]; D64.9 Anemia, unspecified; Z12.5 Encounter for screening for malignant neoplasm of prostate
CPT/HCPCS: 36415; 80053; 81003; 82570; 83036; 83970; 84153; 84156; 85025

== ENCOUNTER 2024-07-23 14:42 | Outpatient (AMB) | payer OTHER, SELFPAY ==
--- NOTE | 2024-07-23 15:24 | MHC.AMDMED ---
Intake Intake Visit Reasons: DM Preschool Program Director Required: Yes Preschool Program Director Language: French Accompanied by: Self / Same As Patient Allergies shrimp Allergy (Mild, Verified 07/10/24 14:32) Swelling HPI Comprehensive Diabetes Asmnt Most Recent Diabetes Results: Microalb/Creat Ratio 14.2 ug/mg cr (<30) 07/21/24 Cholesterol 150 mg/dL (<200) 07/21/24 HDL Cholesterol 40 mg/dL (>40) L 07/21/24 Triglycerides 78 mg/dL (<150) 07/21/24 Creatinine 1.06 mg/dL (0.5-1.4) 07/22/24 Blood Urea Nitrogen 24 mg/dL (9-16) H 07/22/24 Sodium 141 mmol/L (135-145) 07/22/24 Potassium 3.5 mmol/L (3.3-5.1) 07/22/24 Chloride 107 mmol/L (96-108) 07/22/24 Carbon Dioxide 25 mmol/L (22-29) 07/22/24 Calcium 10.2 mg/dL (8.4-10.2) 07/22/24 AST 27 U/L (5-37) 07/22/24 ALT 31 U/L (0-40) 07/22/24 Total Protein 6.9 g/dL (6.5-8.0) 07/22/24 Albumin 4.2 g/dL (3.5-5.0) 07/22/24 [facility] Medical History Morbid obesity CKD (chronic kidney disease) stage 3, GFR 30-59 ml/min Hemorrhoids with complication Family history of prostate cancer Osteoarthritis of left knee Moderate recurrent major depression Pruritus ani Internal and external hemorrhoids without complication Asthma DANIEL on CPAP Anemia Back pain Gross hematuria UTI (urinary tract infection) Prostate enlargement Diabetic polyneuropathy associated with type 2 diabetes mellitus Vitamin D deficiency Diabetes type 2, controlled Family history of anesthesia complication Hx of low back pain Hx of insomnia Hx of migraines Anxiety Depression Colon cancer screening Bleeding hemorrhoids Morbid obesity Hyperlipidemia Hypertension Hypernatremia Bloody stools Diabetes mellitus, type 2 Hiatal hernia Surgical History History of colonoscopy (~11/01/23) Hx of colonoscopy History of knee surgery History of carpal tunnel release H/O hernia repair History of umbilical hernia repair Family History Maternal Uncle History of prostate cancer Father History of throat cancer Myocardial infarction Diabetes mellitus Hypertension CVD (cardiovascular disease) Maternal Grandfather History of throat cancer Son In good health Son In good health Brother Colon cancer Mother Diabetes mellitus Social History Household Members: Spouse and Children Housing: House Are you a primary customer care team coach to a significant other at home: No Do you presently have visiting nurse or other home services: Yes (once a week ) Alcohol intake: former Patient Tobacco Use Status: Never used Tobacco Tobacco use type: Cigarette Cigarettes Per Day: 1 e-Cigarette/Vaping Use: Never Used Second Hand Smoke Exposure: No service: No Current occupational status: disabled Cognitive needs: No Hearing needs: No Vision needs: Yes Assessment & Plan Assessment & Plan (1) Diabetes type 2, controlled: Code(s): E11.9 - Type 2 diabetes mellitus without complications Qualifiers: Diabetes mellitus tank terminal gauger insulin use: unspecified tank terminal gauger insulin use status Diabetes mellitus complication status: without complication Qualified Code(s): E11.9 - Type 2 diabetes mellitus without complications Plan: Learning objectives: The patient was provided with verbal and written education on the following topics as outlined below. The patient met all learning objectives and was able to verbalize understanding and provide teach back of education topics discussed . The patient was provided with the opportunity to ask questions and all questions were answered. Patient Assessment Assess patient education level/literacy/barriers, patient's spouse from cancer May 2024, patient reports he is seeing grief counselor at this time Patient questions/concerns, patient reports he goes to the gym daily, patient's glucose is well controlled. Last A1c June 2024 5.9% Exercise Medical clearance Effect of exercise on blood sugar Start slowly and gradually increase pace/duration over time Goal amount of exercise Checking blood glucose/have a source of carbs with you Diabetes Complications: ?Nephropathy :Kidney Disease ?diabetes can damage the kidneys, which is not only can cause them to fail but can make them lose their ability to filter waste from the blood? ?Retinopathy: Eye complications ?Retinopathy? is the commonest long-term complication of diabetes. It is leading cause of blindness Besides, Retinopathy-People with diabetes? are also prone to cataract and Glaucoma. ?Neuropathy: Nerve damage -It involves temporary or permanent damage to nerve tissue. Nerve tissue gets injured mainly due to decreased blood flow and rise in blood glucose levels. This damage can lead to pain , or loss of sensation it can also include sexual dysfunction in both men and women ? Infections poor healing: People with diabetes? have increased susceptibility to various infections, such as? pneumonias, pyelonephritis, carbuncles and diabetic ulcers. This may be due to poor blood supply, reduced cellular immunity or hyperglycemia. ?Heart Disease And Stroke: People with diabetes are four times more prone to develop Heart disease than those who do not have diabetes ?Depression: Feeling down once in awhile is normal, but some people feel sadness that just won't go away. Life for them seems hopeless. Feeling this way most of the day for two weeks or more is a sign of serious depression ?Gum Disease: People get gum disease when plaque destroys the gums and bone around the teeth. People with diabetes can get gum disease from having high blood glucose levels for a long time Lifestyle Work Travel Stress management Problem solving Know your goals A1C Blood sugar targets Blood pressure Cholesterol/LDL Urine microalbumin Smart Goal Assessment:Patient will use rule of 15s to treat hypoglycemia Pt met goal 100% New Goal:? Patient will increase water intake up to 8 glasses of 8oz a day Educational Materials: The patient was provided with the following written educational materials: ADCES 7 Healthy Behaviors Reducing Risks handout Patient Response to instructions: Comprehension of Instructions: Good Readiness to make changes: action How confident they feel about making changes: positive Letter of completion of diabetes Education program will be sent to referring provider Portions of this note were created using voice recognition software, please excuse any words or phrases that may have been misinterpreted. Patient Instructions: Incluir actividad diaria regular. ADA recomienda 30 minutos de ejercicio 5 d?as a la semana. P?rdida de peso, hable con el PCP o el cardi?logo antes de comenzar un nuevo plan. Mida el nivel de az?car en la kavya seg?n las indicaciones; Ayuno y comida m?s meseret de 2hpp. Observe las tendencias en los resultados. Utilice los resultados y eval?e c?mo los alimentos, la actividad f?ari y los medicamentos afectan los resultados de az?car en la kavya. Lleve el gluc?metro o CGM a la pr?xima visita. Conocer los medicamentos para la diabetes, toribio acci?n, los efectos secundarios, la eficacia, la toxicidad, la dosis prescrita, el momento y la frecuencia de administraci?n apropiados, el efecto de las dosis olvidadas y retrasadas y las instrucciones de almacenamiento, viaje y seguridad. T?cnicas de resoluci?n de problemas para el seguimiento de episodios de hipo/hiperglucemia y tratamientos. Reducir los comportamientos de reducci?n de riesgos, dejar de fumar, ex?menes regulares de ojos, pies y dentales. Coding Level of Care Code Est Pt Level 1 (27965) Diagnoses Controlled type 2 diabetes mellitus without complication, unspecified whether penitentiary insulin use E11.9 Diabetes mellitus penitentiary insulin use: unspecified tank terminal gauger insulin use status Diabetes mellitus complication status: without complication
--- OUTSIDE RECORDS SUMMARY | 2024-07-23 17:24 | XMS_ITS | Clinical Summary ---
Author Organization [facility] Facility Address [address] [address] Care Team Providers Care American History Teacher Name Role Phone Deedee Bruce MD Primary Care Provider [phone] Allergies No known active allergies Medications albuterol [...] Vaccine (Season Ended) 2024 05/05/[address] [place] [address] ([id number]) [facility] ([id number]) [place] [id number] Care Teams American History Teacher Relationship Specialty Start Date End Date Deedee Bruce MD [address] [place], [place] PCP - General Internal Medicine 04/18/22
== END 2024-07-23 15:27 | disposition home or self-care (01) ==
LOC: HO.ENCR 14:43
PROVIDERS: PCP Internal Medicine; Visit Provider Registered Nurse Diabetes Educator
DX: E11.9 Type 2 diabetes mellitus without complications (principal)

== ENCOUNTER → 2024-07-23 14:42 | Outpatient (BNVA) | payer OTHER, SELFPAY | PROVIDERS: PCP Internal Medicine; Visit Provider Registered Nurse Diabetes Educator | DX: R97.20 Elevated prostate specific antigen [PSA] (principal); N32.0 Bladder-neck obstruction; N40.0 Benign prostatic hyperplasia without lower urinary tract symptoms; Z80.42 Family history of malignant neoplasm of prostate; E11.9 Type 2 diabetes mellitus without complications | CPT/HCPCS: 51798; 81003; 99211; 99212 ==

== ENCOUNTER 2024-07-23 15:32 | Outpatient (AMB) | payer OTHER, SELFPAY ==
--- NOTE | 2024-07-23 15:37 | MHC.OFFVIS ---
Intake Visit Reasons: 6M PSA/PVR Intake Note: Patient presents today for follow up on: elevated psa, urgency, family history of prostate cancer, and psa results PSA: 3.25 Urology Medications: Tamsulosin Allergies to Antibiotic- No Known Allergies Blood Thinner- None PVR: 46ml's Dental Front Office Assistant Required: Yes Dental Front Office Assistant Language: Knife Sharpener Name: [id number] Information Interpreted: non-clinical & clinical Accompanied by: Self / Same As Patient Allergies shrimp Allergy (Mild, Verified 07/23/24 16:37) Swelling Medication List - Last Reconciled 07/23/24 by CRIS Echeverria-ROBERTO acetaminophen ER (Mapap Arthritis Pain) 1,300 mg (2 x 650 mg) PO Q8H PRN 30 days albuterol sulfate 2.5 mg (3 mL) inhalation Q4-6H PRN 30 days albuterol sulfate 90 mcg/actuation 2 puffs PO Q4H PRN 30 days amitriptyline 150 mg PO BEDTIME atorvastatin 80 mg PO BEDTIME 90 days blood sugar diagnostic (FreeStyle Lite Strips) 1 strip miscellaneous BID 30 days blood-glucose meter (FreeStyle Lite Meter kit) As directed blood-glucose sensor ([facility] G7 Sensor device) As directed change every 10 days blood-glucose,gm,cont (Dexcom G7 Television Maintenance Worker) Use daily As directed to monitor blood sugars gzyntnuvyo-ocgzmhqmhbmcy-jvzj 50-325-40 mg 1 tab PO Q8H PRN chlorthalidone 25 mg PO DAILY 90 days cholecalciferol (vitamin D3) 25 mcg PO DAILY 90 days clonidine HCl 0.2 mg PO BEDTIME 90 days cyclobenzaprine 10 mg PO Q8H PRN 30 days docusate sodium 100 mg PO BID empagliflozin (Jardiance) 25 mg PO DAILY 90 days fenofibrate nanocrystallized 145 mg PO DAILY 90 days fluticasone propion-salmeterol 250-50 mcg/dose (Wixela Inhub) 1 ea PO Q12H gabapentin 100 mg PO TID 30 days glucose (Dex4 Glucose) 16 grams (4 x 4 gram) PO Q15M PRN hydrocortisone 2.5% 1 appl topical BID PRN 14 days insulin glargine (Lantus Solostar U-100 Insulin) 10 units (0.1 mL) subcut QPM 30 days lancets As directed tests 3 X/day lisinopril 40 mg PO DAILY lorazepam 1 mg PO BID PRN meloxicam 15 mg PO DAILY PRN menthol-zinc oxide 0.44-20.6 % (Calmoseptine) 1 appl topical QID PRN metformin ER 1,000 mg (2 x 500 mg) PO BID 90 days montelukast 10 mg PO BEDTIME pen needle, diabetic (BD Jennifer 2nd Gen Pen Needle) once a day pen needle, diabetic (Comfort EZ Pen [place]) As directed injects once a day phenylephrine HCl 0.25% (Preparation H (pe)) 1 supp [place] QID PRN pioglitazone 15 mg PO DAILY semaglutide (Ozempic) 2 mg (0.75 mL) subcut QWEEK 30 days sodium,potassium,mag sulfates 17.5-3.13-1.6 gram (Suprep Bowel Prep Kit) DILUTE; drink full amount early evening before AND next morning at least 2 hr before procedure; follow w 960 mL water PO sumatriptan succinate (Imitrex) 100 mg PO DIRECTED tamsulosin (Flomax) 0.4 mg PO BEDTIME 90 days topiramate 100 mg PO BID Ventolin HFA 90 mcg/actuation (albuterol sulfate) 2 puffs inhalation Q6H PRN 30 days NS zolpidem (Ambien) 10 mg PO BEDTIME PRN HPI Comments Details: Dallas is a pleasant 59year [place] Islander-speaking male patient of Dr. Watts. He he has a past medical history of obesity, osteoarthritis, depression, asthma, COPD, obstructive sleep apnea, anemia, back pain, diabetes, vitamin-D deficiency, insomnia, migraines, hemorrhoids, hypertension, and hyperlipidemia. He presents to the office today for follow-up of his BPH and elevated PSA. In discussion with the patient today reports to be doing and feeling well. Recent PSA results reviewed with the patient today as noted and trended below. We discussed slight increase in PSA over the last 8 months however still remains within range. Previous workup has included a retroperitoneal ultrasound results reviewed with the patient today. Bilateral kidneys with no calculi, lesions, and or hydronephrosis. The bladder is partially distended. Pre void bladder volume is approximately 120 mL. Postvoid bladder volume is approximately 15 mL. Prostate volume is approximately 19 mL. PSAs are as follows: 04/21 13.6, 12/22 2.3, 4/24 2.3, 11/22 2.4, 07/24 3.3 When asked he reports to be happy with current voiding parameters on 0.4 mg of Flomax daily. He denies any bothersome urinary issues or concerns. He denies nocturia, hematuria, dysuria, foul smelling urine, changes to urinary stream, flank pain, fever, and or chills. Discussed at length importance of managing diabetes for improvement lower urinary tract symptoms as well as overall health and being. Reviewed most recent A1c level 04/25 6.0 which is improved as previous A1c was 7.2. In office urinalysis results reviewed with the patient today. PVR 46 mLs. He does have a family history of prostate cancer. He reports his brother at a very young age from prostate cancer. He otherwise denies any issues or concerns at this time. PREVIOUS OFFICE NOTE: Lower urinary tract symptoms with prior UTI Prior hematuria Noted to also have weakness of stream and started on tamsulosin Investigations - Cysto 06/19 tight prostatic urethra, mild trabeculation PSAs - 04/21 13.6 - when had retention, 12/20 2.2, 11/20 1.9, 12/22 2.3, 07/23 2.3 Therapeutic plan - refill tamsulosin and repeat PSA in 6 months. [facility] Medical History Morbid obesity CKD (chronic kidney disease) stage 3, GFR 30-59 ml/min Hemorrhoids with complication Family history of prostate cancer Osteoarthritis of left knee Moderate recurrent major depression Pruritus ani Internal and external hemorrhoids without complication Asthma DANIEL on CPAP Anemia Back pain Gross hematuria UTI (urinary tract infection) Prostate enlargement Diabetic polyneuropathy associated with type 2 diabetes mellitus Vitamin D deficiency Diabetes type 2, controlled Family history of anesthesia complication Hx of low back pain Hx of insomnia Hx of migraines Anxiety Depression Colon cancer screening Bleeding hemorrhoids Morbid obesity Hyperlipidemia Hypertension Hypernatremia Bloody stools Diabetes mellitus, type 2 Hiatal hernia Surgical History History of colonoscopy (~11/01/23) Hx of colonoscopy History of knee surgery History of carpal tunnel release H/O hernia repair History of umbilical hernia repair Family History Maternal Uncle History of prostate cancer Father History of throat cancer Myocardial infarction Diabetes mellitus Hypertension CVD (cardiovascular disease) Maternal Grandfather History of throat cancer Son In good health Son In good health Brother Colon cancer Mother Diabetes mellitus Social History Household Members: Spouse and Children Housing: House Are you a primary director of healthcare systems to a significant other at home: No Do you presently have visiting nurse or other home services: Yes (once a week ) Alcohol intake: former Patient Tobacco Use Status: Never used Tobacco Tobacco use type: Cigarette Cigarettes Per Day: 1 e-Cigarette/Vaping Use: Never Used Second Hand Smoke Exposure: No service: No Current occupational status: disabled Cognitive needs: No Hearing needs: No Vision needs: Yes Review of Systems Const Reports as per HPI Eyes Reports no additional complaints ENT Reports no additional complaints Card Reports no additional complaints Resp Reports no additional complaints GI Reports as per HPI Reports as per HPI Musc Reports as per HPI Neuro Reports no additional complaints Psych Reports as per HPI Endo Reports as per HPI David/Lymph Reports no additional complaints Aller/Immun Reports no additional complaints Physical Exam Const General: cooperative, healthy appearing, comfortable, no acute distress, well developed, alert and awake Nutritional Appearance: overweight Orientation/consciousness: patient oriented x3 Limitations: no limitations HEENT Head: Yes normal to inspection, Yes normocephalic and Yes atraumatic Ears: hearing grossly normal bilaterally Eyes General: appearance normal, both eyes and all related structures Neck Neck: Yes normal visual inspection and Yes trachea midline Chest Chest palpation & inspection: normal inspection of the chest Resp Effort & Inspection: normal respiratory effort and able to speak in complete sentences Cardio Rate: regular rate GI Inspection: Yes normal to inspection General: Yes no CVA tenderness Back/Spine/Pelvis Back: no CVA tenderness Skin General skin exam: no rashes or lesions noted Neuro General: patient oriented x3 Extrem General: Yes normal to inspection Psych Appearance: grossly normal and well kempt Mental Status: mental status grossly normal Speech and movement: Normal speech and movement present and Clear speech present Affect: normal affect Attitude: cooperative Thought process: Normal thought process present Thought content: Normal thought content present Insight: Fair insight present (Psych) Judgement: Fair judgement present (Psych) Office Procedures Post Void Residual Post Residual Void Post Void Residual (PVR): 46 [id number] Void Residual by ultrasound Results AMB Urinalysis, Automated UA Leukoctes 0 Zenaida/uL Last Edit by Flor Hampton on 07/23/24 16:02 UA Nitrite Last Edit by Flor Hampton on 07/23/24 16:02 UA Urobilinogen 0.2 mg/dL Last Edit by Flor Hampton on 07/23/24 16:02 UA Protein 0 mg/dL Last Edit by [employer]ter on 07/23/24 16:02 UA pH 7.5 Last Edit by [employer] Brewalter on 07/23/24 16:02 UA Blood 0 Eder/uL Last Edit by [employer] on 07/23/24 16:02 UA Specific [place] 1.010 Last Edit by NetPress Digitalriya Hampton on 07/23/24 16:02 UA Ketone Last Edit by [employer]ya Hampton on 07/23/24 16:02 UA Bilirubin 0 mg/dL Last Edit by [employer] on 07/23/24 16:02 UA Glucose 0 mg/dL Last Edit by [employer] on 07/23/24 16:02 Results Reviewed Results Reviewed: Laboratory Last Values Urine pH (Auto) 7.5 07/23/24 15:42 Specific [place] (Auto) 1.010 07/23/24 15:42 Urine Protein (Auto) 0 mg/dL 07/23/24 15:42 Glucose (UA)(Auto) 0 mg/dL 07/23/24 15:42 Urine Blood (Auto) 0 Eder/uL 07/23/24 15:42 Urine Bilirubin (Auto) 0 mg/dL 07/23/24 15:42 Urine Urobilinogen (Auto) 0.2 mg/dL 07/23/24 15:42 Leukocyte Esterase (Auto) 0 Zenaida/uL 07/23/24 15:42 Assessment & Plan Assessment & Plan (1) Elevated PSA: Code(s): R97.20 - Elevated prostate specific antigen [PSA] Category: Medical (2) Family history of prostate cancer: Code(s): Z80.42 - Family history of malignant neoplasm of prostate Category: Medical (3) Prostate enlargement: Comment: CT Abdomen and Pelvis report: mild prostate enlargement Code(s): N40.0 - Benign prostatic hyperplasia without lower urinary tract symptoms Category: Medical (4) Bladder outlet obstruction: Code(s): N32.0 - Bladder-neck obstruction Category: Medical Plan In office urinalysis results reviewed with the patient today; as noted above. PVR 46 mL. Recent PSA results with the patient today; as noted above. Will continue with surveillance monitoring. He currently denies any bothersome urinary issues or concerns. He reports be happy with current voiding parameters. Continue Flomax; refill provided. Follow-up in 4 months with PSA and PVR; or sooner with any issues, concerns, and or questions. Orders: Orders AMB Urinalysis Automated Today Z13.9 - Encounter for screening, unspecified AMB Post Void Residual by ultrasound Today N32.0 - Bladder-neck obstruction Prostate Specific Antigen 4 Months R97.20 - Elevated prostate specific antigen [PSA] Medications: Refilled tamsulosin (Flomax) 0.4 mg PO BEDTIME 90 days 90 caps 3RF N40.0 - Benign prostatic hyperplasia without lower urinary tract symptoms Patient Instructions: The patient had an opportunity to ask questions regarding the treatment plan. All questions were answered. Physical exam, labs, and imaging were discussed and reviewed in detail. As well as risks, benefits, and discussion of treatment choices. No major barriers to understanding were identified. The patient expressed understanding and agreement with the above treatment plan. The patient was made aware they should contact our office by phone for worsening of their current condition, the appearance of new symptoms, or with any questions or concerns. Compliance is encouraged with any medications and follow up testing that is ordered. It is a privilege to be allowed the opportunity to participate in? your urological care.? Again, if you have any questions or concerns If you have any questions or concerns please do not hesitate to contact me. The office is [phone]. This note is constructed using voice recognition software. While every effort has been made to ensure accuracy truck driver salesperson errors may have been included. Yours sincerely, MARIA Echeverria Coding Level of Care Code Est Pt Level 3 (97338) Complex EM visit Add On G2211 Diagnoses Elevated PSA R97.20 Family history of prostate cancer Z80.42 Prostate enlargement N40.0 Bladder outlet obstruction N32.0 CPT Codes Post Residual Void - PVR CPT Code: 74305-Lmlo Void Residual by ultrasound ([id number])
--- OUTSIDE RECORDS SUMMARY | 2024-07-23 18:12 | XMS_ITS | Clinical Summary ---
Author Organization [facility] Facility Address [address] [address] Care Team Providers Care Company Driver Name Role Phone Deedee Bruce MD Primary Care Provider [phone] Allergies No known active allergies Medications albuterol [...] Vaccine (Season Ended) 2024 05/05/[address] [place] [address] ([id number]) [facility] ([id number]) [place] [id number] Care Teams Company Driver Relationship Specialty Start Date End Date Deedee Bruce MD [address] [place], [place] PCP - General Internal Medicine 04/18/22
== END 2024-07-23 16:03 | disposition home or self-care (01) ==
LOC: HO.HUSH 15:33
PROVIDERS: PCP Internal Medicine; Visit Provider Nurse Practitioner Family
DX: R97.20 Elevated prostate specific antigen [PSA] (principal); Z80.42 Family history of malignant neoplasm of prostate; N40.0 Benign prostatic hyperplasia without lower urinary tract symptoms; N32.0 Bladder-neck obstruction; Z13.9 Encounter for screening, unspecified
CPT/HCPCS: 99213; G2211

== ENCOUNTER 2024-08-06 09:55 | Outpatient (AMB) | payer OTHER, SELFPAY ==
[2024-08-06 10:06] VITALS: BP 102/60; PULSE 81; O2SAT 98; BMI 35.7
--- NOTE | 2024-08-06 10:06 | A.OFFVIS_ITS ---
Vital Signs 08/06/24 10:06 Height 6 ft Weight 263 lb 7.238 oz BMI 35.7 BP 102/60 Blood Pressure Location Lt brachial Position Sitting Pulse 81 Pulse Source Pulse Oximeter Pulse Oximetry (%) 98 Oxygen Delivery Method Room Air Intake Visit Reasons: Obstructive sleep apnea Intake Note: pt is here for follow up and states he is feeling good, has cpap on/off, pt needs refill on albuterol, wixela and neb medication Formula Bottler Required: No Allergies shrimp Allergy (Mild, Verified 08/06/24 10:34) Swelling Medication List - Last Reconciled 08/06/24 by Glenn Interiano MD acetaminophen ER (Mapap Arthritis Pain) 1,300 mg (2 x 650 mg) PO Q8H PRN 30 days albuterol sulfate 2.5 mg (3 mL) inhalation Q4-6H PRN 30 days albuterol sulfate 90 mcg/actuation 2 puffs PO Q4H PRN 30 days amitriptyline 150 mg PO BEDTIME atorvastatin 80 mg PO BEDTIME 90 days blood sugar diagnostic (FreeStyle Lite Strips) 1 strip miscellaneous BID 30 days blood-glucose meter (FreeStyle Lite Meter kit) As directed blood-glucose sensor (Dexcom G7 Sensor device) As directed change every 10 days blood-glucose,phlebotomy coordinator,cont (Dexcom G7 Web Ui Software Engineer) Use daily As directed to monitor blood sugars unwsxitssc-jsxeujakjoqhq-rogg 50-325-40 mg 1 tab PO Q8H PRN chlorthalidone 25 mg PO DAILY 90 days cholecalciferol (vitamin D3) 25 mcg PO DAILY 90 days clonidine HCl 0.2 mg PO BEDTIME 90 days cyclobenzaprine 10 mg PO Q8H PRN 30 days docusate sodium 100 mg PO BID empagliflozin (Jardiance) 25 mg PO DAILY 90 days fenofibrate nanocrystallized 145 mg PO DAILY 90 days fluticasone propion-salmeterol 250-50 mcg/dose (Wixela Inhub) 1 ea PO Q12H gabapentin 100 mg PO TID 30 days glucose (Dex4 Glucose) 16 grams (4 x 4 gram) PO Q15M PRN hydrocortisone 2.5% 1 appl topical BID PRN 14 days insulin glargine (Lantus Solostar U-100 Insulin) 10 units (0.1 mL) subcut QPM 30 days lancets As directed tests 3 X/day lisinopril 40 mg PO DAILY lorazepam 1 mg PO BID PRN meloxicam 15 mg PO DAILY PRN menthol-zinc oxide 0.44-20.6 % (Calmoseptine) 1 appl topical QID PRN metformin ER 1,000 mg (2 x 500 mg) PO BID 90 days montelukast 10 mg PO BEDTIME pen needle, diabetic (BD Jennifer 2nd Gen Pen Needle) once a day pen needle, diabetic (Comfort EZ Pen [place]) As directed injects once a day phenylephrine HCl 0.25% (Preparation H (pe)) 1 supp NE QID PRN pioglitazone 15 mg PO DAILY semaglutide (Ozempic) 2 mg (0.75 mL) subcut QWEEK 30 days sodium,potassium,mag sulfates 17.5-3.13-1.6 gram (Suprep Bowel Prep Kit) DILUTE; drink full amount early evening before AND next morning at least 2 hr before procedure; follow w 960 mL water PO sumatriptan succinate (Imitrex) 100 mg PO DIRECTED tamsulosin (Flomax) 0.4 mg PO BEDTIME 90 days topiramate 100 mg PO BID Ventolin HFA 90 mcg/actuation (albuterol sulfate) 2 puffs inhalation Q6H PRN 30 days NS zolpidem (Ambien) 10 mg PO BEDTIME PRN Do you need a note to return to daycare/school/sports/work: No HPI HPI Obstructive sleep apnea: Details: This 59 years old gentleman is a case of gross obesity, bronchial asthma, and obstructive sleep apnea. He is here for. 6 months follow-up He has not been using his CPAP regularly and claims that he sleeps good even without the CPAP. He is happy that he has lost about 6 lb during the past month. Breathing has been under control and he needs to use albuterol only once in a while. He is able to walk around and do his regular work without getting short of breath. [facility] Medical History Morbid obesity CKD (chronic kidney disease) stage 3, GFR 30-59 ml/min Hemorrhoids with complication Family history of prostate cancer Osteoarthritis of left knee Moderate recurrent major depression Pruritus ani Internal and external hemorrhoids without complication Asthma DANIEL on CPAP Anemia Back pain Gross hematuria UTI (urinary tract infection) Prostate enlargement Diabetic polyneuropathy associated with type 2 diabetes mellitus Vitamin D deficiency Diabetes type 2, controlled Family history of anesthesia complication Hx of low back pain Hx of insomnia Hx of migraines Anxiety Depression Colon cancer screening Bleeding hemorrhoids Morbid obesity Hyperlipidemia Hypertension Hypernatremia Bloody stools Diabetes mellitus, type 2 Hiatal hernia Surgical History History of colonoscopy (~11/01/23) Hx of colonoscopy History of knee surgery History of carpal tunnel release H/O hernia repair History of umbilical hernia repair Family History Maternal Uncle History of prostate cancer Father History of throat cancer Myocardial infarction Diabetes mellitus Hypertension CVD (cardiovascular disease) Maternal Grandfather History of throat cancer Son In good health Son In good health Brother Colon cancer Mother Diabetes mellitus Social History Household Members: Spouse and Children Housing: House Are you a primary health care manager to a significant other at home: No Do you presently have visiting nurse or other home services: Yes (once a week ) Alcohol intake: former Patient Tobacco Use Status: Never used Tobacco Tobacco use type: Cigarette Cigarettes Per Day: 1 e-Cigarette/Vaping Use: Never Used Second Hand Smoke Exposure: No service: No Current occupational status: disabled Cognitive needs: No Hearing needs: No Vision needs: Yes Review of Systems Const All systems reviewed & are unremarkable except as noted in HPI and below Eyes Reports no additional complaints ENT Reports nasal congestion (MILD, OFF AND ON) Card Denies chest pain, Denies irregular heart rhythm and Denies leg edema Resp Reports as per HPI GI Reports constipation Reports no additional complaints and Reports nocturia Musc Reports back pain (MILD) Skin/Breast Reports system reviewed and no additional complaints, except as documented Neuro Reports no additional complaints Psych Reports no additional complaints Physical Exam Vital Signs: Last Vital Signs Pulse 81 08/06/24 10:06 BP 102/60 08/06/24 10:06 Pulse Ox 98 08/06/24 10:06 Oxygen Delivery Method Room Air 08/06/24 10:06 BMI result Body Mass Index 35.7 Const General: healthy appearing (Except for overweight), comfortable, no acute distress, alert and awake Orientation/consciousness: patient oriented x3 HEENT Head: Yes normal to inspection General nose exam: No nasal polyps present, No nasal discharge present and normal mucous membranes and turbinates (Has moderate hypertrophy of the nasal turbinates) Face and sinus: Yes sinuses nontender Mouth: oropharynx normal Throat: Yes posterior oropharynx normal Eyes General: appearance normal, both eyes and all related structures Neck Neck: Yes normal visual inspection, Yes no lymphadenopathy, Yes trachea midline and Yes no JVD Thyroid: Thyroid normal Chest Chest palpation & inspection: normal inspection of the chest, normal palpation of entire chest wall and no tenderness Resp Other: Percussion note is resonant. He has good breath sounds on both sides. No wheezes rhonchi or crepitations are heard. Cardio Palpation: normal PMI Rate: regular rate Rhythm: regular rhythm Heart sounds: no gallops and no murmurs Peripheral pulses: Peripheral pulses 2+ throughout GI Palpation (GI): Soft to palpation, Tenderness to palpation present (GI), No hepatosplenomegaly present and Palpable mass present Auscultation: normal bowel sounds Back/Spine/Pelvis Thoracic/Lumbar Spine: thoracic and lumbar spine normal to inspection Skin General skin exam: no rashes or lesions noted Neuro General: patient oriented x3 and no focal motor deficits Cranial nerves: Yes CN's II-XII intact bilaterally Extrem General: Yes normal to inspection, Yes no clubbing, cyanosis or edema and Yes no calf tenderness Psych Appearance: grossly normal and well kempt Speech and movement: Normal speech and movement present Results Reviewed Results Reviewed: Compliance report not available as he does not use the CPAP regularly Assessment & Plan Assessment & Plan (1) Asthma: Comment: HAS CHRONIC , INTERMITTENT BRONCHIAL ASTHMA, CONTROLLED WITH CURRENT REGIMEN. DENIES HAVING HAD ANY ACUTE EXACERBATION IN THE PAST 1 YEAR. Code(s): J45.909 - Unspecified asthma, uncomplicated Category: Medical Qualifiers: Asthma severity: mild Asthma persistence: persistent Asthma complication type: uncomplicated Qualified Code(s): J45.30 - Mild persistent asthma, uncomplicated Plan: CONTINUE USING WIXELA 250-51 INHALATION B.I.D. AND ALBUTEROL HFA 2 PUFFS Q 6 HOURS ONLY P.R.N.. AT HOME HE CAN USE ALBUTEROL SOLUTION IN THE NEBULIZER FOR Q 6 HOURS P.R.N.. (2) DANIEL on CPAP: Comment: KNOWN CASE OF OBSTRUCTIVE SLEEP APNEA SINCE 2013. HE HAS BEEN USING CPAP REGULARLY IN THE PAST . HOWEVER DURING THE PAST 1 YEAR HE HAS NOT USED IT REGULARLY CLAIMING THAT HE HAS LOST SOME WEIGHT AND HE SLEEPS BETTER WITHOUT THE CPAP. Code(s): G47.33 - Obstructive sleep apnea (adult) (pediatric); Z99.89 - Dependence on other enabling machines and devices Category: Medical Plan: ENCOURAGED TO KEEP ON LOSING WEIGHT. HE IS ON OZEMPIC INJECTIONS FOR OBESITY/ DIABETES MELLITUS. KEEP THE CPAP AT HOME AND STILL USE IF HE STARTS HAVING DIFFICULTY IN SLEEPING. Coding Level of Care Code Est Pt Level 3 (80430) Diagnoses Mild persistent asthma without complication J45.30 Asthma severity: mild Asthma persistence: persistent Asthma complication type: uncomplicated DANIEL on CPAP G47.33; Z99.89
--- OUTSIDE RECORDS SUMMARY | 2024-08-06 10:52 | XMS_ITS | Clinical Summary ---
Author Organization [facility] Facility Address [address] [address] Care Team Providers Care Doctor Of Naturopathic Medicine Name Role Phone Deedee Bruce MD Primary Care Provider [phone] Allergies No known active allergies Medications albuterol [...] Vaccine (Season Ended) 2024 05/05/[address] [place] [address] ([id number]) [facility] ([id number]) [place] [phone] Care Teams Doctor Of Naturopathic Medicine Relationship Specialty Start Date End Date Deedee Bruce MD [address] [place], [place] PCP - General Internal Medicine 04/18/22
== END 2024-08-06 10:34 | disposition home or self-care (01) ==
LOC: HO.HPS 09:56
PROVIDERS: PCP Internal Medicine; Visit Provider Internal Medicine
DX: J45.30 Mild persistent asthma, uncomplicated (principal); G47.33 Obstructive sleep apnea (adult) (pediatric); Z99.89 Dependence on other enabling machines and devices
CPT/HCPCS: 99213

== ENCOUNTER → 2024-08-06 09:55 | Outpatient (BNVA) | payer OTHER, SELFPAY | PROVIDERS: PCP Internal Medicine; Visit Provider Internal Medicine | DX: G47.33 Obstructive sleep apnea (adult) (pediatric) (principal); J45.30 Mild persistent asthma, uncomplicated; Z99.89 Dependence on other enabling machines and devices | CPT/HCPCS: 99212 ==

== ENCOUNTER 2024-08-10 13:55 | Outpatient (AMB) | payer OTHER, SELFPAY ==
[2024-08-10 14:06] VITALS: BMI 35.3
--- NOTE | 2024-08-10 14:06 | A.OFFVIS_ITS ---
VS Expanded 08/10/24 14:06 Height 6 ft Weight 260 lb 9.382 oz BMI 35.3 Intake Visit Reasons: t2dm Allergies shrimp Allergy (Mild, Verified 08/11/24 10:25) Swelling Nutrition Presentation Details: Pt presents for MNT for T2DM Pt working on dietary modifications, reports feeling well, no concerns Pt reports reducing on sugars and amount of fats following healthy plate method Pt reports keeping physically activity 5 days 14 BG average 132 mg/dl , no hypoglycemia BS Monitoring Most Recent Diabetes Results: Microalb/Creat Ratio 14.2 ug/mg cr (<30) 07/21/24 Cholesterol 150 mg/dL (<200) 07/21/24 HDL Cholesterol 40 mg/dL (>40) L 07/21/24 Triglycerides 78 mg/dL (<150) 07/21/24 Creatinine 1.06 mg/dL (0.5-1.4) 07/22/24 Blood Urea Nitrogen 24 mg/dL (9-16) H 07/22/24 Sodium 141 mmol/L (135-145) 07/22/24 Potassium 3.5 mmol/L (3.3-5.1) 07/22/24 Chloride 107 mmol/L (96-108) 07/22/24 Carbon Dioxide 25 mmol/L (22-29) 07/22/24 Calcium 10.2 mg/dL (8.4-10.2) 07/22/24 AST 27 U/L (5-37) 07/22/24 ALT 31 U/L (0-40) 07/22/24 Total Protein 6.9 g/dL (6.5-8.0) 07/22/24 Albumin 4.2 g/dL (3.5-5.0) 07/22/24 [facility] Medical History Morbid obesity CKD (chronic kidney disease) stage 3, GFR 30-59 ml/min Hemorrhoids with complication Family history of prostate cancer Osteoarthritis of left knee Moderate recurrent major depression Pruritus ani Internal and external hemorrhoids without complication Asthma DANIEL on CPAP Anemia Back pain Gross hematuria UTI (urinary tract infection) Prostate enlargement Diabetic polyneuropathy associated with type 2 diabetes mellitus Vitamin D deficiency Diabetes type 2, controlled Family history of anesthesia complication Hx of low back pain Hx of insomnia Hx of migraines Anxiety Depression Colon cancer screening Bleeding hemorrhoids Morbid obesity Hyperlipidemia Hypertension Hypernatremia Bloody stools Diabetes mellitus, type 2 Hiatal hernia Surgical History History of colonoscopy (~11/01/23) Hx of colonoscopy History of knee surgery History of carpal tunnel release H/O hernia repair History of umbilical hernia repair Family History Maternal Uncle History of prostate cancer Father History of throat cancer Myocardial infarction Diabetes mellitus Hypertension CVD (cardiovascular disease) Maternal Grandfather History of throat cancer Son In good health Son In good health Brother Colon cancer Mother Diabetes mellitus Social History Household Members: Spouse and Children Housing: House Are you a primary director of patient care to a significant other at home: No Do you presently have visiting nurse or other home services: Yes (once a week ) Alcohol intake: former Patient Tobacco Use Status: Never used Tobacco Tobacco use type: Cigarette Cigarettes Per Day: 1 e-Cigarette/Vaping Use: Never Used Second Hand Smoke Exposure: No service: No Current occupational status: disabled Cognitive needs: No Hearing needs: No Vision needs: Yes Assessment & Plan Assessment & Plan (1) Diabetes mellitus: Code(s): E11.9 - Type 2 diabetes mellitus without complications Category: Medical Qualifiers: Diabetes mellitus complication status: with hyperglycemia Diabetes mellitus extermination supervisor insulin use: without extermination supervisor use Diabetes mellitus type: type 2 Qualified Code(s): E11.65 - Type 2 diabetes mellitus with hyperglycemia Plan: Wt: 138 Kg (03/28/23 ), 136.8 kg (07/2023), 128 kg (01/22), 125 kg (02/22), 121 kg (06/13), 118 kg (08/23) Est kcal needs as per MSJ: 2700 -3000 (40% carb, 30% protein/fat) Est fluid needs as per 25-30 ml/d: 3450- 4140 ml/d Est prot per day as per 0.8- 1 g/kg bw: 136 g/ Recommend fiber intake : 8-10 g per day and gradually increase to 25-28 g per day for women and 35-38 g for men or as tolerated Recommend sodium intake per day : less than 2000 mg Educated patient on: ( R = reviewed V = verbalizes understanding N/R = needs review N/A = not applicable * Food sources of carbohydrate, adequate serving sizes and its role in various health conditions: R ,v * Differences between complex carbohydrates a simple carbohydrates, role of fibe r in diet: R ,v * Lean protein sources of foods: R ,v * Differences between types of fats and role in diet (mono on saturated fat fatty acids, saturated fatty acids, trans fats): R,v * Food sources of sodium in salt and healthy modifications for heart health in kidney health: R * Vitamins and minerals: R * Healthy plate method concept: R ,v * Physical activity: Benefits a precaution: R ,v * Hypoglycemia protocol (rule of 15): R * Dietary prevention of Hyperglycemia: R Patient Instructions: Continue working on following healthy plate method Include fibr rich foods and increase water/low sugar fluids as you increase fiber to prevent constipation Coding Level of Care Code Nutr Indiv Subseq (69330) Diagnoses Type 2 diabetes mellitus with hyperglycemia, without long-term current use of insulin E11.65 Diabetes mellitus complication status: with hyperglycemia Diabetes mellitus extermination supervisor insulin use: without extermination supervisor use Diabetes mellitus type: type 2 Time Spent (min) 20
--- OUTSIDE RECORDS SUMMARY | 2024-08-10 14:11 | XMS_ITS | Clinical Summary ---
Author Organization [facility] Facility Address [address] [address] Care Team Providers Care Manager Image Name Role Phone Deedee Bruce MD Primary Care Provider [phone] Allergies No known active allergies Medications albuterol [...] Vaccine (Season Ended) 2024 05/05/[address] [place] [address] ([id number]) [facility] ([id number]) [place] [phone] Care Teams Manager Image Relationship Specialty Start Date End Date Deedee Bruce MD [address] [place], [place] PCP - General Internal Medicine 04/18/22
== END 2024-08-10 14:28 | disposition home or self-care (01) ==
LOC: HO.ENCR 13:55
PROVIDERS: PCP Internal Medicine; Visit Provider Dietitian, Registered
DX: E11.65 Type 2 diabetes mellitus with hyperglycemia (principal)

== ENCOUNTER → 2024-08-10 13:55 | Outpatient (BNVA) | payer OTHER, SELFPAY | PROVIDERS: PCP Internal Medicine; Visit Provider Dietitian, Registered | DX: E11.65 Type 2 diabetes mellitus with hyperglycemia (principal); Z71.3 Dietary counseling and surveillance | CPT/HCPCS: 97803 ==

== ENCOUNTER 2024-08-11 10:19 | Outpatient (AMB) | payer OTHER, SELFPAY ==
[2024-08-11 10:23] VITALS: BP 100/54; PULSE 90; O2SAT 97; BMI 35.7
--- NOTE | 2024-08-11 10:23 | HO.NEPHOV_ITS ---
Vital Signs 08/11/24 10:23 Height 6 ft Weight 263 lb BMI 35.7 BP 100/54 L Blood Pressure Location Lt brachial Position Sitting Pulse 90 Pulse Source Pulse Oximeter Pulse Oximetry (%) 97 Oxygen Delivery Method Room Air Intake Visit Reasons: CKD/ Conf Tar Processing Technician Required: Yes Tar Processing Technician Name: Stephon [id number] Accompanied by: Self / Same As Patient Allergies shrimp Allergy (Mild, Verified 08/11/24 10:25) Swelling Medication List - Last Reconciled 08/11/24 by Bethel Ibarra MD acetaminophen ER (Mapap Arthritis Pain) 1,300 mg (2 x 650 mg) PO Q8H PRN 30 days albuterol sulfate 2.5 mg (3 mL) inhalation Q4-6H PRN 30 days albuterol sulfate 90 mcg/actuation 2 puffs PO Q4H PRN 30 days amitriptyline 150 mg PO BEDTIME atorvastatin 80 mg PO BEDTIME 90 days blood sugar diagnostic (FreeStyle Lite Strips) 1 strip miscellaneous BID 30 days blood-glucose meter (FreeStyle Lite Meter kit) As directed blood-glucose sensor ([place] Silicon[employer] G7 Sensor device) As directed change every 10 days blood-glucose,continuity person,cont (Dexcom G7 Vocational Guidance Counselor) Use daily As directed to monitor blood sugars tztqpeobrp-epdpjofjdvfuh-ncqo 50-325-40 mg 1 tab PO Q8H PRN chlorthalidone 25 mg PO DAILY 90 days cholecalciferol (vitamin D3) 25 mcg PO DAILY 90 days clonidine HCl 0.2 mg PO BEDTIME 90 days cyclobenzaprine 10 mg PO Q8H PRN 30 days docusate sodium 100 mg PO BID empagliflozin (Jardiance) 25 mg PO DAILY 90 days fenofibrate nanocrystallized 145 mg PO DAILY 90 days fluticasone propion-salmeterol 250-50 mcg/dose (Wixela Inhub) 1 ea PO Q12H gabapentin 100 mg PO TID 30 days glucose (Dex4 Glucose) 16 grams (4 x 4 gram) PO Q15M PRN hydrocortisone 2.5% 1 appl topical BID PRN 14 days insulin glargine (Lantus Solostar U-100 Insulin) 10 units (0.1 mL) subcut QPM 30 days lancets As directed tests 3 X/day lisinopril 40 mg PO DAILY lorazepam 1 mg PO BID PRN meloxicam 15 mg PO DAILY PRN menthol-zinc oxide 0.44-20.6 % (Calmoseptine) 1 appl topical QID PRN metformin ER 1,000 mg (2 x 500 mg) PO BID 90 days montelukast 10 mg PO BEDTIME pen needle, diabetic (BD Jennifer 2nd Gen Pen Needle) once a day pen needle, diabetic (Comfort EZ Pen Cyclone) As directed injects once a day phenylephrine HCl 0.25% (Preparation H (pe)) 1 supp MI QID PRN pioglitazone 15 mg PO DAILY semaglutide (Ozempic) 2 mg (0.75 mL) subcut QWEEK 30 days sodium,potassium,mag sulfates 17.5-3.13-1.6 gram (Suprep Bowel Prep Kit) DILUTE; drink full amount early evening before AND next morning at least 2 hr before procedure; follow w 960 mL water PO sumatriptan succinate (Imitrex) 100 mg PO DIRECTED tamsulosin (Flomax) 0.4 mg PO BEDTIME 90 days topiramate 100 mg PO BID Ventolin HFA 90 mcg/actuation (albuterol sulfate) 2 puffs inhalation Q6H PRN 30 days NS zolpidem (Ambien) 10 mg PO BEDTIME PRN HPI Comments Details: Middle-aged man with a history of longstanding hypertension diabetes, obesity with mild CKD. Is minimal proteinuria. He has a history of ingesting Advil up to 3 tablets a day. After discontinuing and will has been improvement in the serum creatinine. Peak serum creatinine was 1.5 back in June 2021. Since last visit he has done very well. No specific complaints. No nausea vomiting no urine symptoms. No edema. He seems complaint was medications. 04/14/24 To gym regularly; Lost about 6 lbs Blood sugar acceptable. 08/11/24 59-year-old male presenting with concerns related to diabetes mellitus and its impact on renal health. His treatment regimen includes Jardiance and Lisinopril, aimed at providing renal protection. His weight has remained stable since the previous evaluation, and he reports no issues with urination. He occasionally experiences lightheadedness and is monitoring his blood glucose, noting a level of 138 mg/dL this morning. For weight management, he receives weekly Ozempic injections. His intermittent use of meloxicam for pain is noted, considering its potential renal implications. The latest laboratory tests from June confirm stable renal function and minimal proteinuria. [facility] Medical History Morbid obesity CKD (chronic kidney disease) stage 3, GFR 30-59 ml/min Hemorrhoids with complication Family history of prostate cancer Osteoarthritis of left knee Moderate recurrent major depression Pruritus ani Internal and external hemorrhoids without complication Asthma DANIEL on CPAP Anemia Back pain Gross hematuria UTI (urinary tract infection) Prostate enlargement Diabetic polyneuropathy associated with type 2 diabetes mellitus Vitamin D deficiency Diabetes type 2, controlled Family history of anesthesia complication Hx of low back pain Hx of insomnia Hx of migraines Anxiety Depression Colon cancer screening Bleeding hemorrhoids Morbid obesity Hyperlipidemia Hypertension Hypernatremia Bloody stools Diabetes mellitus, type 2 Hiatal hernia Surgical History History of colonoscopy (~11/01/23) Hx of colonoscopy History of knee surgery History of carpal tunnel release H/O hernia repair History of umbilical hernia repair Family History Maternal Uncle History of prostate cancer Father History of throat cancer Myocardial infarction Diabetes mellitus Hypertension CVD (cardiovascular disease) Maternal Grandfather History of throat cancer Son In good health Son In good health Brother Colon cancer Mother Diabetes mellitus Social History Household Members: Spouse and Children Housing: House Are you a primary director of career resources to a significant other at home: No Do you presently have visiting nurse or other home services: Yes (once a week ) Alcohol intake: former Patient Tobacco Use Status: Never used Tobacco Tobacco use type: Cigarette Cigarettes Per Day: 1 e-Cigarette/Vaping Use: Never Used Second Hand Smoke Exposure: No service: No Current occupational status: disabled Cognitive needs: No Hearing needs: No Vision needs: Yes Physical Exam Vital Signs: Last Vital Signs Pulse 90 08/11/24 10:23 BP 100/54 L 08/11/24 10:23 Pulse Ox 97 08/11/24 10:23 Oxygen Delivery Method Room Air 08/11/24 10:23 BMI result Body Mass Index 35.7 Comfortable Neck supple no JVD. Lungs entry equal no rales. Heart S1-S2 heard no gallop or rub. Abdomen soft nontender. Neuro alert awake oriented. No asterixis. Extremities no edema. Results Reviewed Nephrology Results: Hgb 13.8 g/dl (14.0-18.0) L 07/22/24 WBC 8.9 X10*3/uL (4.8-10.8) 07/22/24 Plt Count 303 X10*3/uL (160-400) 07/22/24 Sodium 141 mmol/L (135-145) 07/22/24 Potassium 3.5 mmol/L (3.3-5.1) 07/22/24 Chloride 107 mmol/L (96-108) 07/22/24 Carbon Dioxide 25 mmol/L (22-29) 07/22/24 BUN 24 mg/dL (9-16) H 07/22/24 Creatinine 1.06 mg/dL (0.5-1.4) 07/22/24 Calcium 10.2 mg/dL (8.4-10.2) 07/22/24 PTH Intact 26.6 pg/mL (8.7-77.1) 07/22/24 Urine Protein Negative mg/dL (Neg-Trace) 07/22/24 Urine Creatinine 59.57 mg/dL 07/22/24 Assessment & Plan Assessment & Plan (1) Essential hypertension: Code(s): I10 - Essential (primary) hypertension Category: Medical (2) CKD (chronic kidney disease) stage 3, GFR 30-59 ml/min: Code(s): N18.30 - Chronic kidney disease, stage 3 unspecified Category: Medical Qualifiers: Chronic kidney disease stage 3 subtype: stage 3a (GFR 45-59) Qualified Code(s): N18.31 - Chronic kidney disease, stage 3a (3) Morbid obesity: Code(s): E66.01 - Morbid (severe) obesity due to excess calories Category: Medical (4) Hypertension: Code(s): I10 - Essential (primary) hypertension Category: Medical Qualifiers: Hypertension type: essential hypertension Qualified Code(s): I10 - Essential (primary) hypertension (5) Hypercalcemia: Code(s): E83.52 - Hypercalcemia Category: Medical Plan Middle-aged man with longstanding hypertension diabetes mellitus obesity with mild CKD. Renal function stable at baseline. Goal is to slow the progression of renal disease. Still taking Miloxicam- Cr is at 1.35 MOst likely due to NSAID induced hypoperfusion Needs to STOP Miloxicam Goal is to maintain the hemoglobin A1c less than 7%. We discussed weight loss as well. s/p Mild hypercalcemia Stopped vit D 50 mcg for a week Ca normalized Restarted at a lower dose of every other week BP is rather low Likely due to weight loss Keep CHLORTHALIDONE 12.5 mg daily instead of 50 mg 08/11/24 Renal function is stable Continue with Jardiance and Lisinopril for renal protection, alongside weekly Ozempic for weight management. Monitoring of blood glucose and blood pressure levels should persist. Caution with meloxicam usage is essential to minimize potential impact on renal function. A follow-up is planned in six months. Orders: Orders Basic Metabolic Panel 6 Months I10 - Essential (primary) hypertension Coding Level of Care Code Est Pt Level 4 (74790) Diagnoses Essential hypertension I10 Stage 3a chronic kidney disease N18.31 Chronic kidney disease stage 3 subtype: stage 3a (GFR 45-59) Morbid obesity E66.01 Essential hypertension I10 Hypertension type: essential hypertension Hypercalcemia E83.52
--- OUTSIDE RECORDS SUMMARY | 2024-08-11 11:27 | XMS_ITS | Clinical Summary ---
Author Organization [facility] Facility Address [address] [address] Care Team Providers Care Security Business Analyst Name Role Phone Deedee Bruce MD Primary Care Provider [phone] Allergies No known active allergies Medications albuterol [...] Vaccine (Season Ended) 2024 05/05/[address] [place] [address] ([id number]) [facility] ([id number]) [place] [phone] Care Teams Security Business Analyst Relationship Specialty Start Date End Date Deedee Bruce MD [address] [place], [place] PCP - General Internal Medicine 04/18/22
== END 2024-08-11 10:36 | disposition home or self-care (01) ==
LOC: HO.HKA 10:20
PROVIDERS: PCP Internal Medicine; Visit Provider Internal Medicine Hypertension Specialist
DX: I10 Essential (primary) hypertension (principal); N18.31 Chronic kidney disease, stage 3a; E66.01 Morbid (severe) obesity due to excess calories; E83.52 Hypercalcemia
CPT/HCPCS: 99214

== ENCOUNTER → 2024-08-11 10:19 | Outpatient (BNVA) | payer OTHER, SELFPAY | PROVIDERS: PCP Internal Medicine; Visit Provider Internal Medicine Hypertension Specialist | DX: I12.9 Hypertensive chronic kidney disease with stage 1 through stage 4 chronic kidney disease, or unspecified chronic kidney disease (principal); N18.31 Chronic kidney disease, stage 3a; E83.52 Hypercalcemia; E66.01 Morbid (severe) obesity due to excess calories; Z68.35 Body mass index [BMI] 35.0-35.9, adult | CPT/HCPCS: 99212 ==

== ENCOUNTER 2024-10-12 12:42 | Outpatient (AMB) | payer OTHER, SELFPAY ==
--- NOTE | 2024-10-12 12:51 | A.OFFVIS_ITS ---
Vital Signs 10/12/24 12:52 Height 5 ft 9 in Weight 277 lb 12.519 oz BMI 41.0 BP 130/70 Blood Pressure Location Rt brachial Position Sitting Pulse 76 Pulse Source Pulse Oximeter Pulse Oximetry (%) 99 Intake Visit Reasons: DM Intake Note: Patient present today for Type 2 Diabetes Mellitus Last Diabetic eye exam:May 2023 Last Podiatry Visit: no instructional paraprofessional Random Glucose: 88 mg/dl HgA1C: 5.9% 07/22/24 Manufacturing Tech Name: [id number] marco Allergies shrimp Allergy (Mild, Verified 10/12/24 12:52) Swelling HPI HPI DM: Details: Patient is a 59-year-old male with a significant past medical history of type 2 diabetes, hypertension, hyperlipidemia and obesity presenting today for a diabetic follow-up. 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 He is currently Ozempic 2 mg weekly, metformin 1000 mg twice a day, Jardiance 25 mg daily, Actos 30 mg daily and Lantus 10 units. cgm- dexcom- hyperglycemic 4%, in range 96%. No hypoglycemic events. He has been having a lot of falsely low blood sugars with the Dexcom. He states that his blood sugars have said that they were about 40 or 50 and then he would be treating it and realize that his blood sugars were actually normal. Today in the office it did actually state that his blood sugar was dropping less than 50 had his fingerstick blood sugar was 86. He is completely asymptomatic. He was provided Jeremie crackers and orange juice and his glucose remained at 88. He bunch s been frustrated with the sensor in the sensor is new. He just put it on this morning. Hypogylcemia- He has glucose tabs if needed. CV: bp today in office is 130/70. he is currently on lisinopril 40 mg, chlorthalidone 12.5 mg mg. Cholesterol is controlled with atorvastatin 80 mg and fenofibrate 145. Last LDL 64. [facility] Medical History Morbid obesity CKD (chronic kidney disease) stage 3, GFR 30-59 ml/min Hemorrhoids with complication Family history of prostate cancer Osteoarthritis of left knee Moderate recurrent major depression Pruritus ani Internal and external hemorrhoids without complication Asthma DANIEL on CPAP Anemia Back pain Gross hematuria UTI (urinary tract infection) Prostate enlargement Diabetic polyneuropathy associated with type 2 diabetes mellitus Vitamin D deficiency Diabetes type 2, controlled Family history of anesthesia complication Hx of low back pain Hx of insomnia Hx of migraines Anxiety Depression Colon cancer screening Bleeding hemorrhoids Morbid obesity Hyperlipidemia Hypertension Hypernatremia Bloody stools Diabetes mellitus, type 2 Hiatal hernia Surgical History History of colonoscopy (~11/01/23) Hx of colonoscopy History of knee surgery History of carpal tunnel release H/O hernia repair History of umbilical hernia repair Family History Maternal Uncle History of prostate cancer Father History of throat cancer Myocardial infarction Diabetes mellitus Hypertension CVD (cardiovascular disease) Maternal Grandfather History of throat cancer Son In good health Son In good health Brother Colon cancer Mother Diabetes mellitus Social History Household Members: Spouse and Children Housing: House Are you a primary care rep to a significant other at home: No Do you presently have visiting nurse or other home services: Yes (once a week ) Alcohol intake: former Patient Tobacco Use Status: Never used Tobacco Tobacco use type: Cigarette e-Cigarette/Vaping Use: Never Used Second Hand Smoke Exposure: No service: No Current occupational status: disabled Cognitive needs: No Hearing needs: No Vision needs: Yes Physical Exam Vital Signs: Last Vital Signs Pulse 76 10/12/24 12:52 BP 130/70 10/12/24 12:52 Pulse Ox 99 10/12/24 12:52 BMI result Body Mass Index 41.0 Const Orientation/consciousness: patient oriented x3 HEENT Ears: hearing grossly normal bilaterally Neck Thyroid: Thyroid normal Lymphatic: no lymphadenopathy noted Resp Auscultation: clear to auscultation bilaterally Cardio Rate: regular rate Rhythm: regular rhythm Heart sounds: S1 normal heart sound present and S2 normal heart sound present Skin General skin exam: no rashes or lesions noted Neuro General: patient oriented x3, gait normal and no focal motor deficits Results Reviewed Results Reviewed: Laboratory Tests 07/21/24 07/21/24 07/22/24 06:36 06:43 15:09 Sodium Potassium Chloride Carbon Dioxide Anion Gap BUN Creatinine Estim Creat Clear Calc Estimated GFR Random Glucose Hemoglobin A1c % 5.9 Calcium AST ALT Alkaline Phosphatase Total Protein Albumin Triglycerides 78 Cholesterol 150 LDL Cholesterol, Calc 95 HDL Cholesterol 40 L U Random Total Protein Urine Creatinine 223.93 Urine Microalbumin 32.0 Microalb/Creat Ratio 14.2 07/22/24 10/08/24 15:10 08:59 Sodium 142 Potassium 3.3 Chloride 111 H Carbon Dioxide 27 Anion Gap 7 L BUN 14 Creatinine 1.01 Estim Creat Clear Calc 102.9 Estimated GFR > 60 Random Glucose 93 Hemoglobin A1c % Calcium 9.5 D AST 35 ALT 40 Alkaline Phosphatase 56 Total Protein 6.4 L Albumin 4.1 Triglycerides Cholesterol LDL Cholesterol, Calc HDL Cholesterol U Random Total Protein < 7 Urine Creatinine Urine Microalbumin Microalb/Creat Ratio Assessment & Plan Assessment & Plan (1) Insulin dependent type 2 diabetes mellitus: Code(s): E11.9 - Type 2 diabetes mellitus without complications; Z79.4 - technician terminal and repeater (current) use of insulin Category: Medical Plan: We will discontinue the Actos continue Ozempic, Lantus, metformin and Jardiance. I have given him a Gloria 3+ sensor today in the office. He we will download the emily when he has better cell service and battery. I did also send him the reader to the pharmacy. Return in 3 months or sooner. (2) Hyperlipidemia LDL goal <70: Code(s): E78.5 - Hyperlipidemia, unspecified Category: Medical Plan: Continue current regimen. (3) Hypertension: Code(s): I10 - Essential (primary) hypertension Category: Medical Qualifiers: Hypertension type: essential hypertension Qualified Code(s): I10 - Essential (primary) hypertension Plan: WNL. Continue current regimen Medications: New blood-glucose,catering convention services manager,cont (FreeStyle Gloria 3 [place]) Use daily As directed to monitor blood glucose 1 ea 0RF blood-glucose sensor (FreeStyle Gloria 3 Plus Sensor device) Use daily As directed to monitor glucose 2 ea 5RF E08.29 - Diabetes mellitus due to underlying condition with other diabetic kidney complication, R80.9 - Proteinuria, unspecified, Z79.4 - correction (current) use of insulin Discontinued pioglitazone Discontinued Reason: Doctor's Order 15 mg PO DAILY 90 tabs 1RF Coding Level of Care Code Est Pt Level 4 (15803) Complex EM visit Add On G2211 Diagnoses Insulin dependent type 2 diabetes mellitus E11.9; Z79.4 Hyperlipidemia LDL goal <70 E78.5 Essential hypertension I10 Hypertension type: essential hypertension
[2024-10-12 12:52] VITALS: BP 130/70; PULSE 76; O2SAT 99; BMI 41.0
[2024-10-12 13:23] LABS: Glucose, Whole Blood 86 mg/dL (60-115)
[2024-10-12 13:23] LABS: Glucose, Whole Blood 88 mg/dL (60-115)
--- OUTSIDE RECORDS SUMMARY | 2024-10-12 13:34 | XMS_ITS | Clinical Summary ---
Author Organization [facility] Facility Address [address] [address] Care Team Providers Care International Guest Coordinator Name Role Phone Deedee Bruce MD Primary Care Provider [phone] Allergies No known active allergies Medications albuterol [...] Visual Foot Exam 05/01/2020 Influenza Vaccine (#1) 2024 05/05/2015 Insurance ([id number]) [facility] ([id number]) [place] [id number] Care Teams International Guest Coordinator Relationship Specialty Start Date End Date Deedee Bruce MD [address] [place], [place] PCP - General Internal Medicine 04/18/22
== END 2024-10-12 13:28 | disposition home or self-care (01) ==
LOC: HO.ENCR 12:42
PROVIDERS: PCP Internal Medicine; Visit Provider Physician Assistant
DX: E11.9 Type 2 diabetes mellitus without complications (principal); Z79.4 Long term (current) use of insulin; E78.5 Hyperlipidemia, unspecified; I10 Essential (primary) hypertension

== ENCOUNTER → 2024-10-12 12:42 | Outpatient (BNVA) | payer OTHER, SELFPAY | PROVIDERS: PCP Internal Medicine; Visit Provider Physician Assistant | DX: E11.9 Type 2 diabetes mellitus without complications (principal); E78.5 Hyperlipidemia, unspecified; I10 Essential (primary) hypertension; Z79.4 Long term (current) use of insulin; Z79.84 Long term (current) use of oral hypoglycemic drugs | CPT/HCPCS: 82947; 99212 ==

== ENCOUNTER 2024-10-26 14:12 | Outpatient (AMB) | payer OTHER, SELFPAY ==
--- NOTE | 2024-10-26 14:16 | MHC.PC.OV ---
Vital Signs 10/26/24 14:21 Height 5 ft 9 in Weight 266 lb BMI 39.3 BP 136/70 Blood Pressure Location Lt brachial Position Sitting Intake Visit Reasons: dm Intake Note: Patient here for a follow up DM Signal And Communications Maintainer Required: No Accompanied by: Self / Same As Patient Allergies shrimp Allergy (Mild, Verified 10/26/24 14:27) Swelling Medication List - Last Reconciled 10/26/24 by Deedee Watts MD acetaminophen ER (Mapap Arthritis Pain) 1,300 mg (2 x 650 mg) PO Q8H PRN 30 days albuterol sulfate 2.5 mg (3 mL) inhalation Q4-6H PRN 30 days albuterol sulfate 90 mcg/actuation 2 puffs PO Q4H PRN 30 days amitriptyline 150 mg PO BEDTIME atorvastatin 80 mg PO BEDTIME 90 days blood sugar diagnostic (FreeStyle Lite Strips) 1 strip miscellaneous BID 30 days blood-glucose meter (FreeStyle Lite Meter kit) As directed blood-glucose sensor (FreeStyle Gloria 3 Plus Sensor device) Use daily As directed to monitor glucose blood-glucose,police dispatcher,cont (Dexcom G7 Spanish Speaking Babysitter) Use daily As directed to monitor blood sugars blood-glucose,police dispatcher,cont (FreeStyle Gloria 3 Carmen) Use daily As directed to monitor blood glucose [id number]-[id number] 50-325-40 mg 1 tab PO Q8H PRN chlorthalidone 25 mg PO DAILY 90 days cholecalciferol (vitamin D3) 25 mcg PO DAILY 90 days clonidine HCl 0.2 mg PO BEDTIME 90 days cyclobenzaprine 10 mg PO Q8H PRN 30 days docusate sodium 100 mg PO BID empagliflozin (Jardiance) 25 mg PO DAILY 90 days fenofibrate nanocrystallized 145 mg PO DAILY 90 days fluticasone propion-salmeterol 250-50 mcg/dose (Wixela Inhub) 1 ea PO Q12H gabapentin 100 mg PO TID 30 days glucose (Dex4 Glucose) 16 grams (4 x 4 gram) PO Q15M PRN hydrocortisone 2.5% 1 appl topical BID PRN 14 days insulin glargine (Lantus Solostar U-100 Insulin) 10 units (0.1 mL) subcut QPM 30 days lancets As directed tests 3 X/day lisinopril 40 mg PO DAILY lorazepam 1 mg PO BID PRN meloxicam 15 mg PO DAILY PRN menthol-zinc oxide 0.44-20.6 % (Calmoseptine) 1 appl topical QID PRN metformin ER 1,000 mg (2 x 500 mg) PO BID 90 days montelukast 10 mg PO BEDTIME pen needle, diabetic (BD Jennifer 2nd Gen Pen Needle) once a day pen needle, diabetic (Comfort EZ Pen [place]) As directed injects once a day phenylephrine HCl 0.25% (Preparation H (pe)) 1 supp ND QID PRN semaglutide (Ozempic) 2 mg (0.75 mL) subcut QWEEK 30 days sodium,potassium,mag sulfates 17.5-3.13-1.6 gram (Suprep Bowel Prep Kit) DILUTE; drink full amount early evening before AND next morning at least 2 hr before procedure; follow w 960 mL water PO sumatriptan succinate (Imitrex) 100 mg PO DIRECTED tamsulosin (Flomax) 0.4 mg PO BEDTIME 90 days topiramate 100 mg PO BID Ventolin HFA 90 mcg/actuation (albuterol sulfate) 2 puffs inhalation Q6H PRN 30 days NS zolpidem (Ambien) 10 mg PO BEDTIME PRN Tobacco use date assessed: 04/20/24 Dental Screening Dental Screen Date: 04/20/24 HPI HPI Comments History of Present Illness Details The patient is a 59-year-old male presenting with the management of chronic conditions including hyperlipidemia, hypertension, migraine, constipation, and diabetes mellitus. A1c within goal. Blood pressure close to goal. The patient reports a significant reduction in weight which he attributes this improvement to increased physical activity, including walking for four hours in the afternoon and regular gym attendance in the morning. The patient is currently on multiple medications including atorvastatin for hyperlipidemia, chlorthalidone for hypertension, and amitriptyline for migraine management. He also takes Jardiance and metformin for diabetes management, and reports using albuterol and Wixela for respiratory support. The patient denies experiencing chest pain or dyspnea, and notes an improvement in back pain, which he attributes to weight loss and increased physical activity. He underwent a colonoscopy last year, which returned normal results, and the next screening is scheduled for 2033. [facility] Medical History Morbid obesity CKD (chronic kidney disease) stage 3, GFR 30-59 ml/min Hemorrhoids with complication Family history of prostate cancer Osteoarthritis of left knee Moderate recurrent major depression Pruritus ani Internal and external hemorrhoids without complication Asthma DANIEL on CPAP Anemia Back pain Gross hematuria UTI (urinary tract infection) Prostate enlargement Diabetic polyneuropathy associated with type 2 diabetes mellitus Vitamin D deficiency Diabetes type 2, controlled Family history of anesthesia complication Hx of low back pain Hx of insomnia Hx of migraines Anxiety Depression Colon cancer screening Bleeding hemorrhoids Morbid obesity Hyperlipidemia Hypertension Hypernatremia Bloody stools Diabetes mellitus, type 2 Hiatal hernia Surgical History History of colonoscopy (~11/01/23) Hx of colonoscopy History of knee surgery History of carpal tunnel release H/O hernia repair History of umbilical hernia repair Family History Maternal Uncle History of prostate cancer Father History of throat cancer Myocardial infarction Diabetes mellitus Hypertension CVD (cardiovascular disease) Maternal Grandfather History of throat cancer Son In good health Son In good health Brother Colon cancer Mother Diabetes mellitus Social History Household Members: Spouse and Children Housing: House Are you a primary child caregiver private home to a significant other at home: No Do you presently have visiting nurse or other home services: Yes (once a week ) Alcohol intake: former Patient Tobacco Use Status: Never used Tobacco Cigarettes Per Day: 1 e-Cigarette/Vaping Use: Never Used Second Hand Smoke Exposure: No service: No Current occupational status: disabled Cognitive needs: No Hearing needs: No Vision needs: Yes Questionnaire Thrive Questionnaire Date Thrive assessed: 04/20/24 MAGGY-7 AMB Questionnaire MAGGY-7 Date MAGGY - 7 assessed: 04/20/24 Source: Developed by Drs. Musa Armando, Jagruti Vu, Leo Dutton and colleagues, with an educational lyla from [employer]. Review of Systems Const All systems reviewed & are unremarkable except as noted in HPI and below Card Denies chest pain at rest, Denies chest pain with activity, Denies edema, Denies irregular heart rhythm, Denies claudication, Denies dyspnea, Denies dyspnea on exertion, Denies orthopnea, Denies paroxysmal nocturnal dyspnea and Denies slow heart rate Resp Denies cough, Denies dyspnea and Denies dyspnea on exertion GI Denies abdominal pain, Denies change in bowel habits, Denies excessive flatus, Denies nausea and Denies vomiting Denies urinary hesitancy, Denies urinary incontinence and Denies urinary urgency Musc Denies abnormal gait, Denies atrophy, Denies deformity and Denies limited range of motion Skin/Breast Denies bleeding lesions, Denies changing lesions and Denies rash Neuro Denies abnormal gait, Denies behavioral changes and Denies lack of coordination Psych Denies behavioral changes Physical exam (Primary Care) Vital Signs: Last Vital Signs BP 136/70 10/26/24 14:21 BMI result Body Mass Index 39.3 BMI Assessment/Plan discussion: High BMI High, discussed plan: lifestyle, weight reduction, dietary and physical activity Tobacco/Smoking Status: Tobacco use Status Tobacco use date assessed 04/20/24 10/26/24 14:17 Patient Tobacco Use Status Never used Tobacco 10/26/24 14:17 Tobacco use type 10/26/24 14:23 e-Cigarette/Vaping Use Never Used 10/26/24 14:17 Thrive Assessment: Date of Thrive Assessment Date Thrive assessed 04/20/24 10/26/24 14:17 Resp Effort & Inspection: normal respiratory effort Auscultation: clear to auscultation bilaterally Cardio Jugular venous distension: no JVD Rate: regular rate Rhythm: regular rhythm Heart sounds: S1 normal heart sound present and S2 normal heart sound present Extrem General: Yes full ROM Results AMB Hemoglobin A1c AMB Hemoglobin A1c 5.4 % Last Edit by CRIS Young on 10/26/24 14:27 Coding Level of Care Code Est Pt Level 4 (99639) Complex EM visit Add On G2211 Diagnoses Moderate recurrent major depression F33.1 MAGGY (generalized anxiety disorder) F41.1 Essential hypertension I10 Hyperlipidemia LDL goal <70 E78.5 Insulin dependent type 2 diabetes mellitus E11.9; Z79.4 Mild persistent asthma without complication J45.30 Asthma severity: mild Asthma persistence: persistent Asthma complication type: uncomplicated Time Spent (min) 22 Assessment & Plan Assessment & Plan (1) Moderate recurrent major depression: Code(s): F33.1 - Major depressive disorder, recurrent, moderate Category: Medical (2) MAGGY (generalized anxiety disorder): Code(s): F41.1 - Generalized anxiety disorder Category: Medical (3) Essential hypertension: Code(s): I10 - Essential (primary) hypertension Category: Medical (4) Hyperlipidemia LDL goal <70: Code(s): E78.5 - Hyperlipidemia, unspecified Category: Medical (5) Insulin dependent type 2 diabetes mellitus: Code(s): E11.9 - Type 2 diabetes mellitus without complications; Z79.4 - [facility] (current) use of insulin Category: Medical (6) Asthma: Comment: HAS CHRONIC , INTERMITTENT BRONCHIAL ASTHMA, CONTROLLED WITH CURRENT REGIMEN. DENIES HAVING HAD ANY ACUTE EXACERBATION IN THE PAST 1 YEAR. Code(s): J45.909 - Unspecified asthma, uncomplicated Category: Medical Qualifiers: Asthma severity: mild Asthma persistence: persistent Asthma complication type: uncomplicated Qualified Code(s): J45.30 - Mild persistent asthma, uncomplicated Plan The patient will continue with his current medication regimen, including atorvastatin for hyperlipidemia and chlorthalidone for hypertension. He is advised to maintain his exercise routine, which has contributed to his improved cholesterol levels and weight management. A follow-up laboratory test for cholesterol is scheduled for November to monitor his lipid profile. The patient is encouraged to continue using Jardiance and metformin for diabetes management and to report any new symptoms or concerns. Preventative care measures include scheduling the next colonoscopy in 2033, given the normal results from the previous screening. Patient was informed and verbally consented to the use of an ambient scribe for clinic note documentation during this visit. Orders: Orders AMB Hemoglobin A1c Today E11.9 - Type 2 diabetes mellitus without complications Lipid Panel Today E78.5 - Hyperlipidemia, unspecified Vitamin D 25-OH Total Today E55.9 - Vitamin D deficiency, unspecified Vitamin B12 and Folate Today E53.8 - Deficiency of other specified B group vitamins Microalbumin, Random (w Creat) Today R80.9 - Proteinuria, unspecified Comprehensive [place]. Panel Fast Today E78.5 - Hyperlipidemia, unspecified Medications: Refilled docusate sodium 100 mg PO BID 180 caps 1RF
[2024-10-26 14:21] VITALS: BP 136/70; BMI 39.3
--- OUTSIDE RECORDS SUMMARY | 2024-10-26 14:58 | XMS_ITS | Clinical Summary ---
Author Organization [facility] Facility Address [address] [address] Care Team Providers Care Edi Programmer Analyst Name Role Phone Deedee Bruce MD Primary Care Provider [phone] Allergies No known active allergies Medications albuterol [...] Influenza Vaccine (#1) 2024 05/05/2015 Insurance ([id number]) [facility] ([id number]) [place] [id number] Care Teams Edi Programmer Analyst Relationship Specialty Start Date End Date Deedee Bruce MD [address] [place], [place] PCP - General Internal Medicine 04/18/22
== END 2024-10-26 14:37 | disposition home or self-care (01) ==
LOC: HO.HMCH 14:13
PROVIDERS: PCP Internal Medicine; Visit Provider Internal Medicine
DX: E11.69 Type 2 diabetes mellitus with other specified complication (principal); F33.1 Major depressive disorder, recurrent, moderate; Z79.4 Long term (current) use of insulin; F41.1 Generalized anxiety disorder; I10 Essential (primary) hypertension; E78.5 Hyperlipidemia, unspecified; J45.30 Mild persistent asthma, uncomplicated

== ENCOUNTER → 2024-10-26 14:12 | Outpatient (BNVA) | payer OTHER, SELFPAY | PROVIDERS: PCP Internal Medicine; Visit Provider Internal Medicine | DX: E11.9 Type 2 diabetes mellitus without complications (principal); E78.5 Hyperlipidemia, unspecified; I10 Essential (primary) hypertension; G43.909 Migraine, unspecified, not intractable, without status migrainosus; K59.00 Constipation, unspecified; F33.1 Major depressive disorder, recurrent, moderate; F41.1 Generalized anxiety disorder; J45.30 Mild persistent asthma, uncomplicated; E55.9 Vitamin D deficiency, unspecified; R80.9 Proteinuria, unspecified; Z79.4 Long term (current) use of insulin | CPT/HCPCS: 83036; 99212 ==

== ENCOUNTER 2024-11-21 07:10 | Outpatient (REF) | payer OTHER, SELFPAY ==
[2024-11-21 08:01] LABS: Appearance Urine Clear; Glucose Urine UA Negative (Negative); PH 5.0 (5.0-9.0); Specific Gravity - Urine 1.015 (1.005-1.025)
[2024-11-21 08:34] LABS: Alanine Aminotransferase 38 U/L (0-40); Albumin Level 4.3 g/dL (3.5-5.0); Alkaline Phosphatase 63 U/L (39-117); Anion Gap 11 (12-20); Aspartate Amino Transferase 31 U/L (5-37); Blood Urea Nitrogen 26 mg/dL (9-16); Calcium 9.8 mg/dL (8.4-10.2); Carbon Dioxide 27 mmol/L (22-29); Chloride 108 mmol/L (96-108); Cholesterol 121 mg/dL (<200); Estimated Glomerular Filt Rate > 60; HDL Cholesterol 38 mg/dL (>40); Potassium 3.5 mmol/L (3.3-5.1); Sodium 142 mmol/L (135-145); Total Protein 6.5 g/dL (6.5-8.0); Triglycerides 62 mg/dL (<150)
[2024-11-21 08:56] LABS: Prostate Specific Antigen 4.34 ng/mL (<0.05-4.0)
[2024-11-21 09:10] LABS: Folate 12.2 ng/mL (> or = 4.0); Vitamin B12 420 pg/mL (200-900)
[2024-11-21 09:23] LABS: Microalbum/Creatinine Ratio Ur 26.5 ug/mg cr (<30)
== END 2024-11-21 07:11 | disposition home or self-care (01) ==
LOC: HO.LAB 07:10
PROVIDERS: Internal Medicine Hypertension Specialist; Nurse Practitioner Family; PCP Internal Medicine; Visit Provider Internal Medicine
DX: Z12.5 Encounter for screening for malignant neoplasm of prostate (principal); E11.22 Type 2 diabetes mellitus with diabetic chronic kidney disease; N18.31 Chronic kidney disease, stage 3a; R97.20 Elevated prostate specific antigen [PSA]; E55.9 Vitamin D deficiency, unspecified; R80.9 Proteinuria, unspecified; E78.5 Hyperlipidemia, unspecified; E53.8 Deficiency of other specified B group vitamins; Z79.4 Long term (current) use of insulin
CPT/HCPCS: 36415; 80048; 80053; 80061; 81003; 82043; 82306; 82570; 82607; 82746; 84153

== ENCOUNTER 2024-11-23 15:50 | Outpatient (AMB) | payer OTHER, SELFPAY ==
--- NOTE | 2024-11-23 16:05 | A.OFFVIS_ITS ---
Intake Visit Reasons: 4M follow up/ PSA Intake Note: Patient is present for 4M/PSA Urology Medication:TAMSULOSIN Antibiotic Allergy:NONE Blood Thinner:NONE State Game Protector Services: State Game Protector Present State Game Protector Name: Yong Allergies shrimp Allergy (Mild, Verified 11/23/24 17:23) Swelling Medication List - Last Reconciled 11/23/24 by MARIA Echeverria acetaminophen ER (Mapap Arthritis Pain) 1,300 mg (2 x 650 mg) PO Q8H PRN 30 days albuterol sulfate 2.5 mg (3 mL) inhalation Q4-6H PRN 30 days albuterol sulfate 90 mcg/actuation 2 puffs PO Q4H PRN amitriptyline 150 mg PO BEDTIME atorvastatin 80 mg PO BEDTIME 90 days blood sugar diagnostic (FreeStyle Lite Strips) 1 strip miscellaneous BID 30 days blood-glucose meter (FreeStyle Lite Meter kit) As directed blood-glucose sensor (FreeStyle Gloria 3 Plus Sensor device) Use daily As directed to monitor glucose blood-glucose,retail event coordinator,cont (Dexcom G7 Firewall Engineer) Use daily As directed to monitor blood sugars blood-glucose,retail event coordinator,cont (FreeStyle Gloria 3 [place]) Use daily As directed to monitor blood glucose fnibvtvfvs-oschsnljejdud-vyfa 50-325-40 mg 1 tab PO Q8H PRN chlorthalidone 25 mg PO DAILY 90 days cholecalciferol (vitamin D3) 25 mcg PO DAILY 90 days clonidine HCl 0.2 mg PO BEDTIME 90 days cyclobenzaprine 10 mg PO Q8H PRN 30 days docusate sodium 100 mg PO BID empagliflozin (Jardiance) 25 mg PO DAILY 90 days fenofibrate nanocrystallized 145 mg PO DAILY 90 days fluticasone propion-salmeterol 250-50 mcg/dose (Wixela Inhub) 1 ea PO Q12H gabapentin 100 mg PO TID 30 days glucose (Dex4 Glucose) 16 grams (4 x 4 gram) PO Q15M PRN hydrocortisone 2.5% 1 appl topical BID PRN 14 days insulin glargine (Lantus Solostar U-100 Insulin) 10 units (0.1 mL) subcut QPM 30 days lancets As directed tests 3 X/day lisinopril 40 mg PO DAILY lorazepam 1 mg PO BID PRN meloxicam 15 mg PO DAILY PRN menthol-zinc oxide 0.44-20.6 % (Calmoseptine) 1 appl topical QID PRN metformin ER 1,000 mg (2 x 500 mg) PO BID 90 days montelukast 10 mg PO BEDTIME pen needle, diabetic (BD Jennifer 2nd Gen Pen Needle) once a day pen needle, diabetic (Comfort EZ Pen [place]) As directed injects once a day phenylephrine HCl 0.25% (Preparation H (pe)) 1 supp [place] QID PRN semaglutide (Ozempic) 2 mg (0.75 mL) subcut QWEEK 30 days sodium,potassium,mag sulfates 17.5-3.13-1.6 gram (Suprep Bowel Prep Kit) DILUTE; drink full amount early evening before AND next morning at least 2 hr before procedure; follow w 960 mL water PO sumatriptan succinate (Imitrex) 100 mg PO DIRECTED tamsulosin (Flomax) 0.4 mg PO BEDTIME 90 days topiramate 100 mg PO BID Ventolin HFA 90 mcg/actuation (albuterol sulfate) 2 puffs inhalation Q6H PRN 30 days NS zolpidem (Ambien) 10 mg PO BEDTIME PRN HPI Comments Details: Dallas is a pleasant 59 year Belarusian-speaking male patient of Dr. Watts. He he has a past medical history of obesity, osteoarthritis, depression, asthma, COPD, obstructive sleep apnea, anemia, back pain, diabetes, vitamin-D deficiency, insomnia, migraines, hemorrhoids, hypertension, and hyperlipidemia. He presents to the office today for follow-up of his BPH and elevated PSA. In discussion with the patient today reports to be doing and feeling well. Recent PSA results reviewed with the patient today as noted and trended below. We discussed increase in PSA. We discussed potential causes of this finding. We also discussed further treatment options and risks and benefits of these treatment options. He does report compliance with Flomax as prescribed and feels this has been helpful with previous lower urinary tract symptoms he had been experiencing. Previous workup has included a retroperitoneal ultrasound 06/22noting bilateral kidneys with no calculi, lesions, and or hydronephrosis. The bladder is partially distended. Pre void bladder volume is approximately 120 mL. Postvoid bladder volume is approximately 15 mL. Prostate volume is approximately 19 mL. PSAs are as follows: 04/21 13.6, 12/22 2.3, 07/23 2.3, 11/22 2.4, 07/24 3.3, 11/23 4.3 He denies any bothersome urinary issues or concerns. He denies nocturia, hematuria, dysuria, foul smelling urine, changes to urinary stream, flank pain, fever, and or chills. Discussed at length importance of managing diabetes for improvement lower urinary tract symptoms as well as overall health and being. Reviewed most recent A1c level 10/23 5.4 which is improved as previous A1c. In office urinalysis results reviewed with the patient today. He does have a family history of prostate cancer. He reports his brother at a very young age from prostate cancer. ROSITA was offered however deferred. He otherwise denies any issues or concerns at this time. PREVIOUS OFFICE NOTE: Lower urinary tract symptoms with prior UTI Prior hematuria Noted to also have weakness of stream and started on tamsulosin Investigations - Cysto 06/19 tight prostatic urethra, mild trabeculation PSAs - 04/21 13.6 - when had retention, 12/20 2.2, 11/20 1.9, 12/22 2.3, 07/23 2.3 Therapeutic plan - refill tamsulosin and repeat PSAs PFS Medical History Morbid obesity CKD (chronic kidney disease) stage 3, GFR 30-59 ml/min Hemorrhoids with complication Family history of prostate cancer Osteoarthritis of left knee Moderate recurrent major depression Pruritus ani Internal and external hemorrhoids without complication Asthma DANIEL on CPAP Anemia Back pain Gross hematuria UTI (urinary tract infection) Prostate enlargement Diabetic polyneuropathy associated with type 2 diabetes mellitus Vitamin D deficiency Diabetes type 2, controlled Family history of anesthesia complication Hx of low back pain Hx of insomnia Hx of migraines Anxiety Depression Colon cancer screening Bleeding hemorrhoids Morbid obesity Hyperlipidemia Hypertension Hypernatremia Bloody stools Diabetes mellitus, type 2 Hiatal hernia Surgical History History of colonoscopy (~11/01/23) Hx of colonoscopy History of knee surgery History of carpal tunnel release H/O hernia repair History of umbilical hernia repair Family History Maternal Uncle History of prostate cancer Father History of throat cancer Myocardial infarction Diabetes mellitus Hypertension CVD (cardiovascular disease) Maternal Grandfather History of throat cancer Son In good health Son In good health Brother Colon cancer Mother Diabetes mellitus Social History Household Members: Spouse and Children Housing: House Are you a primary manager care management to a significant other at home: No Do you presently have visiting nurse or other home services: Yes (once a week ) Alcohol intake: former Patient Tobacco Use Status: Never used Tobacco Cigarettes Per Day: 1 e-Cigarette/Vaping Use: Never Used Second Hand Smoke Exposure: No service: No Current occupational status: disabled Cognitive needs: No Hearing needs: No Vision needs: Yes Review of Systems Const Reports as per HPI Eyes Reports no additional complaints ENT Reports no additional complaints Card Reports no additional complaints Resp Reports no additional complaints GI Reports as per HPI Reports as per HPI Musc Reports as per HPI Neuro Reports no additional complaints Psych Reports as per HPI Endo Reports as per HPI David/Lymph Reports no additional complaints Aller/Immun Reports no additional complaints Physical Exam Const General: cooperative, healthy appearing, comfortable, no acute distress, well developed, alert and awake Nutritional Appearance: overweight Orientation/consciousness: patient oriented x3 Limitations: no limitations HEENT Head: Yes normal to inspection, Yes normocephalic and Yes atraumatic Ears: hearing grossly normal bilaterally Eyes General: appearance normal, both eyes and all related structures Neck Neck: Yes normal visual inspection and Yes trachea midline Chest Chest palpation & inspection: normal inspection of the chest Resp Effort & Inspection: normal respiratory effort and able to speak in complete sentences Cardio Rate: regular rate GI Inspection: Yes normal to inspection General: Yes no CVA tenderness Back/Spine/Pelvis Back: no CVA tenderness Skin General skin exam: no rashes or lesions noted Neuro General: patient oriented x3 Extrem General: Yes normal to inspection Psych Appearance: grossly normal and well kempt Mental Status: mental status grossly normal Speech and movement: Normal speech and movement present and Clear speech present Affect: normal affect Attitude: cooperative Thought process: Normal thought process present Thought content: Normal thought content present Insight: Fair insight present (Psych) Judgement: Fair judgement present (Psych) Results AMB Urinalysis, Automated UA Leukoctes 0 Zenaida/uL Last Edit by LAUREN Bhatt on 11/23/24 16:28 UA Nitrite Negative Last Edit [facility] on 11/23/[facility] 16:28 UA Urobilinogen 0.2 mg/dL Last Edit [facility] on 11/23/24 16:2 8 UA Protein 15 mg/dL Last Edit by Leland Walters [facility] on 11/23/24 16:28 UA pH 7.0 Last Edit by Leland Walters [facility] on 11/23/24 16:28 UA Blood 0 Eder/uL Last Edit by Leland Walters [facility] on 11/23/24 16:28 UA Specific [place] 1.015 Last Edit by [facility] on 11/23/24 16: 28 UA Ketone Negative Last Edit by Leland Walters [facility] on 11/23/24 16:28 UA Bilirubin 0 mg/dL Last Edit by Leland Walters [facility] on 11/23/24 16:28 UA Glucose 0 mg/dL Last Edit by Leland Walters [facility] on 11/23/24 16:28 Results Reviewed Results Reviewed: Laboratory Last Values Urine pH (Auto) 7.0 11/23/24 16:27 Specific [place] (Auto) 1.015 11/23/24 16:27 Urine Protein (Auto) 15 mg/dL 11/23/24 16:27 Glucose (UA)(Auto) 0 mg/dL 11/23/24 16:27 Urine Ketones (Auto) Negative 11/23/24 16:27 Urine Blood (Auto) 0 Eder/uL 11/23/24 16:27 Urine Nitrite (Auto) Negative 11/23/24 16:27 Urine Bilirubin (Auto) 0 mg/dL 11/23/24 16:27 Urine Urobilinogen (Auto) 0.2 mg/dL 11/23/24 16:27 Leukocyte Esterase (Auto) 0 Zenaida/uL 11/23/24 16:27 Assessment & Plan Assessment & Plan (1) Elevated PSA: Code(s): R97.20 - Elevated prostate specific antigen [PSA] Category: Medical (2) Prostate enlargement: Comment: CT Abdomen and Pelvis report: mild prostate enlargement Code(s): N40.0 - Benign prostatic hyperplasia without lower urinary tract symptoms Category: Medical (3) Bladder outlet obstruction: Code(s): N32.0 - Bladder-neck obstruction Category: Medical (4) Family history of prostate cancer: Code(s): Z80.42 - Family history of malignant neoplasm of prostate Category: Medical Plan In office urinalysis results reviewed with the patient today; as noted above. Patient currently denies any bothersome urinary issues or concerns. He reports be happy with current voiding parameters. Continue Flomax as discussed and prescribed. Recent PSA results reviewed with the patient today; as noted above. We did discussed increase in PSA; we discussed potential causes; we also discussed further treatment options and risks and benefits of these treatment options. Will obtain redraw of PSA with % total and free. Will obtain MRI of the prostate for further assessment evaluation. ROSITA was offered however deferred. Follow-up in 1-2 months with imaging and labs; or sooner with any issues, concerns, and or questions. Orders: Orders MR Prostate wo/w con Today R97.20 - Elevated prostate specific antigen [PSA] AMB Urinalysis Automated Today Z13.9 - Encounter for screening, unspecified PSA,Total (Free>4and<10) Today R97.20 - Elevated prostate specific antigen [PSA] Patient Instructions: The patient had an opportunity to ask questions regarding the treatment plan. All questions were answered. Physical exam, labs, and imaging were discussed and reviewed in detail. As well as risks, benefits, and discussion of treatment choices. No major barriers to understanding were identified. The patient expressed understanding and agreement with the above treatment plan. The patient was made aware they should contact our office by phone for worsening of their current condition, the appearance of new symptoms, or with any questions or concerns. Compliance is encouraged with any medications and follow up testing that is ordered. It is a privilege to be allowed the opportunity to participate in? your urological care.? Again, if you have any questions or concerns If you have any questions or concerns please do not hesitate to contact me. The office is [phone]. This note is constructed using voice recognition software. While every effort has been made to ensure accuracy band shover errors may have been included. Yours sincerely, MARIA Echeverria Coding Level of Care Code Est Pt Level 3 (21913) Complex EM visit Add On G2211 Diagnoses Elevated PSA R97.20 Prostate enlargement N40.0 Bladder outlet obstruction N32.0 Family history of prostate cancer Z80.42
--- OUTSIDE RECORDS SUMMARY | 2024-11-23 17:47 | XMS_ITS | Clinical Summary ---
Author Organization [facility] Facility Address [address] [address] Care Team Providers Care Vp Care Management Name Role Phone Deedee Bruce MD Primary Care Provider [phone] Allergies No known active allergies Medications albuterol [...] 05/01/2020 Influenza Vaccine (#1) 2024 05/05/[address] [place] [address] ([id number]) [facility] ([id number]) [place] [id number] Care Teams Vp Care Management Relationship Specialty Start Date End Date Deedee Bruce MD [address] [place], [place] PCP - General Internal Medicine 04/18/22
== END 2024-11-23 16:28 | disposition home or self-care (01) ==
LOC: HO.HUSH 15:50
PROVIDERS: PCP Internal Medicine; Visit Provider Nurse Practitioner Family
DX: R97.20 Elevated prostate specific antigen [PSA] (principal); N40.0 Benign prostatic hyperplasia without lower urinary tract symptoms; N32.0 Bladder-neck obstruction; Z80.42 Family history of malignant neoplasm of prostate; Z13.9 Encounter for screening, unspecified
CPT/HCPCS: 99213; G2211

== ENCOUNTER → 2024-11-23 15:50 | Outpatient (BNVA) | payer OTHER, SELFPAY | PROVIDERS: PCP Internal Medicine; Visit Provider Nurse Practitioner Family | DX: R97.20 Elevated prostate specific antigen [PSA] (principal); N40.0 Benign prostatic hyperplasia without lower urinary tract symptoms; N32.0 Bladder-neck obstruction; Z80.42 Family history of malignant neoplasm of prostate | CPT/HCPCS: 81003; 99212 ==

== ENCOUNTER 2024-11-24 07:36 | Outpatient (REF) | payer OTHER, SELFPAY ==
--- OUTSIDE RECORDS SUMMARY | 2024-11-24 07:43 | XMS_ITS | Clinical Summary ---
Author Organization [facility] Facility Address [address] [address] Care Team Providers Care Work Order Clerk Name Role Phone Deedee Bruce MD Primary Care Provider [phone] Allergies No known active allergies Medications albuterol [...] 05/01/2020 Influenza Vaccine (#1) 2024 05/05/[address] [place] [address] ([id number]) [facility] ([id number]) [place] [id number] Care Teams Work Order Clerk Relationship Specialty Start Date End Date Deedee Bruce MD [address] [place], [place] PCP - General Internal Medicine 04/18/22
[2024-11-24 08:41] LABS: Alanine Aminotransferase 40 U/L (0-40); Albumin Level 4.3 g/dL (3.5-5.0); Alkaline Phosphatase 69 U/L (39-117); Anion Gap 11 (12-20); Aspartate Amino Transferase 42 U/L (5-37); Blood Urea Nitrogen 23 mg/dL (9-16); Calcium 10.3 mg/dL (8.4-10.2); Carbon Dioxide 27 mmol/L (22-29); Chloride 106 mmol/L (96-108); Cholesterol 117 mg/dL (<200); Estimated Glomerular Filt Rate > 60; HDL Cholesterol 39 mg/dL (>40); Potassium 3.6 mmol/L (3.3-5.1); Sodium 140 mmol/L (135-145); Total Protein 6.6 g/dL (6.5-8.0); Triglycerides 55 mg/dL (<150)
[2024-11-24 08:57] LABS: PSA,Total (Free>4and<10) 4.21 ng/mL (0.00-4.00)
[2024-11-24 09:37] LABS: Microalbum/Creatinine Ratio Ur 18.8 ug/mg cr (<30)
[2024-11-25 11:53] LABS: Free Prostate Spec Ag 0.8 ng/mL; Percent Free Prostate Spec Ag 23 % (calc) (>25)
== END 2024-11-24 07:37 | disposition home or self-care (01) ==
LOC: HO.LAB 07:36
PROVIDERS: PCP Internal Medicine; Visit Provider Nurse Practitioner Family
DX: Z12.5 Encounter for screening for malignant neoplasm of prostate (principal); E78.5 Hyperlipidemia, unspecified; R97.20 Elevated prostate specific antigen [PSA]; R80.9 Proteinuria, unspecified
CPT/HCPCS: 36415; 80053; 80061; 82043; 82570; 84153; 84154

== ENCOUNTER 2024-12-08 12:51 | Outpatient (AMB) | payer OTHER, SELFPAY ==
--- NOTE | 2024-12-08 12:53 | MHC.PC.OV ---
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: No Accompanied by: Self / Same As Patient Allergies shrimp Allergy (Mild, Verified 12/08/24 13:14) Swelling Medication List - Last Reconciled 12/08/24 by Deedee Watts MD acetaminophen ER (Mapap Arthritis Pain) 1,300 mg (2 x 650 mg) PO Q8H PRN 30 days albuterol sulfate 2.5 mg (3 mL) inhalation Q4-6H PRN 30 days albuterol sulfate 90 mcg/actuation 2 puffs PO Q4H PRN amitriptyline 150 mg PO BEDTIME atorvastatin 80 mg PO BEDTIME 90 days blood sugar diagnostic (FreeStyle Lite Strips) 1 strip miscellaneous BID 30 days blood-glucose meter (FreeStyle Lite Meter kit) As directed blood-glucose sensor (FreeStyle Gloria 3 Plus Sensor device) Use daily As directed to monitor glucose blood-glucose,casing puller,cont ([employer]excom G7 Research And Development Director) Use daily As directed to monitor blood sugars blood-glucose,casing puller,cont (FreeStyle Gloria 3 [place]) Use daily As directed to monitor blood glucose zwy[place]-xxtzxjsczdgwg-amqg 50-325-40 mg 1 tab PO Q8H PRN chlorthalidone 25 mg PO DAILY 90 days cholecalciferol (vitamin D3) 25 mcg PO DAILY 90 days clonidine HCl 0.2 mg PO BEDTIME 90 days cyclobenzaprine 10 mg PO Q8H PRN 30 days docusate sodium 100 mg PO BID empagliflozin (Jardiance) 25 mg PO DAILY 90 days fenofibrate nanocrystallized 145 mg PO DAILY 90 days fluticasone propion-salmeterol 250-50 mcg/dose (Wixela Inhub) 1 ea PO Q12H gabapentin 100 mg PO TID 30 days glucose (Dex4 Glucose) 16 grams (4 x 4 gram) PO Q15M PRN hydrocortisone 2.5% 1 appl topical BID PRN 14 days insulin glargine (Lantus Solostar U-100 Insulin) 10 units (0.1 mL) subcut QPM 30 days lancets As directed tests 3 X/day lisinopril 40 mg PO DAILY lorazepam 1 mg PO BID PRN meloxicam 15 mg PO DAILY PRN menthol-zinc oxide 0.44-20.6 % (Calmoseptine) 1 appl topical QID PRN metformin ER 1,000 mg (2 x 500 mg) PO BID 90 days montelukast 10 mg PO BEDTIME pen needle, diabetic (BD Jennifer 2nd Gen Pen Needle) once a day pen needle, diabetic (Comfort EZ Pen [place]) As directed injects once a day phenylephrine HCl 0.25% (Preparation H (pe)) 1 supp ME QID PRN semaglutide (Ozempic) 2 mg (0.75 mL) subcut QWEEK 30 days sodium,potassium,mag sulfates 17.5-3.13-1.6 gram (Suprep Bowel Prep Kit) DILUTE; drink full amount early evening before AND next morning at least 2 hr before procedure; follow w 960 mL water PO sumatriptan succinate (Imitrex) 100 mg PO DIRECTED tamsulosin (Flomax) 0.4 mg PO BEDTIME 90 days topiramate 100 mg PO BID Ventolin HFA 90 mcg/actuation (albuterol sulfate) 2 puffs inhalation Q6H PRN 30 days NS zolpidem (Ambien) 10 mg PO BEDTIME PRN Tobacco use date assessed: 12/08/24 Dental Screening Dental Screen Date: 12/08/24 Did you have a dental visit in the last 12 months?: Yes Did you have a dental problem in the last 6 months where you did not have access to dental care?: No Was dental information given to patient?: Patient has dentist HPI HPI Comments History of Present Illness Details The patient is a 59-year-old male presenting for a physical examination and preventative care, including vaccination updates. 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 His depression is well-controlled, as indicated by a low PHQ-9 score. The patient has chronic kidney disease, which has remained stable with a GFR over 60. He is also being treated for hypertension, hyperlipidemia, and diabetes mellitus. He has a history of migraine headaches for which he uses Fioricet and Topamax as needed. Additionally, he has a slightly enlarged prostate with a PSA level of 4.2, which is being monitored. His preventative care includes a recent colonoscopy performed in 2016, with the next one due in 2026. He has received the PPSV pneumonia vaccine and is due for another pneumonia vaccine, which he agreed to receive today. - Pneumonia vaccination: PPSV received, additional vaccine administered today - Colonoscopy: Last performed in 2016, next due in 2026 [facility] Medical History (Updated 12/08/24 @ 13:27 by Deedee Watts MD) Morbid obesity CKD (chronic kidney disease) stage 3, GFR 30-59 ml/min Hemorrhoids with complication Family history of prostate cancer Osteoarthritis of left knee Moderate recurrent major depression Pruritus ani Internal and external hemorrhoids without complication Asthma DANIEL on CPAP Anemia Back pain Gross hematuria UTI (urinary tract infection) Prostate enlargement Diabetic polyneuropathy associated with type 2 diabetes mellitus Vitamin D deficiency Diabetes type 2, controlled Family history of anesthesia complication Hx of low back pain Hx of insomnia Hx of migraines Anxiety Depression Colon cancer screening Bleeding hemorrhoids Morbid obesity Hyperlipidemia Hypertension Hypernatremia Bloody stools Diabetes mellitus, type 2 Hiatal hernia Surgical History History of colonoscopy (~11/01/23) Hx of colonoscopy History of knee surgery History of carpal tunnel release H/O hernia repair History of umbilical hernia repair Family History Maternal Uncle History of prostate cancer Father History of throat cancer Myocardial infarction Diabetes mellitus Hypertension CVD (cardiovascular disease) Maternal Grandfather History of throat cancer Son In good health Son In good health Brother Colon cancer Mother Diabetes mellitus Social History Household Members: Spouse and Children Housing: House Are you a primary property caretaker to a significant other at home: No Do you presently have visiting nurse or other home services: Yes (once a week ) Alcohol intake: former Patient Tobacco Use Status: Never used Tobacco Cigarettes Per Day: 1 e-Cigarette/Vaping Use: Never Used Second Hand Smoke Exposure: No service: No Current occupational status: disabled Cognitive needs: No Hearing needs: No Vision needs: Yes Questionnaire PHQ-9 Over the last 2 weeks, how often have you been bothered by any of the following problems? 1. Little interest or pleasure in doing things: several days 2. Feeling down, depressed, or hopeless: several days 3. Trouble falling or staying asleep, or sleeping too much: several days 4. Feeling tired or having little energy: several days 5. Poor appetite or overeating: not at all 6. Feeling bad about yourself - or that you are a failure or have let yourself or your family down: not at all 7. Trouble concentrating on things, such as reading the newspaper or watching television: not at all 8. Moving or speaking so slowly that other people could have noticed. Or the opposite - being so fidgety or restless that you have been moving around a lot more than usual: not at all 9. Thoughts that you would be better off or of hurting yourself in some way: not at all Total score: 4 Depression Screening Interpretation: Positive Depression Screening Follow-up: Existing condition, In treatment, Community Mental Health Worker F/U and Follow-up Visit Requested Depression Screening Done: Yes 30411 - PHQ-9 Billing: Yes Source: Developed by Drs. Musa Armando, Jagruti Vu, Leo Dutton and colleagues, with an educational lyla from [employer]. Thrive Questionnaire Date Thrive assessed: 12/08/24 I am a: Patient What is your living situation today?: I have a steady place to live Within the past 12 months, did the food you bought not last and you didn't have the money to get more?: Often true Within the past 12 months, did you worry whether your food would run out before you got money to buy more?: Often true Do you have trouble paying for medicines?: Yes Do you have trouble getting transportation to medical appointments?: No Do you have trouble paying your heating and electricity bill?: Yes Do you have trouble taking care of your child, family member or friend?: No Do you have trouble with day-to-day activities such as bathing, preparing meals, shopping, managing finances, etc.?: No Are you currently unemployed and looking for a job?: No Are you interested in more education?: No Please select the resources that you would like help with: None Currently or been in a relationship where the following occur: I choose not to answer THRIVE Score: 3 AUDIT C Alcohol Use Questionnaire (AUDIT-C) 1. How often do you have a drink containing alcohol?: Never Total Score: 0 Score Reviewed/Action Taken: No MAGGY-7 AMB Questionnaire MAGGY-7 Date MAGGY - 7 assessed: 12/08/24 Feeling nervous, anxious, or on edge: 2 = More than half the days Not being able to stop or control worryin = More than half the days Worrying too much about different things: 2 = More than half the days Trouble relaxin = More than half the days Being so restless that it is hard to sit still: 2 = More than half the days Becoming easily annoyed or irritable: 2 = More than half the days Feeling afraid as if something awful might happen: 2 = More than half the days Total MAGGY-7 score (0-4 normal; 5-9 mild; 10-14 moderate; 15-21 severe): 14 Source: Developed by Drs. Musa Armando, Jagruti Vu, Leo Dutton and colleagues, with an educational lyla from [employer]. MAGGY-7 Assessment Billing MAGGY-7 Assessment Tool: MAGGY-7 Assessment 03133 Review of Systems Const All systems reviewed & are unremarkable except as noted in HPI and below Card Denies chest pain at rest, Denies chest pain with activity, Denies edema, Denies irregular heart rhythm, Denies claudication, Denies dyspnea, Denies dyspnea on exertion, Denies orthopnea, Denies paroxysmal nocturnal dyspnea and Denies slow heart rate Resp Denies cough, Denies dyspnea and Denies dyspnea on exertion GI Denies abdominal pain, Denies change in bowel habits, Denies excessive flatus, Denies nausea and Denies vomiting Physical exam (Primary Care) Vital Signs: Last Vital Signs Pulse 84 12/08/24 12:55 BP 130/60 12/08/24 12:55 Pulse Ox 96 12/08/24 12:55 Oxygen Delivery Method Room Air 12/08/24 12:55 BMI result Body Mass Index 39.9 BMI Assessment/Plan discussion: High BMI High, discussed plan: lifestyle, weight reduction, dietary and physical activity Tobacco/Smoking Status: Tobacco use Status Tobacco use date assessed 12/08/24 12/08/24 13:05 Patient Tobacco Use Status Never used Tobacco 12/08/24 13:05 Tobacco use type 10/27/24 14:07 e-Cigarette/Vaping Use Never Used 12/08/24 13:05 PHQ-9: PHQ-9 Score PHQ-9: Total score 4 12/08/24 13:36 Depression Screening Interpretation: Positive Depression Screening Follow-up: Existing condition, In treatment, Community Mental Health Worker F/U and Follow-up Visit Requested Thrive Assessment: Date of Thrive Assessment Date Thrive assessed 12/08/24 12/08/24 13:05 Currently or been in a relationship where the following occur: I choose not to answer HENMT Head: Yes normal to inspection, Yes normocephalic and Yes atraumatic Ears: external ears normal Eyes General: appearance normal, both eyes and all related structures Eyelids: Yes eyelids normal Conjunctivae: conjunctivae normal Neck Neck: Yes normal visual inspection and Yes supple Resp Effort & Inspection: normal respiratory effort Auscultation: clear to auscultation bilaterally Cardio Jugular venous distension: no JVD Rate: regular rate Rhythm: regular rhythm Heart sounds: S1 normal heart sound present and S2 normal heart sound present GI Inspection: Yes normal to inspection Palpation (GI): Soft to palpation and nontender Auscultation: normal bowel sounds Skin General skin exam: no rashes or lesions noted Neuro General: no focal motor deficits Extrem General: Yes full ROM Psych Appearance: grossly normal Results AMB Hemoglobin A1c AMB Hemoglobin A1c 6.0 % Last Edit by CRIS Cruz on 12/08/24 13:37 Immunizations pneumoc 20-iftikhar conj-dip cr(PF) 0.5 mL IM syringe Performing Provider: Deedee Watts MD [place] [facility] [place] [facility] Administered by: CRIS Cruz on 12/08/24 13:30 Dose Route Admin Location Dispensed Lot Number Expiration Date [facility] Environment Coordinator 0.5 mL IM Left Deltoid 0.5 mL [id number] 11/30/25 [employer]Lum[employer] Total Dispensed Waste 0.5 mL 0 % VIS Given Date VIS Provided VIS Publication Date 12/08/24 Single Vaccine 24 Eligibility Eligibility Date Funding Source Not [facility] Eligible 12/08/24 Private Coding Level of Care Code Est Pt Prev Care 40-64y(13209) Diagnoses Physical exam Z00.00 Diabetic polyneuropathy associated with type 2 diabetes mellitus E11.42 Mild recurrent major depression F33.0 Additional Codes MAGGY-7 Assessment Billing - MAGGY-7 Assessment Tool: MAGGY-7 Assessment 71982 ([id number]) PHQ-9 - 24489 - PHQ-9 Billing: Yes ([id number]) Time Spent (min) 30 Assessment & Plan Assessment & Plan (1) Physical exam: Code(s): Z00.00 - Encounter for general adult medical examination without abnormal findings Category: Medical (2) Diabetic polyneuropathy associated with type 2 diabetes mellitus: Code(s): E11.42 - Type 2 diabetes mellitus with diabetic polyneuropathy Category: Medical (3) Mild recurrent major depression: Code(s): F33.0 - Major depressive disorder, recurrent, mild Category: Medical Plan Plan Patient was informed and verbally consented to the use of an ambient scribe for clinic note documentation during this visit. 1. Encounter for general adult medical examination without abnormal findings Z00.00 The patient received the additional pneumonia vaccine today as part of preventative care measures. 2. Major depressive disorder, recurrent, mild F33.0 HCC 59 The patient's depression and anxiety are managed by psychiatry with medications, and the condition is currently well-controlled. 3. Type 2 diabetes mellitus without complications E11.9 HCC 19 The patient is on a regimen including Jardiance, Metformin, and Ozempic for diabetes management, with regular monitoring of blood glucose levels. Orders: Orders AMB Hemoglobin A1c Today Z13.9 - Encounter for screening, unspecified Pneumococcal 20 Immunization Today Z23 - Encounter for immunization
[2024-12-08 12:55] VITALS: BP 130/60; PULSE 84; O2SAT 96; BMI 39.9
--- OUTSIDE RECORDS SUMMARY | 2024-12-08 15:13 | XMS_ITS | Clinical Summary ---
Author Organization [facility] Facility Address [address] [address] Care Team Providers Care Sea Kayaking Guide Name Role Phone Deedee Bruce MD Primary Care Provider [phone] Allergies No known active allergies Medications albuterol [...] 05/01/2020 Influenza Vaccine (#1) 2024 05/05/[address] [place] [address] ([id number]) [facility] ([id number]) [place] [id number] Care Teams Sea Kayaking Guide Relationship Specialty Start Date End Date Deedee Bruce MD [address] [place], [place] PCP - General Internal Medicine 04/18/22
== END 2024-12-08 13:29 | disposition home or self-care (01) ==
LOC: HO.HMCH 12:51
PROVIDERS: PCP Internal Medicine; Visit Provider Internal Medicine
DX: Z00.00 Encounter for general adult medical examination without abnormal findings (principal); E11.42 Type 2 diabetes mellitus with diabetic polyneuropathy; F33.0 Major depressive disorder, recurrent, mild; Z23 Encounter for immunization; Z13.9 Encounter for screening, unspecified

== ENCOUNTER → 2024-12-08 12:51 | Outpatient (BNVA) | payer OTHER, SELFPAY | PROVIDERS: PCP Internal Medicine; Visit Provider Internal Medicine | DX: Z00.00 Encounter for general adult medical examination without abnormal findings (principal); E11.22 Type 2 diabetes mellitus with diabetic chronic kidney disease; E11.42 Type 2 diabetes mellitus with diabetic polyneuropathy; F41.9 Anxiety disorder, unspecified; I12.9 Hypertensive chronic kidney disease with stage 1 through stage 4 chronic kidney disease, or unspecified chronic kidney disease; N18.9 Chronic kidney disease, unspecified; E78.5 Hyperlipidemia, unspecified; G43.909 Migraine, unspecified, not intractable, without status migrainosus; F33.0 Major depressive disorder, recurrent, mild; Z23 Encounter for immunization | CPT/HCPCS: 83036; 90471; 90677; 96127; 99396 ==

== ENCOUNTER 2025-01-18 12:57 | Outpatient (AMB) | payer OTHER, SELFPAY ==
--- NOTE | 2025-01-18 13:00 | A.OFFVIS_ITS ---
Vital Signs 01/18/25 13:01 Height 5 ft 9 in Weight 276 lb 14.409 oz BMI 40.9 BP 128/72 Blood Pressure Location Lt brachial Position Sitting Pulse 82 Pulse Source Pulse Oximeter Pulse Oximetry (%) 96 Oxygen Delivery Method Room Air Intake Visit Reasons: T2DM Intake Note: Patient present today for Type 2 Diabetes Mellitus Last Diabetic eye exam:?May Last Podiatry Visit:?Does not have a proof sorter Random Glucose:?147 mg/dl HgA1C: 6.0%? 12/08/24 Patient is requesting sonsor today. Editing Clerk Required: Yes Editing Clerk Services: Editing Clerk Present Editing Clerk Name: Tatiana [id number] Information Interpreted: non-clinical & clinical Accompanied by: Self / Same As Patient Allergies shrimp Allergy (Mild, Verified 01/18/25 13:07) Swelling Medication List - Last Reconciled 01/18/25 by Meenakshi Doshi PA-C acetaminophen ER (Mapap Arthritis Pain) 1,300 mg (2 x 650 mg) PO Q8H PRN 30 days albuterol sulfate 2.5 mg (3 mL) inhalation Q4-6H PRN 30 days albuterol sulfate 90 mcg/actuation 2 puffs PO Q4H PRN amitriptyline 150 mg PO BEDTIME atorvastatin 80 mg PO BEDTIME 90 days blood sugar diagnostic (FreeStyle Lite Strips) 1 strip miscellaneous BID 30 days blood-glucose meter (FreeStyle Lite Meter kit) As directed blood-glucose sensor (FreeStyle Gloria 3 Plus Sensor device) Use daily As directed to monitor glucose blood-glucose,business services assistant,cont (FreeStyle Gloria 3 [place]) Use daily As directed to monitor blood glucose dyjnzvpokw-stghpmuoepsbd-mqar 50-325-40 mg 1 tab PO Q8H PRN chlorthalidone 25 mg PO DAILY 90 days cholecalciferol (vitamin D3) 25 mcg PO DAILY 90 days clonidine HCl 0.2 mg PO BEDTIME 90 days cyclobenzaprine 10 mg PO Q8H PRN 30 days docusate sodium 100 mg PO BID empagliflozin (Jardiance) 25 mg PO DAILY 90 days fenofibrate nanocrystallized 145 mg PO DAILY 90 days fluticasone propion-salmeterol 250-50 mcg/dose (Wixela Inhub) 1 ea PO Q12H gabapentin 100 mg PO TID 30 days glucose (Dex4 Glucose) 16 grams (4 x 4 gram) PO Q15M PRN hydrocortisone 2.5% 1 appl topical BID PRN 14 days insulin glargine (Lantus Solostar U-100 Insulin) 10 units (0.1 mL) subcut QPM 30 days lancets As directed tests 3 X/day lisinopril 40 mg PO DAILY lorazepam 1 mg PO BID PRN meloxicam 15 mg PO DAILY PRN menthol-zinc oxide 0.44-20.6 % (Calmoseptine) 1 appl topical QID PRN metformin ER 1,000 mg (2 x 500 mg) PO BID 90 days montelukast 10 mg PO BEDTIME pen needle, diabetic (BD Jennifer 2nd Gen Pen Needle) once a day pen needle, diabetic (Comfort EZ Pen [place]) As directed injects once a day phenylephrine HCl 0.25% (Preparation H (pe)) [address] QID PRN semaglutide (Ozempic) 2 mg (0.75 mL) subcut QWEEK 30 days sodium,potassium,mag sulfates 17.5-3.13-1.6 gram (Suprep Bowel Prep Kit) DILUTE; drink full amount early evening before AND next morning at least 2 hr before procedure; follow w 960 mL water PO sumatriptan succinate (Imitrex) 100 mg PO DIRECTED tamsulosin (Flomax) 0.4 mg PO BEDTIME 90 days topiramate 100 mg PO BID Ventolin HFA 90 mcg/actuation (albuterol sulfate) 2 puffs inhalation Q6H PRN 30 days NS zolpidem (Ambien) 10 mg PO BEDTIME PRN HPI HPI T2DM: Details: Patient is a 60-year-old male with a significant past medical history of type 2 diabetes, hypertension, hyperlipidemia and obesity presenting today for a diabetic follow-up. educational sign language interpreter : Tatiana Romero: His A1c was 6. He is currently Ozempic 2 mg weekly, metformin 1000 mg twice a day, Jardiance 25 mg daily, and Lantus 10 units. cgm- doing well with the gloria 3+ but states it fell off recently. He has gained some weight. He is following with a transfusion aide and states that he is working but could be a little bit better. He does have some appetite suppression with the Ozempic. Hypogylcemia- He has glucose tabs if needed. Very CV: bp today in office is 128/72. he is currently on lisinopril 40 mg, chlorthalidone 12.5 mg mg. Cholesterol is controlled with atorvastatin 80 mg and fenofibrate 145. Last LDL 67. [facility] Medical History (Updated 01/18/25 @ 13:29 by Meenakshi Doshi PA-C) Morbid obesity CKD (chronic kidney disease) stage 3, GFR 30-59 ml/min Hemorrhoids with complication Family history of prostate cancer Osteoarthritis of left knee Moderate recurrent major depression Pruritus ani Internal and external hemorrhoids without complication Asthma DANIEL on CPAP Anemia Back pain Gross hematuria UTI (urinary tract infection) Prostate enlargement Diabetic polyneuropathy associated with type 2 diabetes mellitus Vitamin D deficiency Diabetes type 2, controlled Family history of anesthesia complication Hx of low back pain Hx of insomnia Hx of migraines Anxiety Depression Colon cancer screening Bleeding hemorrhoids Morbid obesity Hyperlipidemia Hypertension Hypernatremia Bloody stools Diabetes mellitus, type 2 Hiatal hernia Surgical History History of colonoscopy (~11/01/23) Hx of colonoscopy History of knee surgery History of carpal tunnel release H/O hernia repair History of umbilical hernia repair Family History Maternal Uncle History of prostate cancer Father History of throat cancer Myocardial infarction Diabetes mellitus Hypertension CVD (cardiovascular disease) Maternal Grandfather History of throat cancer Son In good health Son In good health Brother Colon cancer Mother Diabetes mellitus Social History Household Members: Spouse and Children Housing: House Are you a primary personal care home administrator to a significant other at home: No Do you presently have visiting nurse or other home services: Yes (once a week ) Alcohol intake: former Patient Tobacco Use Status: Never used Tobacco Cigarettes Per Day: 1 e-Cigarette/Vaping Use: Never Used Second Hand Smoke Exposure: No service: No Current occupational status: disabled Cognitive needs: No Hearing needs: No Vision needs: Yes Physical Exam Const Orientation/consciousness: patient oriented x3 HEENT Ears: hearing grossly normal bilaterally Neck Neck: Yes no lymphadenopathy Thyroid: Thyroid normal Carotids: no bruits Lymphatic: no lymphadenopathy noted Resp Auscultation: clear to auscultation bilaterally Cardio Rate: regular rate Rhythm: regular rhythm Heart sounds: S1 normal heart sound present and S2 normal heart sound present Peripheral pulses: dorsalis pedis present Skin Other: Callus formation noted on both feet General skin exam: no rashes or lesions noted Neuro General: patient oriented x3, gait normal and no focal motor deficits Extrem Other: Monofilament sensation intact bilaterally. Vibratory sensation intact bilaterally. Skin intact. General: Yes normal to inspection Results Reviewed Results Reviewed: Laboratory Tests 11/24/24 12/08/24 07:45 13:22 Creatinine 1.13 Estimated GFR > 60 Fasting Glucose 93 Hgb A1c (Clinic) 6.0 Triglycerides 55 Cholesterol 117 LDL Cholesterol, Calc 67 HDL Cholesterol 39 L Assessment & Plan Assessment & Plan (1) Insulin dependent type 2 diabetes mellitus: Code(s): E11.9 - Type 2 diabetes mellitus without complications; Z79.4 - halfway (current) use of insulin Category: Medical Plan: continue Ozempic, Lantus, metformin and Jardiance. Advised him to continue working on diet and weight loss. He is following with a transfusion aide. We did discuss possibly switching to Mounjaro at our next visit if he is unable to lose more weight. I have given him a Gloria 3+ sensor today in the office. Return in 3 months or sooner. (2) Hyperlipidemia LDL goal <70: Code(s): E78.5 - Hyperlipidemia, unspecified Category: Medical Plan: Continue current regimen. (3) Hypertension: Code(s): I10 - Essential (primary) hypertension Category: Medical Qualifiers: Hypertension type: essential hypertension Qualified Code(s): I10 - Essential (primary) hypertension Plan: WNL. Continue current regimen (4) Callus of foot: Code(s): L84 - Corns and callosities Category: Medical Plan: referral to podiatry Orders: Referrals Podiatry Referral E11.65 - Type 2 diabetes mellitus with hyperglycemia, L84 - Corns and callosities, Z79.4 - terminal gauger supervisor (current) use of insulin Medications: Refilled blood-glucose sensor (FreeStyle Gloria 3 Plus Sensor device) Use daily As directed to monitor glucose 6 ea 2RF E08.29 - Diabetes mellitus due to underlying condition with other diabetic kidney complication, R80.9 - Proteinuria, unspecified, Z79.4 - halfway (current) use of insulin Coding Level of Care Code Est Pt Level 4 (08836) Complex EM visit Add On G2211 Diagnoses Insulin dependent type 2 diabetes mellitus E11.9; Z79.4 Hyperlipidemia LDL goal <70 E78.5 Essential hypertension I10 Hypertension type: essential hypertension Callus of foot L84
[2025-01-18 13:01] VITALS: BP 128/72; PULSE 82; O2SAT 96; BMI 40.9
[2025-01-18 13:17] LABS: Glucose, Whole Blood 147 mg/dL (60-115)
--- OUTSIDE RECORDS SUMMARY | 2025-01-18 15:46 | XMS_ITS | Clinical Summary ---
Author Organization [facility] Facility Address [address] [address] Care Team Providers Care Canopy Inspector Name Role Phone Deedee Bruce MD Primary Care Provider [phone] Allergies No known active allergies Medications albuterol [...] Due Date Last Done Comments Pneumococcal Vaccine: 50+ Ye ars (1 of 2 - PCV) 01/06/1984 Colorectal Cancer Screening: Annual FOBT 2014 Colorectal Cancer Screening: Colonoscopy 2014 Colorectal Cancer Screening: Sigmoidoscopy 2014 Diabetes: Hemoglobin A1C 05/01/2020 Diabetes: Ophthalmology Exam 05/01/2020 Diabetes: Pedal Pulse Checked 05/01/2020 Diabetes: Sensory Foot Exam 05/01/2020 Diabetes: Visual Foot Exam 05/01/2020 Influenza Vaccine (#1) 2024 05/05/2015 Hepatitis B Vaccine Aged Out No longe r eligible based on patient's age to complete this topic [place] [address] ([id number]) NAKUL GREEN [id number] ([id number]) N[place]UL GREEN [id number] Care Teams Canopy Inspector Relationship Specialty Start Date End Date Deedee Bruce MD [address] [place], [place] PCP - General Internal Medicine 04/18/22
== END 2025-01-18 13:32 | disposition home or self-care (01) ==
LOC: HO.ENCR 12:58
PROVIDERS: PCP Internal Medicine; Visit Provider Physician Assistant
DX: E11.9 Type 2 diabetes mellitus without complications (principal); Z79.4 Long term (current) use of insulin; E78.5 Hyperlipidemia, unspecified; I10 Essential (primary) hypertension; L84 Corns and callosities

== ENCOUNTER → 2025-01-18 12:57 | Outpatient (BNVA) | payer OTHER, SELFPAY | PROVIDERS: PCP Internal Medicine; Visit Provider Physician Assistant | DX: E11.65 Type 2 diabetes mellitus with hyperglycemia (principal); E11.29 Type 2 diabetes mellitus with other diabetic kidney complication; I10 Essential (primary) hypertension; E78.5 Hyperlipidemia, unspecified; E66.9 Obesity, unspecified; L84 Corns and callosities; R80.9 Proteinuria, unspecified; Z79.84 Long term (current) use of oral hypoglycemic drugs; Z79.4 Long term (current) use of insulin; Z68.41 Body mass index [BMI] 40.0-44.9, adult; Z79.899 Other long term (current) drug therapy | CPT/HCPCS: 82947; 99212 ==

== ENCOUNTER 2025-01-26 12:21 | Outpatient (REF) | payer OTHER, SELFPAY ==
[2025-01-26 15:03] LABS: Anion Gap 11 (12-20); Blood Urea Nitrogen 16 mg/dL (9-16); Calcium 10.0 mg/dL (8.4-10.2); Carbon Dioxide 26 mmol/L (22-29); Chloride 108 mmol/L (96-108); Estimated Glomerular Filt Rate > 60; Potassium 3.1 mmol/L (3.3-5.1); Sodium 142 mmol/L (135-145)
--- OUTSIDE RECORDS SUMMARY | 2025-01-26 15:37 | XMS_ITS | Clinical Summary ---
Author Organization [facility] Facility Address [address] [address] Care Team Providers Care Rn Or Lpn Name Role Phone Deedee Bruce MD Primary Care Provider [phone] Allergies No known active allergies Medications albuterol [...] patient's age to complete this topic [place] [address] ([id number]) NAKUL GREEN [phone] ([id number]) NAKUL GREEN [id number] Care Teams Rn Or Lpn Relationship Specialty Start Date End Date Deeede Bruce MD [address] [place], [place] PCP - General Internal Medicine 04/18/22
== END 2025-01-26 12:22 | disposition home or self-care (01) ==
LOC: HO.LAB 12:21
PROVIDERS: PCP Internal Medicine; Visit Provider Internal Medicine Hypertension Specialist
DX: I10 Essential (primary) hypertension (principal)
CPT/HCPCS: 36415; 80048

== ENCOUNTER 2025-02-11 10:14 | Outpatient (AMB) | payer OTHER, SELFPAY ==
[2025-02-11 10:38] VITALS: BP 100/62; PULSE 85; O2SAT 98; BMI 40.2
--- NOTE | 2025-02-11 10:38 | HO.NEPHOV_ITS ---
Vital Signs 02/11/25 10:38 Height 5 ft 9 in Weight 272 lb BMI 40.2 BP 100/62 Blood Pressure Location Rt brachial Position Sitting Pulse 85 Pulse Source Pulse Oximeter Pulse Oximetry (%) 98 Oxygen Delivery Method Room Air Intake Visit Reasons: 6 MO FU Senior Cytogenetic Technologist Required: Yes Senior Cytogenetic Technologist Name: Simon [id number] Accompanied by: Self / Same As Patient Allergies shrimp Allergy (Mild, Verified 02/11/25 10:41) Swelling Medication List - Last Reconciled 02/11/25 by Bethel Ibarra MD acetaminophen ER (Mapap Arthritis Pain) 1,300 mg (2 x 650 mg) PO Q8H PRN 30 days albuterol sulfate 2.5 mg (3 mL) inhalation Q4-6H PRN 30 days albuterol sulfate 90 mcg/actuation 2 puffs PO Q4H PRN amitriptyline 150 mg PO BEDTIME atorvastatin 80 mg PO BEDTIME 90 days blood sugar diagnostic (FreeStyle Lite Strips) 1 strip miscellaneous BID 30 days blood-glucose meter (FreeStyle Lite Meter kit) As directed blood-glucose sensor (FreeStyle Gloria 3 Plus Sensor device) Use daily As directed to monitor glucose blood-glucose,manager steel,cont (FreeStyle Gloria 3 [place]) Use daily As directed to monitor blood glucose zjgzuwdbzm-podavvrtgzzqt-deph 50-325-40 mg 1 tab PO Q8H PRN chlorthalidone 25 mg PO DAILY 90 days cholecalciferol (vitamin D3) 25 mcg PO DAILY 90 days clonidine HCl 0.2 mg PO BEDTIME 90 days cyclobenzaprine 10 mg PO Q8H PRN 30 days docusate sodium 100 mg PO BID empagliflozin (Jardiance) 25 mg PO DAILY 90 days fenofibrate nanocrystallized 145 mg PO DAILY 90 days fluticasone propion-salmeterol 250-50 mcg/dose (Wixela Inhub) 1 ea PO Q12H gabapentin 100 mg PO TID 30 days glucose (Dex4 Glucose) 16 grams (4 x 4 gram) PO Q15M PRN hydrocortisone 2.5% 1 appl topical BID PRN 14 days insulin glargine (Lantus Solostar U-100 Insulin) 10 units (0.1 mL) subcut QPM 30 days lancets As directed tests 3 X/day lisinopril 40 mg PO DAILY lorazepam 1 mg PO BID PRN meloxicam 15 mg PO DAILY PRN menthol-zinc oxide 0.44-20.6 % (Calmoseptine) 1 appl topical QID PRN metformin ER 1,000 mg (2 x 500 mg) PO BID 90 days montelukast 10 mg PO BEDTIME pen needle, diabetic (BD Jennifer 2nd Gen Pen Needle) once a day pen needle, diabetic (Comfort EZ Pen [place]) As directed injects once a day phenylephrine HCl 0.25% (Preparation H (pe)) 1 supp [place] QID PRN semaglutide (Ozempic) 2 mg (0.75 mL) subcut QWEEK 30 days sodium,potassium,mag sulfates 17.5-3.13-1.6 gram (Suprep Bowel Prep Kit) DILUTE; drink full amount early evening before AND next morning at least 2 hr before procedure; follow w 960 mL water PO sumatriptan succinate (Imitrex) 100 mg PO DIRECTED tamsulosin (Flomax) 0.4 mg PO BEDTIME 90 days topiramate 100 mg PO BID Ventolin HFA 90 mcg/actuation (albuterol sulfate) 2 puffs inhalation Q6H PRN 30 days NS zolpidem (Ambien) 10 mg PO BEDTIME PRN HPI Comments Details: Middle-aged man with a history of longstanding hypertension diabetes, obesity with mild CKD. Is minimal proteinuria. He has a history of ingesting Advil up to 3 tablets a day. After discontinuing and will has been improvement in the serum creatinine. Peak serum creatinine was 1.5 back in June 2021. Since last visit he has done very well. No specific complaints. No nausea vomiting no urine symptoms. No edema. He seems complaint was medications. 04/14/24 To gym regularly; Lost about 6 lbs Blood sugar acceptable. 08/11/24 59-year-old male presenting with concerns related to diabetes mellitus and its impact on renal health. His treatment regimen includes Jardiance and Lisinopril, aimed at providing renal protection. His weight has remained stable since the previous evaluation, and he reports no issues with urination. He occasionally experiences lightheadedness and is monitoring his blood glucose, noting a level of 138 mg/dL this morning. For weight management, he receives weekly Ozempic injections. His intermittent use of meloxicam for pain is noted, considering its potential renal implications. The latest laboratory tests from June confirm stable renal function and minimal proteinuria. 02/11/25 The patient is a 60-year-old male presenting for follow-up of diabetes and hypertension management. The patient has been on Ozempic for diabetes management and reports a weight reduction from 298 pounds to 272 pounds since the last visit six months ago. There have been no changes in his antihypertensive medications, which include lisinopril, clonidine, and chlorthalidone, despite a noted low blood pressure reading of 100 mmHg. The patient inquired about his kidney function tests, which showed improvement, although his potassium levels were low, attributed to chlorthalidone use. The decision was made to discontinue chlorthalidone to prevent further hypokalemia and to stabilize blood pressure. [facility] Medical History (Updated 01/18/25 @ 13:29 by Meenakshi Doshi PA-C) Morbid obesity CKD (chronic kidney disease) stage 3, GFR 30-59 ml/min Hemorrhoids with complication Family history of prostate cancer Osteoarthritis of left knee Moderate recurrent major depression Pruritus ani Internal and external hemorrhoids without complication Asthma DANIEL on CPAP Anemia Back pain Gross hematuria UTI (urinary tract infection) Prostate enlargement Diabetic polyneuropathy associated with type 2 diabetes mellitus Vitamin D deficiency Diabetes type 2, controlled Family history of anesthesia complication Hx of low back pain Hx of insomnia Hx of migraines Anxiety Depression Colon cancer screening Bleeding hemorrhoids Morbid obesity Hyperlipidemia Hypertension Hypernatremia Bloody stools Diabetes mellitus, type 2 Hiatal hernia Surgical History History of colonoscopy (~11/01/23) Hx of colonoscopy History of knee surgery History of carpal tunnel release H/O hernia repair History of umbilical hernia repair Family History Maternal Uncle History of prostate cancer Father History of throat cancer Myocardial infarction Diabetes mellitus Hypertension CVD (cardiovascular disease) Maternal Grandfather History of throat cancer Son In good health Son In good health Brother Colon cancer Mother Diabetes mellitus Social History Household Members: Spouse and Children Housing: House Are you a primary childcare aide to a significant other at home: No Do you presently have visiting nurse or other home services: Yes (once a week ) Alcohol intake: former Patient Tobacco Use Status: Never used Tobacco Cigarettes Per Day: 1 e-Cigarette/Vaping Use: Never Used Second Hand Smoke Exposure: No service: No Current occupational status: disabled Cognitive needs: No Hearing needs: No Vision needs: Yes Physical Exam Vital Signs: Last Vital Signs Pulse 85 02/11/25 10:38 BP 100/62 02/11/25 10:38 Pulse Ox 98 02/11/25 10:38 Oxygen Delivery Method Room Air 02/11/25 10:38 BMI result Body Mass Index 40.2 Comfortable Neck supple no JVD. Lungs entry equal no rales. Heart S1-S2 heard no gallop or rub. Abdomen soft nontender. Neuro alert awake oriented. No asterixis. Extremities no edema. Results Reviewed Nephrology Results: Sodium, (135-145) 142 mmol/L 01/26/25 Potassium, (3.3-5.1) 3.1 mmol/L L 01/26/25 Chloride, (96-108) 108 mmol/L 01/26/25 Carbon Dioxide, (22-29) 26 mmol/L 01/26/25 BUN, (9-16) 16 mg/dL 01/26/25 Creatinine, (0.5-1.4) 0.98 mg/dL 01/26/25 Calcium, (8.4-10.2) 10.0 mg/dL 01/26/25 Urine Creatinine 100.78 mg/dL 11/24/24 Assessment & Plan Assessment & Plan (1) Hypertension: Code(s): I10 - Essential (primary) hypertension Category: Medical Qualifiers: Hypertension type: essential hypertension Qualified Code(s): I10 - Essential (primary) hypertension Plan Middle-aged man with longstanding hypertension diabetes mellitus obesity with mild CKD. Renal function stable at baseline. Goal is to slow the progression of renal disease. Still taking Miloxicam- Cr is at 1.35 MOst likely due to NSAID induced hypoperfusion Needs to STOP Miloxicam Goal is to maintain the hemoglobin A1c less than 7%. We discussed weight loss as well. s/p Mild hypercalcemia Stopped vit D 50 mcg for a week Ca normalized Restarted at a lower dose of every other week BP is low Likely due to weight loss STOP Chlorthalidone Hypokalemia due to diuretics Stop Chlorthalidone Increase K rich food like orange juice REcheck K 08/11/24 Renal function is stable Continue with Jardiance and Lisinopril for renal protection, alongside weekly Ozempic for weight management. Monitoring of blood glucose and blood pressure levels should persist. Caution with meloxicam usage is essential to minimize potential impact on renal function. A follow-up is planned in six months. 02/11/25 Orders: Orders Basic Metabolic Panel 3 Months I10 - Essential (primary) hypertension Medications: Discontinued chlorthalidone Discontinued Reason: Doctor's Order 25 mg PO DAILY 90 days 90 tabs 1RF Coding Level of Care Code Est Pt Level 4 (36681) Diagnoses Essential hypertension I10 Hypertension type: essential hypertension
--- OUTSIDE RECORDS SUMMARY | 2025-02-11 12:17 | XMS_ITS | Clinical Summary ---
Author Organization [facility] Facility Address [address] [address] Care Team Providers Care Bottle Dealer Name Role Phone Deedee Bruce MD Primary Care Provider [phone] Allergies No known active allergies Medications albuterol [...] patient's age to complete this topic [place] [address] ([id number]) NAKUL GREEN [phone] ([id number]) NAKUL GREEN [phone] Care Teams Bottle Dealer Relationship Specialty Start Date End Date Deeede Bruce MD [address] [place], [place] PCP - General Internal Medicine 04/18/22
== END 2025-02-11 10:55 | disposition home or self-care (01) ==
LOC: HO.HKA 10:15
PROVIDERS: PCP Internal Medicine; Visit Provider Internal Medicine Hypertension Specialist
DX: I10 Essential (primary) hypertension (principal)
CPT/HCPCS: 99214

== ENCOUNTER → 2025-02-11 10:14 | Outpatient (BNVA) | payer OTHER, SELFPAY | PROVIDERS: PCP Internal Medicine; Visit Provider Internal Medicine Hypertension Specialist | DX: I12.9 Hypertensive chronic kidney disease with stage 1 through stage 4 chronic kidney disease, or unspecified chronic kidney disease (principal); E11.22 Type 2 diabetes mellitus with diabetic chronic kidney disease; E11.42 Type 2 diabetes mellitus with diabetic polyneuropathy; N18.31 Chronic kidney disease, stage 3a; E87.6 Hypokalemia | CPT/HCPCS: 99212 ==

== ENCOUNTER → 2025-02-16 08:02 | Outpatient (BNV) | payer OTHER, SELFPAY | PROVIDERS: PCP Internal Medicine; Visit Provider Radiology Diagnostic Radiology | DX: R97.20 Elevated prostate specific antigen [PSA] (principal) | CPT/HCPCS: 72197 ==

== ENCOUNTER 2025-02-16 08:11 | Outpatient (REF) | payer OTHER, SELFPAY ==
--- NOTE | ~2025-02-16 | MR_ITS ---
EXAMINATION: MR PROSTATE WITHOUT THEN WITH IV CONTRAST HISTORY: R97.20 - Elevated prostate specific antigen [PSA] TECHNIQUE: 1.5T body coil survey of the pelvis was performed. Phase array coil imaging of the prostate was performed in multiplanar high resolution axial, coronal, sagittal fast spin echo T2 and axial T1 weighted imaging sequences. Axial diffusion imaging at intermediate and high field performed with ADC mapping. Next, 10 mL Gadavist was given by intravenous infusion, and dynamic axial imaging performed. 3-D reconstructions and post-processing were not performed as no discrete lesion was identified. COMPARISON: There are no prior studies available for comparison. CLINICAL DATA: Most recent PSA: 4.21 ng/mL on 11/24/2024. PSA Density: 0.56 ng/mL squared Prostate Biopsy: None reported FINDINGS: Prostate size: 5.2 x 5.6 x 5.0 cm. Calculated prostate volume is 75.7 mL. Hemorrhage: None. Transitional Zone: There is moderate heterogeneous nodular hypertrophy of the transitional zone. Peripheral Zone: A few scattered linear T2 hypointense foci are noted in the peripheral zone, which can be seen in the setting of prostatitis or scarring. No discrete focus of abnormal signal intensity is identified. There are no foci of restricted diffusion. Seminal Vesicles/Ejaculatory Ducts: Symmetric and normal in signal and caliber. Pelvic Lymph Nodes: No obturator or internal iliac lymph nodes meeting size criteria for adenopathy. Marrow Signal: Normal marrow signal and enhancement without focal lesion identified. MR/MR Prostate wo/w con IMPRESSION: No discrete focus of abnormal signal intensity is identified to suggest clinically significant prostate carcinoma. PI-RADS 2: Low (clinically significant cancer is unlikely to be present) PI-RADS Assessment Categories PI-RADS 1: Very low (clinically significant cancer is highly unlikely to be present) PI-RADS 2: Low (clinically significant cancer is unlikely to be present) PI-RADS 3: Intermediate (the presence of clinically significant cancer is equivocal) PI-RADS 4: High (clinically significant cancer is likely to be present) PI-RADS 5: Very high (clinically significant cancer is highly likely to be present) [employer]. MR Prostate Imaging Reporting and Data System version 2.1. [email or web address] Electronically signed by: Musa Richter MD 02/17/2025 07:20 AM [facility]
== END 2025-02-16 08:12 | disposition home or self-care (01) ==
LOC: HO.MRI 08:11
PROVIDERS: PCP Internal Medicine; Visit Provider Nurse Practitioner Family
DX: R97.20 Elevated prostate specific antigen [PSA] (principal)
CPT/HCPCS: 72197; 76377; A9585

== ENCOUNTER 2025-02-17 13:02 | Outpatient (AMB) | payer OTHER, SELFPAY ==
[2025-02-17 13:23] VITALS: BP 128/60; PULSE 69; O2SAT 99; BMI 40.7
--- NOTE | 2025-02-17 13:23 | A.OFFVIS_ITS ---
Vital Signs 02/17/25 13:23 Height 5 ft 9 in Weight 275 lb 9.245 oz BMI 40.7 BP 128/60 Blood Pressure Location Lt brachial Position Sitting Pulse 69 Pulse Source Pulse Oximeter Pulse Oximetry (%) 99 Oxygen Delivery Method Room Air Intake Visit Reasons: daniel Intake Note: pt is here for follow up and states he is feeling good, and needs a refill albuterol and wixela, and albuterol for nebulizer. Machine Staker Required: Yes Machine Staker Services: Machine Staker Present Machine Staker Name: Tena [id number] Allergies shrimp Allergy (Mild, Verified 02/17/25 13:40) Swelling Medication List - Last Reconciled 02/17/25 by Glenn Interiano MD acetaminophen ER (Mapap Arthritis Pain) 1,300 mg (2 x 650 mg) PO Q8H PRN 30 days albuterol sulfate 2.5 mg (3 mL) inhalation Q4-6H PRN 30 days albuterol sulfate 90 mcg/actuation 2 puffs PO Q4H PRN amitriptyline 150 mg PO BEDTIME atorvastatin 80 mg PO BEDTIME 90 days blood sugar diagnostic (FreeStyle Lite Strips) 1 strip miscellaneous BID 30 days blood-glucose meter (FreeStyle Lite Meter kit) As directed blood-glucose sensor (FreeStyle Gloria 3 Plus Sensor device) Use daily As directed to monitor glucose blood-glucose,environmental geologist,cont (FreeStyle Gloria 3 [place]) Use daily As directed to monitor blood glucose vaoppacknv-yohfownmweyem-agem 50-325-40 mg 1 tab PO Q8H PRN cholecalciferol (vitamin D3) 25 mcg PO DAILY 90 days clonidine HCl 0.2 mg PO BEDTIME 90 days cyclobenzaprine 10 mg PO Q8H PRN 30 days docusate sodium 100 mg PO BID empagliflozin (Jardiance) 25 mg PO DAILY 90 days fenofibrate nanocrystallized 145 mg PO DAILY 90 days fluticasone propion-salmeterol 250-50 mcg/dose (Wixela Inhub) 1 ea PO Q12H gabapentin 100 mg PO TID 30 days glucose (Dex4 Glucose) 16 grams (4 x 4 gram) PO Q15M PRN hydrocortisone 2.5% 1 appl topical BID PRN 14 days insulin glargine (Lantus Solostar U-100 Insulin) 10 units (0.1 mL) subcut QPM 30 days lancets As directed tests 3 X/day lisinopril 40 mg PO DAILY lorazepam 1 mg PO BID PRN meloxicam 15 mg PO DAILY PRN menthol-zinc oxide 0.44-20.6 % (Calmoseptine) 1 appl topical QID PRN metformin ER 1,000 mg (2 x 500 mg) PO BID 90 days montelukast 10 mg PO BEDTIME pen needle, diabetic (BD Jennifer 2nd Gen Pen Needle) once a day pen needle, diabetic (Comfort EZ Pen [place]) As directed injects once a day phenylephrine HCl 0.25% (Preparation H (pe)) 1 supp [place] QID PRN semaglutide (Ozempic) 2 mg (0.75 mL) subcut QWEEK 30 days sodium,potassium,mag sulfates 17.5-3.13-1.6 gram (Suprep Bowel Prep Kit) DILUTE; drink full amount early evening before AND next morning at least 2 hr before procedure; follow w 960 mL water PO sumatriptan succinate (Imitrex) 100 mg PO DIRECTED tamsulosin (Flomax) 0.4 mg PO BEDTIME 90 days topiramate 100 mg PO BID Ventolin HFA 90 mcg/actuation (albuterol sulfate) 2 puffs inhalation Q6H PRN 30 days NS zolpidem (Ambien) 10 mg PO BEDTIME PRN Do you need a note to return to daycare/school/sports/work: No HPI HPI daniel: Details: This 60 years old Guamanian-speaking gentleman is here for his 6 months follow-up, for asthma/COPD and obstructive sleep apnea. He uses CPAP every night but does forget to put it on some nights. He say is that he sleeps good. And there is no daytime sleepiness He has an old CPAP device and it does not transmit information for the compliance. Has put on a few more lb of weight. Breathing has been good no issues and no acute attacks of wheezing. He walks around without much shortness of breath. He is nonsmoker. [facility] Medical History (Updated 02/17/25 @ 13:47 by Glenn Interiano MD) Obesity (BMI 30-39.9) Morbid obesity CKD (chronic kidney disease) stage 3, GFR 30-59 ml/min Hemorrhoids with complication Family history of prostate cancer Osteoarthritis of left knee Moderate recurrent major depression Pruritus ani Internal and external hemorrhoids without complication Asthma DANIEL on CPAP Anemia Back pain Gross hematuria UTI (urinary tract infection) Prostate enlargement Diabetic polyneuropathy associated with type 2 diabetes mellitus Vitamin D deficiency Diabetes type 2, controlled Family history of anesthesia complication Hx of low back pain Hx of insomnia Hx of migraines Anxiety Depression Colon cancer screening Bleeding hemorrhoids Morbid obesity Hyperlipidemia Hypertension Hypernatremia Bloody stools Diabetes mellitus, type 2 Hiatal hernia Surgical History History of colonoscopy (~11/01/23) Hx of colonoscopy History of knee surgery History of carpal tunnel release H/O hernia repair History of umbilical hernia repair Family History Maternal Uncle History of prostate cancer Father History of throat cancer Myocardial infarction Diabetes mellitus Hypertension CVD (cardiovascular disease) Maternal Grandfather History of throat cancer Son In good health Son In good health Brother Colon cancer Mother Diabetes mellitus Social History Household Members: Spouse and Children Housing: House Are you a primary pet care associate to a significant other at home: No Do you presently have visiting nurse or other home services: Yes (once a week ) Alcohol intake: former Patient Tobacco Use Status: Never used Tobacco Cigarettes Per Day: 1 e-Cigarette/Vaping Use: Never Used Second Hand Smoke Exposure: No service: No Current occupational status: disabled Cognitive needs: No Hearing needs: No Vision needs: Yes Review of Systems Const All systems reviewed & are unremarkable except as noted in HPI and below Eyes Reports no additional complaints ENT Reports nasal congestion (MILD, OFF AND ON) Card Denies chest pain, Denies irregular heart rhythm and Denies leg edema Resp Reports as per HPI GI Reports constipation Reports no additional complaints and Reports nocturia Musc Reports back pain (MILD) Skin/Breast Reports system reviewed and no additional complaints, except as documented Neuro Reports no additional complaints Psych Reports no additional complaints Physical Exam Vital Signs: Last Vital Signs Pulse 69 02/17/25 13:23 BP 128/60 02/17/25 13:23 Pulse Ox 99 02/17/25 13:23 Oxygen Delivery Method Room Air 02/17/25 13:23 BMI result Body Mass Index 40.7 Const General: healthy appearing (Except for overweight), comfortable, no acute distress, alert and awake Orientation/consciousness: patient oriented x3 HEENT Head: Yes normal to inspection General nose exam: No nasal polyps present, No nasal discharge present and normal mucous membranes and turbinates (Has moderate hypertrophy of the nasal turbinates) Face and sinus: Yes sinuses nontender Mouth: oropharynx normal Throat: Yes posterior oropharynx normal Eyes General: appearance normal, both eyes and all related structures Neck Neck: Yes normal visual inspection, Yes no lymphadenopathy, Yes trachea midline and Yes no JVD Thyroid: Thyroid normal Chest Chest palpation & inspection: normal inspection of the chest, normal palpation of entire chest wall and no tenderness Resp Other: Percussion note is resonant. He has good breath sounds on both sides. No wheezes rhonchi or crepitations are heard. Cardio Palpation: normal PMI Rate: regular rate Rhythm: regular rhythm Heart sounds: no gallops and no murmurs Peripheral pulses: Peripheral pulses 2+ throughout GI Palpation (GI): Soft to palpation, Tenderness to palpation present (GI), No hepatosplenomegaly present and Palpable mass present Auscultation: normal bowel sounds Back/Spine/Pelvis Thoracic/Lumbar Spine: thoracic and lumbar spine normal to inspection Skin General skin exam: no rashes or lesions noted Neuro General: patient oriented x3 and no focal motor deficits Cranial nerves: Yes CN's II-XII intact bilaterally Extrem General: Yes normal to inspection, Yes no clubbing, cyanosis or edema and Yes no calf tenderness Psych Appearance: grossly normal and well kempt Speech and movement: Normal speech and movement present Results Reviewed Results Reviewed: Compliance report not available Assessment & Plan Assessment & Plan (1) Asthma: Comment: HAS CHRONIC , INTERMITTENT BRONCHIAL ASTHMA, CONTROLLED WITH CURRENT REGIMEN. DENIES HAVING HAD ANY ACUTE EXACERBATION IN THE PAST 1 YEAR. NEEDS REFILLS FOR HIS MEDS Code(s): J45.909 - Unspecified asthma, uncomplicated Category: Medical Qualifiers: Asthma severity: mild Asthma persistence: persistent Asthma complication type: uncomplicated Qualified Code(s): J45.30 - Mild persistent asthma, uncomplicated Plan: CONTINUE USING WIXELA 250-51 INHALATION B.I.D. ALBUTEROL HFA 2 PUFFS Q 6 HOURS P.R.N. ALBUTEROL SOLUTION IN THE NEBULIZER Q 4-6 HOURS P.R.N. WHEN AT HOME (2) DANIEL on CPAP: Comment: KNOWN CASE OF OBSTRUCTIVE SLEEP APNEA SINCE 2013. HE HAS BEEN USING CPAP REGULARLY IN THE PAST . HOWEVER DURING THE PAST 1 YEAR HE HAS NOT USED IT REGULARLY CLAIMING THAT HE HAS LOST SOME WEIGHT AND HE SLEEPS BETTER WITHOUT THE CPAP. Code(s): G47.33 - Obstructive sleep apnea (adult) (pediatric); Z99.89 - Dependence on other enabling machines and devices Category: Medical Plan: NOW HIS WEIGHT IS AT A STANDSTILL AND ACTUALLY HE HAS GAINED 3 MORE LB FROM LAST TIME. I ADVISED HIM TO START USING THE CPAP REGULARLY EVERY NIGHT. (3) Obesity (BMI 30-39.9): Comment: HE REMAINS MORBIDLY OBESE CURRENT BMI IS ACTUALLY 41, BECAUSE HE PUT ON A FEW LB OF WEIGHT. Code(s): E66.9 - Obesity, unspecified Category: Medical Plan: DISCUSSED ABOUT THE WEIGHT AND I STRESSED THAT HE NEEDS TO CONTROL HIS DIET AND START WALKING EVERY DAY HE NEEDS TO LOSE ABOUT 10 LB OF WEIGHT. Medications: New fluticasone propion-salmeterol 250-50 mcg/dose (Wixela Inhub) 1 inh inhalation BID 60 ea 4RF asthma 30 days Refilled albuterol sulfate 90 mcg/actuation 2 puffs PO Q4H PRN 18 ea 4RF for wheezing Coding Level of Care Code Est Pt Level 3 (62789) Diagnoses Mild persistent asthma without complication J45.30 Asthma severity: mild Asthma persistence: persistent Asthma complication type: uncomplicated DANIEL on CPAP G47.33; Z99.89 Obesity (BMI 30-39.9) E66.9
--- OUTSIDE RECORDS SUMMARY | 2025-02-18 00:54 | XMS_ITS | Clinical Summary ---
Author Organization [facility] Facility Address [address] [address] Care Team Providers Care Housekeeping Department Worker Name Role Phone Deedee Bruce MD Primary [...] patient's age to complete this topic Insurance [place] [address] ([id number]) N[place] GREEN [phone] ([id number]) [place] GRE[place] [phone] Care Teams Housekeeping Department Worker Relationship Specialty Start Date End Date Deedee Bruce MD [address] [place], [place] PCP - General Internal Medicine 04/18/22
== END 2025-02-17 13:41 | disposition home or self-care (01) ==
LOC: HO.HPS 13:03
PROVIDERS: PCP Internal Medicine; Visit Provider Internal Medicine
DX: J45.30 Mild persistent asthma, uncomplicated (principal); G47.33 Obstructive sleep apnea (adult) (pediatric); Z99.89 Dependence on other enabling machines and devices; E66.9 Obesity, unspecified
CPT/HCPCS: 99213

== ENCOUNTER → 2025-02-17 13:02 | Outpatient (BNVA) | payer OTHER, SELFPAY | PROVIDERS: PCP Internal Medicine; Visit Provider Internal Medicine | DX: J45.30 Mild persistent asthma, uncomplicated (principal); G47.33 Obstructive sleep apnea (adult) (pediatric); Z99.89 Dependence on other enabling machines and devices; E66.9 Obesity, unspecified | CPT/HCPCS: 99212 ==

== ENCOUNTER 2025-02-22 10:10 | Outpatient (AMB) | payer OTHER, SELFPAY ==
--- NOTE | 2025-02-22 10:38 | A.OFFVIS_ITS ---
Intake Intake Visit Reasons: 60 min Desulfurizer Machine Required: Yes Desulfurizer Machine Language: Curbing Stonecutter Name: Prave[place] [facility] [place]panied by: Self / Same As Patient Allergies shrimp Allergy (Mild, Verified 02/17/25 13:40) Swelling HPI Comprehensive Diabetes Asmnt Most Recent Diabetes Results: 2 Microalb/Creat Ratio, (<30) 18.8 ug/mg cr 11/24/24 Cholesterol, (<200) 117 mg/dL 11/24/24 HDL Cholesterol, (>40) 39 mg/dL L 11/24/24 Triglycerides, (<150) 55 mg/dL 11/24/24 Creatinine, (0.5-1.4) 0.98 mg/dL 01/26/25 BUN, (9-16) 16 mg/dL 01/26/25 Sodium, (135-145) 142 mmol/L 01/26/25 Potassium, (3.3-5.1) 3.1 mmol/L L 01/26/25 Chloride, (96-108) 108 mmol/L 01/26/25 Carbon Dioxide, (22-29) 26 mmol/L 01/26/25 Calcium, (8.4-10.2) 10.0 mg/dL 01/26/25 AST, (5-37) 42 U/L H 11/24/24 ALT, (0-40) 40 U/L 11/24/24 Total Protein, (6.5-8.0) 6.6 g/dL 11/24/24 Albumin, (3.5-5.0) 4.3 g/dL 11/24/24 [facility] Medical History (Updated 02/17/25 @ 13:47 by Glenn Interiano MD) Obesity (BMI 30-39.9) Morbid obesity CKD (chronic kidney disease) stage 3, GFR 30-59 ml/min Hemorrhoids with complication Family history of prostate cancer Osteoarthritis of left knee Moderate recurrent major depression Pruritus ani Internal and external hemorrhoids without complication Asthma DANIEL on CPAP Anemia Back pain Gross hematuria UTI (urinary tract infection) Prostate enlargement Diabetic polyneuropathy associated with type 2 diabetes mellitus Vitamin D deficiency Diabetes type 2, controlled Family history of anesthesia complication Hx of low back pain Hx of insomnia Hx of migraines Anxiety Depression Colon cancer screening Bleeding hemorrhoids Morbid obesity Hyperlipidemia Hypertension Hypernatremia Bloody stools Diabetes mellitus, type 2 Hiatal hernia Surgical History History of colonoscopy (~11/01/23) Hx of colonoscopy History of knee surgery History of carpal tunnel release H/O hernia repair History of umbilical hernia repair Family History Maternal Uncle History of prostate cancer Father History of throat cancer Myocardial infarction Diabetes mellitus Hypertension CVD (cardiovascular disease) Maternal Grandfather History of throat cancer Son In good health Son In good health Brother Colon cancer Mother Diabetes mellitus Social History Household Members: Spouse and Children Housing: House Are you a primary livestock caretaker to a significant other at home: No Do you presently have visiting nurse or other home services: Yes (once a week ) Alcohol intake: former Patient Tobacco Use Status: Never used Tobacco Cigarettes Per Day: 1 e-Cigarette/Vaping Use: Never Used Second Hand Smoke Exposure: No service: No Current occupational status: disabled Cognitive needs: No Hearing needs: No Vision needs: Yes Assessment & Plan Assessment & Plan (1) Diabetes type 2, controlled: Code(s): E11.9 - Type 2 diabetes mellitus without complications Plan: Overall patient has excellent control Last A1c on 12/08/2024 6% Patient is currently using Gloria 3+ CGM Learning objectives: The patient was provided with verbal and written education on the following topics as outlined below. The patient met all learning objectives and was able to verbalize understanding and provide teach back of education topics discussed . The patient was provided with the opportunity to ask questions and all questions were answered. People with diabetes face a higher risk for complications. In general, people with diabetes are more likely to experience severe symptoms and complications when infected with a virus. The problem people with diabetes face is primarily a problem of worse outcomes Before you get sick,?make a plan: Gather your supplies: ? Phone numbers of your doctors and healthcare team, your pharmacy and your insurance provider ? List of medications and doses (including vitamins and supplements) ? Simple carbs like regular soda, honey, jam, Jell-O, hard candies or popsicles to help keep your blood sugar up if you are at risk for lows and too ill to eat ? If a state of emergency is declared, get extra refills on your prescriptions so you do not have to leave the house ?? If you can't get to the pharmacy, find out about having your medications delivered ? Always have enough insulin for the week ahead, in case you get sick or cannot refill Talk to your health care team about the following: ? When to call your doctor's office (for ketones, changes in food intake, medication adjustments, etc.) ? How often to check your blood sugar ? When to check for ketones ? Medications you should use for colds, flu, virus, and infections ? Any changes to your diabetes medications when you are sick Take everyday precautions: ? Avoid close contact with people who are sick ? Take preventive actions: ??? Clean your hands often Wash your hands often with soap and water for at least 20 seconds, especially after blowing your nose, coughing, or sneezing, or having been in a public place. ? Avoid touching your face, nose, eyes, etc. Clean and disinfect your home to remove germs: practice routine cleaning of frequently touched surfaces (for example: tables, doorknobs, light switches, handles, desks, toilets, faucets, sinks & cell phones) If you do get sick, know what to do: Here are some common tips, which may vary for each person: ? Drink lots of fluids. If you're having trouble keeping water down, have small sips every 15 minutes or so throughout the day to avoid dehydration. ? If you are experiencing a low (blood sugar below 70 mg/dl or your target range), eat 15 grams of simple carbs that are easy to digest like honey, jam, Jell-O, hard candy, popsicles, juice or regular soda, and re-check your blood sugar in 15 minutes to make sure your levels are rising. Check your blood sugar extra times throughout the day and night (generally, every 2-3 hours; if using a CGM, monitor frequently). ? If your blood sugar has registered high (BG greater than 240mg/dl) more than 2 times in a row ? Call your doctor's office immediately, if you have medium or large ketones (and if instructed to with trace or small ketones). ? Wash your hands and clean your injection/infusion and finger-stick sites with soap and water or rubbing alcohol. Why do blood glucose values go up when I am sick? Your body is under stress when you are sick. Hormones that are released to help fight the illness can also raise your glucose levels. Your body becomes less sensitive to your insulin too, so you need more to have the same effect compared to when you are well. What should I always keep on hand to be prepared for a sick day? Glucose testing kit and strips (more than you think you will need) or CGM sensors ? Ketone testing supplies, either urine or special test strips for fingerstick testing with specific meter (even if you feel you never get sick because the level of ketones lets you and your team know how severely your diabetes is being affected by your illness) ? Plenty of water or sugar-free beverages ? Plenty of all your types of insulin What should I do when I am sick? Continue to take your insulin even if you are not eating much. Take your long acting insulin or continue your basal insulin if you are on an insulin pump. ? Check your blood glucose values every 3-4 hours. If you have a continuous glucose monitor, watch for trends and make sure your correctional insulin is working. ? Stay well hydrated, drinking fluid every hour ? tea, water, diet soda, broth. ? Make sure you are also eating some carbohydrates When should I call for help? You have been sick or had a fever for a few days and are not getting better. ? You are vomiting or have diarrhea for more than 6 hours. ? You have moderate to large ketones even if your glucose is not high. ? Your blood glucose values stay above 250 mg/dl even when you are giving extra insulin. You are not sure what to do When should I get help right away? People with diabetes can develop many different foot problems. Even ordinary problems can get worse and lead to serious complications. Foot problems most often happen when there is nerve damage, also called neuropathy. This can cause tingling, pain (burning or stinging), or weakness in the foot. It can also cause loss of feeling in the foot, so you can injure it and not know it. Poor blood flow or changes in the shape of your feet or toes may also cause problems. Take good care of your feet and see your doctor right away if you see any signs of foot problems. Take care of your feet. When you have diabetes, caring for your feet is very important in avoiding serious foot complications. Take care of your feet by doing the following:? * Wash your feet thoroughly everyday * Dry them thoroughly, and don?t forget to dry between your toes * Moisturize your feet, but avoid moisturizing between your toes? * Keep your toenails trim, and use an emery board to file down sharp edges * Check your feet for sores, cuts, blisters, corns, or redness daily. Let your doctor know if you find any of these.? * Wear moisture-wicking socks? * Before putting your shoes on, check for sharp objects (i.e. small rocks)? * Wear shoes that fit well and don?t rub your feet While you?re at it, avoid these: * Don?t walk around barefoot * Don?t soak your feet Patient Instructions: Follow-up with ems educator as needed Coding Level of Care Code Est Pt Level 1 (80424) Diagnoses Diabetes type 2, controlled E11.9
--- OUTSIDE RECORDS SUMMARY | 2025-02-22 12:22 | XMS_ITS | Clinical Summary ---
Author Organization [facility] Facility Address [address] [address] Care Team Providers Care Needle Board Repairer Name Role Phone Deedee Bruce MD Primary Care Provider [phone] Allergies No known active allergies Medications albuterol [...] patient's age to complete this topic [place] [address] ([id number]) [place] [phone] ([id number]) [place] [phone] Care Teams Needle Board Repairer Relationship Specialty Start Date End Date Deedee Bruce MD [address] [place], [place] PCP - General Internal Medicine 04/18/22
== END 2025-02-22 15:01 | disposition home or self-care (01) ==
LOC: HO.ENCR 10:11
PROVIDERS: PCP Internal Medicine; Visit Provider Registered Nurse Diabetes Educator
DX: E11.9 Type 2 diabetes mellitus without complications (principal)

== ENCOUNTER → 2025-02-22 10:10 | Outpatient (BNVA) | payer OTHER, SELFPAY | PROVIDERS: PCP Internal Medicine; Visit Provider Registered Nurse Diabetes Educator | DX: E11.9 Type 2 diabetes mellitus without complications (principal) | CPT/HCPCS: 99211 ==

== ENCOUNTER 2025-02-23 13:18 | Outpatient (AMB) | payer OTHER, SELFPAY ==
--- NOTE | 2025-02-23 13:21 | MHC.OFFVIS ---
Intake Visit Reasons: 3m/labs Intake Note: Patient is present for 3M/LABS Urology Medication:TAMSULOSIN Antibiotic Allergy:NONE Blood Thinner:NONE Meter Tester Primary Required: Yes Meter Tester Primary Services: Meter Tester Primary Present Meter Tester Primary Name: Vicki [id number] Allergies shrimp Allergy (Mild, Verified 02/23/25 14:19) Swelling Medication List - Last Reconciled 02/23/25 by CRIS Echeverria-ROBERTO acetaminophen ER (Mapap Arthritis Pain) 1,300 mg (2 x 650 mg) PO Q8H PRN 30 days albuterol sulfate 2.5 mg (3 mL) inhalation Q4-6H PRN 30 days albuterol sulfate 90 mcg/actuation 2 puffs PO Q4H PRN amitriptyline 150 mg PO BEDTIME atorvastatin 80 mg PO BEDTIME 90 days blood sugar diagnostic (FreeStyle Lite Strips) 1 strip miscellaneous BID 30 days blood-glucose meter (FreeStyle Lite Meter kit) As directed blood-glucose sensor (FreeStyle Gloria 3 Plus Sensor device) Use daily As directed to monitor glucose blood-glucose,air purifier servicer,cont (FreeStyle Gloria 3 [place]) Use daily As directed to monitor blood glucose ovygbhsxqs-hrbqdqedgexht-rqcr 50-325-40 mg 1 tab PO Q8H PRN cholecalciferol (vitamin D3) 25 mcg PO DAILY 90 days clonidine HCl 0.2 mg PO BEDTIME 90 days cyclobenzaprine 10 mg PO Q8H PRN 30 days docusate sodium 100 mg PO BID empagliflozin (Jardiance) 25 mg PO DAILY 90 days fenofibrate nanocrystallized 145 mg PO DAILY 90 days finasteride 5 mg PO DAILY 90 days fluticasone propion-salmeterol 250-50 mcg/dose (Wixela Inhub) 1 ea PO Q12H fluticasone propion-salmeterol 250-50 mcg/dose (Wixela Inhub) 1 inh inhalation BID 30 days gabapentin 100 mg PO TID 30 days glucose (Dex4 Glucose) 16 grams (4 x 4 gram) PO Q15M PRN hydrocortisone 2.5% 1 appl topical BID PRN 14 days insulin glargine (Lantus Solostar U-100 Insulin) 10 units (0.1 mL) subcut QPM 30 days lancets As directed tests 3 X/day lisinopril 40 mg PO DAILY lorazepam 1 mg PO BID PRN meloxicam 15 mg PO DAILY PRN menthol-zinc oxide 0.44-20.6 % (Calmoseptine) 1 appl topical QID PRN metformin ER 1,000 mg (2 x 500 mg) PO BID 90 days montelukast 10 mg PO BEDTIME pen needle, diabetic (BD Jennifer 2nd Gen Pen Needle) once a day pen needle, diabetic (Comfort EZ Pen [place]) As directed injects once a day phenylephrine HCl 0.25% (Preparation H (pe)) 1 supp MA QID PRN semaglutide (Ozempic) 2 mg (0.75 mL) subcut QWEEK 30 days sodium,potassium,mag sulfates 17.5-3.13-1.6 gram (Suprep Bowel Prep Kit) DILUTE; drink full amount early evening before AND next morning at least 2 hr before procedure; follow w 960 mL water PO sumatriptan succinate (Imitrex) 100 mg PO DIRECTED tamsulosin (Flomax) 0.4 mg PO BEDTIME 90 days topiramate 100 mg PO BID Ventolin HFA 90 mcg/actuation (albuterol sulfate) 2 puffs inhalation Q6H PRN 30 days NS zolpidem (Ambien) 10 mg PO BEDTIME PRN HPI Comments Details: Dallas is a pleasant 60 year Divehi-speaking male patient of Dr. Tomi Watts. He he has a past medical history of obesity, osteoarthritis, depression, asthma, COPD, obstructive sleep apnea, anemia, back pain, diabetes, vitamin-D deficiency, insomnia, migraines, hemorrhoids, hypertension, and hyperlipidemia. He presents to the office today for follow-up of his BPH and elevated PSA. In discussion with the patient today reports to be doing and feeling well. Most recent prostate MRI results reviewed with the patient today as well as PSA. Prostate MRI 02/23 notes prostate is approximately 75 ml's. There is moderate heterogeneous nodular hypertrophy of the transitional zone. A few scattered linear T2 hypointense foci are noted in the peripheral zone, which can be seen in the setting of prostatitis or scarring. There is no discrete focus of abnormality signal intensity. Seminal vesicles and ejaculatory ducts are symmetrical and normal in signal and caliber. No discrete focus of abnormal signal intensity arise identified to suggest clinically significant prostate carcinoma. PI-RADS 2. PSAs are as follows: 04/21 13.6, 12/22 2.3, 07/23 2.3, 11/22 2.4, 07/24 3.3, 11/23 4.2 % free PSA 23% He reports compliance with Flomax as prescribed. He does have a family history of prostate cancer. We did review PCPT risk calculator results 79 % chance prostate biopsy is negative for prostate cancer, 17% chance of low-grade prostate cancer, and 4% chance of high-grade prostate cancer. We did discussed further interventions and risks and benefits of these interventions. We discussed prostate biopsy verses initiation of finasteride versus surveillance monitoring. He reports compliance with Flomax as prescribed. He currently denies any bothersome urinary issues or concerns. He denies nocturia, hematuria, dysuria, foul smelling urine, changes to urinary stream, flank pain, fever, and or chills. Discussed at length importance of managing diabetes for improvement lower urinary tract symptoms as well as overall health and being. In office urinalysis results reviewed with the patient today. He does have a family history of prostate cancer. He reports his brother at a very young age from prostate cancer. ROSITA was offered however deferred. He otherwise denies any issues or concerns at this time. PREVIOUS OFFICE NOTE: Lower urinary tract symptoms with prior UTI Prior hematuria Noted to also have weakness of stream and started on tamsulosin Investigations - Cysto 06/19 tight prostatic urethra, mild trabeculation PSAs - 04/21 13.6 - when had retention, 12/20 2.2, 11/20 1.9, 12/22 2.3, 07/23 2.3 Therapeutic plan - refill tamsulosin and repeat PSAs [facility] Medical History Obesity (BMI 30-39.9) Morbid obesity CKD (chronic kidney disease) stage 3, GFR 30-59 ml/min Hemorrhoids with complication Family history of prostate cancer Osteoarthritis of left knee Moderate recurrent major depression Pruritus ani Internal and external hemorrhoids without complication Asthma DANIEL on CPAP Anemia Back pain Gross hematuria UTI (urinary tract infection) Prostate enlargement Diabetic polyneuropathy associated with type 2 diabetes mellitus Vitamin D deficiency Diabetes type 2, controlled Family history of anesthesia complication Hx of low back pain Hx of insomnia Hx of migraines Anxiety Depression Colon cancer screening Bleeding hemorrhoids Morbid obesity Hyperlipidemia Hypertension Hypernatremia Bloody stools Diabetes mellitus, type 2 Hiatal hernia Surgical History History of colonoscopy (~11/01/23) Hx of colonoscopy History of knee surgery History of carpal tunnel release H/O hernia repair History of umbilical hernia repair Family History Maternal Uncle History of prostate cancer Father History of throat cancer Myocardial infarction Diabetes mellitus Hypertension CVD (cardiovascular disease) Maternal Grandfather History of throat cancer Son In good health Son In good health Brother Colon cancer Mother Diabetes mellitus Social History Household Members: Spouse and Children Housing: House Are you a primary zoo caretaker to a significant other at home: No Do you presently have visiting nurse or other home services: Yes (once a week ) Alcohol intake: former Patient Tobacco Use Status: Never used Tobacco Cigarettes Per Day: 1 e-Cigarette/Vaping Use: Never Used Second Hand Smoke Exposure: No service: No Current occupational status: disabled Cognitive needs: No Hearing needs: No Vision needs: Yes Review of Systems Const Reports as per HPI Eyes Reports no additional complaints ENT Reports no additional complaints Card Reports no additional complaints Resp Reports no additional complaints GI Reports as per HPI Reports as per HPI Musc Reports as per HPI Neuro Reports no additional complaints Psych Reports as per HPI Endo Reports as per HPI David/Lymph Reports no additional complaints Aller/Immun Reports no additional complaints Physical Exam Const General: cooperative, healthy appearing, comfortable, no acute distress, well developed, alert and awake Nutritional Appearance: overweight Orientation/consciousness: patient oriented x3 Limitations: no limitations HEENT Head: Yes normal to inspection, Yes normocephalic and Yes atraumatic Ears: hearing grossly normal bilaterally Eyes General: appearance normal, both eyes and all related structures Neck Neck: Yes normal visual inspection and Yes trachea midline Chest Chest palpation & inspection: normal inspection of the chest Resp Effort & Inspection: normal respiratory effort and able to speak in complete sentences Cardio Rate: regular rate GI Inspection: Yes normal to inspection General: Yes no CVA tenderness Back/Spine/Pelvis Back: no CVA tenderness Skin General skin exam: no rashes or lesions noted Neuro General: patient oriented x3 Extrem General: Yes normal to inspection Psych Appearance: grossly normal and well kempt Mental Status: mental status grossly normal Speech and movement: Normal speech and movement present and Clear speech present Affect: normal affect Attitude: cooperative Thought process: Normal thought process present Thought content: Normal thought content present Insight: Fair insight present (Psych) Judgement: Fair judgement present (Psych) Results AMB Urinalysis, Automated UA Leukoctes 0 Zenaida/uL Last Edit by LAUREN Bhatt on 02/23/25 14:00 UA Nitrite Negative Last Edit by LAUREN Bhatt on 02/23/25 14:00 UA Urobilinogen 0.2 mg/dL Last Edit by LAUREN Bhatt on 02/23/25 14:00 UA Protein 0 mg/dL Last Edit by LAUREN Bhatt on 02/23/25 14:00 UA pH 6.0 Last Edit by LAUREN Bhatt on 02/23/25 14:00 UA Blood 0 Eder/uL Last Edit by LAUREN Bhatt on 02/23/25 14:00 UA Specific [place] 1.015 Last Edit by LAUREN Bhatt on 02/23/25 14:00 UA Ketone Negative Last Edit by LAUREN Bhatt on 02/23/25 14:00 UA Bilirubin 0 mg/dL Last Edit by LAUREN Bhatt on 02/23/25 14:00 UA Glucose 0 mg/dL Last Edit by LAUREN Bhatt on 02/23/25 14:00 Results Reviewed Results Reviewed: Laboratory Last Values Urine pH (Auto) 6.0 02/23/25 14:00 Specific Wh[place]am (Auto) 1.015 02/23/25 14:00 Urine Protein (Auto) 0 mg/dL 02/23/25 14:00 Glucose (UA)(Auto) 0 mg/dL 02/23/25 14:00 Urine Ketones (Auto) Negative 02/23/25 14:00 Urine Blood (Auto) 0 Eder/uL 02/23/25 14:00 Urine Nitrite (Auto) Negative 02/23/25 14:00 Urine Bilirubin (Auto) 0 mg/dL 02/23/25 14:00 Urine Urobilinogen (Auto) 0.2 mg/dL 02/23/25 14:00 Leukocyte Esterase (Auto) 0 Zenaida/uL 02/23/25 14:00 Date of Service: 02/16/25 Procedure(s): MR Prostate wo/w con FINDINGS: Prostate size: 5.2 x 5.6 x 5.0 cm. Calculated prostate volume is 75.7 mL. Hemorrhage: None. Transitional Zone: There is moderate heterogeneous nodular hypertrophy of the transitional zone. Peripheral Zone: A few scattered linear T2 hypointense foci are noted in the peripheral zone, which can be seen in the setting of prostatitis or scarring. No discrete focus of abnormal signal intensity is identified. There are no foci of restricted diffusion. Seminal Vesicles/Ejaculatory Ducts: Symmetric and normal in signal and caliber. Pelvic Lymph Nodes: No obturator or internal iliac lymph nodes meeting size criteria for adenopathy. Marrow Signal: Normal marrow signal and enhancement without focal lesion identified. IMPRESSION: No discrete focus of abnormal signal intensity is identified to suggest clinically significant prostate carcinoma. PI-RADS 2: Low (clinically significant cancer is unlikely to be present) Assessment & Plan Assessment & Plan (1) Prostate enlargement: Comment: CT Abdomen and Pelvis report: mild prostate enlargement Code(s): N40.0 - Benign prostatic hyperplasia without lower urinary tract symptoms Category: Medical (2) Elevated PSA: Code(s): R97.20 - Elevated prostate specific antigen [PSA] Category: Medical (3) Family history of prostate cancer: Code(s): Z80.42 - Family history of malignant neoplasm of prostate Category: Medical (4) Bladder outlet obstruction: Code(s): N32.0 - Bladder-neck obstruction Category: Medical Plan In office urinalysis results with the patient today; as noted above. Most recent PSA results with the patient today; as noted above. Most recent prostate MRI results reviewed with the patient today; as noted above. We did discussed further treatment options and risks and benefits of these treatment options. All questions were answered. Start finasteride as discussed and prescribed. Continue Flomax as discussed. Will obtain redraw of PSA in 3 months. Follow-up in 3-4 months with PSA and PVR; or sooner with any issues, concerns, and or questions. Orders: Orders PSA,Total (Free>4and<10) 3 Months N40.0 - Benign prostatic hyperplasia without lower urinary tract symptoms, R97.20 - Elevated prostate specific antigen [PSA], Z80.42 - Family history of malignant neoplasm of prostate AMB Urinalysis Automated 02/23/25 Z13.9 - Encounter for screening, unspecified Medications: New finasteride 5 mg PO DAILY 90 tabs 1RF 90 days N32.0 - Bladder-neck obstruction Patient Instructions: The patient had an opportunity to ask questions regarding the treatment plan. All questions were answered. Physical exam, labs, and imaging were discussed and reviewed in detail. As well as risks, benefits, and discussion of treatment choices. No major barriers to understanding were identified. The patient expressed understanding and agreement with the above treatment plan. The patient was made aware they should contact our office by phone for worsening of their current condition, the appearance of new symptoms, or with any questions or concerns. Compliance is encouraged with any medications and follow up testing that is ordered. It is a privilege to be allowed the opportunity to participate in? your urological care.? Again, if you have any questions or concerns If you have any questions or concerns please do not hesitate to contact me. The office is [phone]. This note is constructed using voice recognition software. While every effort has been made to ensure accuracy typesetting machine operator/tender errors may have been included. Yours sincerely, MARIA Echeverria Coding Level of Care Code Est Pt Level 4 (08776) Complex visit Add On G2211 Diagnoses Prostate enlargement N40.0 Elevated PSA R97.20 Family history of prostate cancer Z80.42 Bladder outlet obstruction N32.0
--- OUTSIDE RECORDS SUMMARY | 2025-02-23 17:07 | XMS_ITS | Clinical Summary ---
Author Organization [facility] Facility Address [address] [address] Care Team Providers Care Traffic Officer Name Role Phone Deedee Bruce MD Primary Care Provider [phone] Allergies No known active allergies Medications albuterol [...] patient's age to complete this topic [place] [address] ([id number]) NAKUL GREEN [id number] ([id number]) NAKUL GREEN [id number] Care Teams Traffic Officer Relationship Specialty Start Date End Date Deedee Bruce MD [address] [place], [place] PCP - General Internal Medicine 04/18/22
== END 2025-02-23 14:04 | disposition home or self-care (01) ==
LOC: HO.HUSH 13:18
PROVIDERS: PCP Internal Medicine; Visit Provider Nurse Practitioner Family
DX: Z13.9 Encounter for screening, unspecified (principal)

== ENCOUNTER → 2025-02-23 13:18 | Outpatient (BNVA) | payer OTHER, SELFPAY | PROVIDERS: PCP Internal Medicine; Visit Provider Nurse Practitioner Family | DX: N40.0 Benign prostatic hyperplasia without lower urinary tract symptoms (principal); R97.20 Elevated prostate specific antigen [PSA]; N32.0 Bladder-neck obstruction; Z80.42 Family history of malignant neoplasm of prostate | CPT/HCPCS: 81003; 99212 ==

== ENCOUNTER 2025-03-04 10:38 | Outpatient (AMB) | payer OTHER, SELFPAY ==
[2025-03-04 11:04] VITALS: BMI 40.2
--- NOTE | 2025-03-04 11:04 | MHC.OFFVIS ---
Vital Signs 03/04/25 11:04 Height 5 ft 9 in Weight 272 lb BMI 40.2 Intake Visit Reasons: Type II, Diabetes, Corns Intake Note: Dallas is a 60 year old male who presents today as a new patient for a diabetic foot evaluation. Patient reports his glucose is currently 130 and he is unsure of what his last A1c was. He denies experiencing any numbness, tingling, or burning sensation to his feet. No previous medical history of wounds or amputation to his feet. Allergies shrimp Allergy (Mild, Verified 03/04/25 11:05) Swelling HPI Comments Details: The patient is a 60 year old male with a past medical history as seen below presenting for a diabetic foot examination. He has a history of diabetes but is unaware of his current A1c, and he reports his last blood glucose reading was 110 mg/dL. He has calluses on both feet, with the one on the right foot causing pain with ambulation, which he describes as feeling like stepping on a rock. He denies any bleeding or purulence from the callus. He also has hammertoes on both feet but denies pain to the toes. The patient reports experiencing intermittent tingling. He denies any recent pedal injuries. He denies any other pedal concerns. [facility] Medical History Obesity (BMI 30-39.9) Morbid obesity CKD (chronic kidney disease) stage 3, GFR 30-59 ml/min Hemorrhoids with complication Family history of prostate cancer Osteoarthritis of left knee Moderate recurrent major depression Pruritus ani Internal and external hemorrhoids without complication Asthma DANIEL on CPAP Anemia Back pain Gross hematuria UTI (urinary tract infection) Prostate enlargement Diabetic polyneuropathy associated with type 2 diabetes mellitus Vitamin D deficiency Diabetes type 2, controlled Family history of anesthesia complication Hx of low back pain Hx of insomnia Hx of migraines Anxiety Depression Colon cancer screening Bleeding hemorrhoids Morbid obesity Hyperlipidemia Hypertension Hypernatremia Bloody stools Diabetes mellitus, type 2 Hiatal hernia Surgical History History of colonoscopy (~11/01/23) Hx of colonoscopy History of knee surgery History of carpal tunnel release H/O hernia repair History of umbilical hernia repair Family History Maternal Uncle History of prostate cancer Father History of throat cancer Myocardial infarction Diabetes mellitus Hypertension CVD (cardiovascular disease) Maternal Grandfather History of throat cancer Son In good health Son In good health Brother Colon cancer Mother Diabetes mellitus Social History Household Members: Spouse and Children Housing: House Are you a primary care center manager to a significant other at home: No Do you presently have visiting nurse or other home services: Yes (once a week ) Alcohol intake: former Patient Tobacco Use Status: Never used Tobacco Cigarettes Per Day: 1 e-Cigarette/Vaping Use: Never Used Second Hand Smoke Exposure: No service: No Current occupational status: disabled Cognitive needs: No Hearing needs: No Vision needs: Yes Review of Systems Const Details: - Neurological: Reports intermittent tingling. - Musculoskeletal: Reports pain in the feet when walking due to a callus, worse to the right. - Integumentary: Denies any bleeding or pus from calluses. All systems reviewed & are unremarkable except as noted in HPI and below Physical Exam Vital Signs: BMI result Body Mass Index 40.2 Extrem Other: Bilateral lower extremity focused physical exam: Derm: Xerosis noted to the plantar aspect of the feet. Hyperkeratotic lesions noted to the plantar aspects of the feet (2 present on the left foot and 1 present on the right foot). No active bleeding, purulence, or drainage noted. No erythema or ecchymosis noted. No maceration noted. Skin is supple and turgor within normal limits. No clinical signs of infection noted. Toenails noted to be of normal length. Vascular: DP/PT pulses palpable. Capillary refill time less than 3 seconds. Temperature gradient warm to warm. Pedal hair diminished. No varicosities noted. Neuro: Protective sensation is grossly intact to light touch and slightly diminished to monofilament testing. MSK: Pain on palpation to the areas of hyperkeratotic lesions. No crepitus or fluctuance noted. Range of motion of forefoot, hindfoot, and ankles within normal limits. No other gross abnormalities noted. Nonantalgic unassisted gait noted. Office Procedures AMB Debridement/Avulsion Podia Details: Debrided the hyperkeratotic lesions to bilateral feet using a sterile 15 blade without incidents. 52936-[id number] of Callus (2-4) Procedure code (CPT) selection complete Diabetic Foot Exam G9226 - Diabetic Foot Exam Results Reviewed Results Reviewed: Laboratory Tests 10/08/24 12/08/24 01/26/25 08:59 13:22 12:33 WBC 6.3 Random Glucose 94 Hgb A1c (Clinic) 6.0 Ordered labs to be obtained prior to next visit. Assessment & Plan Assessment & Plan (1) Diabetes type 2, controlled: Code(s): E11.9 - Type 2 diabetes mellitus without complications Category: Medical (2) Insulin dependent type 2 diabetes mellitus: Code(s): E11.9 - Type 2 diabetes mellitus without complications; Z79.4 - terminal block assembler (current) use of insulin Category: Medical (3) Diabetic polyneuropathy associated with type 2 diabetes mellitus: Code(s): E11.42 - Type 2 diabetes mellitus with diabetic polyneuropathy Category: Medical (4) Diabetic neuropathy: Code(s): E11.40 - Type 2 diabetes mellitus with diabetic neuropathy, unspecified Category: Medical (5) Other specified epidermal thickening: Code(s): L85.8 - Other specified epidermal thickening Category: Medical (6) Intractable plantar keratosis: Code(s): L84 - Corns and callosities Category: Medical (7) Pain in both feet: Code(s): M79.671 - Pain in right foot; M79.672 - Pain in left foot Category: Medical (8) Callus of foot: Code(s): L84 - Corns and callosities Category: Medical (9) Xerosis of skin: Code(s): L85.3 - Xerosis cutis Category: Medical Plan Patient was informed and verbally consented to the use of an ambient scribe for clinic note documentation during this visit. Educated patient on diabetes in the affects in the lower extremities. Debrided several calluses and explained to the patient that his pain on the right foot was due to a deep core, which feels like stepping on a rock. I advised him to apply Vaseline or the prescribed ammonium lactate cream to the callused areas to slow their recurrence. I also counseled him on the importance of keeping the interdigital spaces dry and wearing slippers in the house to prevent injury. I placed an order for labs to get an updated A1c. I recommended he return in 9 weeks for routine nail cutting and re-evaluation of his calluses. - Performed debridement of calluses bilaterally. - Ordered labs, including an A1c, to be drawn today. - Prescribed ammonium lactate cream to be applied to the feet for hydration. - Instructed the patient to apply Vaseline or the prescribed ammonium lactate cream to the bottom of the feet to slow the recurrence of calluses. - Educated the patient on the importance of keeping the interdigital spaces dry. - Advised the patient to wear slippers at home and avoid walking barefoot. - Advised patient to wear supportive shoe gear. - Will provide routine nail care every 9 weeks. RTC in 9 weeks. Orders: Orders Complete Blood Count Auto Diff 03/04/25 E11.42 - Type 2 diabetes mellitus with diabetic polyneuropathy, E11.9 - Type 2 diabetes mellitus without complications, Z79.4 - terminal block assembler (current) use of insulin Comprehensive Met. Panel 03/04/25 E11.42 - Type 2 diabetes mellitus with diabetic polyneuropathy, E11.9 - Type 2 diabetes mellitus without complications, Z79.4 - terminal block assembler (current) use of insulin Hemoglobin A1c 03/04/25 E11.42 - Type 2 diabetes mellitus with diabetic polyneuropathy, E11.9 - Type 2 diabetes mellitus without complications, Z79.4 - skilled nursing (current) use of insulin AMB Debridement/Avulsion Podiatry 03/04/25 E11.40 - Type 2 diabetes mellitus with diabetic neuropathy, unspecified, E11.42 - Type 2 diabetes mellitus with diabetic polyneuropathy, E11.9 - Type 2 diabetes mellitus without complications, L84 - Corns and callosities, L85.8 - Other specified epidermal thickening, M79.671 - Pain in right foot, M79.672 - Pain in left foot, Z79.4 - skilled nursing (current) use of insulin AMB Diabetic Foot Exam 03/04/25 E11.40 - Type 2 diabetes mellitus with diabetic neuropathy, unspecified, E11.42 - Type 2 diabetes mellitus with diabetic polyneuropathy, E11.9 - Type 2 diabetes mellitus without complications, Z79.4 - skilled nursing (current) use of insulin Medications: New ammonium lactate 12% 1 appl topical DAILY 385 grams 0RF L84 - Corns and callosities, L85.3 - Xerosis cutis, L85.8 - Other specified epidermal thickening Coding Level of Care Code New Pt Level 4 (47007) Diagnoses Diabetes type 2, controlled E11.9 Insulin dependent type 2 diabetes mellitus E11.9; Z79.4 Diabetic polyneuropathy associated with type 2 diabetes mellitus E11.42 Diabetic neuropathy E11.40 Other specified epidermal thickening L85.8 Intractable plantar keratosis L84 Pain in both feet M79.671; M79.672 Callus of foot L84 Xerosis of skin L85.3 CPT Codes Skin Debridement - CPT: 47343-Wuztwpblzwf of Callus (2-4) ([id number]) Diabetic Foot Exam - CPT: G9226 - Diabetic Foot Exam ([id number]) Time Spent (min) 52 Comment 7 mins for procedure
--- OUTSIDE RECORDS SUMMARY | 2025-03-04 13:12 | XMS_ITS | Clinical Summary ---
Author Organization [facility] Facility Address [address] [address] Care Team Providers Care Offal Separator Name Role Phone Deedee Bruce MD Primary Care Provider [phone] Allergies No known active allergies Medications albuterol [...] patient's age to complete this topic [place] [address] ([id number]) [employer] [id number] ([id number]) [place] [employer] [id number] Care Teams Offal Separator Relationship Specialty Start Date End Date Deedee Bruce MD [address] [place], [place] PCP - General Internal Medicine 04/18/22
== END 2025-03-04 11:21 | disposition home or self-care (01) ==
LOC: HO.HPODS 10:38
PROVIDERS: PCP Internal Medicine; Visit Provider Student in an Organized Health Care Education/Training Program
DX: E11.42 Type 2 diabetes mellitus with diabetic polyneuropathy (principal); E11.40 Type 2 diabetes mellitus with diabetic neuropathy, unspecified; Z79.4 Long term (current) use of insulin; L85.8 Other specified epidermal thickening; L84 Corns and callosities; M79.671 Pain in right foot; M79.672 Pain in left foot; L85.3 Xerosis cutis
CPT/HCPCS: 11056; 99204; G9226

== ENCOUNTER 2025-03-04 10:38 | Outpatient (REF) | payer OTHER, SELFPAY ==
[2025-03-04 17:45] LABS: MANUAL DIFF FLAG NO
[2025-03-04 18:04] LABS: Hematocrit 45.1 % (42.0-52.0); Hemoglobin 14.4 g/dl (14.0-18.0); Imm Gran Abs Auto 0.02 X10*3/uL (0.00-0.03); Imm Gran Pct Auto 0.3 % (0.0-0.4); Lymphocytes Absolute Auto 2.0 X10*3/uL (1.2-4.9); Mean Corpuscular HGB Conc 31.9 g/dl (31.0-36.0); Mean Corpuscular Hemoglobin 27.0 pg (27.0-33.0); Mean Corpuscular Volume 84.5 fL (80.0-98.0); NRBC Abs Auto 0.000 X10*3/uL (0.0-0.012); NRBC Pct Auto 0.0 /100WBC (0.0-0.2); Platelet Count 253 X10*3/uL (160-400); Red Blood Count 5.34 X10*6/uL (4.60-5.80); White Blood Count 8.0 X10*3/uL (4.8-10.8)
[2025-03-04 18:19] LABS: Alanine Aminotransferase 29 U/L (0-40); Albumin Level 4.4 g/dL (3.5-5.0); Alkaline Phosphatase 72 U/L (39-117); Anion Gap 11 (12-20); Aspartate Amino Transferase 35 U/L (5-37); Blood Urea Nitrogen 14 mg/dL (9-16); Calcium 9.8 mg/dL (8.4-10.2); Carbon Dioxide 27 mmol/L (22-29); Chloride 108 mmol/L (96-108); Estimated Glomerular Filt Rate > 60; Potassium 3.5 mmol/L (3.3-5.1); Sodium 142 mmol/L (135-145); Total Protein 6.9 g/dL (6.5-8.0)
== END 2025-03-04 10:39 | disposition home or self-care (01) ==
LOC: HO.HKASLDS 10:38
PROVIDERS: PCP Internal Medicine; Visit Provider Student in an Organized Health Care Education/Training Program
DX: E11.42 Type 2 diabetes mellitus with diabetic polyneuropathy (principal); Z79.4 Long term (current) use of insulin; L85.8 Other specified epidermal thickening; L84 Corns and callosities; M79.671 Pain in right foot; M79.672 Pain in left foot; L85.3 Xerosis cutis
CPT/HCPCS: 36415; 80053; 83036; 85025